=== PATIENT | female | born 1945 | race Caucasian/White ===

== ENCOUNTER 2020-11-07 06:53 | Outpatient (REF) | payer MEDICARE, SELFPAY ==
[2020-11-07 07:43] LABS: Hematocrit 40.8 % (37-47); Hemoglobin 13.4 g/dl (12.0-16.0); Mean Corpuscular HGB Conc 32.8 g/dl (31.0-35.0); Mean Corpuscular Hemoglobin 26.8 pg (27.0-33.0); Mean Corpuscular Volume 81.6 fL (80-98); NRBC Pct Auto 0.2 /100WBC (0.0-0.2); Platelet Count 352 X10*3/uL (160-400); Red Cell Distribution Width 15.6 % (11.0-16.0); White Blood Count 11.4 X10*3/uL (4.8-10.8)
[2020-11-07 07:52] LABS: Alanine Aminotransferase 38 U/L (0-31); Albumin Level 3.2 g/dL (3.5-5.0); Alkaline Phosphatase 88 U/L (39-117); Anion Gap 15 (12-20); Aspartate Amino Transferase 27 U/L (5-31); Bilirubin Total 0.2 mg/dL (0.0-1.0); Blood Urea Nitrogen 28 mg/dL (9-16); Calcium 8.4 mg/dL (8.4-10.2); Carbon Dioxide 32 mmol/L (22-29); Chloride 99 mmol/L (96-108); Estimated Glomerular Filt Rate 40; Glucose Random 241 mg/dL (60-115); Potassium 4.4 mmol/l (3.3-5.1); Sodium 142 mmol/L (135-145); Total Protein 5.6 g/dL (6.5-8.0)
[2020-11-07 08:34] LABS: Band Neutrophils Percent 2 % (3-5); Lymphocytes Absolute Manual 1.5 X10*3/uL (0.6-4.8); Lymphocytes Percent Manual 13 % (20-40); Monocytes Percent Manual 9 % (2-11); Neutrophils Absolute Manual 8.9 X10*3/uL (2.2-7.9); Neutrophils Percent Manual 76 % (45-73)
[2020-11-07 08:37] LABS: Acanthocytes 1+; RBC Morphology NOTED
[2020-11-07 08:38] LABS: Large Platelet PRESENT; Platelet Estimate NORMAL (NORMAL)
[2020-11-07 08:50] LABS: Platelet Morphology Comment NOTED
== END 2020-11-07 06:54 | disposition home or self-care (01) ==
LOC: HO.MMNH1L 06:53
PROVIDERS: Visit Provider Family Medicine
DX: Z20.822 Contact with and (suspected) exposure to COVID-19 (principal)
CPT/HCPCS: 36415; 80053; 85007; 85027

== ENCOUNTER 2020-11-09 15:54 | Outpatient (REF) | payer MEDICARE, SELFPAY ==
[2020-11-09 16:11] LABS: Glucose Urine UA NEG (NEG); Leukocyte Esterase Urine 1+ (NEG); Nitrite Urine NEG (NEG); Urine Blood NEG (NEG); Urine Ketones NEG (NEG); Urine Protein NEG (NEG-TRACE)
[2020-11-09 16:16] LABS: Appearance Urine HAZY; Color Urine YELLOW
[2020-11-09 16:28] LABS: Bacteria Urine 2+ /LPF; Renal Epithelial Cells Urine 1+ /LPF; Squamous Epithelial Cell Urine 1+ /LPF; WBC Urine 50-75 /HPF (0-4)
== END 2020-11-09 15:55 | disposition home or self-care (01) ==
LOC: HO.LNP 15:54
PROVIDERS: Visit Provider Family Medicine
DX: U07.1 COVID-19 (principal); I10 Essential (primary) hypertension
CPT/HCPCS: 81001; 87086; 87088; 87186

== ENCOUNTER 2020-11-14 | Outpatient (REF) | payer MEDICARE, SELFPAY ==
[2020-11-14 07:40] LABS: Hematocrit 36.9 % (37-47); Mean Corpuscular HGB Conc 32.5 g/dl (31.0-35.0); Mean Corpuscular Hemoglobin 27.5 pg (27.0-33.0); Mean Corpuscular Volume 84.4 fL (80-98); Mean Platelet Volume 10.9 fL (9.4-12.3); Platelet Count 228 X10*3/uL (160-400); Red Blood Count 4.37 X10*6/uL (4.20-5.50); Red Cell Distribution Width 16.2 % (11.0-16.0); White Blood Count 11.1 X10*3/uL (4.8-10.8)
[2020-11-14 08:06] LABS: Anion Gap 12 (12-20); Blood Urea Nitrogen 14 mg/dL (9-16); Calcium 8.4 mg/dL (8.4-10.2); Carbon Dioxide 31 mmol/L (22-29); Chloride 105 mmol/L (96-108); Estimated Glomerular Filt Rate 50; Glucose Random 156 mg/dL (60-115); Potassium 4.4 mmol/l (3.3-5.1); Sodium 144 mmol/L (135-145)
== END 2020-11-14 00:01 | disposition home or self-care (01) ==
LOC: HO.MMNH1L
PROVIDERS: Visit Provider Family Medicine
DX: U07.1 COVID-19 (principal)
CPT/HCPCS: 36415; 80048; 85027

== ENCOUNTER 2020-11-21 13:06 | Outpatient (REF) | payer MEDICARE, SELFPAY ==
[2020-11-21 07:55] LABS: Mean Corpuscular HGB Conc 32.4 g/dl (31.0-35.0); Mean Corpuscular Hemoglobin 27.3 pg (27.0-33.0); Mean Corpuscular Volume 84.1 fL (80-98); Mean Platelet Volume 11.2 fL (9.4-12.3); Platelet Count 150 X10*3/uL (160-400); Red Cell Distribution Width 16.1 % (11.0-16.0); White Blood Count 6.5 X10*3/uL (4.8-10.8)
[2020-11-21 08:13] LABS: Anion Gap 12 (12-20); Blood Urea Nitrogen 14 mg/dL (9-16); Calcium 7.9 mg/dL (8.4-10.2); Carbon Dioxide 31 mmol/L (22-29); Chloride 103 mmol/L (96-108); Estimated Glomerular Filt Rate 49; Glucose Random 172 mg/dL (60-115); Potassium 3.8 mmol/L (3.3-5.1); Sodium 142 mmol/L (135-145)
== END 2020-11-21 13:07 | disposition home or self-care (01) ==
LOC: HO.MMNH1L 13:06
PROVIDERS: Visit Provider Family Medicine
DX: U07.1 COVID-19 (principal)
CPT/HCPCS: 36415; 80048; 85027

== ENCOUNTER 2021-01-02 13:13 | Outpatient (REF) | payer MEDICARE, SELFPAY ==
--- NOTE | ~2021-01-02 | XR_ITS ---
EXAMINATION: XR SHOULDER, RIGHT CLINICAL INFORMATION: Right shoulder pain. COMPARISON: Right shoulder 12/25/2018. TECHNIQUE: AP external rotation, Grashey, scapular Y, and axillary views of the right shoulder. FINDINGS: There is moderate loss of right AC joint space and perirectal spurring. The glenohumeral joint space is reduced as well. No visible acute fracture or dislocation seen. The soft tissues are normal. 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 No visible acute fracture or dislocation seen. Similar findings were seen on the previous study 12/25/2018.
== END 2021-01-02 13:14 | disposition home or self-care (01) ==
LOC: HO.XRAY 13:13
PROVIDERS: PCP Internal Medicine; Visit Provider Emergency Medicine
DX: M25.511 Pain in right shoulder (principal)
CPT/HCPCS: 73030

== ENCOUNTER 2022-08-29 10:59 | Outpatient (REF) | payer MEDICARE, SELFPAY ==
--- NOTE | ~2022-08-29 | MM_ITS ---
EXAMINATION: BONE DENSITOMETRY CLINICAL INDICATION: Menopause. COMPARISON: Previous BD dated 11/21/2010 and baseline BD dated 10/29/2008. TECHNIQUE: Using a [employer] DXA System (software version: 13.1) manufactured by [employer], dual-energy x-ray absorptiometry was performed of the lumbar spine and left hip. The images are of good technical quality. Summary results are attached. FINDINGS: AP SPINE L1-L4: Current: BMD 1.485 g/cm2, Z-score 3.7, T-score 2.5, normal, 7.6% increase from previous, 12.0% increase from baseline (<5% change is not significant). Prior: BMD 1.380 g/cm2. Baseline: BMD 1.326 g/cm2. LEFT FEMUR, NECK: Current: BMD 0.901 g/cm2, Z-score 0.6, T-score -1.0, normal. Prior: BMD 0.968 g/cm2. Baseline: BMD 0.975 g/cm2. LEFT FEMUR, TOTAL: Current: BMD 1.039 g/cm2, Z-score 1.6, T-score 0.2, normal, 1.0% decrease from previous, 3.3% decrease from baseline (<5% change is not significant). Prior: BMD 1.049 g/cm2. Baseline: BMD 1.074 g/cm2. IDENTIFIED RISK FACTORS: Menopause, hysterectomy, right oophorectomy. HISTORY OF FRACTURE: Calcium supplements or multivitamin, vitamin D. MEDICATIONS: None listed. MM/XR DEXA axial skeleton IMPRESSION: 1. DIAGNOSIS: Normal bone density based on the lowest T-score value of -1.0 in the femoral neck applying World Health Organization criteria. 2. 10-YEAR FRACTURE RISK PREDICTION, FRAX: According to the guidelines, FRAX calculation should only be performed on patients in the osteopenia bone density category. Therefore, FRAX was not performed on this patient. 3. Treatment Recommendations: NOF guidelines recommend consideration for treatment in postmenopausal women and men age 50 and older presenting with the following: -A hip or vertebral (clinical or morphometric) fracture. -T-score less than or equal to -2.5 at the femoral neck or spine after appropriate evaluation to exclude secondary causes. -Low bone mass at the hip or spine and a 10-year fracture probability by FRAX of greater than or equal to 3% for hip fracture or greater than or equal to 20% for major osteoporotic fracture based on the [place] adapted WHO algorithm. 4. Other Recommendations: All treatment decisions require clinical judgment and consideration of individual patient factors, including patient preferences, comorbidities, previous drug use, risk factors not captured in the FRAX model (e.g. frailty, falls, vitamin D deficiency, increased bone turnover, interval significant decline in bone density) and possible under or overestimation of fracture risk by FRAX. FUTURE SCAN RECOMMENDATION: People with diagnosed cases of osteoporosis or at high risk for fracture should have regular bone mineral density tests. For patients eligible for Medicare, routine testing is allowed once every 2 years. The testing frequency can be increased to one year for patients who have rapidly progressing disease, those who are receiving or discontinuing medical therapy to restore bone mass, or have additional risk factors.
== END 2022-08-29 11:00 | disposition home or self-care (01) ==
LOC: HO.MAMMO 10:59
PROVIDERS: Visit Provider Internal Medicine
DX: Z13.820 Encounter for screening for osteoporosis (principal); Z78.0 Asymptomatic menopausal state
CPT/HCPCS: 77080

== ENCOUNTER 2023-01-04 13:35 | Outpatient (REF) | payer OTHER, SELFPAY ==
--- NOTE | ~2023-01-04 | XR_ITS ---
EXAMINATION: XR CHEST CLINICAL INFORMATION: Acute exacerbation of shortness of breath. COMPARISON: Most recent chest radiograph dated 10/26/2017. TECHNIQUE: 2 views of the chest were obtained. FINDINGS: The lungs are clear. The cardiomediastinal silhouette is normal in size. There is no pleural effusion or pneumothorax. No acute osseous abnormality. XR/XR chest 2V IMPRESSION: No acute cardiopulmonary findings.
== END 2023-01-04 13:36 | disposition home or self-care (01) ==
LOC: HO.XRAY 13:35
PROVIDERS: PCP Internal Medicine; Visit Provider Internal Medicine
DX: J44.1 Chronic obstructive pulmonary disease with (acute) exacerbation (principal)
CPT/HCPCS: 71046

== ENCOUNTER 2023-05-20 11:28 | Outpatient (REF) | payer OTHER, SELFPAY ==
[2023-05-20 14:02] LABS: Creatinine Urine 287.67 mg/dL; Microalbum/Creatinine Ratio Ur 94.2 ug/mg cr
[2023-05-20 14:07] LABS: Cholesterol 206 mg/dL; HDL Cholesterol 49 mg/dL; LDL Cholesterol Calculated 99 mg/dl; Triglycerides 290 mg/dL
[2023-05-20 14:32] LABS: Alanine Aminotransferase 15 U/L (0-31); Albumin Level 3.8 g/dL (3.5-5.0); Alkaline Phosphatase 118 U/L (39-117); Anion Gap 18 (12-20); Aspartate Amino Transferase 17 U/L (5-31); Bilirubin Total 0.5 mg/dL (0.0-1.0); Blood Urea Nitrogen 8 mg/dL (9-16); Calcium 9.9 mg/dL (8.4-10.2); Carbon Dioxide 26 mmol/L (22-29); Chloride 103 mmol/L (96-108); Estimated Glomerular Filt Rate 44; Glucose Random 120 mg/dL (60-115); Potassium 3.8 mmol/L (3.3-5.1); Sodium 143 mmol/L (135-145); Total Protein 7.2 g/dL (6.5-8.0)
[2023-05-20 15:52] LABS: Reflex LDLD? No
== END 2023-05-20 11:29 | disposition home or self-care (01) ==
LOC: HO.HHCL 11:28
PROVIDERS: Visit Provider Internal Medicine
DX: E11.9 Type 2 diabetes mellitus without complications (principal)
CPT/HCPCS: 36415; 80053; 80061; 82043

== ENCOUNTER 2023-08-28 11:40 | Outpatient (AMB) | payer OTHER, SELFPAY ==
[2023-08-28 11:47] VITALS: BP 130/60; PULSE 73; BMI 33.4
--- NOTE | 2023-08-28 11:47 | HO.NEPHOV ---
HPI HPI Comments History of Present Illness Details I had the pleasure seeing Ms Busby in follow-up of her chronic kidney disease and hypertension. She has been having a lot of anxiety lately. She denies any nausea, vomiting, diarrhea, dizziness, swelling. She has no edema. she has not had any new medication changes. Her blood pressure and blood sugars are well controlled. She did not have any other new complaints during this office visit. [facility] Medical History (Updated 08/28/23 @ 13:39 by Raul Jason MD) Hypertension Surgical History History of neck surgery Social History (Updated 08/28/23 @ 11:52 by Dolores Romero MA) Alcohol intake: never Patient Tobacco Use Status: Never used Tobacco Vital Signs 08/28/23 11:47 Height 5 ft 3 in Weight 188 lb 8 oz BMI 33.4 BP 130/60 Blood Pressure Location Lt brachial Position Sitting Pulse 73 Pulse Source Pulse Oximeter Physical Exam Vital Signs: Last Vital Signs Pulse 73 08/28/23 11:47 BP 130/60 08/28/23 11:47 BMI result Body Mass Index 33.4 Const General: comfortable and no acute distress Orientation/consciousness: patient oriented x3 HEENT Head: Yes normocephalic Mouth: Normal oral and palatal mucosa present Eyes EOM: EOMs intact bilaterally Neck Neck: Yes supple Resp Auscultation: clear to auscultation bilaterally Cardio Jugular venous distension: no JVD Rate: regular rate Heart sounds: Murmur heart sound present GI Palpation (GI): Soft to palpation Auscultation: normal bowel sounds General: Yes no CVA tenderness Back/Spine/Pelvis Back: no CVA tenderness Skin General skin exam: no rashes or lesions noted Neuro General: patient oriented x3 and moves all extremities Extrem General: Yes no pedal edema Assessment & Plan Assessment & Plan (1) CKD (chronic kidney disease) stage 3, GFR 30-59 ml/min: Code(s): N18.30 - Chronic kidney disease, stage 3 unspecified Qualifiers: Chronic kidney disease stage 3 subtype: stage 3a (GFR 45-59) Qualified Code(s): N18.31 - Chronic kidney disease, stage 3a (2) Hypertension: Code(s): I10 - Essential (primary) hypertension Qualifiers: Hypertension type: primary hypertension Qualified Code(s): I10 - Essential (primary) hypertension Plan 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 Her serum creatinine is currently stable. Blood pressure is at goal on current medication regimen. She avoids nonsteroidal anti-inflammatory medications and try to remain well hydrated. She should lose weight and should be on a low-sodium diet. I have ordered blood work including renal functions along with the urine studies. She did not ask for any prescription refills today. Follow-up appointment given. Logistics Assistant services were used for the entire encounter. All questions answered . Time spent retrieving data, patient encounter and recommendation 22 minutes. Orders: Orders Blood Urea Nitrogen Today I10 - Essential (primary) hypertension, N18.30 - Chronic kidney disease, stage 3 unspecified Creatinine Today I10 - Essential (primary) hypertension, N18.30 - Chronic kidney disease, stage 3 unspecified Calcium Today I10 - Essential (primary) hypertension, N18.30 - Chronic kidney disease, stage 3 unspecified Protein Creatinine Ratio, Ur Today I10 - Essential (primary) hypertension, N18.30 - Chronic kidney disease, stage 3 unspecified Electrolytes Today I10 - Essential (primary) hypertension, N18.30 - Chronic kidney disease, stage 3 unspecified Immunofixation Pnl, Serum Today I10 - Essential (primary) hypertension, N18.30 - Chronic kidney disease, stage 3 unspecified Coding Level of Care Code Est Pt Level 3 (35583) Diagnoses Stage 3a chronic kidney disease N18.31 Chronic kidney disease stage 3 subtype: stage 3a (GFR 45-59) Primary hypertension I10 Hypertension type: primary hypertension
== END 2023-08-28 12:08 | disposition home or self-care (01) ==
PROVIDERS: PCP Internal Medicine; Visit Provider Internal Medicine Nephrology
DX: N18.31 Chronic kidney disease, stage 3a (principal); I12.9 Hypertensive chronic kidney disease with stage 1 through stage 4 chronic kidney disease, or unspecified chronic kidney disease
CPT/HCPCS: 99213

== ENCOUNTER → 2023-08-28 11:40 | Outpatient (BNVA) | payer OTHER, SELFPAY | PROVIDERS: PCP Internal Medicine; Visit Provider Internal Medicine Nephrology | DX: I12.9 Hypertensive chronic kidney disease with stage 1 through stage 4 chronic kidney disease, or unspecified chronic kidney disease (principal); N18.31 Chronic kidney disease, stage 3a | CPT/HCPCS: 99212 ==

== ENCOUNTER 2023-11-19 09:50 | Outpatient (REF) | payer OTHER, SELFPAY ==
[2023-11-19 12:48] LABS: Anion Gap 11 (12-20); Blood Urea Nitrogen 11 mg/dL (9-16); Calcium 9.6 mg/dL (8.4-10.2); Carbon Dioxide 30 mmol/L (22-29); Chloride 103 mmol/L (96-108); Estimated Glomerular Filt Rate 43; Potassium 3.6 mmol/L (3.3-5.1); Sodium 140 mmol/L (135-145)
[2023-11-22 17:33] LABS: IgA 217 mg/dL (70-320); IgG 784 mg/dL (600-1540); IgM 95 mg/dL (50-300)
== END 2023-11-19 09:51 | disposition home or self-care (01) ==
LOC: HO.HKASLDS 09:50
PROVIDERS: Visit Provider Internal Medicine Nephrology
DX: I12.9 Hypertensive chronic kidney disease with stage 1 through stage 4 chronic kidney disease, or unspecified chronic kidney disease (principal); N18.30 Chronic kidney disease, stage 3 unspecified
CPT/HCPCS: 36415; 80051; 82310; 82565; 82784; 84520; 86334

== ENCOUNTER 2023-11-22 11:41 | Outpatient (REF) | payer OTHER, SELFPAY ==
[2023-11-22 15:19] LABS: Creatinine Urine 100.04 mg/dL; Protein/Creatinine Ratio, Ur 0.12 (<0.2); Total Protein Urine Random 12 mg/dL (<12)
== END 2023-11-22 11:42 | disposition home or self-care (01) ==
LOC: HO.HMGCLDS 11:41
PROVIDERS: PCP Internal Medicine; Visit Provider Internal Medicine Nephrology
DX: I12.9 Hypertensive chronic kidney disease with stage 1 through stage 4 chronic kidney disease, or unspecified chronic kidney disease (principal); N18.30 Chronic kidney disease, stage 3 unspecified
CPT/HCPCS: 82570; 84156

== ENCOUNTER 2023-11-26 11:05 | Outpatient (AMB) | payer OTHER, SELFPAY ==
[2023-11-26 11:07] VITALS: BP 140/72; PULSE 73; O2SAT 95; BMI 33.9
--- NOTE | 2023-11-26 11:07 | MHC.OFFVIS ---
Intake Vital Signs 11/26/23 11:07 Height 5 ft 3 in Weight 191 lb 4 oz BMI 33.9 BP 140/72 H Blood Pressure Location Rt brachial Position Sitting Pulse 73 Pulse Source Pulse Oximeter Pulse Oximetry (%) 95 Oxygen Delivery Method Room Air Intake Visit Reasons: Follow-up/ LVM Charge Histotechnologist Required: Yes Charge Histotechnologist Language: Robotics Application Engineer Name: Dale([id number]) Allergies metronidazole [From FLAGYL] Allergy (Severe, Verified 11/26/23 11:10) NEUROPSYCH EFFECTS morphine [MORPHINE] Allergy (Unknown, Verified 11/26/23 11:10) AGITATION lisinopril [From Zestril] Adverse Reaction (Mild, Verified 11/26/23 11:10) DIZZY HPI HPI Comments History of Present Illness Details I had the pleasure seeing Ms Busby in follow-up of her chronic kidney disease and hypertension. She had been having a lot of anxiety lately, which is currently help by medication changes. She has had a lot of arthritic issues and had been receiving intra-articular injections. She does not take any nonsteroidal anti-inflammatories. She denies any nausea, vomiting, diarrhea, dizziness, swelling. She has no edema. she has not had any other new medication changes. Her blood pressure and blood sugars are well controlled. She did not have any other new complaints during this office visit [facility] Medical History Hypertension Surgical History History of neck surgery Social History Alcohol intake: never Patient Tobacco Use Status: Never used Tobacco Physical Exam Vital Signs: Last Vital Signs Pulse 73 11/26/23 11:07 BP 140/72 H 11/26/23 11:07 Pulse Ox 95 11/26/23 11:07 Oxygen Delivery Method Room Air 11/26/23 11:07 BMI result Body Mass Index 33.9 Const General: comfortable and no acute distress Orientation/consciousness: patient oriented x3 HEENT Head: Yes normocephalic Mouth: Normal oral and palatal mucosa present Eyes EOM: EOMs intact bilaterally Neck Neck: Yes supple Resp Auscultation: clear to auscultation bilaterally Cardio Jugular venous distension: no JVD Rate: regular rate GI Palpation (GI): Soft to palpation Auscultation: normal bowel sounds General: Yes no CVA tenderness Back/Spine/Pelvis Back: no CVA tenderness Skin General skin exam: no rashes or lesions noted Neuro General: patient oriented x3 and moves all extremities Extrem General: Yes no pedal edema Assessment & Plan Assessment & Plan (1) CKD (chronic kidney disease) stage 3, GFR 30-59 ml/min: Code(s): N18.30 - Chronic kidney disease, stage 3 unspecified Qualifiers: Chronic kidney disease stage 3 subtype: stage 3a (GFR 45-59) Qualified Code(s): N18.31 - Chronic kidney disease, stage 3a (2) Hypertension: Code(s): I10 - Essential (primary) hypertension Qualifiers: Hypertension type: primary hypertension Qualified Code(s): I10 - Essential (primary) hypertension Plan Mrala has 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 Her serum creatinine is currently stable. Her blood pressure is at goal on current medication regimen. She avoids nonsteroidal anti-inflammatory medications and try to remain well hydrated. She should lose weight and should be on a low-sodium diet. I have ordered follow up blood work including renal functions along with the urine studies. She did not ask for any prescription refills today. Follow-up appointment given. Charge Histotechnologist services were used for the entire encounter. All questions answered Orders: Orders Parathyroid Hormone Intact Today I10 - Essential (primary) hypertension, N18.30 - Chronic kidney disease, stage 3 unspecified Vitamin D 25-OH Total Today I10 - Essential (primary) hypertension, N18.30 - Chronic kidney disease, stage 3 unspecified Blood Urea Nitrogen Today I10 - Essential (primary) hypertension, N18.30 - Chronic kidney disease, stage 3 unspecified Protein Creatinine Ratio, Ur Today I10 - Essential (primary) hypertension, N18.30 - Chronic kidney disease, stage 3 unspecified Phosphorus Today I10 - Essential (primary) hypertension, N18.30 - Chronic kidney disease, stage 3 unspecified Calcium Today I10 - Essential (primary) hypertension, N18.30 - Chronic kidney disease, stage 3 unspecified Electrolytes Today I10 - Essential (primary) hypertension, N18.30 - Chronic kidney disease, stage 3 unspecified Creatinine Today I10 - Essential (primary) hypertension, N18.30 - Chronic kidney disease, stage 3 unspecified Coding Level of Care Code Est Pt Level 3 (21097) Diagnoses Stage 3a chronic kidney disease N18.31 Chronic kidney disease stage 3 subtype: stage 3a (GFR 45-59) Primary hypertension I10 Hypertension type: primary hypertension
== END 2023-11-26 11:24 | disposition home or self-care (01) ==
PROVIDERS: PCP Internal Medicine; Visit Provider Internal Medicine Nephrology
DX: N18.31 Chronic kidney disease, stage 3a (principal); I10 Essential (primary) hypertension
CPT/HCPCS: 99213

== ENCOUNTER → 2023-11-26 11:05 | Outpatient (BNVA) | payer OTHER, SELFPAY | PROVIDERS: PCP Internal Medicine; Visit Provider Internal Medicine Nephrology | DX: I12.9 Hypertensive chronic kidney disease with stage 1 through stage 4 chronic kidney disease, or unspecified chronic kidney disease (principal); N18.31 Chronic kidney disease, stage 3a | CPT/HCPCS: 99212 ==

== ENCOUNTER 2023-12-28 10:23 | Emergency (ER) | payer OTHER, SELFPAY ==
--- NOTE | ~2023-12-28 | CT_ITS ---
Examination: CT lumbar spine and CT pelvis with IV contrast. CLINICAL INDICATION: Left hip pain. Low back pain. Status post back injections x3 weeks. COMPARISON: Lumbar spine x-ray 12/28/2022. TECHNIQUE: 2 minutes thin axial and reformatted 2 mm thin sagittal coronal images of lumbar spine were obtained. Subsequently axial 5 mm thin and reformatted 2 mm thin images of pelvis were obtained. DLP 726. This CT examination was performed using dose optimization technique as appropriate, variously including the following: Automated exposure control Adjustment of MA and/or KV according to patient size(this includes techniques or standardized protocols for targeted exams where dose is matched to indication/reason for exam; extremities or head. Use of iterative reconstruction techniques. FINDINGS: Lumbar spine: On sagittal reconstructed images there is normal lumbar lordosis. There is grade 1 anterolisthesis L3 over L4. Rest of the alignment is normal There is loss of disc at virtually at every disc level with vacuum disc phenomena and ventral spondylosis. At T12/L1 disc level there is minimal posterior spondylosis. No disc bulge, herniation or spinal canal stenosis seen. The neural foramina are patent bilaterally. L1-L2, L2-L3 disc levels is minimal bulge but no spinal canal stenosis. There is bilateral mild facet joint hypertrophy. The neural foramina are patent bilaterally. At L3-L4 disc level there is grade 1 anterolisthesis resulting in moderate diffuse disc bulge with mild concentric canal narrowing. There is moderate bilateral facet joint hypertrophy. The neural foramina are mildly narrowed. At L4-L5 disc level there is posterior bulge/osteophyte complex with mild AP canal stenosis. The neural foramina are patent despite of mild to moderate facet arthropathy. At L5-S1 disc level there is degenerative disc changes with vacuum disc phenomena and ventral and posterior spondylosis. The spinal canal is capacious. The neural foramina a mildly nodular secondary to hypertrophic facet joint changes. There is no aggressive lytic or sclerotic process seen. Paravertebral soft tissues are normal. Pelvis: There is scattered stool and gas seen in colon without distention. The small bowel loops are normal caliber. No pelvic mass, adenopathy or free fluid seen. The bladder is mildly prominent but no radiopaque calculi bladder wall thickening seen. The uterus is surgically absent. Bone windows reveal normal SI joints. The hip joints are symmetrical and normal. No bony erosive changes, loose body, fracture or dislocation seen. There No lytic or sclerotic process seen. CT/CT lumbar spine w IV con IMPRESSION: Multilevel degenerative disc changes with vacuum disc phenomena. There is grade 1 anterolisthesis L3 over L4. Minimal bulge at L1-L2, L2-L3, similar disc bulge at L3-L4 disc level in combination of bulge/osteophyte complex at L4-L5 disc level. No acute process seen in the pelvis
--- NOTE | ~2023-12-28 | XR_ITS ---
EXAMINATION: XR CHEST CLINICAL INFORMATION: Cough COMPARISON: Chest radiograph from 01/04/2023 TECHNIQUE: 2 views of the chest were obtained. FINDINGS: No focal consolidation. No pneumothorax. Trachea is midline. Cardiac mediastinal silhouette is stable. Aorta demonstrates tortuosity with atherosclerotic calcific patient. No large pleural effusion. Lower cervical spinal hardware. Multilevel degenerative changes of the thoracolumbar spine. Soft tissues are unremarkable. XR/XR chest 2V IMPRESSION: No acute cardiopulmonary process.
[2023-12-28 10:45] VITALS: BP 148/60; BP 168/88; PULSE 77; PULSE 80; RESP 18; TEMP 37.1; O2SAT 100; O2SAT 95; BMI 33.9
[2023-12-28 10:48] VITALS: PULSE 76; O2SAT 94
[2023-12-28 11:58] LABS: MANUAL DIFF FLAG NO
[2023-12-28 12:01] LABS: Basophils Absolute Auto 0.1 X10*3/uL (0.0-0.2); Basophils Percent Auto 0.3 % (0-2); Hematocrit 40.9 % (37.0-47.0); Hemoglobin 13.5 g/dl (12.0-16.0); Imm Gran Abs Auto 0.08 X10*3/uL (0.00-0.03); Imm Gran Pct Auto 0.4 % (0.0-0.4); Lymphocytes Absolute Auto 1.9 X10*3/uL (1.2-4.9); Lymphocytes Percent Auto 9.4 % (20-40); Mean Corpuscular Hemoglobin 26.5 pg (27.0-33.0); Mean Corpuscular Volume 80.4 fL (80.0-98.0); Mean Platelet Volume 9.6 fL (9.4-12.3); Monocytes Absolute Auto 1.1 X10*3/uL (0.1-1.2); Monocytes Percent Auto 5.6 % (2-11); Neutrophils Absolute Auto 16.9 x10*3/uL (2.0-8.3); Neutrophils Percent Auto 84.3 % (45-73); Platelet Count 298 X10*3/uL (160-400); Red Blood Count 5.09 X10*6/uL (4.20-5.50); Red Cell Distribution Width 16.3 % (11.0-16.0)
[2023-12-28 12:34] LABS: Alanine Aminotransferase 12 U/L (0-31); Albumin Level 3.9 g/dL (3.5-5.0); Alkaline Phosphatase 128 U/L (39-117); Anion Gap 15 (12-20); Aspartate Amino Transferase 14 U/L (5-31); Bilirubin Total 0.6 mg/dL (0.0-1.0); Calcium 9.7 mg/dL (8.4-10.2); Carbon Dioxide 29 mmol/L (22-29); Chloride 104 mmol/L (96-108); Creatinine Clr Calc Pharmacy 35.3; Estimated Glomerular Filt Rate 37; Glucose Random 161 mg/dL (60-115); Potassium 3.7 mmol/L (3.3-5.1); Sodium 144 mmol/L (135-145); Total Protein 7.2 g/dL (6.5-8.0)
--- NOTE | 2023-12-28 12:43 | PC.NURSE ---
josé miguel Ayala [phone]
[2023-12-28 12:46] LABS: Blood Urea Nitrogen 14 mg/dL (9-16)
--- NOTE | 2023-12-28 12:50 | ED_ITS ---
HPI - General Adult General Chief complaint: Extremity Problem Stated complaint: LT LEG PAIN D/T PINCHED LUMBAR NERVE PER EMS Time Seen by Provider: 12/28/23 11:04 Source: patient, family and staff interpreter Mode of arrival: EMS History of Present Illness HPI narrative: 78-year-old female with history of back injection approximately 3 weeks ago and patient states that 4 days after this injection she began experiencing significant pain down her left lower extremity and has been having some difficulty with ambulation with her cane and states that today and has become much worse. She denies any associated fever, chills, shortness of breath, chest pain and states that she did follow-up with the practitioner afterwards and that she was told she will need to have another injection. Related Data Home Medications Medication Instructions Recorded Confirmed acetaminophen 650 mg mg PO 08/28/23 tablet,extended release amlodipine 10 mg tablet 10 mg PO DAILY 08/28/23 ammonium lactate 12 % topical cream 1 appl topical BID 08/28/23 aspirin 81 mg chewable tablet 1 tab PO DAILY 08/28/23 atorvastatin 40 mg tablet 40 mg PO DAILY 08/28/23 blood sugar diagnostic (FreeStyle #10 ea 08/28/23 Lite Strips) calcium carbonate 600 mg-vitamin 1 tab PO BID 08/28/23 D3 10 mcg (400 unit) tablet fluticasone 500 mcg-salmeterol 50 1 ea inhalation BID 08/28/23 mcg/dose blistr powdr for inhalation fluticasone propionate 50 spray intranasal 08/28/23 mcg/actuation nasal spray,suspension isosorbide mononitrate 30 mg 30 mg PO DAILY 08/28/23 tablet,extended release 24 hr isosorbide mononitrate 60 mg 60 mg PO DAILY 08/28/23 tablet,extended release 24 hr lancets 33 gauge (Unilet Lancet) #100 ea 08/28/23 meloxicam 15 mg tablet 15 mg PO DAILY 08/28/23 metoprolol succinate 100 mg 100 mg PO DAILY 08/28/23 tablet,extended release 24 hr montelukast 10 mg tablet 10 mg PO DAILY 08/28/23 multivitamin 1 tab PO DAILY 08/28/23 omeprazole 40 mg capsule,delayed 40 mg PO DAILY 08/28/23 release paroxetine HCl 40 mg tablet 40 mg PO DAILY 08/28/23 tiotropium bromide 1.25 2 puff inhalation DAILY 08/28/23 mcg/actuation mist for inhalation (Spiriva Respimat) trazodone 50 mg tablet 50 mg PO BEDTIME 08/28/23 triamcinolone acetonide 0.025 % appl topical 08/28/23 topical cream triamcinolone acetonide 0.1 % 1 appl topical BID-TID 08/28/23 topical cream Allergies Allergy/AdvReac Type Severity Reaction Status Date / Time metronidazole [From FLAGYL] Allergy Severe NEUROPSYCH Verified 11/26/23 11:10 EFFECTS morphine [MORPHINE] Allergy Unknown AGITATION Verified 11/26/23 11:10 lisinopril [From Zestril] AdvReac Mild DIZZY Verified 11/26/23 11:10 Review of Systems 2 Review of Systems: Pertinent positives and negatives as stated in in HPI PMFSH Past Medical History Source: nursing notes reviewed Medical History Hypertension Surgical History History of neck surgery Social History Social History Alcohol intake: never Patient Tobacco Use Status: Never used Tobacco Smoked in Last 30 Days: No Use of substances other than those prescribed or required for medical reasons: No Advance Directives: No Advance Directives Information Provided: Yes Physical Exam ED Vital Signs: Vital Signs - 24 hr 12/28/23 10:45 12/28/23 10:48 12/28/23 13:01 Temperature 98.8 F Pulse Rate 77 76 87 Respiratory Rate 18 20 Blood Pressure 148/60 H 143/61 H Pulse Oximetry 95 94 94 Oxygen Delivery Method Room Air Room Air Room Air Oxygen Flow Rate 12/28/23 14:54 12/28/23 15:39 Temperature 99.5 F Pulse Rate 84 77 Respiratory Rate 16 16 Blood Pressure 124/59 L 127/52 L Pulse Oximetry 96 99 Oxygen Delivery Method Nasal Cannula Nasal Cannula Oxygen Flow Rate 2 2 BMI result Body Mass Index 33.9 VITAL SIGNS: Reviewed. GENERAL: Well developed, well nourished, in no acute distress. HEAD: Normocephalic/atraumatic EYES: PERRLA, EOMI EARS: Ext canals without abnormality NOSE: Nares patent bilateral OROPHARYNX: no oral lesions noted, posterior pharynx clear NECK: Supple, no adenopathy LUNGS: Normal breath sounds. No adventitious sounds or accessory muscle use. SpO2<94> CARDIOVASCULAR: Regular rate and rhythm without noted murmurs ABDOMEN: Soft, non-tender, non-distended with bowel sounds. PELVIS: Stable, tenderness to palpation along lateral leg and greater trochanter area BACK: No midline vertebral tenderness to palpation or step-offs noted no erythema or induration noted MUSCULOSKELETAL: No tenderness, deformities, or effusions noted on gross inspection. EXTREMITIES: No cyanosis, clubbing or edema. SKIN: Inspection of the skin reveals no rashes NEUROLOGIC: Alert and oriented x 4. Strength and sensation to light touch were grossly intact x 4. Medications Administered Generic Name Dose Route Start Last Admin Trade Name Freq PRN Reason Stop Dose Admin Sodium Chloride 500 mls @ 999 mls/hr 12/28/23 15:45 12/28/23 15:50 Ns IV 12/28/23 16:15 999 mls/hr .Q31M SABINE Administration Discontinued Medications Generic Name Dose Route Start Last Admin Trade Name Freq PRN Reason Stop Dose Admin Acetaminophen 975 mg 12/28/23 15:48 12/28/23 15:54 Acetaminophen 325 Mg Tablet PO 12/28/23 15:49 975 mg ONCE ONE Administration Sodium Chloride 1,000 mls @ 999 mls/hr 12/28/23 14:30 12/28/23 15:53 Ns IV 12/28/23 15:30 Infused .Q1H1M SABINE Infusion Iohexol 85 ml 12/28/23 14:17 12/28/23 14:17 Iohexol 350 Mg/Ml 100 Ml Infus..Btl IV 12/28/23 14:18 85 ml ONCE ONE Administration Ketorolac Tromethamine 15 mg 12/28/23 12:38 12/28/23 12:59 Ketorolac Tromethamine 30 Mg/Ml Vial IVPUSH 12/28/23 12:39 15 mg ONCE ONE Administration Lidocaine 1 patch 12/28/23 15:48 12/28/23 15:55 Lidocaine 4 % Patch Adh..Patch TRANSDERMA 12/28/23 15:49 1 patch ONCE ONE Administration Protocol Medical Decision Making Medical Decision Making MDM Narrative: 78-year-old female with history and clinical presentation, DDX: Possible infection related to injection, possible leukocytosis secondary to steroid use, no clinical suspicion for spinal abscess per se although patient has had recent back injection there does not appear to be any midline vertebral tenderness. There is no bowel or bladder dysfunction. Patient had IV placed and was provided with 15 mg of Toradol. I reviewed all investigations and hematologic indices demonstrate a leukocytosis but patient is afebrile and no obvious sources of any infection, there is no anemia or thrombocytopenia. Chemistry indices do not demonstrate an ROSS or electrolyte/liver enzyme derangements. CT scan demonstrates multi level degenerative changes without significant stenoses or canal narrowing, CT scan of the pelvis demonstrates scattered stool and gas but otherwise no bony abnormalities to suggest occult fractures or dislocations. Patient has no complaints of abdominal pain, on physical exam very difficult to identify specific location of patient's pain although it did appear to be consistent with a possible sciatica versus greater trochanter bursitis. Patient was also noted to be able to lift her leg although when explicitly asked she denies the ability. Patient's supplemented with Tylenol and lidocaine patch. I am awaiting urinalysis results, and overall feel that patient's presentation is consistent with chronic osteoarthritic pain and no concern for cauda equina/spinal abscess and suspect that the leukocytosis that is observed is secondary to the use of steroids and a component of reactivity. Signed out to Dr Duffy: - UA - 2V CXR Differential Diagnosis Differential Diagnoses: The differential diagnosis associated with the presentation includes Please see the discussion above Admission/Observation Consideration of admission/observation: Escalation of care including admission/observation considered Please see the discussion above Lab Data MDM Lab Attestation statement: I reviewed the patient's lab results. Please see the discussion above 12/28/23 11:51 12/28/23 11:51 Labs: Lab Results 12/28/23 12/28/23 12/28/23 Range/Units 11:51 14:14 15:41 WBC 20.0 H (4.8-10.8) X10*3/uL RBC 5.09 (4.20-5.50) X10*6/uL Hgb 13.5 (12.0-16.0) g/dl Hct 40.9 (37.0-47.0) % MCV 80.4 (80.0-98.0) fL MCH 26.5 L (27.0-33.0) pg MCHC 33.0 (31.0-35.0) g/dl RDW 16.3 H (11.0-16.0) % Plt Count 298 (160-400) X10*3/uL MPV 9.6 (9.4-12.3) fL Immature Gran % (Auto) 0.4 (0.0-0.4) % Neut % (Auto) 84.3 H (45-73) % Lymph % (Auto) 9.4 L (20-40) % [place] % (Auto) 5.6 (2-11) % Eos % (Auto) 0.0 (0-4) % Baso % (Auto) 0.3 (0-2) % Lymph # (Auto) 1.9 (1.2-4.9) X10*3/uL [place] # (Auto) 1.1 (0.1-1.2) X10*3/uL Eos # (Auto) 0.0 (0.0-0.4) X10*3/uL Baso # (Auto) 0.1 (0.0-0.2) X10*3/uL Abs Immat Gran (auto) 0.08 H (0.00-0.03) X10*3/uL Absolute Neuts (auto) 16.9 H (2.0-8.3) x10*3/uL Absolute Nucleated RBC 0.000 (0.0-0.012) X10*3/uL Nucleated RBC % (auto) 0.0 (0.0-0.2) /100WBC Sodium 144 (135-145) mmol/L Potassium 3.7 (3.3-5.1) mmol/L Chloride 104 (96-108) mmol/L Carbon Dioxide 29 (22-29) mmol/L Anion Gap 15 (12-20) BUN 14 (9-16) mg/dL Creatinine 1.37 (0.5-1.4) mg/dL Estim Creat Clear Calc 35.3 Estimated GFR 37 Random Glucose 161 H (60-115) mg/dL Lactic Acid 1.8 (0.5-2.0) mmol/L Calcium 9.7 (8.4-10.2) mg/dL Total Bilirubin 0.6 (0.0-1.0) mg/dL AST 14 (5-31) U/L ALT 12 (0-31) U/L Alkaline Phosphatase 128 H (39-117) U/L Total Protein 7.2 (6.5-8.0) g/dL Albumin 3.9 (3.5-5.0) g/dL Urine Color Yellow Urine Appearance Clear Urine pH 5.5 (5.0-9.0) Ur Specific [place] >= 1.030 H (1.005-1.025) Urine Protein Trace (Neg-Trace) mg/dL Urine Glucose (UA) Negative (Negative) mg/dL Urine Ketones Negative (Negative) mg/dL Urine Blood Negative (Negative) Urine Nitrite Negative (Negative) Ur Leukocyte Esterase Small (1+) H (Negative) Radiology Impression Discussion of test interpretation with radiology: I have reviewed the radiologist's reading. Radiologist Impression: Please see the discussion above External Record Review External record reviewed: Outpatient record and Prior outpatient labs Chronic Conditions Patient?s care impacted by: Hypertension and Other IBS Critical Care Time Critical Care Time Critical Care Time: Yes Total Critical Care Time: 30 Attestation: I personally attest to this time spent taking care of the patient. Discharge Plan Discharge Clinical Impression: Lateral pain of left hip Patient Disposition: Still a Patient Prescriptions: No Action isosorbide mononitrate 60 mg tablet extended release 24 hr 60 mg PO DAILY calcium carbonate-vitamin D3 600 mg-10 mcg (400 unit) tablet 1 tab PO BID Spiriva Respimat 1.25 mcg/actuation mist 2 puff inhalation DAILY (DME) lancets [Unilet Lancet] 33 gauge misc See Rx Instructions .ROUTE .MEDSUPPLY Qty: 100 Rx Instructions: As directed aspirin 81 mg tablet,chewable 1 tab PO DAILY fluticasone propion-salmeterol 500-50 mcg/dose blister with device 1 ea inhalation BID amlodipine 10 mg tablet 10 mg PO DAILY (DME) FreeStyle Lite Strips Strip See Rx Instructions .ROUTE BID Qty: 10 Rx Instructions: As directed trazodone 50 mg tablet 50 mg PO BEDTIME ammonium lactate 12 % cream 1 appl topical BID triamcinolone acetonide 0.1 % cream 1 appl topical BID-TID acetaminophen 650 mg tablet extended release PO montelukast 10 mg tablet 10 mg PO DAILY omeprazole 40 mg capsule,delayed release(DR/EC) 40 mg PO DAILY metoprolol succinate 100 mg tablet extended release 24 hr 100 mg PO DAILY atorvastatin 40 mg tablet 40 mg PO DAILY paroxetine HCl 40 mg tablet 40 mg PO DAILY isosorbide mononitrate 30 mg tablet extended release 24 hr 30 mg PO DAILY multivitamin Tablet 1 tab PO DAILY triamcinolone acetonide 0.025 % cream topical fluticasone propionate 50 mcg/actuation spray,suspension intranasal meloxicam 15 mg tablet 15 mg PO DAILY
[2023-12-28] MEDS: Ketorolac Tromethamine 30 MG/ML VIAL 15 MG IVPUSH (12:59)
--- NOTE | 2023-12-28 13:00 | PC.NURSE ---
IV established, medicated as charted. Pt is difficult IV stick and unable to obatin blood cultures x 3 attempts (by different staff)
[2023-12-28 13:01] VITALS: BP 143/61; PULSE 87; RESP 20; O2SAT 94
[2023-12-28] MEDS: iohexoL 350 MG/ML 100 ML INFUS..BTL 85 ML IV (14:17)
[2023-12-28 14:50] LABS: Lactic Acid 1.8 mmol/L (0.5-2.0)
[2023-12-28] MEDS: 0.9 % Sodium Chloride 1,000 ML 999 ML IV (14:52)
--- NOTE | 2023-12-28 14:53 | PC.NURSE ---
Pt placed on 2lpm via nc, sat 90-91 on room air. Pt asleep s/p Toradol given and appears restful. Awaiting results and dispo
[2023-12-28 14:54] VITALS: BP 124/59; PULSE 84; RESP 16; O2SAT 96
[2023-12-28 15:39] VITALS: BP 127/52; PULSE 77; RESP 16; TEMP 37.5; O2SAT 99
[2023-12-28] MEDS: 0.9 % Sodium Chloride 500 ML 999 ML IV (15:50)
[2023-12-28] MEDS: Acetaminophen 325 MG TABLET 975 MG PO (15:54)
[2023-12-28 15:55] LABS: Appearance Urine Clear; Color Urine Yellow; Glucose Urine UA Negative (Negative); Leukocyte Esterase Urine Small (1+) (Negative); Nitrite Urine Negative (Negative); PH 5.5 (5.0-9.0); Specific Gravity - Urine >= 1.030 (1.005-1.025); UMIC TRIGGER UACC YES; Urine Blood Negative (Negative); Urine Ketones Negative (Negative); Urine Protein Trace mg/dL (Neg-Trace)
[2023-12-28] MEDS: Lidocaine 4 % Patch ADH..PATCH 1 PATCH TRANSDERMA (15:55)
[2023-12-28 15:59] LABS: Bacteria Urine Trace (None Seen); Hyaline Casts Urine 0-2 /LPF (0-2); RBC Urine 0-2 /HPF (0-2); UACC Culture Trigger YES
[2023-12-28] MEDS: cefuroxime axetiL 250 MG TABLET PO (17:19)
--- NOTE | 2023-12-28 17:33 | PC.NURSE ---
family called to come case picker patient.
== END 2023-12-28 18:21 | disposition home or self-care (01) ==
PROVIDERS: Student in an Organized Health Care Education/Training Program; Emergency Provider Emergency Medicine Emergency Medical Services; PCP Internal Medicine
DX: M25.552 Pain in left hip (principal); M54.50 Low back pain, unspecified; R05.9 Cough, unspecified; D72.829 Elevated white blood cell count, unspecified; R82.90 Unspecified abnormal findings in urine
CPT/HCPCS: 36415; 71046; 72132; 72193; 80053; 81001; 83605; 85025; 87040; 87086; 99284; 99285; J1885; Q9967

== ENCOUNTER 2024-01-03 22:30 | Inpatient (IN) | payer OTHER, SELFPAY ==
--- NOTE | ~2024-01-03 | CT_ITS ---
EXAMINATION: CT HEAD WITHOUT CONTRAST CLINICAL INFORMATION: Altered mental status. COMPARISON: CT head 06/23/2012. TECHNIQUE: Contiguous axial imaging was performed from the skull base to vertex without intravenous administration of contrast. This CT examination was performed using dose optimization techniques as appropriate, variously including the following: *Automated exposure control *Adjustment of mA and/or kV according to patient size (this includes techniques or standardized protocols for targeted exams where dose is matched to indication/reason for exam; i.e. extremities or head) *Use of iterative reconstruction technique DLP: 683 mGy-cm FINDINGS: Age indeterminate small approximately 7 mm hypodensity anterior to the left thalamus (2:24). There is no evidence of acute intracranial hemorrhage or edematous territorial infarction. A few foci of hypoattenuation in the periventricular and deep white matter are consistent with mild microangiopathy. Cleaning-white matter differentiation is preserved. Proportional prominence of the ventricles and sulcal spaces. No evidence for obstructive hydrocephalus. No abnormal mass effect or midline shift. No extra-axial fluid collections. Hyperostosis frontalis interna. Subjective increased sclerosis of the bony calvarium, not significantly changed since 2011. No acute osseous or soft tissue abnormalities.. The mastoid air cells and paranasal sinuses are clear. CT/CT head/brain wo IV con IMPRESSION: 1. Age-indeterminate small hypodensity anterior to the left thalamus. If there is clinical concern for an acute cerebrovascular accident, further evaluation with an MRI of the brain is recommended. 2. No evidence of acute intracranial hemorrhage or edematous territorial infarction. 3. Mild chronic microangiopathy and generalized cerebral volume loss. 4. Subjective increased sclerosis of the bony calvarium, not significantly changed since 2011.
--- NOTE | ~2024-01-03 | XR_ITS ---
EXAMINATION: XR CHEST CLINICAL INFORMATION: Altered mental status COMPARISON: Chest x-ray December 28, 2023 TECHNIQUE: 2 views of the chest were obtained. FINDINGS: Lungs are clear. No pulmonary vascular congestion. There is no pleural effusion. The heart size is normal. The cardiac and mediastinal contours are normal. There are calcifications of the thoracic aorta. There are multilevel degenerative changes of dorsal spine. Orthopedic hardware lower cervical spine. XR/XR chest 2V IMPRESSION: Unremarkable examination.
--- NOTE | ~2024-01-03 | MR_ITS ---
EXAMINATION: MR BRAIN WITHOUT CONTRAST CLINICAL INFORMATION: Possible CVA COMPARISON: CT head 01/03/2024 TECHNIQUE: MRI of the brain was obtained using routine sequences without contrast. FINDINGS: Corresponding to previously queried hypodensity on a CT is an acute infarct in the ventromedial left thalamus. No significant mass effect or reperfusion hemorrhage. No extra-axial fluid collection. Mild global cerebral volume loss.No mass lesion, mass effect, or herniation pattern. Normal intracranial arterial and dural venous sinus flow voids. Normal appearance of the midline structures. Lens extractions. The paranasal sinuses are well aerated. Trace bilateral mastoid effusions. Normal marrow signal. 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
[2024-01-03 22:42] VITALS: BP 122/75; BP 142/75; PULSE 82; PULSE 86; RESP 15; TEMP 37.2; O2SAT 94; O2SAT 98; BMI 33.4
--- NOTE | 2024-01-03 23:09 | PC.NURSE ---
inclinometer tester at bedside. pt biba from home after being sent for increased AMS. pt has ICU MANAGER which stated pt began being confused this afternoon, pt was unable to answer questions. pt able to states name, where she is, and what day it is. pt is unable to state what hospital and what year it is. pt denies pain. pt denies cp, sob, n/v/d. 20G placed in left ac by kyler schmitt.
--- NOTE | 2024-01-03 23:22 | ECG_ITS ---
Test Reason : ALTERED MENTAL STATUS Blood Pressure : / mmHG Vent. Rate : 077 BPM Atrial Rate : 077 BPM P-R Int : 154 ms QRS Dur : 082 ms QT Int : 390 ms P-R-T Axes : 036 -21 028 degrees QTc Int : 441 ms Normal sinus rhythm Left ventricular hypertrophy with repolarization abnormality ( R in aVL ) Abnormal ECG When compared with ECG of 26-MAY-2019 15:35, Nonspecific T wave abnormality now evident in Anterolateral leads Referred By: Felicia Sheehan Electronically Signed By:PENNIE BIRD MD
--- NOTE | 2024-01-03 23:26 | ED.AMS ---
HPI - Altered Mental Status General Chief Complaint: Altered Mental Status Stated Complaint: confusion from meds, alert only to self Time Seen by Provider: 01/03/24 22:52 Source: patient, family, EMS and company controller Mode of arrival: EMS Limitations: language barrier and altered mental status History of Present Illness HPI narrative: 78-year-old female with a history of CKD, hypertension presents to the ER with concern for altered mental status. Per friend at the bedside since 15:00 this afternoon they noticed the patient was confused. Unknown last known normal as she lives alone and they noticed she was confused when they were talking to her on the phone. Patient has no underlying history of dementia. She denies any recent falls or injuries. She can tell me herself that she feels confused. Of note patient was started on Lyrica for back pain 50 mg at night time which started on December 23. She denies taking any other additional pain medications. She denies any substance use. 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 She denies taking any additional doses. She is on a antibiotic for UTI currently. She denies fevers, chills, headache, neck pain, neck stiffness, skin rash, chest pain or shortness of breath. She does report some lower back pain. Related Data Home Medications Medication Instructions Recorded Confirmed acetaminophen 650 mg mg PO 08/28/23 tablet,extended release amlodipine 10 mg tablet 10 mg PO DAILY 08/28/23 ammonium lactate 12 % topical cream 1 appl topical BID 08/28/23 aspirin 81 mg chewable tablet 1 tab PO DAILY 08/28/23 atorvastatin 40 mg tablet 40 mg PO DAILY 08/28/23 blood sugar diagnostic (FreeStyle #10 ea 08/28/23 Lite Strips) calcium carbonate 600 mg-vitamin 1 tab PO BID 08/28/23 D3 10 mcg (400 unit) tablet fluticasone 500 mcg-salmeterol 50 1 ea inhalation BID 08/28/23 mcg/dose blistr powdr for inhalation fluticasone propionate 50 spray intranasal 08/28/23 mcg/actuation nasal spray,suspension isosorbide mononitrate 30 mg 30 mg PO DAILY 08/28/23 tablet,extended release 24 hr isosorbide mononitrate 60 mg 60 mg PO DAILY 08/28/23 tablet,extended release 24 hr lancets 33 gauge (Unilet Lancet) #100 ea 08/28/23 meloxicam 15 mg tablet 15 mg PO DAILY 08/28/23 metoprolol succinate 100 mg 100 mg PO DAILY 08/28/23 tablet,extended release 24 hr montelukast 10 mg tablet 10 mg PO DAILY 08/28/23 multivitamin 1 tab PO DAILY 08/28/23 omeprazole 40 mg capsule,delayed 40 mg PO DAILY 08/28/23 release paroxetine HCl 40 mg tablet 40 mg PO DAILY 08/28/23 tiotropium bromide 1.25 2 puff inhalation DAILY 08/28/23 mcg/actuation mist for inhalation (Spiriva Respimat) trazodone 50 mg tablet 50 mg PO BEDTIME 08/28/23 triamcinolone acetonide 0.025 % appl topical 08/28/23 topical cream triamcinolone acetonide 0.1 % 1 appl topical BID-TID 08/28/23 topical cream Previous Rx's Medication Instructions Recorded acetaminophen 500 mg tablet 1,000 mg (2 x 500 mg) PO Q6H PRN 12/28/23 (Tylenol Extra Strength) pain #20 tabs cefuroxime axetil 250 mg tablet 250 mg PO Q12H 5 days #10 tabs 12/28/23 ibuprofen 400 mg tablet 400 mg PO TID PRN fever or pain 12/28/23 #20 tabs Allergies Allergy/AdvReac Type Severity Reaction Status Date / Time metronidazole [From FLAGYL] Allergy Severe NEUROPSYCH Verified 01/03/24 22:54 EFFECTS morphine [MORPHINE] Allergy Unknown AGITATION Verified 01/03/24 22:54 lisinopril [From Zestril] AdvReac Mild DIZZY Verified 01/03/24 22:54 Review of Systems Review of Systems: Yes Unobtainable due to mental status Neurologic: Denies Abnormal speech present and Reports confusion Psychiatric: Psychiatric: Reports confusion [facility] Past Medical History Attestation statement: The following information was validated with the patient. Source: old records reviewed and nursing notes reviewed Medical History Hypertension Surgical History History of neck surgery Social History Social History Alcohol intake: never Patient Tobacco Use Status: Never used Tobacco Smoked in Last 30 Days: No Use of substances other than those prescribed or required for medical reasons: No Advance Directives: No Advance Directives Information Provided: No Physical Exam ED Vital Signs: Vital Signs - 24 hr 01/03/24 22:42 Temperature 98.9 F Pulse Rate 82 Respiratory Rate 15 Blood Pressure 142/75 H Pulse Oximetry 94 Oxygen Delivery Method Room Air BMI result Body Mass Index 33.4 Const General: cooperative, alert and confusion Orientation/consciousness: oriented to person and confusion Limitations: altered mental status HENMT Head: Yes normal to inspection Ears: hearing grossly normal bilaterally and TM's normal bilaterally General nose exam: Normal external nose present Face and sinus: Yes normal facial exam Mouth: Normal oral and palatal mucosa present Throat: Yes posterior oropharynx normal, Yes tonsils normal and Yes uvula midline Eyes General: appearance normal, both eyes and all related structures Pupils: Equal, round and reactive pupils present Neck Neck: Yes normal visual inspection, Yes full ROM, Yes no lymphadenopathy and Yes no meningeal signs Chest Chest palpation & inspection: normal inspection of the chest Resp Effort & Inspection: normal respiratory effort Auscultation: clear to auscultation bilaterally Cardio Rate: regular rate Rhythm: regular rhythm Peripheral pulses: Peripheral pulses 2+ throughout GI Inspection: Yes normal to inspection Palpation (GI): Soft to palpation and nontender Auscultation: normal bowel sounds Back/Spine/Pelvis Thoracic/Lumbar Spine: thoracic and lumbar spine normal to inspection Skin General skin exam: no rashes or lesions noted Neuro General: oriented to person, moves all extremities, no meningeal signs, no focal motor deficits, normal sensation to monofilament and confusion Cranial nerves: Yes CN's II-XII intact bilaterally, Yes Equal, round and reactive pupils present, Yes Bilaterally intact EOM present, Yes Nystagmus not present, Yes Normal facial strength present and Yes Midline tongue present Cognition (Neuro): normal cognition Speech: No Abnormal speech present Motor exam (neuro): 5/5 motor strength present throughout Sensory Exam: Normal double simultaneous stimulation for sensation Extrem General: Yes normal to inspection, Yes no pedal edema and Yes no calf tenderness NIH Stroke Scale Internal: Initial- Upon Arrival Level of Consciousness: Alert Level of Consciousness Questions: Answers one question correctly (Unsure of month) Level of Consciousness Commands: Performs both tasks correctly Best Gaze: Normal Visual: No visual loss Facial Palsy: Normal Motor Arm (Right): No drift Motor Arm (Left): No drift Motor Leg (Right): No drift Motor Leg (Left): No drift Limb Ataxia: Absent Sensory: Normal Best Language: No aphasia Dysarthia: Normal Extinction and Inattention: No abnormality Score: 1 Course Course Course Narrative: -Abnormal Ct head. In the setting of acute AMS cannot r/o acute CVA. Will give ASA. Will need admission for MRI brain Medications Administered Generic Name Dose Route Start Last Admin Trade Name Freq PRN Reason Stop Dose Admin Magnesium Sulfate/Dextrose 1 gm in 100 mls @ 100 mls/hr 01/04/24 01:22 01/04/24 01:29 Magnesium Sulfate/D5w IV 01/04/24 02:21 100 mls/hr ONCE ONE Administration Discontinued Medications Generic Name Dose Route Start Last Admin Trade Name Freq PRN Reason Stop Dose Admin Aspirin 325 mg 01/04/24 01:07 01/04/24 01:25 Aspirin 325 Mg Tablet PO 01/04/24 01:08 325 mg ONCE ONE Administration Medical Decision Making Medical Decision Making [facility] Narrative: 78-year-old female with a history of CKD, hypertension presents to the ER with concern for altered mental status. Per friend at the bedside since 15:00 this afternoon they noticed the patient was confused. Unknown last known normal as she lives alone and they noticed she was confused when they were talking to her on the phone. Patient has no underlying history of dementia. She denies any recent falls or injuries. She can tell me herself that she feels confused. Of note patient was started on Lyrica for back pain 50 mg at night time which started on December 23. She denies taking any other additional pain medications. She denies any substance use. 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 She denies taking any additional doses. She is on a antibiotic for UTI currently. She denies fevers, chills, headache, neck pain, neck stiffness, skin rash, chest pain or shortness of breath. She does report some lower back pain. Patient is Alert, oriented to self only. Believes she is in a hospital in [place]. Unsure of month or year. No other focal findings. NIH 1. Not TNK candidate due to length of symptoms and uncertainess of last known well time. ?med related. Will need labs, UA, EKG, LUTZ, CXR, CT head Differential Diagnosis Differential Diagnoses: The differential diagnosis associated with the presentation includes metabolic encephalopathy, ICH/CVA, meningitis/encephalitis, anemia, electrolyte abnormality, polypharmacy Admission/Observation Consideration of admission/observation: Escalation of care including admission/observation considered Abnormal CT head requiring admit for MRI brain Consult Healthcare Provider Management of the patient was discussed with: Hospitalist Dr Gonzalez-accepted admission at 0145 Lab Data [facility] Lab Attestation statement: I reviewed the patient's lab results. 01/04/24 00:57 01/04/24 00:57 Labs: Lab Results 01/04/24 01/04/24 Range/Units 00:57 00:58 WBC 11.2 H (4.8-10.8) X10*3/uL RBC 4.72 (4.20-5.50) X10*6/uL Hgb 12.3 (12.0-16.0) g/dl Hct 37.5 (37.0-47.0) % MCV 79.4 L (80.0-98.0) fL MCH 26.1 L (27.0-33.0) pg MCHC 32.8 (31.0-35.0) g/dl RDW 15.6 (11.0-16.0) % Plt Count 348 (160-400) X10*3/uL MPV 9.7 (9.4-12.3) fL Immature Gran % (Auto) 0.3 (0.0-0.4) % Neut % (Auto) 70.1 (45-73) % Lymph % (Auto) 24.4 (20-40) % Maverick % (Auto) 4.9 (2-11) % Eos % (Auto) 0.0 (0-4) % Baso % (Auto) 0.3 (0-2) % Lymph # (Auto) 2.7 (1.2-4.9) X10*3/uL Maverick # (Auto) 0.6 (0.1-1.2) X10*3/uL Eos # (Auto) 0.0 (0.0-0.4) X10*3/uL Baso # (Auto) 0.0 (0.0-0.2) X10*3/uL Abs Immat Gran (auto) 0.03 (0.00-0.03) X10*3/uL Absolute Neuts (auto) 7.9 (2.0-8.3) x10*3/uL Absolute Nucleated RBC 0.000 (0.0-0.012) X10*3/uL Nucleated RBC % (auto) 0.0 (0.0-0.2) /100WBC PT 12.1 (11.1-13.3) SEC INR 1.0 (0.9-1.1) Sodium 147 H (135-145) mmol/L Potassium 3.5 (3.3-5.1) mmol/L Chloride 108 (96-108) mmol/L Carbon Dioxide 27 (22-29) mmol/L Anion Gap 16 (12-20) BUN 12 (9-16) mg/dL Creatinine 1.31 (0.5-1.4) mg/dL Estim Creat Clear Calc 36.6 Estimated GFR 39 Random Glucose 129 H (60-115) mg/dL Calcium 9.3 (8.4-10.2) mg/dL Magnesium 1.5 L (1.6-2.6) mg/dL Total Bilirubin 0.2 (0.0-1.0) mg/dL Direct Bilirubin < 0.2 (0.0-0.5) mg/dL AST 16 (5-31) U/L ALT 14 (0-31) U/L Alkaline Phosphatase 151 H (39-117) U/L Troponin I High Sens < 2.7 (<3.5-17.0) ng/L Total Protein 6.9 (6.5-8.0) g/dL Albumin 3.6 (3.5-5.0) g/dL Salicylates < 5.0 L (15-30) mg/dL Acetaminophen < 3 (<30) mcg/mL Ethyl Alcohol < 10 mg/dL Independent Interpretation I performed an independent interpretation of an: EKG, Plain X-Ray and CT Scan Interpretation: I independently viewed the x-ray and the ct head and agree with radiologist's report I independently reviewed the EKG which shows a normal sinus rhythm with a rate of 77, normal KS, normal QRS, normal QT, nonspecific ST changes when compared to EKG from 2019 Radiology Impression Discussion of test interpretation with radiology: I have reviewed the radiologist's reading. Radiologist Impression: FINDINGS: Age indeterminate small approximately 7 mm hypodensity anterior to the left thalamus (2:24). There is no evidence of acute intracranial hemorrhage or edematous territorial infarction. A few foci of hypoattenuation in the periventricular and deep white matter are consistent with mild microangiopathy. Cleaning-white matter differentiation is preserved. Proportional prominence of the ventricles and sulcal spaces. No evidence for obstructive hydrocephalus. No abnormal mass effect or midline shift. No extra-axial fluid collections. Hyperostosis frontalis interna. Subjective increased sclerosis of the bony calvarium, not significantly changed since 2011. No acute osseous or soft tissue abnormalities.. The mastoid air cells and paranasal sinuses are clear. CT/CT head/brain wo IV con IMPRESSION: 1. Age-indeterminate small hypodensity anterior to the left thalamus. If there is clinical concern for an acute cerebrovascular accident, further evaluation with an MRI of the brain is recommended. 2. No evidence of acute intracranial hemorrhage or edematous territorial infarction. 3. Mild chronic microangiopathy and generalized cerebral volume loss. 4. Subjective increased sclerosis of the bony calvarium, not significantly changed since 2011. [place] [id number] XRay Report Signed Patient: Marla Day MR#: [id number] : 1945 Acct:[id number] Age/Sex: 78 / F ADM Date: 01/03/24 Loc: HO.ED Attending Dr: Ordering Physician: Felicia Monahan NP Date of Service: 01/03/24 Procedure(s): XR chest 2V Accession Number(s): [id number] cc: Physician,Unknown ; Felicia Monahan NP~ EXAMINATION: XR CHEST CLINICAL INFORMATION: Altered mental status COMPARISON: Chest x-ray December 28, 2023 TECHNIQUE: 2 views of the chest were obtained. FINDINGS: Lungs are clear. No pulmonary vascular congestion. There is no pleural effusion. The heart size is normal. The cardiac and mediastinal contours are normal. There are calcifications of the thoracic aorta. There are multilevel degenerative changes of dorsal spine. Orthopedic hardware lower cervical spine. XR/XR chest 2V IMPRESSION: Unremarkable examination. Independent Historian Clinical information obtained from an independent historian. History obtained from or confirmed by: Friend and EMS Chronic Conditions Patient?s care impacted by: Diabetes Critical Care Time Critical Care Time Critical Care Time: Yes Total Critical Care Time: 90 Attestation: Admit for r/o CVA requiring admission to medicine service, d/w with family and re-evaluations of neuro exam Discharge Plan Discharge Clinical Impression: Altered mental status Patient Disposition: Admitted As Inpatient
[2024-01-04 01:04] LABS: MANUAL DIFF FLAG NO
[2024-01-04 01:07] LABS: Basophils Percent Auto 0.3 % (0-2); Hematocrit 37.5 % (37.0-47.0); Hemoglobin 12.3 g/dl (12.0-16.0); Imm Gran Abs Auto 0.03 X10*3/uL (0.00-0.03); Imm Gran Pct Auto 0.3 % (0.0-0.4); Lymphocytes Absolute Auto 2.7 X10*3/uL (1.2-4.9); Lymphocytes Percent Auto 24.4 % (20-40); Mean Corpuscular HGB Conc 32.8 g/dl (31.0-35.0); Mean Corpuscular Hemoglobin 26.1 pg (27.0-33.0); Mean Corpuscular Volume 79.4 fL (80.0-98.0); Mean Platelet Volume 9.7 fL (9.4-12.3); Monocytes Absolute Auto 0.6 X10*3/uL (0.1-1.2); Monocytes Percent Auto 4.9 % (2-11); Neutrophils Absolute Auto 7.9 x10*3/uL (2.0-8.3); Neutrophils Percent Auto 70.1 % (45-73); Platelet Count 348 X10*3/uL (160-400); Red Blood Count 4.72 X10*6/uL (4.20-5.50); Red Cell Distribution Width 15.6 % (11.0-16.0); White Blood Count 11.2 X10*3/uL (4.8-10.8)
[2024-01-04 01:13] LABS: Prothrombin Time 12.1 SEC (11.1-13.3)
[2024-01-04 01:22] LABS: Alanine Aminotransferase 14 U/L (0-31); Albumin Level 3.6 g/dL (3.5-5.0); Alkaline Phosphatase 151 U/L (39-117); Anion Gap 16 (12-20); Aspartate Amino Transferase 16 U/L (5-31); Bilirubin Direct < 0.2 mg/dL (0.0-0.5); Bilirubin Total 0.2 mg/dL (0.0-1.0); Blood Urea Nitrogen 12 mg/dL (9-16); Calcium 9.3 mg/dL (8.4-10.2); Carbon Dioxide 27 mmol/L (22-29); Chloride 108 mmol/L (96-108); Creatinine Clr Calc Pharmacy 36.6; Estimated Glomerular Filt Rate 39; Ethanol < 10 mg/dL; Glucose Random 129 mg/dL (60-115); Magnesium 1.5 mg/dL (1.6-2.6); Potassium 3.5 mmol/L (3.3-5.1); Sodium 147 mmol/L (135-145); Total Protein 6.9 g/dL (6.5-8.0)
[2024-01-04 01:24] LABS: Acetaminophen LAB < 3 mcg/mL (<30); Salicylate < 5.0 mg/dL (15-30)
[2024-01-04 01:25] VITALS: PULSE 84; RESP 14; O2SAT 98
[2024-01-04] MEDS: Aspirin 325 MG TABLET PO (01:25)
[2024-01-04 01:27] LABS: Troponin-I High Sensitivity < 2.7 ng/L (<3.5-17.0)
[2024-01-04] MEDS: Magnesium Sulfate/D5W 1 GM/100 ML PIGGYBACK IV (01:29)
--- NOTE | 2024-01-04 01:40 | PC.NURSE ---
pt medicated per dec, pt tolerated well with water. urine sample obtained and sent to lab at this time.
[2024-01-04 01:46] LABS: Appearance Urine Clear; Color Urine Yellow; Glucose Urine UA Negative (Negative); Leukocyte Esterase Urine Trace (Negative); Nitrite Urine Negative (Negative); PH 5.5 (5.0-9.0); Specific Gravity - Urine 1.015 (1.005-1.025); UMIC TRIGGER UACC YES; Urine Blood Negative (Negative); Urine Ketones Negative (Negative); Urine Protein Trace mg/dL (Neg-Trace)
[2024-01-04 01:51] LABS: Bacteria Urine None Seen (None Seen); Hyaline Casts Urine 0-2 /LPF (0-2); RBC Urine 0-2 /HPF (0-2); WBC Urine 0-5 /HPF (0-5)
[2024-01-04 02:00] LABS: Amphetamine Screen Urine Not Detected (Not Detect); Barbiturates, Urine Not Detected (Not Detect); Cannabinoid Screen Urine Not Detected (Not Detect); Cocaine Screen Urine Not Detected (Not Detect); Fentanyl, urine Not Detected (Not Detect); Opiate Screen Urine Not Detected (Not Detect); Phencyclidine Screen Urine Not Detected (Not Detect)
--- NOTE | 2024-01-04 02:37 | P.HPHOSP_ITS ---
History of Present Illness Date of Service: 01/04/24 Chief Complaint: Altered mentation This is a 78-year-old female with pertinent history of essential hypertension, CKD stage 3, mood disorder who was brought to the emergency department for evaluation of altered mentation. Patient is confused at the time of my evaluation. Patient is awake and alert but does not know why she is in the hospital. She does not remember the month/year and seems confused. Patient states that she is in [place]. History obtained by ER provider and chart review. As per the friend who was present earlier prior to my evaluation, patient was found to be confused and hence brought to the ER. No falls. Patient was recently started on Lyrica about 10 days ago. Unable to obtain review of systems. In the emergency department, CT scan with age indeterminate hypodensity anterior to thalamus. Review of Systems 2 Review of Systems: Yes Unobtainable due to mental status PMFSH Medical History Mood disorder CKD (chronic kidney disease) stage 3, GFR 30-59 ml/min Hypertension Pertinent family history: Unable to obtain Surgical History History of neck surgery Social History Alcohol intake: never Patient Tobacco Use Status: Never used Tobacco Smoked in Last 30 Days: No Use of substances other than those prescribed or required for medical reasons: No Advance Directives: No Advance Directives Information Provided: No Meds Allergies Allergy/AdvReac Type Severity Reaction Status Date / Time metronidazole [From FLAGYL] Allergy Severe NEUROPSYCH Verified 01/03/24 22:54 EFFECTS morphine [MORPHINE] Allergy Unknown AGITATION Verified 01/03/24 22:54 lisinopril [From Zestril] AdvReac Mild DIZZY Verified 01/03/24 22:54 Home Medications Medication Instructions Recorded Confirmed Last Taken Type acetaminophen 650 mg mg PO 08/28/23 Unknown History tablet,extended release amlodipine 10 mg tablet 10 mg PO DAILY 08/28/23 Unknown History ammonium lactate 12 % topical cream 1 appl topical BID 08/28/23 Unknown History aspirin 81 mg chewable tablet 1 tab PO DAILY 08/28/23 Unknown History atorvastatin 40 mg tablet 40 mg PO DAILY 08/28/23 Unknown History blood sugar diagnostic (FreeStyle #10 ea 08/28/23 Unknown History Lite Strips) calcium carbonate 600 mg-vitamin 1 tab PO BID 08/28/23 Unknown History D3 10 mcg (400 unit) tablet fluticasone 500 mcg-salmeterol 50 1 ea inhalation BID 08/28/23 Unknown History mcg/dose blistr powdr for inhalation fluticasone propionate 50 spray intranasal 08/28/23 Unknown History mcg/actuation nasal spray,suspension isosorbide mononitrate 30 mg 30 mg PO DAILY 08/28/23 Unknown History tablet,extended release 24 hr isosorbide mononitrate 60 mg 60 mg PO DAILY 08/28/23 Unknown History tablet,extended release 24 hr lancets 33 gauge (Unilet Lancet) #100 ea 08/28/23 Unknown History meloxicam 15 mg tablet 15 mg PO DAILY 08/28/23 Unknown History metoprolol succinate 100 mg 100 mg PO DAILY 08/28/23 Unknown History tablet,extended release 24 hr montelukast 10 mg tablet 10 mg PO DAILY 08/28/23 Unknown History multivitamin 1 tab PO DAILY 08/28/23 Unknown History omeprazole 40 mg capsule,delayed 40 mg PO DAILY 08/28/23 Unknown History release paroxetine HCl 40 mg tablet 40 mg PO DAILY 08/28/23 Unknown History tiotropium bromide 1.25 2 puff inhalation DAILY 08/28/23 Unknown History mcg/actuation mist for inhalation (Spiriva Respimat) trazodone 50 mg tablet 50 mg PO BEDTIME 08/28/23 Unknown History triamcinolone acetonide 0.025 % appl topical 08/28/23 Unknown History topical cream triamcinolone acetonide 0.1 % 1 appl topical BID-TID 08/28/23 Unknown History topical cream Physical Exam 2 Vital Signs and Narrative: Vital Signs: Last Vital Signs Temp 98.9 F 01/03/24 22:42 Pulse 82 01/03/24 22:42 Resp 15 01/03/24 22:42 BP 142/75 H 01/03/24 22:42 Pulse Ox 94 01/03/24 22:42 O2 Del Method Room Air 01/03/24 22:42 BMI result Body Mass Index 33.4 Elderly female lying in bed in no distress Neck supple, no JVD Regular rate and rhythm, S1-S2 heard Regular breath sounds bilaterally, no wheezing or crackles appreciated Abdomen soft nontender, no guarding, no rigidity Patient is awake, alert and oriented to self, disoriented to place, time and person, strength equal in bilateral upper and lower extremities, no facial droop, no nystagmus Psych: Normal mood No pedal edema Results Labs 01/04/24 00:57 01/04/24 00:57 Labs: Laboratory Results - last 24 hr 01/04/24 01/04/24 01/04/24 00:57 00:58 01:33 MCV 79.4 L MCH 26.1 L MCHC 32.8 RDW 15.6 Plt Count 348 MPV 9.7 Immature Gran % (Auto) 0.3 Neut % (Auto) 70.1 Lymph % (Auto) 24.4 [place] % (Auto) 4.9 Eos % (Auto) 0.0 Baso % (Auto) 0.3 Lymph # (Auto) 2.7 [place] # (Auto) 0.6 Eos # (Auto) 0.0 Baso # (Auto) 0.0 Abs Immat Gran (auto) 0.03 Absolute Neuts (auto) 7.9 Absolute Nucleated RBC 0.000 Nucleated RBC % (auto) 0.0 PT 12.1 INR 1.0 Anion Gap 16 Estim Creat Clear Calc 36.6 Estimated GFR 39 Random Glucose 129 H Calcium 9.3 Magnesium 1.5 L Total Bilirubin 0.2 Direct Bilirubin < 0.2 AST 16 ALT 14 Alkaline Phosphatase 151 H Troponin I High Sens < 2.7 Total Protein 6.9 Albumin 3.6 Urine Color Yellow Urine Appearance Clear Urine pH 5.5 Ur Specific [place] 1.015 Urine Protein Trace Urine Glucose (UA) Negative Urine Ketones Negative Urine Blood Negative Urine Nitrite Negative Ur Leukocyte Esterase Trace H Urine RBC 0-2 Urine WBC 0-5 Ur Squamous Epith Cells 6-10 Urine Bacteria None Seen Hyaline Casts 0-2 Salicylates < 5.0 L Urine Opiates Screen Not Detected Urine Fentanyl Screen Not Detected Acetaminophen < 3 Ur Barbiturates Screen Not Detected Ur Phencyclidine Scrn Not Detected Ur Amphetamines Screen Not Detected Urine Cocaine Screen Not Detected U Marijuana (THC) Screen Not Detected Ethyl Alcohol < 10 Imaging Radiologist's Impressions: Impressions Chest X-Ray 01/03/24 23:35 IMPRESSION: Unremarkable examination. Head CT 01/03/24 23:40 IMPRESSION: 1. Age-indeterminate small hypodensity anterior to the left thalamus. If there is clinical concern for an acute cerebrovascular accident, further evaluation with an MRI of the brain is recommended. 2. No evidence of acute intracranial hemorrhage or edematous territorial infarction. 3. Mild chronic microangiopathy and generalized cerebral volume loss. 4. Subjective increased sclerosis of the bony calvarium, not significantly changed since 2011. Assessment and Plan (1) Altered mental status: Status: Acute Plan This is a 78-year-old female with pertinent history of essential hypertension, CKD stage 3, mood disorder who was brought to the emergency department for evaluation of altered mentation. #. Acute encephalopathy, unclear etiology: UA not concerning for infection. CT head with age indeterminate hypodensity anterior to left thalamus. Obtaining MRI to rule out acute CVA. Other differential is encephalopathy due to medications as patient was initiated on Lyrica recently. NPO until mentation improves #. Essential hypertension: Continue home antihypertensives #. Mood disorder: Reconcile in a.m. #. CKD stage 3: Creatinine appears to be at baseline Med rec pending DVT prophylaxis: Lovenox Full code Admit as inpatient and will require two night minimum hospital stay for mentation, evaluation of possible acute CVA (as above), which is not possible in a lesser acute setting. Quality Stroke Does the patient have a stroke diagnosis?: No VTE Prior VTE?: No VTE Risk Level:: Medical - moderate - high VTE Device Contraindication: Treatment Not Indicated VTE Drug Contraindication: N/A - Med Ordered
[2024-01-04 02:49] LABS: Benzodiazepines Screen Urine Not Detected (Not Detect)
[2024-01-04] MEDS: 0.9 % Sodium Chloride 1,000 ML 999 ML IV (03:33)
[2024-01-04] MEDS: Enoxaparin Sodium 40 MG/0.4 ML SYRINGE SUBCUT (03:38)
--- NOTE | 2024-01-04 05:45 | PC.NURSE ---
pt confused at this time. pt removed IV access, tele monitor and is exiting bed. 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 pt assisted into hospital bed.
--- NOTE | 2024-01-04 05:54 | PC.NURSE ---
pt refused zyprexa at this time, pt placed in hospital stretcher, calm and cooperative, new IV established 20G right AC. Bed alarm on
[2024-01-04 06:33] VITALS: BP 134/54; PULSE 71; RESP 16; TEMP 36.7; O2SAT 94
--- NOTE | 2024-01-04 08:08 | PC.NURSE ---
assumed care of pt at 0700. pt awake and alert, but confused. trinidadian speaking only. pt oob, ambulating steadily with staff. trying to leave to go home. pt redirected back to room. now sitting in recliner watching TV. IV to RAC. patent. rr even/unlabored. call keene within reach. plan of care ongoing.
[2024-01-04] MEDS: OLANZapine 10 MG VIAL 2.5 MG IM (09:01)
[2024-01-04 09:14] LABS: MANUAL DIFF FLAG NO
[2024-01-04 09:18] LABS: Basophils Percent Auto 0.3 % (0-2); Hematocrit 39.9 % (37.0-47.0); Hemoglobin 13.2 g/dl (12.0-16.0); Imm Gran Abs Auto 0.02 X10*3/uL (0.00-0.03); Imm Gran Pct Auto 0.2 % (0.0-0.4); Lymphocytes Absolute Auto 2.4 X10*3/uL (1.2-4.9); Lymphocytes Percent Auto 23.1 % (20-40); Mean Corpuscular HGB Conc 33.1 g/dl (31.0-35.0); Mean Corpuscular Hemoglobin 26.3 pg (27.0-33.0); Mean Corpuscular Volume 79.5 fL (80.0-98.0); Mean Platelet Volume 9.5 fL (9.4-12.3); Monocytes Absolute Auto 0.5 X10*3/uL (0.1-1.2); Monocytes Percent Auto 4.3 % (2-11); Neutrophils Absolute Auto 7.5 x10*3/uL (2.0-8.3); Neutrophils Percent Auto 72.1 % (45-73); Platelet Count 346 X10*3/uL (160-400); Red Blood Count 5.02 X10*6/uL (4.20-5.50); Red Cell Distribution Width 15.7 % (11.0-16.0); White Blood Count 10.4 X10*3/uL (4.8-10.8)
[2024-01-04 09:39] LABS: Anion Gap 15 (12-20); Blood Urea Nitrogen 12 mg/dL (9-16); Calcium 9.5 mg/dL (8.4-10.2); Carbon Dioxide 27 mmol/L (22-29); Chloride 109 mmol/L (96-108); Creatinine Clr Calc Pharmacy 41.4; Estimated Glomerular Filt Rate 45; Glucose Random 127 mg/dL (60-115); Potassium 3.7 mmol/L (3.3-5.1); Sodium 147 mmol/L (135-145)
--- NOTE | 2024-01-04 10:16 | PHA.MEDREC ---
Pharmacy Consult ? Medication Reconciliation Pharmacy has completed the medication reconciliation. Tried to talk to patient via pig caster but she couldn't give any information. Spoke to Chica Medrano (one of patient's [employer]) via phone but she doesn't have patient's medication list. Med rec was done according to pharmacy claims.
--- NOTE | 2024-01-04 10:19 | PC.NURSE ---
pt medicated per mar with IM Zyprexa with Dr. Garcia at bedside. pt resting quietly in recliner, now back to bed and sleeping. rr even/unlabored. vss. call keene within pt reach. awaiting MRI. plan of care ongoing.
--- NOTE | 2024-01-04 10:28 | HO.PM.IMPN ---
Subjective Subjective Date of Service: 01/04/24 Interval History: wants to go home, wandering around ED, no complaints, confused Physical Exam Vital Signs: Vital Signs: Last Vital Signs Temp 98.1 F 01/04/24 06:33 Pulse 71 01/04/24 06:33 Resp 16 01/04/24 06:33 BP 134/54 L 01/04/24 06:33 Pulse Ox 94 01/04/24 06:33 O2 Del Method Room Air 01/04/24 06:33 BMI result Body Mass Index 33.4 alert, oriented to person and hospital not time or specifics of admission Resp: CTA bilateral, no accessory muscles used CVS: S1,S2,RRR GI: soft, non tender, non distended Neuro: motor grossly intact, alert Psych: impaired insight Objective Data Active Medications Acetaminophen (Acetaminophen 325 Mg Tablet) 650 mg PO Q6H PRN PRN Reason: Pain, Mild (Pain Scale 1-3) Amlodipine Besylate (Amlodipine Besylate 10 Mg Tablet) 10 mg PO DAILY [facility]; Protocol Aspirin (Aspirin 81 Mg Tab.Chew) 81 mg PO DAILY [facility] Atorvastatin Calcium (Atorvastatin Calcium 40 Mg Tablet) 40 mg PO DAILY [facility] Duloxetine HCl (Duloxetine Hcl 60 Mg Capsule.Dr) 60 mg PO DAILY [facility] Enoxaparin Sodium (Enoxaparin Sodium 40 Mg/0.4 Ml Syringe) 40 mg SUBCUT DAILY [facility] Last Admin: 01/04/24 03:38 Dose: 40 mg Documented By: JOSHUA Isosorbide Mononitrate (Isosorbide Mononitrate 60 Mg Tab.Er.24h) 60 mg PO DAILY [facility]; Protocol Melatonin (Melatonin 3 Mg Tablet) 6 mg PO BEDTIME PRN PRN Reason: Insomnia Metoprolol Succinate (Metoprolol Succinate Er 100 Mg Tab.Er.24h) 100 mg PO DAILY [facility]; Protocol Mirtazapine (Mirtazapine 7.5 Mg Tablet) 7.5 mg PO QPM [facility] Montelukast Sodium (Montelukast Sodium 10 Mg Tablet) 10 mg PO DAILY [facility] Multivitamins/Vitamin C (Multivitamin Tablet) 1 tab PO DAILY [facility] Omeprazole (Omeprazole 40 Mg Capsule.Dr) 40 mg PO DAILY [facility] Ondansetron HCl (Ondansetron Hcl 4 Mg/2 Ml Vial) 4 mg IVPUSH Q8H PRN PRN Reason: Nausea and Vomiting Pregabalin (Pregabalin 50 Mg Capsule) 50 mg PO BEDTIME [facility] Sodium Chloride (0.9 % Sodium Chloride Flush 3 Ml Syringe) 3 ml IVFLUSH QSHIFT [facility] Last Admin: 01/04/24 08:11 Dose: Not Given Documented By: SUE Non-Admin Reason: Med Not Available Trazodone HCl (Trazodone Hcl 50 Mg Tablet) 50 mg PO BEDTIME [facility] Labs 01/04/24 09:10 01/04/24 09:10 Labs: Laboratory Results - last 24 hr 01/04/24 01/04/24 01/04/24 00:57 00:58 01:33 MCV 79.4 L MCH 26.1 L MCHC 32.8 RDW 15.6 Plt Count 348 MPV 9.7 Immature Gran % (Auto) 0.3 Neut % (Auto) 70.1 Lymph % (Auto) 24.4 [place] % (Auto) 4.9 Eos % (Auto) 0.0 Baso % (Auto) 0.3 Lymph # (Auto) 2.7 [place] # (Auto) 0.6 Eos # (Auto) 0.0 Baso # (Auto) 0.0 Abs Immat Gran (auto) 0.03 Absolute Neuts (auto) 7.9 Absolute Nucleated RBC 0.000 Nucleated RBC % (auto) 0.0 PT 12.1 INR 1.0 Anion Gap 16 Estim Creat Clear Calc 36.6 Estimated GFR 39 Random Glucose 129 H Calcium 9.3 Magnesium 1.5 L Total Bilirubin 0.2 Direct Bilirubin < 0.2 AST 16 ALT 14 Alkaline Phosphatase 151 H Troponin I High Sens < 2.7 Total Protein 6.9 Albumin 3.6 Urine Color Yellow Urine Appearance Clear Urine pH 5.5 Ur Specific [place] 1.015 Urine Protein Trace Urine Glucose (UA) Negative Urine Ketones Negative Urine Blood Negative Urine Nitrite Negative Ur Leukocyte Esterase Trace H Urine RBC 0-2 Urine WBC 0-5 Ur Squamous Epith Cells 6-10 Urine Bacteria None Seen Hyaline Casts 0-2 Salicylates < 5.0 L Urine Opiates Screen Not Detected Urine Fentanyl Screen Not Detected Acetaminophen < 3 Ur Barbiturates Screen Not Detected Ur Phencyclidine Scrn Not Detected Ur Amphetamines Screen Not Detected U Benzodiazepines Scrn Not Detected Urine Cocaine Screen Not Detected U Marijuana (THC) Screen Not Detected Ethyl Alcohol < 10 03/16/24 09:10 MCV 79.5 L MCH 26.3 L MCHC 33.1 RDW 15.7 Plt Count 346 MPV 9.5 Immature Gran % (Auto) 0.2 Neut % (Auto) 72.1 Lymph % (Auto) 23.1 [place] % (Auto) 4.3 Eos % (Auto) 0.0 Baso % (Auto) 0.3 Lymph # (Auto) 2.4 [place] # (Auto) 0.5 Eos # (Auto) 0.0 Baso # (Auto) 0.0 Abs Immat Gran (auto) 0.02 Absolute Neuts (auto) 7.5 Absolute Nucleated RBC 0.000 Nucleated RBC % (auto) 0.0 PT INR Anion Gap 15 Estim Creat Clear Calc 41.4 Estimated GFR 45 Random Glucose 127 H Calcium 9.5 Magnesium Total Bilirubin Direct Bilirubin AST ALT Alkaline Phosphatase Troponin I High Sens Total Protein Albumin Urine Color Urine Appearance Urine pH Ur Specific [place] Urine Protein Urine Glucose (UA) Urine Ketones Urine Blood Urine Nitrite Ur Leukocyte Esterase Urine RBC Urine WBC Ur Squamous Epith Cells Urine Bacteria Hyaline Casts Salicylates Urine Opiates Screen Urine Fentanyl Screen Acetaminophen Ur Barbiturates Screen Ur Phencyclidine Scrn Ur Amphetamines Screen U Benzodiazepines Scrn Urine Cocaine Screen U Marijuana (THC) Screen Ethyl Alcohol Assessment and Plan (1) Altered mental status: Status: Acute Plan 78F PMH htn, ckd III, mood disorder presented with confusion, incidental finding of age indeterminant left thalamic stroke acute toxic metabolic encephalopathy 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, about 1 week of confusion, paranoid delusions - at baseline patient lives alone 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, alert oriented times 3, recognizes familiar faces differential incudes - acute psychosis, lyrica effect dc lyrica psych eval if other causes ruled out incidental left thalamic cva on CT likely from about 1 week ptp, [employer]ER reports episode of RLE weakness check mri, neuro eval htn metoprolol imdur amlodipine ckd III stable dvt prophylaxis - lovenox full code reason for continued hospitalization:wokring up cva, confusion Quality Stroke Does the patient have a stroke diagnosis?: No VTE Prior VTE?: No VTE Risk Level:: Medical - moderate - high VTE Device Contraindication: Treatment Not Indicated VTE Drug Contraindication: N/A - Med Ordered
--- NOTE | 2024-01-04 12:16 | PM.NEUROCN ---
History of Present Illness Data of Consult Service Date: 01/04/24 Primary Care Provider: Unknown Physician HPI Reason for consult: Confused 78 years old woman with underlying history of hypertension and renal failure brought to hospital with confusion. There was no report of any focal weakness or seizure any recent fever or chills or pneumonia type of illness. She was noted to be confused on presentation. Initial evaluation did not reveal any fever or acute lesion. Review of Systems Review of Systems: No recent cold or flu-like illness PMFSH Past Medical History Medical History Mood disorder CKD (chronic kidney disease) stage 3, GFR 30-59 ml/min Hypertension Surgical History Surgical History History of neck surgery Social History Social History Alcohol intake: never Patient Tobacco Use Status: Never used Tobacco Smoked in Last 30 Days: No Use of substances other than those prescribed or required for medical reasons: No Advance Directives: No Advance Directives Information Provided: No Nutrition Risks: No Nutritional Risk Meds Allergies Allergy/AdvReac Type Severity Reaction Status Date / Time metronidazole [From FLAGYL] Allergy Severe NEUROPSYCH Verified 01/03/24 22:54 EFFECTS morphine [MORPHINE] Allergy Unknown AGITATION Verified 01/03/24 22:54 lisinopril [From Zestril] AdvReac Mild DIZZY Verified 01/03/24 22:54 Active Medications: Current Medications Acetaminophen (Acetaminophen 325 Mg Tablet) 650 mg PO Q6H PRN PRN Reason: Pain, Mild (Pain Scale 1-3) Amlodipine Besylate (Amlodipine Besylate 10 Mg Tablet) 10 mg PO DAILY [facility]; Protocol Aspirin (Aspirin 81 Mg Tab.Chew) 81 mg PO DAILY [facility] Atorvastatin Calcium (Atorvastatin Calcium 40 Mg Tablet) 40 mg PO DAILY [facility] Duloxetine HCl (Duloxetine Hcl 60 Mg Capsule.Dr) 60 mg PO DAILY [facility] Enoxaparin Sodium (Enoxaparin Sodium 40 Mg/0.4 Ml Syringe) 40 mg SUBCUT DAILY [facility] Last Admin: 01/04/24 03:38 Dose: 40 mg Isosorbide Mononitrate (Isosorbide Mononitrate 60 Mg Tab.Er.24h) 60 mg PO DAILY [facility]; Protocol Melatonin (Melatonin 3 Mg Tablet) 6 mg PO BEDTIME PRN PRN Reason: Insomnia Metoprolol Succinate (Metoprolol Succinate Er 100 Mg Tab.Er.24h) 100 mg PO DAILY [facility]; Protocol Mirtazapine (Mirtazapine 7.5 Mg Tablet) 7.5 mg PO BEDTIME [facility] Montelukast Sodium (Montelukast Sodium 10 Mg Tablet) 10 mg PO DAILY [facility] Multivitamins/Vitamin C (Multivitamin Tablet) 1 tab PO DAILY [facility] Omeprazole (Omeprazole 40 Mg Capsule.Dr) 40 mg PO DAILY@0630 [facility] Ondansetron HCl (Ondansetron Hcl 4 Mg/2 Ml Vial) 4 mg IVPUSH Q8H PRN PRN Reason: Nausea and Vomiting Sodium Chloride (0.9 % Sodium Chloride Flush 3 Ml Syringe) 3 ml IVFLUSH QSHIFT [facility] Last Admin: 01/04/24 08:11 Dose: Not Given Trazodone HCl (Trazodone Hcl 50 Mg Tablet) 50 mg PO BEDTIME [facility] Home Medications Medication Instructions Recorded Confirmed Last Taken Type amlodipine 10 mg tablet 10 mg PO DAILY 08/28/23 01/04/24 Unknown History ammonium lactate 12 % topical cream 1 appl topical BID 08/28/23 01/04/24 Unknown History aspirin 81 mg chewable tablet 1 tab PO DAILY 08/28/23 01/04/24 Unknown History atorvastatin 40 mg tablet 40 mg PO DAILY 08/28/23 01/04/24 Unknown History blood sugar diagnostic (FreeStyle #10 ea 08/28/23 Unknown History Lite Strips) calcium carbonate 600 mg-vitamin 1 tab PO BID 08/28/23 01/04/24 Unknown History D3 10 mcg (400 unit) tablet fluticasone 500 mcg-salmeterol 50 1 ea inhalation BID 08/28/23 01/04/24 Unknown History mcg/dose blistr powdr for inhalation isosorbide mononitrate 60 mg 60 mg PO DAILY 08/28/23 01/04/24 Unknown History tablet,extended release 24 hr lancets 33 gauge (Unilet Lancet) #100 ea 08/28/23 Unknown History meloxicam 15 mg tablet 15 mg PO DAILY 08/28/23 01/04/24 Unknown History metoprolol succinate 100 mg 100 mg PO DAILY 08/28/23 01/04/24 Unknown History tablet,extended release 24 hr montelukast 10 mg tablet 10 mg PO DAILY 08/28/23 01/04/24 Unknown History multivitamin 1 tab PO DAILY 08/28/23 01/04/24 Unknown History omeprazole 40 mg capsule,delayed 40 mg PO DAILY 08/28/23 01/04/24 Unknown History release paroxetine HCl 40 mg tablet 40 mg PO DAILY 08/28/23 Unknown History tiotropium bromide 1.25 2 puff inhalation DAILY 08/28/23 01/04/24 Unknown History mcg/actuation mist for inhalation (Spiriva Respimat) trazodone 50 mg tablet 50 mg PO BEDTIME 08/28/23 01/04/24 Unknown History triamcinolone acetonide 0.1 % 1 appl topical BID-TID 08/28/23 01/04/24 Unknown History topical cream duloxetine 60 mg capsule,delayed 60 mg PO QAM 01/04/24 01/04/24 Unknown History release mirtazapine 7.5 mg tablet 7.5 mg PO QPM 01/04/24 01/04/24 Unknown History pregabalin 50 mg capsule 50 mg PO BEDTIME 01/04/24 01/04/24 Unknown History Physical Exam Vital Signs: Vital Signs: Last Vital Signs Temp 98.1 F 01/04/24 06:33 Pulse 71 01/04/24 06:33 Resp 16 01/04/24 06:33 BP 134/54 L 01/04/24 06:33 Pulse Ox 94 01/04/24 06:33 O2 Del Method Room Air 01/04/24 06:33 BMI result Body Mass Index 33.4 Neuro: Other: She is alert and awake with normal spontaneity of speech fluency comprehension and affect. She is able to answer simple questions. Face is symmetrical. Visual ghotra are full. There is no gaze deviation or nystagmus. There is no obvious focal arm or leg weakness. Plantars are flexor. Results Labs 01/04/24 09:10 01/04/24 09:10 Labs: Short CBC 01/04/24 01/04/24 Range/Units 00:57 09:10 WBC 11.2 H 10.4 (4.8-10.8) X10*3/uL Hgb 12.3 13.2 (12.0-16.0) g/dl Hct 37.5 39.9 (37.0-47.0) % Plt Count 348 346 (160-400) X10*3/uL BMP 01/04/24 01/04/24 00:57 09:10 Sodium 147 H 147 H Potassium 3.5 3.7 Chloride 108 109 H Carbon Dioxide 27 27 BUN 12 12 Creatinine 1.31 1.16 Calcium 9.3 9.5 Liver Function 01/04/24 Range/Units 00:57 Total Bilirubin 0.2 (0.0-1.0) mg/dL Direct Bilirubin < 0.2 (0.0-0.5) mg/dL AST 16 (5-31) U/L ALT 14 (0-31) U/L Alkaline Phosphatase 151 H (39-117) U/L Albumin 3.6 (3.5-5.0) g/dL Urine 01/04/24 Range/Units 01:33 Urine Color Yellow Urine Appearance Clear Urine pH 5.5 (5.0-9.0) Ur Specific [place] 1.015 (1.005-1.025) Urine Protein Trace (Neg-Trace) mg/dL Urine Glucose (UA) Negative (Negative) mg/dL Head CT revealed a chronic left anterior thalamic lacunar type infarct. Assessment and Plan (1) Toxic metabolic encephalopathy: Status: Acute 78 years old woman who probably suffered from metabolic toxic encephalopathy related to maybe mild UTI and dehydration and underlying microvascular disease of brain. Mainstay of management is evaluation and treatment for UTI, hydration, and appropriate placement. As far as vascular disease of brain is concerned, it is treated with anti-platelet agent, blood pressure control and statin. Procedures Date of Service Date of Service: 01/04/24
[2024-01-04 15:31] VITALS: BP 127/58; PULSE 57; RESP 16; O2SAT 97
--- NOTE | 2024-01-04 15:52 | PC.NURSE ---
pt sleeping soundly in hospital bed. rr even/unlabored. vss and updated in pt worklist. family at bedside and updated on plan of care per hospitalist. inpatient report complete. awaiting transport.
[2024-01-04 18:24] VITALS: BP 136/59; PULSE 59; RESP 18; O2SAT 96
[2024-01-04 19:51] VITALS: BP 159/73; PULSE 64; RESP 18; TEMP 36.9; O2SAT 93
[2024-01-04 23:05] VITALS: BP 146/70; PULSE 75; RESP 18; TEMP 37.2; O2SAT 94
[2024-01-05 03:11] VITALS: BP 153/70; PULSE 76; RESP 18; TEMP 37.2; O2SAT 93
[2024-01-05 05:49] LABS: Hematocrit 38.3 % (37.0-47.0); Hemoglobin 12.8 g/dl (12.0-16.0); Mean Corpuscular HGB Conc 33.4 g/dl (31.0-35.0); Mean Corpuscular Hemoglobin 26.4 pg (27.0-33.0); Mean Platelet Volume 9.5 fL (9.4-12.3); Platelet Count 300 X10*3/uL (160-400); Red Blood Count 4.85 X10*6/uL (4.20-5.50); Red Cell Distribution Width 15.8 % (11.0-16.0); White Blood Count 8.9 X10*3/uL (4.8-10.8)
[2024-01-05 06:04] LABS: Anion Gap 14 (12-20); Blood Urea Nitrogen 12 mg/dL (9-16); Calcium 9.1 mg/dL (8.4-10.2); Carbon Dioxide 27 mmol/L (22-29); Chloride 109 mmol/L (96-108); Creatinine Clr Calc Pharmacy 45.7; Estimated Glomerular Filt Rate 51; Glucose Fasting 104 mg/dL (60-99); Potassium 3.7 mmol/L (3.3-5.1); Sodium 146 mmol/L (135-145)
[2024-01-05] MEDS: Omeprazole 40 MG CAPSULE.DR PO (06:30)
[2024-01-05 07:23] VITALS: BP 159/73; PULSE 65; RESP 18; TEMP 36.3; O2SAT 95
[2024-01-05] MEDS: DULoxetine HCl 60 MG CAPSULE.DR PO (08:25)
[2024-01-05] MEDS: Aspirin 81 MG TAB.CHEW PO (08:25)
[2024-01-05] MEDS: Enoxaparin Sodium 40 MG/0.4 ML SYRINGE SUBCUT (08:26)
[2024-01-05] MEDS: 0.9 % Sodium Chloride Flush 3 ML SYRINGE IVFLUSH ×2 (08:26)
[2024-01-05] MEDS: amLODIPine Besylate 10 MG TABLET PO (08:26)
[2024-01-05] MEDS: Metoprolol Succinate ER 100 MG TAB.ER.24H PO (08:26)
[2024-01-05] MEDS: Multivitamin TABLET 1 TAB PO (08:26)
[2024-01-05] MEDS: Montelukast Sodium 10 MG TABLET PO (08:26)
[2024-01-05] MEDS: Atorvastatin Calcium 40 MG TABLET PO (08:26)
[2024-01-05] MEDS: Isosorbide Mononitrate 60 MG TAB.ER.24H PO (08:32)
--- NOTE | 2024-01-05 09:59 | HO.PM.IMPN ---
Subjective Subjective Date of Service: 01/05/24 Interval History: still confused, wants to go home Physical Exam Vital Signs: Vital Signs: Last Vital Signs Temp 97.4 F 01/05/24 07:23 Pulse 65 01/05/24 07:23 Resp 18 01/05/24 07:23 BP 159/73 H 01/05/24 07:23 Pulse Ox 95 01/05/24 07:23 O2 Del Method Room Air 01/05/24 07:23 BMI result Body Mass Index 33.4 wandering, alert, knows she is in a hospital, but very poor insight, and unable to retain information, agitated Objective Data Active Medications Acetaminophen (Acetaminophen 325 Mg Tablet) 650 mg PO Q6H PRN PRN Reason: Pain, Mild (Pain Scale 1-3) Amlodipine Besylate (Amlodipine Besylate 10 Mg Tablet) 10 mg PO DAILY [facility]; Protocol Last Admin: 01/05/24 08:26 Dose: 10 mg Documented By: MATTHEW Aspirin (Aspirin 81 Mg Tab.Chew) 81 mg PO DAILY [facility] Last Admin: 01/05/24 08:25 Dose: 81 mg Documented By: MATTHEW Atorvastatin Calcium (Atorvastatin Calcium 40 Mg Tablet) 40 mg PO DAILY [facility] Last Admin: 01/05/24 08:26 Dose: 40 mg Documented By: MATTHEW Duloxetine HCl (Duloxetine Hcl 60 Mg Capsule.Dr) 60 mg PO DAILY [facility] Last Admin: 01/05/24 08:25 Dose: 60 mg Documented By: MATTHEW Enoxaparin Sodium (Enoxaparin Sodium 40 Mg/0.4 Ml Syringe) 40 mg SUBCUT DAILY [facility] Last Admin: 01/05/24 08:26 Dose: 40 mg Documented By: MATTHEW Isosorbide Mononitrate (Isosorbide Mononitrate 60 Mg Tab.Er.24h) 60 mg PO DAILY [facility]; Protocol Last Admin: 01/05/24 08:32 Dose: 60 mg Documented By: MATTHEW Melatonin (Melatonin 3 Mg Tablet) 6 mg PO BEDTIME PRN PRN Reason: Insomnia Metoprolol Succinate (Metoprolol Succinate Er 100 Mg Tab.Er.24h) 100 mg PO DAILY [facility]; Protocol Last Admin: 01/05/24 08:26 Dose: 100 mg Documented By: MATTHEW Mirtazapine (Mirtazapine 7.5 Mg Tablet) 7.5 mg PO BEDTIME [facility] Last Admin: 01/04/24 22:00 Dose: Not Given Documented By: ERVIN Non-Admin Reason: Patient Asleep Montelukast Sodium (Montelukast Sodium 10 Mg Tablet) 10 mg PO DAILY [facility] Last Admin: 01/05/24 08:26 Dose: 10 mg Documented By: MATTHEW Multivitamins/Vitamin C (Multivitamin Tablet) 1 tab PO DAILY [facility] Last Admin: 01/05/24 08:26 Dose: 1 tab Documented By: MATTHEW Omeprazole (Omeprazole 40 Mg Capsule.Dr) 40 mg PO DAILY@0630 [facility] Last Admin: 01/05/24 06:30 Dose: 40 mg Documented By: ERVIN Ondansetron HCl (Ondansetron Hcl 4 Mg/2 Ml Vial) 4 mg IVPUSH Q8H PRN PRN Reason: Nausea and Vomiting Sodium Chloride (0.9 % Sodium Chloride Flush 3 Ml Syringe) 3 ml IVFLUSH QSHIFT [facility] Last Admin: 01/05/24 08:26 Dose: 3 ml Documented By: MATTHEW Trazodone HCl (Trazodone Hcl 50 Mg Tablet) 50 mg PO BEDTIME [facility] Last Admin: 01/04/24 22:00 Dose: Not Given Documented By: ERVIN Non-Admin Reason: Patient Asleep Labs 01/05/24 05:32 01/05/24 05:32 Labs: Laboratory Results - last 24 hr 01/05/24 05:32 MCV 79.0 L MCH 26.4 L MCHC 33.4 RDW 15.8 Plt Count 300 MPV 9.5 Absolute Nucleated RBC 0.000 Nucleated RBC % (auto) 0.0 Anion Gap 14 Estim Creat Clear Calc 45.7 Estimated GFR 51 Fasting Glucose 104 H Calcium 9.1 Assessment and Plan (1) Altered mental status: Status: Acute Plan 78F PMH htn, ckd III, mood disorder presented with confusion, incidental finding of age indeterminant left thalamic stroke acute toxic metabolic encephalopathy 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, about 1 week of confusion, paranoid delusions - at baseline patient lives alone 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, alert oriented times 3, recognizes familiar faces differential incudes - acute psychosis, lyrica effect, changes due to acute left thalamic infarct dced lyrica psych eval acute left thalamic likely from about 1 week ptp, RESIN MIXER reports episode of RLE weakness no motor deficits continue asa, statin neuro appreciated htn metoprolol imdur amlodipine ckd III stable dvt prophylaxis - lovenox full code reason for continued hospitalization: acute mental status change Quality Stroke Does the patient have a stroke diagnosis?: No VTE Prior VTE?: No VTE Risk Level:: Medical - moderate - high VTE Device Contraindication: Treatment Not Indicated VTE Drug Contraindication: N/A - Med Ordered
--- NOTE | 2024-01-05 10:25 | MHC.CM.PN ---
IMM 01/05/24 DELIVERED TO [facility] [id number] BEDSIDE, CM ATTEMPTED TO MEET W/PT VIA [employer] SUPERVISOR HOWEVER PER NURSE QUALITY PT NOT MAKING SENSE AND BELIEVES SHE IS IN [place] AND WAS TRYING TO LEAVE THE HOSPITAL, LORE REPORTS PT LIVES IN [facility] ALONE, HAS TWO LUG BREAKER AND WIRE PULLER'S THAT ALTERNATE WKS STACIE/RAMONA, LORE'S MOM AND PT'S SON HAVE HOWEVER THER IS [facility] LORE AND PT HAS ANOTHER DTR WHO LIVES IN [place]. LORE REPORTS PT IS NOT CONFUSED AT BASELINE AND THIS STARTED A FEW DAYS AFTER SHE WENT IN FOR AN INJECTION IN HER BACK. CM UNABLE TO COMPLETE A NEW HCP PT IS CONFUSED AND ONLY ORIENTED TO SELF AND SAYRA TORREZ
[2024-01-05 11:12] VITALS: BP 118/74; PULSE 81; RESP 18; TEMP 37; O2SAT 94
[2024-01-05] MEDS: OLANZapine 10 MG VIAL 2.5 MG IM (14:50)
[2024-01-05 15:25] VITALS: BP 127/72; PULSE 94; RESP 18; TEMP 36.6; O2SAT 93
--- NOTE | 2024-01-05 16:17 | P.CNPS_ITS ---
History of Present Illness Date of Service: 01/05/2024 Chief Complaint: AMS Discussed with referring provider: Yes Sources of Information: patient interviewed, chart reviewed and crisis/core team assessment reviewed HPI Narrative: Mr. Albarran is a 78 year-old woman who was admitted for AMS. UA negative for UTI. She was recently started on lyrica. She had mild electrolyte abnormality which was corrected. Head CT showed subacute thalamic infact. Pt seen in her room. She is not oriented to place or situation. Family is present in the room and she is having a hard time recognizing who they are. She does not know the year or the month. She thinks she is in [place]. She is unable to tell that this is the hospital or that she is receiving medical treatment. She was sitting in a chair, calm. She denies depression or anxious mood. No SI/HI. She later asks if we are going. She attempted to leave the room but was redirected to wait in the room. She is not able to understand that she is in the hospital and can't leave just yet. [facility] Medical History Mood disorder CKD (chronic kidney disease) stage 3, GFR 30-59 ml/min Hypertension Surgical History History of neck surgery Diagnostics Vital Signs (24Hr): Vital Signs - 24 hr 01/04/24 18:24 01/04/24 19:51 01/04/24 23:05 Temperature 98.5 F 99 F Pulse Rate 59 64 75 Respiratory Rate 18 18 18 Blood Pressure 136/59 L 159/73 H 146/70 H Pulse Oximetry 96 93 94 Oxygen Delivery Method Room Air Room Air Room Air 01/05/24 03:11 01/05/24 07:23 01/05/24 11:12 Temperature 99 F 97.4 F 98.6 F Pulse Rate 76 65 81 Respiratory Rate 18 18 18 Blood Pressure 153/70 H 159/73 H 118/74 Pulse Oximetry 93 95 94 Oxygen Delivery Method Room Air Room Air Room Air 01/05/24 15:25 Temperature 97.8 F Pulse Rate 94 Respiratory Rate 18 Blood Pressure 127/72 Pulse Oximetry 93 Oxygen Delivery Method Room Air BMI result Body Mass Index 33.4 Labs 01/05/24 05:32 01/05/24 05:32 Labs: Laboratory Results - last 48 hr 01/04/24 01/04/24 01/04/24 00:57 00:58 01:33 WBC 11.2 H RBC 4.72 Hgb 12.3 Hct 37.5 MCV 79.4 L MCH 26.1 L MCHC 32.8 RDW 15.6 Plt Count 348 MPV 9.7 Immature Gran % (Auto) 0.3 Neut % (Auto) 70.1 Lymph % (Auto) 24.4 [place] % (Auto) 4.9 Eos % (Auto) 0.0 Baso % (Auto) 0.3 Lymph # (Auto) 2.7 [place] # (Auto) 0.6 Eos # (Auto) 0.0 Baso # (Auto) 0.0 Abs Immat Gran (auto) 0.03 Absolute Neuts (auto) 7.9 Absolute Nucleated RBC 0.000 Nucleated RBC % (auto) 0.0 PT 12.1 INR 1.0 Sodium 147 H Potassium 3.5 Chloride 108 Carbon Dioxide 27 Anion Gap 16 BUN 12 Creatinine 1.31 Estim Creat Clear Calc 36.6 Estimated GFR 39 Random Glucose 129 H Fasting Glucose Calcium 9.3 Magnesium 1.5 L Total Bilirubin 0.2 Direct Bilirubin < 0.2 AST 16 ALT 14 Alkaline Phosphatase 151 H Troponin I High Sens < 2.7 Total Protein 6.9 Albumin 3.6 Urine Color Yellow Urine Appearance Clear Urine pH 5.5 Ur Specific [place] 1.015 Urine Protein Trace Urine Glucose (UA) Negative Urine Ketones Negative Urine Blood Negative Urine Nitrite Negative Ur Leukocyte Esterase Trace H Urine RBC 0-2 Urine WBC 0-5 Ur Squamous Epith Cells 6-10 Urine Bacteria None Seen Hyaline Casts 0-2 Salicylates < 5.0 L Urine Opiates Screen Not Detected Urine Fentanyl Screen Not Detected Acetaminophen < 3 Ur Barbiturates Screen Not Detected Ur Phencyclidine Scrn Not Detected Ur Amphetamines Screen Not Detected U Benzodiazepines Scrn Not Detected Urine Cocaine Screen Not Detected U Marijuana (THC) Screen Not Detected Ethyl Alcohol < 10 01/04/24 01/05/24 09:10 05:32 WBC 10.4 8.9 RBC 5.02 4.85 Hgb 13.2 12.8 Hct 39.9 38.3 MCV 79.5 L 79.0 L MCH 26.3 L 26.4 L MCHC 33.1 33.4 RDW 15.7 15.8 Plt Count 346 300 MPV 9.5 9.5 Immature Gran % (Auto) 0.2 Neut % (Auto) 72.1 Lymph % (Auto) 23.1 [place] % (Auto) 4.3 Eos % (Auto) 0.0 Baso % (Auto) 0.3 Lymph # (Auto) 2.4 [place] # (Auto) 0.5 Eos # (Auto) 0.0 Baso # (Auto) 0.0 Abs Immat Gran (auto) 0.02 Absolute Neuts (auto) 7.5 Absolute Nucleated RBC 0.000 0.000 Nucleated RBC % (auto) 0.0 0.0 PT INR Sodium 147 H 146 H Potassium 3.7 3.7 Chloride 109 H 109 H Carbon Dioxide 27 27 Anion Gap 15 14 BUN 12 12 Creatinine 1.16 1.05 Estim Creat Clear Calc 41.4 45.7 Estimated GFR 45 51 Random Glucose 127 H Fasting Glucose 104 H Calcium 9.5 9.1 Magnesium Total Bilirubin Direct Bilirubin AST ALT Alkaline Phosphatase Troponin I High Sens Total Protein Albumin Urine Color Urine Appearance Urine pH Ur Specific [place] Urine Protein Urine Glucose (UA) Urine Ketones Urine Blood Urine Nitrite Ur Leukocyte Esterase Urine RBC Urine WBC Ur Squamous Epith Cells Urine Bacteria Hyaline Casts Salicylates Urine Opiates Screen Urine Fentanyl Screen Acetaminophen Ur Barbiturates Screen Ur Phencyclidine Scrn Ur Amphetamines Screen U Benzodiazepines Scrn Urine Cocaine Screen U Marijuana (THC) Screen Ethyl Alcohol Imaging Radiology Impressions: ITS Impressions Chest X-Ray 01/03/24 23:35 IMPRESSION: Unremarkable examination. Head CT 01/03/24 23:40 IMPRESSION: 1. Age-indeterminate small hypodensity anterior to the left thalamus. If there is clinical concern for an acute cerebrovascular accident, further evaluation with an MRI of the brain is recommended. 2. No evidence of acute intracranial hemorrhage or edematous territorial infarction. 3. Mild chronic microangiopathy and generalized cerebral volume loss. 4. Subjective increased sclerosis of the bony calvarium, not significantly changed since 2011. Brain MRI 01/04/24 13:15 IMPRESSION: Acute infarct in the ventromedial left thalamus without significant mass effect or reperfusion hemorrhage. Mental Status Exam Mental Status Exam Narrative: Appearance: casually groomed, good hygiene, in NAD Behavior: cooperative, friendly Psychomotor: intermittent agitation when she tries to leave the room and redirected to stay Speech: clear, normal rate/rhythm/volume, spontaneous TP: disorganized TC: wanting to go Mood: good Affect: congruent, bright SI: none HI: none VH/AH: no signs of psychosis Delusions: no delusional content but she is confabulating Insight/judgment: impaired x 2. Memory/cog: alert, not oriented to place, month, year or situation, attention is poor. Medications Medications Current Medications Acetaminophen (Acetaminophen 325 Mg Tablet) 650 mg PO Q6H PRN PRN Reason: Pain, Mild (Pain Scale 1-3) Amlodipine Besylate (Amlodipine Besylate 10 Mg Tablet) 10 mg PO DAILY [facility]; Protocol Last Admin: 01/05/24 08:26 Dose: 10 mg Aspirin (Aspirin 81 Mg Tab.Chew) 81 mg PO DAILY [facility] Last Admin: 01/05/24 08:25 Dose: 81 mg Atorvastatin Calcium (Atorvastatin Calcium 40 Mg Tablet) 40 mg PO DAILY [facility] Last Admin: 01/05/24 08:26 Dose: 40 mg Duloxetine HCl (Duloxetine Hcl 60 Mg Capsule.Dr) 60 mg PO DAILY [facility] Last Admin: 01/05/24 08:25 Dose: 60 mg Enoxaparin Sodium (Enoxaparin Sodium 40 Mg/0.4 Ml Syringe) 40 mg SUBCUT DAILY [facility] Last Admin: 01/05/24 08:26 Dose: 40 mg Isosorbide Mononitrate (Isosorbide Mononitrate 60 Mg Tab.Er.24h) 60 mg PO DAILY [facility]; Protocol Last Admin: 01/05/24 08:32 Dose: 60 mg Melatonin (Melatonin 3 Mg Tablet) 6 mg PO BEDTIME PRN PRN Reason: Insomnia Metoprolol Succinate (Metoprolol Succinate Er 100 Mg Tab.Er.24h) 100 mg PO DAILY [facility]; Protocol Last Admin: 01/05/24 08:26 Dose: 100 mg Mirtazapine (Mirtazapine 7.5 Mg Tablet) 7.5 mg PO BEDTIME [facility] Last Admin: 01/04/24 22:00 Dose: Not Given Montelukast Sodium (Montelukast Sodium 10 Mg Tablet) 10 mg PO DAILY [facility] Last Admin: 01/05/24 08:26 Dose: 10 mg Multivitamins/Vitamin C (Multivitamin Tablet) 1 tab PO DAILY [facility] Last Admin: 01/05/24 08:26 Dose: 1 tab Omeprazole (Omeprazole 40 Mg Capsule.Dr) 40 mg PO DAILY@0630 [facility] Last Admin: 01/05/24 06:30 Dose: 40 mg Ondansetron HCl (Ondansetron Hcl 4 Mg/2 Ml Vial) 4 mg IVPUSH Q8H PRN PRN Reason: Nausea and Vomiting Quetiapine Fumarate (Quetiapine Fumarate 25 Mg Tablet) 25 mg PO TID [facility] Sodium Chloride (0.9 % Sodium Chloride Flush 3 Ml Syringe) 3 ml IVFLUSH QSHIFT [facility] Last Admin: 01/05/24 08:26 Dose: 3 ml Trazodone HCl (Trazodone Hcl 50 Mg Tablet) 50 mg PO BEDTIME [facility] Last Admin: 01/04/24 22:00 Dose: Not Given Allergies Allergies Allergy/AdvReac Type Severity Reaction Status Date / Time metronidazole [From FLAGYL] Allergy Severe NEUROPSYCH Verified 01/03/24 22:54 EFFECTS morphine [MORPHINE] Allergy Unknown AGITATION Verified 01/03/24 22:54 lisinopril [From Zestril] AdvReac Mild DIZZY Verified 01/03/24 22:54 Assessment & Plan Assessment & Plan (1) Toxic metabolic encephalopathy: Status: Acute Code(s): G92.8 - Other toxic encephalopathy Plan Mrs. Albarran continues to present with s/s of delirium which include disorientation, poor attention, intermittent agitation. Recommend starting seroquel 25mg po TID for behavioral control of agitation. Monitor EKG, maintain Qtc<500ms, K>4, Mg>2. Monitor over sedation with seroquel and hold doses if over sedation noted. Total time managing care of this patient today ____ minutes.
[2024-01-05] MEDS: LORazepam 2 MG/ML VIAL 0.5 MG IVPUSH (16:44)
--- NOTE | 2024-01-05 18:39 | PC.NURSE ---
Patient has been agitated, anxious, yelling and wanting to leave. Very confused, attempting to leave stating she needs to go home. Family at bedside unable to redirect patient. Patient refused to go back to her room, security called for assistance. Patient medicated twice for agitation and anxiety. Sitter in place, patient [place] Islander speaking, very difficult to redirect. Grandson updated on patient's condition.
[2024-01-05 20:00] VITALS: BP 130/66; PULSE 85; RESP 20; TEMP 37.1; O2SAT 95
[2024-01-05] MEDS: traZODone HCL 50 MG TABLET PO (20:48)
[2024-01-05] MEDS: QUEtiapine Fumarate 25 MG TABLET PO (20:49)
[2024-01-05] MEDS: Mirtazapine 7.5 MG TABLET PO (20:49)
[2024-01-05 23:41] VITALS: BP 121/58; PULSE 70; RESP 18; TEMP 36.3; O2SAT 94
[2024-01-06] VITALS (9 sets, daily range): BP systolic 121–136; BP diastolic 57–80; PULSE 60–77; RESP 18–20; TEMP 36.4–37; O2SAT 93–96
[2024-01-06] MEDS: Omeprazole 40 MG CAPSULE.DR PO (05:30)
--- NOTE | 2024-01-06 08:21 | HO.PM.IMPN ---
Subjective Subjective Date of Service: 01/06/24 Review of Systems Review of Systems: Yes Unobtainable due to mental status Physical Exam Vital Signs: Vital Signs: Last Vital Signs Temp 97.8 F 01/06/24 06:59 Pulse 66 01/06/24 06:59 Resp 18 01/06/24 06:59 BP 136/63 01/06/24 06:59 Pulse Ox 96 01/06/24 06:59 O2 Del Method Room Air 01/06/24 06:59 BMI result Body Mass Index 33.4 sleeping comfortably Objective Data Active Medications Acetaminophen (Acetaminophen 325 Mg Tablet) 650 mg PO Q6H PRN PRN Reason: Pain, Mild (Pain Scale 1-3) Amlodipine Besylate (Amlodipine Besylate 10 Mg Tablet) 10 mg PO DAILY [facility]; Protocol Last Admin: 01/05/24 08:26 Dose: 10 mg Documented By: MATTHEW Aspirin (Aspirin 81 Mg Tab.Chew) 81 mg PO DAILY [facility] Last Admin: 01/05/24 08:25 Dose: 81 mg Documented By: MATTHEW Atorvastatin Calcium (Atorvastatin Calcium 40 Mg Tablet) 40 mg PO DAILY [facility] Last Admin: 01/05/24 08:26 Dose: 40 mg Documented By: MATTHEW Duloxetine HCl (Duloxetine Hcl 60 Mg Capsule.Dr) 60 mg PO DAILY [facility] Last Admin: 01/05/24 08:25 Dose: 60 mg Documented By: MATTHEW Enoxaparin Sodium (Enoxaparin Sodium 40 Mg/0.4 Ml Syringe) 40 mg SUBCUT DAILY [facility] Last Admin: 01/05/24 08:26 Dose: 40 mg Documented By: MATTHEW Isosorbide Mononitrate (Isosorbide Mononitrate 60 Mg Tab.Er.24h) 60 mg PO DAILY [facility]; Protocol Last Admin: 01/05/24 08:32 Dose: 60 mg Documented By: MATTHEW Melatonin (Melatonin 3 Mg Tablet) 6 mg PO BEDTIME PRN PRN Reason: Insomnia Metoprolol Succinate (Metoprolol Succinate Er 100 Mg Tab.Er.24h) 100 mg PO DAILY [facility]; Protocol Last Admin: 01/05/24 08:26 Dose: 100 mg Documented By: MATTHEW Mirtazapine (Mirtazapine 7.5 Mg Tablet) 7.5 mg PO BEDTIME [facility] Last Admin: 01/05/24 20:49 Dose: 7.5 mg Documented By: VIPIN Montelukast Sodium (Montelukast Sodium 10 Mg Tablet) 10 mg PO DAILY [facility] Last Admin: 01/05/24 08:26 Dose: 10 mg Documented By: MATTHEW Multivitamins/Vitamin C (Multivitamin Tablet) 1 tab PO DAILY [facility] Last Admin: 01/05/24 08:26 Dose: 1 tab Documented By: MATTHEW Omeprazole (Omeprazole 40 Mg Capsule.Dr) 40 mg PO DAILY@0630 [facility] Last Admin: 01/06/24 05:30 Dose: 40 mg Documented By: ELISABET Ondansetron HCl (Ondansetron Hcl 4 Mg/2 Ml Vial) 4 mg IVPUSH Q8H PRN PRN Reason: Nausea and Vomiting Quetiapine Fumarate (Quetiapine Fumarate 25 Mg Tablet) 25 mg PO TID [facility] Last Admin: 01/05/24 20:49 Dose: 25 mg Documented By: VIPIN Sodium Chloride (0.9 % Sodium Chloride Flush 3 Ml Syringe) 3 ml IVFLUSH QSHIFT [facility] Last Admin: 01/06/24 02:12 Dose: Not Given Documented By: ELISABET Non-Admin Reason: Patient Asleep Trazodone HCl (Trazodone Hcl 50 Mg Tablet) 50 mg PO BEDTIME [facility] Last Admin: 01/05/24 20:48 Dose: 50 mg Documented By: VIPIN Labs 01/05/24 05:32 01/05/24 05:32 Assessment and Plan (1) Altered mental status: Status: Acute Plan 78F PMH htn, ckd III, mood disorder presented with confusion, incidental finding of age indeterminant left thalamic stroke acute toxic metabolic encephalopathy 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, about 1 week of confusion, paranoid delusions - at baseline patient lives alone with several hours a day of [employer]SELING, alert oriented times 3, recognizes familiar faces likely due to acute cva psych appreciated, started seroquel 25 tid acute left thalamic likely from about 1 week ptp no motor deficits continue asa, statin neuro appreciated htn metoprolol imdur amlodipine ckd III stable dvt prophylaxis - lovenox full code reason for continued hospitalization: monitoring for efficacy of mood stabilizer Quality Stroke Does the patient have a stroke diagnosis?: No VTE Prior VTE?: No VTE Risk Level:: Medical - moderate - high VTE Device Contraindication: Treatment Not Indicated VTE Drug Contraindication: N/A - Med Ordered
[2024-01-06] MEDS: amLODIPine Besylate 10 MG TABLET PO (10:22)
[2024-01-06] MEDS: Isosorbide Mononitrate 60 MG TAB.ER.24H PO (10:22)
[2024-01-06] MEDS: 0.9 % Sodium Chloride Flush 3 ML SYRINGE IVFLUSH ×2 (10:22→19:50)
[2024-01-06] MEDS: Montelukast Sodium 10 MG TABLET PO (10:22)
[2024-01-06] MEDS: Metoprolol Succinate ER 100 MG TAB.ER.24H PO (10:22)
[2024-01-06] MEDS: Multivitamin TABLET 1 TAB PO (10:22)
[2024-01-06] MEDS: DULoxetine HCl 60 MG CAPSULE.DR PO (10:23)
[2024-01-06] MEDS: Atorvastatin Calcium 40 MG TABLET PO (10:23)
[2024-01-06] MEDS: Aspirin 81 MG TAB.CHEW PO (10:23)
[2024-01-06] MEDS: QUEtiapine Fumarate 25 MG TABLET PO ×3 (10:23→19:48)
[2024-01-06] MEDS: Enoxaparin Sodium 40 MG/0.4 ML SYRINGE SUBCUT (10:24)
--- NOTE | 2024-01-06 11:18 | MHC.CM.PN ---
Per MD in [facility], Patient is not yet medically cleared for dc to home with services today, but Patient's Granddaughter is apparently able to move in with Patient at time of dc. CM will follow.
--- NOTE | 2024-01-06 11:25 | P.CDIM_ITS ---
PROVIDER RESPONSE TEXT: To clarify, the appropriate diagnosis supported by the clinical indicators: Hypernatremia QUERY TEXT: PHYSICIAN'S DOCUMENTATION REQUEST Date of Query: 01/06/2024 11:14 AM EDT Patient Name: KRISHNA CROWE Admit Date: 01/04/2024 Dear Oziel Garcia, A review of the medical record indicates additional documentation may be needed. Please review below and update the documentation accordingly. Clinical Indicators: LAB FINDINGS: Sodium 147 H Fluids Based on the above, is there a diagnosis that correlates with these lab findings: Hypernatremia Labs indicate a diagnosis of (please specify) Other (explain) Clinically unable to determine (explain) Thank you, Lorelei Tracey, CCS, CDIS Use of terms such as suspected, likely, concern for, or probable (associated with a specific diagnosi s that is being evaluated, monitored, or treated as if it exists) are acceptable and can be coded in the inpatient se tting, when documented at the time of discharge. Please use your independent medical judgment in providing your response. THIS QUERY IS PART OF THE PERMANENT MEDICAL RECORD
[2024-01-06 12:50] LABS: Cholesterol 209 mg/dL (<200); HDL Cholesterol 45 mg/dL (>40); LDL Cholesterol Calculated 104 mg/dL (<100); Triglycerides 304 mg/dL (<150)
[2024-01-06] MEDS: traZODone HCL 50 MG TABLET PO (19:48)
[2024-01-06] MEDS: Acetaminophen 325 MG TABLET 650 MG PO (19:48)
[2024-01-06] MEDS: Melatonin 3 MG TABLET 6 MG PO (19:48)
[2024-01-06] MEDS: Mirtazapine 7.5 MG TABLET PO (19:48)
[2024-01-07 03:37] VITALS: BP 133/63; PULSE 62; RESP 18; TEMP 36.5; O2SAT 94
[2024-01-07 07:18] VITALS: BP 153/68; PULSE 72; RESP 18; TEMP 36.2; O2SAT 94
[2024-01-07] MEDS: 0.9 % Sodium Chloride Flush 3 ML SYRINGE IVFLUSH (08:31)
[2024-01-07] MEDS: Montelukast Sodium 10 MG TABLET PO (08:31)
[2024-01-07] MEDS: Metoprolol Succinate ER 100 MG TAB.ER.24H PO (08:32)
[2024-01-07] MEDS: QUEtiapine Fumarate 25 MG TABLET PO (08:32)
[2024-01-07] MEDS: Aspirin 81 MG TAB.CHEW PO (08:32)
[2024-01-07] MEDS: Atorvastatin Calcium 40 MG TABLET PO (08:32)
[2024-01-07] MEDS: Isosorbide Mononitrate 60 MG TAB.ER.24H PO (08:32)
[2024-01-07] MEDS: Enoxaparin Sodium 40 MG/0.4 ML SYRINGE SUBCUT (08:32)
[2024-01-07] MEDS: DULoxetine HCl 60 MG CAPSULE.DR PO (08:32)
[2024-01-07] MEDS: amLODIPine Besylate 10 MG TABLET PO (08:32)
[2024-01-07] MEDS: Multivitamin TABLET 1 TAB PO (08:32)
--- NOTE | 2024-01-07 09:21 | PM.DS ---
DS: Providers Provider Date of Service: 01/07/24 Date of admission: 01/04/24 02:36 Primary care physician: Bertha Evans MD Consults: 01/04/24 07:33 Consult to Neurology Routine Consulting Provider: [facility] Reason for consultation: age indeterminant infarct, ams 01/05/24 09:09 Consult for Sitter Routine Reason for consultation: agitation Consult to Psychiatry Routine Consulting Provider: Psych Covering Reason for consultation: paranoid delusions, agitation DS: Diagnosis Discharge Diagnosis (1) Altered mental status: Status: Acute DS: Summary Hospital Course Hospital Course: from initial hpi: 78-year-old female with pertinent history of essential hypertension, CKD stage 3, mood disorder who was brought to the emergency department for evaluation of altered mentation. Patient is confused at the time of my evaluation. Patient is awake and alert but does not know why she is in the hospital. She does not remember the month/year and seems confused. Patient states that she is in [place]. History obtained by ER provider and chart review. As per the friend who was present earlier prior to my evaluation, patient was found to be confused and hence brought to the ER. No falls. Patient was recently started on Lyrica about 10 days ago. Unable to obtain review of systems. In the emergency department, CT scan with age indeterminate hypodensity anterior to thalamus. hospital course: Patient was admitted for acute toxic metabolic encephalopathy found to be secondary to acute to subacute left thalamic infarct. She was seen by neurology recommended aspirin statin. She did not appear to have any residual motor deficits. She was seen by Psychiatry recommended Seroquel 25 mg t.i.d. which improved her symptoms. For hypertension was continued on metoprolol, Imdur, amlodipine. Her CKD 3 remained stable. She had mild hypernatremia and oral free fluid intake is recommended. Plan is to discharge home with family and visiting nurse services. Time Attestation Discharge Coordination Time (in mins): 35 Quality: Safe Use of Opioids Does Pt have an Active Cancer Diagnosis on the Problem List?: No Quality: Stroke Does the patient have a stroke diagnosis?: Yes Reason for No Anti-thrombotic at DC: N/A - Med Ordered Reason for No Anticoagulant at DC: Drug treatment not indicated Reason Not Initiating IV-Tpa: Drug treatment not indicated Reason for No Anti-thrombotic by Day Two: N/A - Med Ordered Reason for No Statin at DC: N/A - Med Ordered Physical Exam Vital Signs: Vital Signs: Last Vital Signs Temp 97.1 F 01/07/24 07:18 Pulse 72 01/07/24 07:18 Resp 18 01/07/24 07:18 BP 153/68 H 01/07/24 07:18 Pulse Ox 94 01/07/24 07:18 O2 Del Method Room Air 01/07/24 07:18 BMI result Body Mass Index 33.4 General: AO X 2, no acute distress Resp: CTA bilateral, no accessory muscles used CVS: S1,S2,RRR GI: soft, non tender, non distended Neuro: motor grossly intact, alert Psych: poor insight DS: Data Data Completed and Pending Labs on day of discharge: Laboratory Results - last 24 hr 01/05/24 05:32 Triglycerides 304 H Cholesterol 209 H LDL Cholesterol, Calc 104 H HDL Cholesterol 45 Discharge Plan Discharge Anticipated Discharge Date/Time: 01/07/24 09:15 Patient Disposition: Home Health Service Discharge Diagnosis: acute cva with delerium Referrals: Bertha Evans MD [Primary Care Provider] - 1 Week Discharge Medications: New quetiapine 25 mg Tablet 25 mg PO TID Qty: 270 0RF Continued ibuprofen 400 mg tablet 400 mg PO TID PRN (Reason: fever or pain) Qty: 20 0RF acetaminophen [Tylenol Extra Strength] 500 mg tablet 1,000 mg PO Q6H PRN (Reason: pain) Qty: 20 0RF mirtazapine 7.5 mg tablet 7.5 mg PO QPM duloxetine 60 mg capsule,delayed release(DR/EC) 60 mg PO QAM isosorbide mononitrate 60 mg tablet extended release 24 hr 60 mg PO DAILY calcium carbonate-vitamin D3 600 mg-10 mcg (400 unit) tablet 1 tab PO BID Spiriva Respimat 1.25 mcg/actuation mist 2 puff inhalation DAILY (DME) lancets [Unilet Lancet] 33 gauge misc See Rx Instructions .ROUTE .MEDSUPPLY Qty: 100 Rx Instructions: As directed aspirin 81 mg tablet,chewable 1 tab PO DAILY fluticasone propion-salmeterol 500-50 mcg/dose blister with device 1 ea inhalation BID amlodipine 10 mg tablet 10 mg PO DAILY (DME) FreeStyle Lite Strips Strip See Rx Instructions .ROUTE BID Qty: 10 Rx Instructions: As directed trazodone 50 mg tablet 50 mg PO BEDTIME ammonium lactate 12 % cream 1 appl topical BID triamcinolone acetonide 0.1 % cream 1 appl topical BID-TID montelukast 10 mg tablet 10 mg PO DAILY omeprazole 40 mg capsule,delayed release(DR/EC) 40 mg PO DAILY metoprolol succinate 100 mg tablet extended release 24 hr 100 mg PO DAILY atorvastatin 40 mg tablet 40 mg PO DAILY paroxetine HCl 40 mg tablet 40 mg PO DAILY multivitamin Tablet 1 tab PO DAILY meloxicam 15 mg tablet 15 mg PO DAILY Discontinued cefuroxime axetil 250 mg tablet 250 mg PO Q12H 5 Days Qty: 10 0RF pregabalin 50 mg capsule 50 mg PO BEDTIME Discharge Orders: Discharge Order (Routine); Ordered 01/07/24 Ordered By: Oziel Garcia Diet: Advance to usual diet Activity on Discharge: As tolerated Stand Alone Forms: Patient Portal Discharge page Care Plan Goals: prevent further strokes, manage current change in mental status Health Concerns: cva Plan of Treatment: continue aspirin and statin, started on seroquel Assessment: see above
--- NOTE | 2024-01-07 09:44 | W.MHC.F2F ---
Service Date Service Date: 01/07/24 Encounter Date of encounter: 01/07/24 Reasons for Services Signs and symptoms assessed: confusion Reason for penitentiary: medication management, medication treatment and teach disease management Homebound: Leaving the home is medically contraindicated at this time without the asist of a device and/or another person due th the listed conditions above and below. Reason homebound: cognitively impaired / unsafe Certification: Based on the above findings, I certify that this patient is confined to the home and needs intermittent penitentiary care, physical therapy and/or speech therapy, or continues to need occupational therapy. The patient is under my care, and I have initiated the establishment of the plan of care. The patient will be followed by a physician who will periodically review the plan of care. Time Spent With Patient Time: Total time managing care of this patient today ____ minutes.
--- NOTE | 2024-01-07 10:12 | MHC.CM.PN ---
Patient has been medically cleared for dc to home today with new [facility], who has been made aware of today's dc. Last IMM addressed on 01/05/2024.
--- NOTE | 2024-01-07 13:17 | MHC.CM.PN ---
CM spoke with Granddaughter/Jenniffer @ [phone]. Jenniffer explained that the original plan was for her to move in with Patient at time of dc(which was announced in ROUNDS by MD) but this plan changed because her , who was supposed to go with her to Patient;s home, has a new job and is now unable to assist. Patient has 2 [employer] F[employer]EL [employer]ER's, one of whom transported Patient home today with Patient's approval. CM asked Jenniffer if she felt it was needed to bring Patient back to the ED and CM can assist in finding a skilled nursing. Jenniffer explained that she and her Brother and Sister on working on covering the hours that are without coverage (6PM-1AM when Jenniffer is at work). [facility] has been updated on this situation.
--- NOTE | 2024-01-07 14:44 | MHC.CM.PN ---
CM received a call from Beverly @ [facility], who asked if anyone had mentioned Patient being active with [facility] for home PT. CM responded that this was not mentioned and a referral was made to [facility]. Per Beverly, referral to [facility] will continue because Beverly was not positive [facility] had ever accepted Patient.
--- NOTE | 2024-01-07 15:06 | MHC.CM.PN ---
CM received another call from GUMARO/Beverly @ [facility]. Per Beverly, Patient was active with [facility] for home PT and will be adding RN visits. Referral to [facility] has been cancelled and GUMARO has successfully faxed H&P,DC Summary, and Face to Face to [facility] @ [phone].
== END 2024-01-07 10:53 | disposition home health service (06) | DRG 64 ==
LOC: HO.ED 01-04 01:05 → HO.EDOVER 01-04 02:38 → HO.IMC 01-04 15:13
PROVIDERS: Nurse Practitioner Family; Admitting Provider Student in an Organized Health Care Education/Training Program; Emergency Provider Internal Medicine; PCP Internal Medicine; Visit Provider Internal Medicine
DX: I63.9 Cerebral infarction, unspecified (principal); G92.8 Other toxic encephalopathy; E87.0 Hyperosmolality and hypernatremia; N39.0 Urinary tract infection, site not specified; F05 Delirium due to known physiological condition; F39 Unspecified mood [affective] disorder; I12.9 Hypertensive chronic kidney disease with stage 1 through stage 4 chronic kidney disease, or unspecified chronic kidney disease; E86.0 Dehydration; R29.701 NIHSS score 1; N18.30 Chronic kidney disease, stage 3 unspecified; Z79.82 Long term (current) use of aspirin; Z79.51 Long term (current) use of inhaled steroids; Z79.899 Other long term (current) drug therapy
CPT/HCPCS: 36415; 70450; 70551; 71046; 80048; 80061; 80076; 80143; 80179; 80307; 81001; 83735; 84484; 85025; 85027; 85610; 93005; 97161; 97165; 99285; J1650; J2060; J2359; J3475

== ENCOUNTER → 2024-01-03 23:22 | Outpatient (BNV) | payer OTHER, SELFPAY | PROVIDERS: Admitting Provider Student in an Organized Health Care Education/Training Program; Emergency Provider Internal Medicine; Visit Provider Internal Medicine Cardiovascular Disease | DX: R41.82 Altered mental status, unspecified (principal) | CPT/HCPCS: 93010 ==

== ENCOUNTER → 2024-01-04 02:36 | Outpatient (BNV) | payer OTHER, SELFPAY | PROVIDERS: Admitting Provider Student in an Organized Health Care Education/Training Program; Emergency Provider Internal Medicine; Visit Provider Psychiatry & Neurology Neurology | DX: G92.8 Other toxic encephalopathy (principal); G93.41 Metabolic encephalopathy | CPT/HCPCS: 99222 ==

== ENCOUNTER → 2024-01-04 02:36 | Outpatient (BNV) | payer OTHER, SELFPAY | PROVIDERS: Admitting Provider Student in an Organized Health Care Education/Training Program; Emergency Provider Internal Medicine; Visit Provider Student in an Organized Health Care Education/Training Program | DX: R41.82 Altered mental status, unspecified (principal) | CPT/HCPCS: 99222; 99232; 99239; 99499; G0180 ==

== ENCOUNTER → 2024-01-04 02:36 | Outpatient (BNV) | payer OTHER, SELFPAY | PROVIDERS: Admitting Provider Student in an Organized Health Care Education/Training Program; Emergency Provider Internal Medicine; PCP Internal Medicine; Visit Provider Social Worker | DX: G93.41 Metabolic encephalopathy (principal); F02.80 Dementia in other diseases classified elsewhere, unspecified severity, without behavioral disturbance, psychotic disturbance, mood disturbance, and anxiety | CPT/HCPCS: 99232 ==

== ENCOUNTER 2024-03-06 14:17 | Outpatient (AMB) | payer OTHER, SELFPAY ==
--- OUTSIDE RECORDS SUMMARY | 2024-03-06 14:19 | XMS_ITS | Continuity of Care Document ---
Author Organization [facility] Address [address] [place] [address]- Care Team Providers Care Merchandise Supervisor Name Role Phone Nathan WYLIE, Bertha Owens Primary Care Physician [place] [facility] [place] 01/17/23 - 02/22/[address] [address] Attending Physician: Rasta Salgado MD Admitting Physician: Rasta Salgado MD Referring Physician: Poonam Briseno MD, Kyung Ro Allergies, Adverse Reactions, Alerts Substance Reaction Severity Status morphine Morphine allergy Active gabapentin Active Cats Active Dogs Active Seafood Active Medications Advair Diskus 500 mcg-50 mcg inhalation powder 1, inhalation, Inhalation, 2 times a day, rinse mouth and throat after use, # 1 each, Refills 11, Tot. Refills 11, Maintenance, 05/08/21 15:01:00 EDT, Powder, Route to Pharmacy Electronically, [id number], [facility]... Start Date: 05/08/21 Status: Ordered albuterol-ipratropium 3 mg-0.5 mg/3 ml inhalation solution 3 mL, Inhalation, 4 times a day, # 360 each, 11 Refills, Maintenance, 05/08/21 15:02:00 EDT, Solution, [facility][id number], Partial fill upon patient request if the prescription is for a schedule II opioid drug., 3 mL Inhalation 4 times a day,... Start Date: 05/08/21 Status: Ordered amLODIPine 10 mg oral tablet 10 mg, 1, tablet, By Mouth, Daily, # 90 tablet, Refills 0, Maintenance, 01/27/18 17:39:39 EDT Start Date: 01/27/18 Status: Ordered aspirin 81 mg oral delayed release tablet 81 mg, By Mouth, Daily, Refills 0, Maintenance, 11/06/20 11:29:00 EST, Partial fill upon patient request if the prescription is for a schedule II opioid drug. Start Date: 11/06/20 Status: Ordered calcium and vitamin D combination 600 mg-125 u oral tablet 1 tablet, By Mouth, 2 times a day, # 270 tablet, 0 Refills, Maintenance, 05/06/17 12:05:31, Tablet Start Date: 05/06/17 Status: Ordered DuoNeb 3 mg-0.5 mg/3 ml inhalation solution 3 mL, Neb, 4 times a day, # 30 each, 0 Refills, Maintenance, 02/27/18 12:36:17 EDT, Solution, 3 mL Neb 4 times a day Start Date: 02/27/18 Status: Ordered famotidine 40 mg oral tablet TAKE 1 TABLET BY MOUTH AT BEDTIME Start Date: 12/09/20 Status: Ordered isosorbide mononitrate 30 mg oral tablet, extended release 1 tablet = 30 mg, By Mouth, Daily in AM, # 30 tablet, 0 Refills, Maintenance, 12/09/20 7:47:00 EST,ER Tablet, Partial fill upon patient request if the prescription is for a schedule II opioid drug. Start Date: 12/09/20 Status: Ordered metoprolol 100 mg oral tablet, extended release 100 mg, 1, tablet, By Mouth, Daily, # 30 tablet, Refills 0, Maintenance, 05/06/17 12:01:33 Start Date: 05/06/17 Status: Ordered montelukast 10 mg oral tablet 10 mg, 1, tablet, By Mouth, Daily, Refills 0, Maintenance, 06/10/18 14:07:34 EDT Start Date: 06/10/18 Status: Ordered Multivitamin 1 tablet, Daily at supper, 0 Refills, Maintenance, 05/06/17 12:06:20 Start Date: 05/06/17 Status: Ordered omeprazole 40 mg oral enteric coated capsule 1 capsule = 40 mg, By Mouth, Daily, # 90 capsule, 0 Refills, Maintenance, 01/27/18 17:42:22 EDT, ECCapsule Start Date: 01/27/18 Status: Ordered PARoxetine 30 mg oral tablet 1 tablet = 30 mg, By Mouth, Daily, # 30 tablet, 0 Refills, Maintenance, 03/16/19 9:02:09 EDT, Tablet Start Date: 03/16/19 Status: Ordered pravastatin 20 mg oral tablet 20 mg, 1, tablet, By Mouth, Daily, # 30 tablet, Refills 0, Maintenance, 05/06/17 12:11:43 Start Date: 05/06/17 Status: Ordered Singulair 10 mg oral tablet 10 mg, 1, tablet, By Mouth, Daily, # 30 tablet, Refills 12, Tot. Refills 12, Maintenance, 05/08/21 15:01:00 EDT, Route to Pharmacy Electronically, [facility] #[id number], Partial fill upon patient request if the prescription is for a schedule II... Start Date: 05/08/21 Status: Ordered Spiriva Respimat 1.25 mcg/inh inhalation aerosol 2 puffs, Inhalation, Daily, # 4 Gm, 11 Refills, Maintenance, 05/08/21 15:01:00 EDT, Aerosol, [facility] #[id number], Partial fill upon patient request if the prescription is for a schedule II opioid drug., 160, cm, 05/08/21 14:30:00 EDT, Height,... Start Date: 05/08/21 Status: Ordered traZODone 50 mg oral tablet 50 mg, 1, tablet, By Mouth, Daily at bedtime, # 15 tablet, Refills 0, Maintenance, 01/27/18 17:42:50 EDT Start Date: 01/27/18 Status: Ordered Ventolin HFA 108 mcg/inh inhalation aerosol with adapter 1 puffs, Inhalation, 4 times a day, PRN for wheezing, # 8 Gm, 0 Refills, Maintenance, 05/08/21 15:01:00 EDT, Aerosol, [facility] #[id number], Partial fill upon patient request if the prescription is for a schedule II opioid drug., 160, cm, ... Start Date: 05/08/21 Status: Ordered Ventolin HFA 108 mcg/inh inhalation aerosol with adapter 2 puffs, Inhalation, 4 times a day, PRN for wheezing, # 18 Gm, 0 Refills, Maintenance, 02/26/18 17:38:11 EDT, Aerosol Start Date: 02/26/18 Status: Ordered chava-bee with c tab chava-bee with c tab, Refills 0, Maintenance, 06/10/18 14:08:15 EDT, Compound Start Date: 06/10/18 Status: Ordered Problem List Condition Confirmation Course Effective Dates Status Health St atus Informant Anxiety Confirmed Active Asthma Confirmed Active Diabetes mellitus Confirmed Active Chronic GERD Confirmed Active HTN (hypertension) Confirmed Active Obesity Confirmed Active DANNIELLE (obstructive sleep apnea) Confirmed Active Pad Confirmed Active Severe obesity (BMI 35.0-39.9) with comorbidity Confirmed Active Social History Social History Type Response Smoking Status Never (less than 100 in lifetime) entered on: 10/31/20 Sex Patient Care team information Care Team Personnel Name: Sneha Whaley RN Position: [facility] AMB Nurse Member Role: Primary Care Nurse Name: Stvee Adkins RN Position: [facility] RN Member Role: Primary Care Nurse Name: Bertha Evans MD Position: [facility] Outreach Member Role: PCP Address: Address: [address] [place] [address] Name: Beata Kimble RN Position: [facility] RN Member Role: Primary Care Nurse Name: Steve Wilson RN Position: [facility] RN Member Role: Primary Care Nurse Name: Dominique De Los Santos RN Position: [facility] RN Member Role: Primary Care Nurse Name: Theron Schmidt MD Position: [facility] Renal MD Member Role: Lifetime Consulting Physician Address: Address: [address] [place] [address] [address] [facility], [address] Name: Deya Stearns RN Position: [facility] RN Member Role: Primary Care Nurse Name: Ariella Irby RN Position: [facility] SN RN Member Role: Primary Care Nurse Care Team Related Persons Name: LORE GARNETT Address: home [address] [place] [address] Name: CHRIS MATA Address: home [address] [place] [address] Name: ADDI CASTILLO Address: [place] [address]
--- OUTSIDE RECORDS SUMMARY | 2024-03-06 14:19 | XMS_ITS | Continuity of Care Document ---
Author Organization [facility] ter Address [address] [place] [address]- Care Team Providers Care Honey Blender Name Role Phone Luiz WYLIE, Evelyne Rod Primary Care Physician [place] [facility] [place] [facility] [place] Date(s[place] 11/30/19 - 11/30/[address] [address]- [facility] Attending Physician: Bertha Evans MD Allergies, Adverse Reactions, Alerts Substance Reaction Severity Status morphine Morphine allergy Active gabapentin Active Cats Active Dogs Active Seafood Active Medications acetaminophen-HYDROcodone 325 mg-5 mg oral tablet TAKE 1 TABLET BY MOUTH THREE TIMES DAILY NEEDED FOR PAIN Start Date: 03/16/19 Status: Ordered Advair Diskus 250 mcg-50 mcg inhalation powder 1, puffs, Inhalation, 2 times a day, # 180 each, Refills 0, Maintenance, 05/06/17 12:08:12, Powder Start Date: 05/06/17 Status: Ordered amLODIPine 10 mg oral tablet 10 mg, 1, tablet, By Mouth, Daily, # 90 tablet, Refills 0, Maintenance, 01/27/18 17:39:39 EDT Start Date: 01/27/18 Status: Ordered aspirin 325 mg oral delayed release tablet 325 mg, 1, tablet, By Mouth, 2 times a day, Refills 0, Maintenance, 01/27/18 17:40:08 EDT Start Date: 01/27/18 Status: Ordered calcium and vitamin D combination [...] a day Start Date: 02/27/18 Status: Ordered GlipiZIDE XL 2.5 mg oral tablet, extended release 1 tablet = 2.5 mg, By Mouth, Daily in AM, # 90 tablet, 0 Refills, Maintenance, 01/27/18 17:40:58 EDT, ER Tablet Start Date: 01/27/18 Status: Ordered isosorbide mononitrate 60 mg oral tablet, extended release 60 mg, 1, tablet, By Mouth, Daily in AM, # 90 tablet, Refills 0, Maintenance, 01/27/18 17:41:47 EDT Start Date: 01/27/18 Status: Ordered metoprolol 100 mg oral tablet, [...] 05/06/17 12:11:43 Start Date: 05/06/17 Status: Ordered pregabalin 50 mg oral capsule 2 capsule = 100 mg, By Mouth, 2 times a day, 0 Refills, Maintenance, 01/27/18 17:42:36 EDT Start Date: 01/27/18 Status: Ordered ranitidine 150 mg oral tablet 1 tablet = 150 mg, By Mouth, 2 times a day, 0 Refills, Maintenance, 06/10/18 14:07:56 EDT Start Date: 06/10/18 Status: Ordered superplex T tablet superplex T tablet, Refills 0, Maintenance, 01/16/19 9:42:58 EDT, Compound Start Date: 01/16/19 Status: Ordered traZODone 50 mg oral tablet 25 mg, 0.5, tablet, By Mouth, Daily at bedtime, # [...] Date: 06/10/18 Status: Ordered Problem List Condition Effective Dates Status Health Status Inform ant Pad(Confirmed) Active
--- OUTSIDE RECORDS SUMMARY | 2024-03-06 14:19 | XMS_ITS | Continuity of Care Document ---
Author Organization [facility] Address [address] [place] [address]- Care Team Providers Care Cook 3 Pastry Name Role Phone Nathan WYLIE, Bertha Owens Primary Care Physician Encounter [facility] [place] Date(s): 03/05/22 - 04/04/22 [facility] [address] [place], [place] [address] Attending Physician: AdmVaughn edwards Admitting Physician: Admtr, Ar8 Referring Physician: Admtr, Ar8 Allergies, Adverse Reactions, Alerts Substance Reaction Severity Status morphine Morphine allergy Active gabapentin Active Cats Active Dogs Active Seafood Active Medications Advair Diskus 500 mcg-50 mcg inhalation powder 1, inhalation, Inhalation, 2 times a day, rinse mouth and throat after use, # 1 each, Refills 11, Tot. Refills 11, Maintenance, 05/08/21 15:01:00 EDT, Powder, Route to Pharmacy Electronically, [id number], [facility]... Start Date: 05/08/21 Status: Ordered albuterol-ipratropium 3 mg-0.5 mg/3 ml inhalation solution 3 mL, Inhalation, 4 times a day, # 360 each, 11 Refills, Maintenance, 05/08/21 15:02:00 EDT, Solution, [facility] #[id number], Partial fill upon patient request if the [...] 05/08/21 15:01:00 EDT, Route to Pharmacy Electronically, [facility] #[id number], Partial fill upon patient request if the prescription is for a schedule II... Start Date: 05/08/21 Status: Ordered Spiriva Respimat 1.25 mcg/inh inhalation aerosol 2 puffs, Inhalation, Daily, # 4 Gm, 11 Refills, Maintenance, 05/08/21 15:01:00 EDT, Aerosol, [facility] #[id number], Partial fill upon patient request if the [...] 0 Refills, Maintenance, 05/08/21 15:01:00 EDT, Aerosol, [facility] #[id number], Partial fill upon patient request if the [...] Effective Dates Status Health Status Inform ant Anxiety(Confirmed) Active Asthma(Confirmed) Active Diabetes mellitus(Confirmed) Active Chronic GERD(Confirmed) Active HTN (hypertension)(Confirmed) Active Obese class II(Confirmed) Active Obesity(Confirmed) Active DANNIELLE (obstructive sleep apnea)(Confirmed) Active Pad(Confirmed) Active Social History Social History Type Response Smoking Status Never (less than 100 in lifetime) entered on: 10/31/20 Sex
--- OUTSIDE RECORDS SUMMARY | 2024-03-06 14:19 | XMS_ITS | Continuity of Care Document ---
Author Organization [facility] Address [address] [place] [address]- Care Team Providers Care Associate Drafter Name Role Phone Nathan WYLIE, Bertha Owens Primary Care Physician [place] [facility] [place]/19/22 - 12/19/22 [facility] [address] [place], [place] [address] Attending Physician: Admjerry, Vaughn Admitting Physician: Admtr, Ar8 Referring Physician: Admtr, [...] 15:01:00 EDT, Powder, Route to Pharmacy Electronically, [id number], [facility]... Start Date: 05/08/21 Status: Ordered albuterol-ipratropium 3 mg-0.5 mg/3 ml inhalation solution 3 mL, Inhalation, 4 times a day, # 360 each, 11 Refills, Maintenance, 05/08/21 15:02:00 EDT, Solution, [email or web address] #[id number], Partial fill upon patient request if the [...] 05/08/21 15:01:00 EDT, Route to Pharmacy Electronically, [email or web address] #[id number], Partial fill upon patient request if the prescription is for a schedule II... Start Date: 05/08/21 Status: Ordered Spiriva Respimat 1.25 mcg/inh inhalation aerosol 2 puffs, Inhalation, Daily, # 4 Gm, 11 Refills, Maintenance, 05/08/21 15:01:00 EDT, Aerosol, [email or web address] #[id number], Partial fill upon patient request if the [...] 0 Refills, Maintenance, 05/08/21 15:01:00 EDT, Aerosol, [email or web address] #[id number], Partial fill upon patient request if the [...] Team Personnel Name: Sneha Whaley RN Position: [facility] AMB Nurse Member Role: Primary Care Nurse Name: Steve Adkins RN Position: [facility] RN Member Role: Primary Care Nurse Name: Bertha Evans MD Position: [facility] Outreach Member Role: PCP Address: Address: [address] [place] [address] Name: Beata Kimble RN Position: [facility] RN Member Role: Primary Care Nurse Name: Steve Wilson RN Position: [facility] RN Member Role: Primary Care Nurse Name: Dominique De Los Santos RN Position: [facility] RN Member Role: Primary Care Nurse Name: Theron Schmidt MD Position: [facility] Renal MD Member Role: Lifetime Consulting Physician Address: Address: [address] [place] [address] [address] [facility], [place] [address]- Name: Deya Stearns RN Position: [facility] RN Member Role: Primary Care Nurse Name: Ariella Irby RN Position: [facility] SN RN Member Role: Primary Care Nurse Care Team Related Persons Name: LORE GARNETT Address: home [address] [place] [address] Name: CHRIS MATA Address: home [address] [place] [address] Name: ADDI CASTILLO Address: [place] [address]
--- OUTSIDE RECORDS SUMMARY | 2024-03-06 14:19 | XMS_ITS | Continuity of Care Document ---
Author Organization [facility] Address [address] [place] [address]- Care Team Providers Care Sales Representative Aircraft Name Role Phone Bertha Evans MD Primary Care Physician [place] [facility] [place]13/22 [facility] [address] [place], [place] [address] Attending Physician: Poonam Briseno MD, Kyung Ro Admitting Physician: Poonam Briseno MD, Kyung Ro Referring Physician: Bertha Evans MD Allergies, Adverse Reactions, Alerts Substance Reaction Severity Status morphine Morphine allergy Active gabapentin Active Cats Active Dogs Active Seafood Active Medications Advair Diskus 500 mcg-50 mcg inhalation powder 1, inhalation, Inhalation, 2 times a day, rinse mouth and throat after use, # 1 each, Refills 11, Tot. Refills 11, Maintenance, 05/08/21 15:01:00 EDT, Powder, Route to Pharmacy Electronically, [id number], [facility]... Start Date: 05/08/21 Status: Ordered albuterol-ipratropium 3 mg-0.5 mg/3 ml inhalation solution 3 mL, Inhalation, 4 times a day, # 360 each, 11 Refills, Maintenance, 05/08/21 15:02:00 EDT, Solution, [facility] #[id number], Partial fill upon patient request if the [...] 05/08/21 15:01:00 EDT, Route to Pharmacy Electronically, [facility] #[id number], Partial fill upon patient request if the prescription is for a schedule II... Start Date: 05/08/21 Status: Ordered Spiriva Respimat 1.25 mcg/inh inhalation aerosol 2 puffs, Inhalation, Daily, # 4 Gm, 11 Refills, Maintenance, 05/08/21 15:01:00 EDT, Aerosol, [facility] #[id number], Partial fill upon patient request if the [...] 0 Refills, Maintenance, 05/08/21 15:01:00 EDT, Aerosol, [facility] #[id number], Partial fill upon patient request if the [...] Active Chronic GERD(Confirmed) Active HTN (hypertension)(Confirmed) Active Obesity(Confirmed) Active DANNIELLE (obstructive sleep apnea)(Confirmed) Active Pad(Confirmed) Active Social History Social History Type Response Smoking Status Never (less than 100 in lifetime) entered on: 10/31/20 Sex
--- OUTSIDE RECORDS SUMMARY | 2024-03-06 14:19 | XMS_ITS | Continuity of Care Document ---
Author Organization [facility] Address [address] [place] [address]- Care Team Providers Care Certified Registered Nurse Anesthetist Name Role Phone Bertha Evans MD Primary Care Physician Encounter [facility] [place] Date(s): 03/01/22 - 04/04/22 [facility] [address] [place], [place] [address] Attending Physician: Poonam Briseno MD, Kyung Ro [...] 15:01:00 EDT, Powder, Route to Pharmacy Electronically, [id number], [facility]... Start Date: 05/08/21 Status: Ordered albuterol-ipratropium 3 mg-0.5 mg/3 ml inhalation solution 3 mL, Inhalation, 4 times a day, # 360 each, 11 Refills, Maintenance, 05/08/21 15:02:00 EDT, Solution, [facility] #[id number], Partial fill upon patient request if the [...] 05/08/21 15:01:00 EDT, Route to Pharmacy Electronically, [facility] #[id number], Partial fill upon patient request if the prescription is for a schedule II... Start Date: 05/08/21 Status: Ordered Spiriva Respimat 1.25 mcg/inh inhalation aerosol 2 puffs, Inhalation, Daily, # 4 Gm, 11 Refills, Maintenance, 05/08/21 15:01:00 EDT, Aerosol, [facility] #[id number], Partial fill upon patient request if the [...] 0 Refills, Maintenance, 05/08/21 15:01:00 EDT, Aerosol, [facility] #[id number], Partial fill upon patient request if the [...]
--- OUTSIDE RECORDS SUMMARY | 2024-03-06 14:19 | XMS_ITS | Continuity of Care Document ---
Author Organization [facility] Address [address] [place] [address]- Care Team Providers Care Fitness Instructor Name Role Phone Nathan WYLIE, Bertha Owens Primary Care Physician Encounter [facility] [place] Date(s): 03/19/22 - 03/20/[address] [address]- Discharge Disposition: A-D/C Home Attending Physician: Shawn Alcazar DO Admitting Physician: Shawn Alcazar DO Referring Physician: Not on Staff, Referring MD Allergies, Adverse Reactions, Alerts Substance Reaction Severity Status morphine Morphine allergy Active gabapentin Active Cats Active Dogs Active Seafood Active Medications Advair Diskus 500 mcg-50 mcg inhalation powder 1, inhalation, Inhalation, 2 times a day, rinse mouth and throat after use, # 1 each, Refills 11, Tot. Refills 11, Maintenance, 05/08/21 15:01:00 EDT, Powder, Route to Pharmacy Electronically, [id number], [facility]... Start Date: 05/08/21 Status: Ordered albuterol-ipratropium 3 mg-0.5 mg/3 ml inhalation solution 3 mL, Inhalation, 4 times a day, # 360 each, 11 Refills, Maintenance, 05/08/21 15:02:00 EDT, Solution, [facility] #[id number], Partial fill upon patient request if the [...] 05/08/21 15:01:00 EDT, Route to Pharmacy Electronically, [facility] #[id number], Partial fill upon patient request if the prescription is for a schedule II... Start Date: 05/08/21 Status: Ordered Spiriva Respimat 1.25 mcg/inh inhalation aerosol 2 puffs, Inhalation, Daily, # 4 Gm, 11 Refills, Maintenance, 05/08/21 15:01:00 EDT, Aerosol, [facility] #[id number], Partial fill upon patient request if the [...] 0 Refills, Maintenance, 05/08/21 15:01:00 EDT, Aerosol, [facility] #[id number], Partial fill upon patient request if the [...] DANNIELLE (obstructive sleep apnea)(Confirmed) Active Pad(Confirmed) Active Results Radiology Reports * Exam Date Time Procedure Performing Provider Status 03/19/22 10:56 PM Chest 2 Views Frontal and Lat Bein , Wen; Auth (Verified) Notes: (Chest 2 Views Frontal and Lat) Reason For Exam: Angina RESULT: Chest 2 Views Frontal and Lat Chest 2 Views Frontal and Lat Reason: Angina; Clinical Question(s): CHF COMPARISON: 12/08/2020 FINDINGS: LINES AND TUBES: None. LUNGS AND PLEURA: Low lung volumes with mild basilar atelectasis. Lungs are otherwise clear with no consolidation. No pleural effusion. No pneumothorax. HEART, MEDIASTINUM AND KWAN: Heart is at the upper limits of normal for size. Normal upper mediastinal and hilar contour. BONES AND SOFT TISSUES: No acute abnormality. IMPRESSION: Study limited by low lung volumes. Borderline cardiac enlargement without evidence for CHF. WSN: [id number] Ordering Physician: Emanuel Rodriguez Dictated By: Real Garcia MD Dictated Date/Time: 03/19/22 11:10 p Reviewed By: Real Garcia MD Signed By: Real Garcia MD Signed Date/Time: 03/19/22 11:10 pm Transcribed By: LUIS ANGEL Transcribed Date/Time: 03/19/22 11:10 pm Vital Signs Most recent to oldest [Reference Range]: 1 2 3 Height 160 cm (03/20/22 12:25 AM) 160 cm (03/19/22 9:51 PM) Weight 95 kg (03/20/22 12:25 AM) 95 kg (03/19/22 9:51 PM) Oxygen Saturation [94-100 %] 95 % (03/20/22 2:03 AM) 98 % (03/20/22 12:25 AM) 95 % (03/19/22 9:03 PM) Pulse Rate [55-90 bpm] 77 bpm (03/20/22 2:03 AM) 75 bpm (03/20/22: AM) 89 bpm (03/19/22 9:03 PM) Body Mass Index [18.5-24.99] 37.11 *>HHI* (03/20/22: AM) Blood Pressure [90-138/55-84 mm Hg] 124/59mm Hg (03/20/22 2:03 AM) 118/62mm Hg (03/20/22: AM) 135/68mm Hg (03/19/22 9:03 PM) Respiratory Rate [16-30 br/min] 16 br/min (03/20/22 2:03 AM) 16 br/min (03/20/22: AM) 16 br/min (03/19/22 9:03 PM) Temperature [96.8-100.4 DegF] 98.3 DegF (03/20/22 2:03 AM) 98 DegF (03/20/22: AM) 98.0 DegF (03/19/22 9:03 PM) Mode of Delivery (Oxygen) Room air (03/20/22 12:25 AM) Room air (03/19/22 9:03 PM) Room air (03/19/22 8:59 PM) Blood pressure sites Arm, right (03/20/22 2:03 AM) Arm, left (03/20/22 12: AM) Arm, left (03/19/22 9:03 PM) Temperature Route Oral (03/20/22 2:03 AM) Oral (03/20/22 12:25 AM) Oral (03/19/22 9:03 PM) Social History Social History Type Response Smoking Status Never (less than 100 in lifetime) entered on: 10/31/20 Sex
--- OUTSIDE RECORDS SUMMARY | 2024-03-06 14:19 | XMS_ITS | Continuity of Care Document ---
Author Organization [facility] ter Address [address] [place] [address]- Care Team Providers Care Theatre Program Director Name Role Phone Nathan WYLIE, Bertha Owens Primary Care Physician Encounter [facility] [place] Date(s): 05/07/21 - 06/16/[address] [address] Attending Physician: Bertha Evans MD Admitting Physician: Bertha Evans MD Referring Physician: Bertha Evans MD Allergies, Adverse Reactions, Alerts Substance Reaction Severity Status morphine Morphine allergy Active gabapentin Active Cats Active Dogs Active Seafood Active Medications Advair Diskus 500 mcg-50 mcg inhalation powder 1, inhalation, Inhalation, 2 times a day, rinse mouth and throat after use, # 1 each, Refills 11, Tot. Refills 11, Maintenance, 05/08/21 15:01:00 EDT, Powder, Route to Pharmacy Electronically, [id number], [facility]... Start Date: 05/08/21 Status: Ordered albuterol-ipratropium 3 mg-0.5 mg/3 ml inhalation solution 3 mL, Inhalation, 4 times a day, # 360 each, 11 Refills, Maintenance, 05/08/21 15:02:00 EDT, Solution, [facility] #[id number], Partial fill upon patient request if the [...] 05/08/21 15:01:00 EDT, Route to Pharmacy Electronically, [facility] #[id number], Partial fill upon patient request if the prescription is for a schedule II... Start Date: 05/08/21 Status: Ordered Spiriva Respimat 1.25 mcg/inh inhalation aerosol 2 puffs, Inhalation, Daily, # 4 Gm, 11 Refills, Maintenance, 05/08/21 15:01:00 EDT, Aerosol, [facility] #[id number], Partial fill upon patient request if the [...] 0 Refills, Maintenance, 05/08/21 15:01:00 EDT, Aerosol, [facility] #[id number], Partial fill upon patient request if the [...]
--- OUTSIDE RECORDS SUMMARY | 2024-03-06 14:19 | XMS_ITS | Continuity of Care Document ---
Author Organization [facility] Address [address] [place] [address]- Care Team Providers Care Business Analytics Specialist Name Role Phone Bertha Evans MD Primary Care Physician En[place] [facility] [place] Date(s): 12/01/21 - 03/31/22 [facility] [address] [place], [place] [address] Attending Physician: Poonam Briseno MD, Kyung Ro [...] 15:01:00 EDT, Powder, Route to Pharmacy Electronically, [id number], [facility]... Start Date: 05/08/21 Status: Ordered albuterol-ipratropium 3 mg-0.5 mg/3 ml inhalation solution 3 mL, Inhalation, 4 times a day, # 360 each, 11 Refills, Maintenance, 05/08/21 15:02:00 EDT, Solution, [facility] #[id number], Partial fill upon patient request if the [...] 05/08/21 15:01:00 EDT, Route to Pharmacy Electronically, [facility] #[id number], Partial fill upon patient request if the prescription is for a schedule II... Start Date: 05/08/21 Status: Ordered Spiriva Respimat 1.25 mcg/inh inhalation aerosol 2 puffs, Inhalation, Daily, # 4 Gm, 11 Refills, Maintenance, 05/08/21 15:01:00 EDT, Aerosol, [facility] #[id number], Partial fill upon patient request if the [...] 0 Refills, Maintenance, 05/08/21 15:01:00 EDT, Aerosol, [facility] #[id number], Partial fill upon patient request if the [...]
--- OUTSIDE RECORDS SUMMARY | 2024-03-06 14:19 | XMS_ITS | Continuity of Care Document ---
Author Organization [facility] ter Address [address] [place] [address]- Care Team Providers Care Lacing Operator Name Role Phone Nathan WYLIE, Bertha Owens Primary Care Physician [place] [facility] [place] - 06/06/[address] [address] [facility] Discharge Disposition: A-D/C Home Attending Physician: Kyung Castellanos MD Admitting Physician: Kyung Castellanos MD Referring Physician: Joesph Jones DO Allergies, Adverse Reactions, Alerts Substance Reaction Severity [...] 12:05:31, Tablet Start Date: 05/06/17 Status: Ordered CeleBREX 100 mg oral capsule 1 capsule = 100 mg, By Mouth, Daily, 0 Refills, Maintenance, 06/06/20 7:00:00 EDT Start Date: 06/06/20 Status: Ordered DuoNeb 3 mg-0.5 mg/3 ml [...] Status Health Status Inform ant Pad(Confirmed) Active Vital Signs Most recent to oldest [Reference Range]: 1 2 3 Height 160 cm (06/06/20 8:38 AM) 160 cm (06/06/20 6:37 AM) Weight 90.9 kg (06/06/20 8:38 AM) 90.9 kg (06/06/20 6:37 AM) Oxygen Saturation [94-100 %] 95 % (06/06/20 2:30 PM) 93 % *L* (06/06/20 2:15 PM) 96 % (06/06/20 1:45 PM) Blood Pressure [90-138/55-84 mm Hg] 140/81mm Hg *H* (06/06/20 2:30 PM) 146/84mm Hg *H* (06/06/20 2:15 PM) 127/59mm Hg (06/06/20 1:45 PM) Respiratory Rate [16-30 br/min] 16 br/min (06/06/20 2:30 PM) 15 br/min *L* (06/06/20 2:15 PM) 19 br/min (06/06/20 1:45 PM) Temperature [96.8-100.4 DegF] 97.6 DegF (06/06/20 11:45 AM) Mode of Delivery (Oxygen) Room air (06/06/20 2:30 PM) Room air (06/06/20 2:15 PM) Room air (06/06/20 1:45 PM) Blood pressure sites Arm, left (06/06/20 2:30 PM) Arm, left (06/06/20 11:45 AM) Temperature Route Temporal (06/06/20 11:45 AM) Dry Weight 90.9 kg (06/06/20 6:37 AM)
--- OUTSIDE RECORDS SUMMARY | 2024-03-06 14:19 | XMS_ITS | Continuity of Care Document ---
Author Organization [facility] Address [address] [place] [address]- Care Team Providers Care Humidifier Operator Name Role Phone Nathan WYLIE, Bertha Owens Primary Care Physician [place] [facility] [place] - 07/26/[address] [address] Attending Physician: Lauro Rainey MD Admitting Physician: Lauro Rainey MD Referring Physician: Lauro Rainey MD Allergies, Adverse Reactions, Alerts Substance Reaction Severity Status morphine Morphine allergy Active gabapentin Active Cats Active Dogs Active Seafood Active Medications Advair Diskus 500 mcg-50 mcg inhalation powder 1, inhalation, Inhalation, 2 times a day, rinse mouth and throat after use, # 1 each, Refills 11, Tot. Refills 11, Maintenance, 05/08/21 15:01:00 EDT, Powder, Route to Pharmacy Electronically, [id number], [facility]... Start Date: 05/08/21 Status: Ordered albuterol-ipratropium 3 mg-0.5 mg/3 ml inhalation solution 3 mL, Inhalation, 4 times a day, # 360 each, 11 Refills, Maintenance, 05/08/21 15:02:00 EDT, Solution, [facility] #[id number], Partial fill upon patient request if the [...] 05/08/21 15:01:00 EDT, Route to Pharmacy Electronically, [facility] #[id number], Partial fill upon patient request if the prescription is for a schedule II... Start Date: 05/08/21 Status: Ordered Spiriva Respimat 1.25 mcg/inh inhalation aerosol 2 puffs, Inhalation, Daily, # 4 Gm, 11 Refills, Maintenance, 05/08/21 15:01:00 EDT, Aerosol, [facility] #[id number], Partial fill upon patient request if the [...] 0 Refills, Maintenance, 05/08/21 15:01:00 EDT, Aerosol, [facility] #[id number], Partial fill upon patient request if the [...] GERD Confirmed Active HTN (hypertension) Confirmed Active Obese class II Confirmed Active Obesity Confirmed Active DANNIELLE (obstructive sleep apnea) Confirmed Active Pad Confirmed Active Social History Social History Type Response Smoking Status Never (less than 100 in lifetime) entered on: 10/31/20 Sex Patient Care team information Personnel Name: Nathan WYLIE, Bertha Owens Address: Address: [address] [place] [address]
--- OUTSIDE RECORDS SUMMARY | 2024-03-06 14:19 | XMS_ITS | Continuity of Care Document ---
Author Organization [facility] Address [address] [place] [address]- Care Team Providers Care Trench Digging Machine Operator Name Role Phone Nathan WYLIE, Bertha Owens Primary Care Physician En[place] [facility] [place](s): 12/08/20 - 12/09/20 [facility] [address] [place] [id number] Discharge Disposition: A-D/C Home Attending Physician: Haley Cavanaugh MD Admitting Physician: Tavon Kaye MD Referring Physician: Not on Staff, Referring MD Allergies, Adverse Reactions, Alerts Substance Reaction Severity Status morphine Morphine allergy Active gabapentin Active Cats Active Dogs Active Seafood Active Medications amLODIPine 10 mg oral tablet 10 mg, Tablet, By Mouth, 12/09/20 9:00:00 EST Start Date: 12/09/20 Stop Date: 12/09/20 Status: Completed amLODIPine 10 mg oral tablet 10 mg, [...] AT BEDTIME Start Date: 12/09/20 Status: Ordered fluticasone-salmeterol 500 mcg-50 mcg inhalation powder INHALE 1 PUFF TWICE DAILY IN THE MORNING AND IN THE EVENING (EVERY TWELVE HOURS). RINSE MOUTH AFTERUSING.. Start Date: 12/09/20 Status: Ordered isosorbide mononitrate 30 mg oral tablet, extended release 1 tablet = 30 mg, By Mouth, Daily in AM, # 30 tablet, 0 Refills, Maintenance, 12/09/20 7:47:00 EST,ER Tablet, Partial fill upon patient request if the prescription is for a schedule II opioid drug. Start Date: 12/09/20 Status: Ordered metoprolol 100 mg oral tablet, extended release 100 mg, XL Tablet, By Mouth, 12/09/20 9:00:00 EST Start Date: 12/09/20 Stop Date: 12/09/20 Status: Completed metoprolol 100 mg oral tablet, extended release [...] 05/06/17 12:11:43 Start Date: 05/06/17 Status: Ordered traZODone 50 mg oral tablet [...] Status Health Status Inform ant Pad(Confirmed) Active Results Radiology Reports * Exam Date Time Procedure Performing Provider Status 12/08/20 10:17 PM Chest Portable Valerie Dooley; Yary (Verified) Notes: (Chest Portable) Reason For Exam: Shortness of Breath RESULT: Chest Portable Chest Portable Hx of Present Illness: Chest pain and SOB x 2 days.; Reason: Shortness of Breath; Clinical Question(s): Pneumonia; Special Instructions: PUI COMPARISON: 10/31/2020 FINDINGS: LINES AND TUBES: None. LUNGS AND PLEURA: Clear lungs. Normal pulmonary vascularity. No pleural effusion. No pneumothorax. HEART, MEDIASTINUM AND KWAN: Heart is normal in size. Normal upper mediastinal and hilar contour. BONES AND SOFT TISSUES: No acute abnormality. IMPRESSION: No acute abnormality. WSN: [id number] Ordering Physician: Stephanie Ng Dictated By: Bandar Torres DO Dictated Date/Time: 12/08/20 10:19 p Reviewed By: Bandar Torres DO Signed By: Bandar Torres DO Signed Date/Time: 12/08/20 10:19 pm Transcribed By: LUIS ANGEL Transcribed Date/Time: 12/08/20 10:18 pm Vital Signs Most recent to oldest [Reference Range]: 1 2 3 Height 160 cm (12/09/20 6:50 AM) Weight 90.5 kg (12/09/20 6:50 AM) Oxygen Saturation [94-100 %] 96 % (12/09/20 10:56 AM) 96 % (12/09/20 7:44 AM) 96 % (12/09/20 2:05 AM) Pulse Rate [55-90 bpm] 71 bpm (12/09/20 10:56 AM) 71 bpm (12/09/20 8:36 AM) 71 bpm (12/09/20 7:44 AM) Body Mass Index [18.5-24.99] 35.35 *>HHI* (12/09/20 6:50 AM) Blood Pressure [90-138/55-84 mm Hg] 126/77mm Hg (12/09/20 10:56 AM) 147/62mm Hg *H* (12/09/20 8:36 AM) 147/62mm Hg *H* (12/09/20 8:36 AM) Respiratory Rate [16-30 br/min] 18 br/min (12/09/20 11:22 AM) 18 br/min (12/09/20 10:56 AM) 18 br/min (12/09/20 7:44 AM) Temperature [96.8-100.4 DegF] 97.2 DegF (12/09/20 10:56 AM) 98.2 DegF (12/09/20 7:44 AM) 98.1 DegF (12/09/20 2:05 AM) Mode of Delivery (Oxygen) Room air (12/09/20 10:56 AM) Room air (12/09/20 7:44 AM) Room air (12/09/20 2:05 AM) Blood pressure sites Arm, left (12/09/20 7:44 AM) Arm, left (12/09/20 2:05 AM) Arm, left (12/09/20 12:12 AM) Temperature Route Oral (12/09/20 10:56 AM) Oral (12/09/20 7:44 AM) Oral (12/09/20 2:05 AM) Dry Weight 90.5 kg (12/09/20 6:50 AM) Weight Obtained Via Patient/family state d (12/09/20 6:50 AM) Dry Weight Obtained Via Patient/family s tated (12/09/20 6:50 AM) Social History Social History Type Response Smoking Status Never (less than 100 in lifetime) entered on: 10/31/20 Sex
--- OUTSIDE RECORDS SUMMARY | 2024-03-06 14:19 | XMS_ITS | Continuity of Care Document ---
Author Organization [facility] Address [address] [place] [id number]- Care Team Providers Care Process Development Engineer Name Role Phone Nathan WYLIE, Bertha Owens Primary Care Physician [place] [facility] [place] 11/06/20 [facility] [address] [place] [id number] Encounter Diagnosis 2019 novel coronavirus disease (COVID-19)(Final) - 10/31/20 2019 novel coronavirus disease (COVID-19)(Final) - 10/31/20 Discharge Disposition: A-Transfer SNF Attending Physician: Brianda Becker MD Admitting Physician: Miguel Velasquez MD Referring Physician: Not on Staff, Referring [...] oral tablet 10 mg, Tablet, By Mouth, 11/06/20 9:00:00 EST Start Date: 11/06/20 Stop Date: 11/06/20 Status: Completed amLODIPine 10 mg oral tablet [...] capsule = 100 mg, By Mouth, Daily, PRN Pain , Moderate, 0 Refills, Maintenance, 06/06/20 7:00:00 EDT Start Date: 06/06/20 Status: Ordered DuoNeb 3 mg-0.5 mg/3 ml inhalation solution 3 mL, Neb, 4 times a day, # 30 each, 0 Refills, Maintenance, 02/27/18 12:36:17 EDT, Solution, 3 mL Neb 4 times a day Start Date: 02/27/18 Status: Ordered isosorbide mononitrate 60 mg oral tablet, extended release 60 mg, 1, tablet, By Mouth, Daily in AM, # 90 tablet, Refills 0, Maintenance, 01/27/18 17:41:47 EDT Start Date: 01/27/18 Status: Ordered metoprolol 100 mg oral tablet, extended release 100 mg, XL Tablet, By Mouth, 11/06/20 9:00:00 EST Start Date: 11/06/20 Stop Date: 11/06/20 Status: Completed metoprolol 100 mg oral tablet, [...] 14:07:56 EDT Start Date: 06/10/18 Status: Ordered traZODone 50 mg oral tablet [...] Exam Date Time Procedure Performing Provider Status 10/31/20 8:18 PM Chest Portable Vanessa Lorenzana; Yary ( Verified) Notes: (Chest Portable) Reason For Exam: Cough RESULT: Chest Portable Chest Portable Hx of Present Illness: pt c o difficulty breathing, MACKENZIE, generalized weakness beginning last pm withnausea, decreaed PO intake. +cough. denies fever.; Reason: Cough; Clinical Question(s): Pneumonia; Special Instructions: This is a protocol film and radiologist should call any findings to the ChargeNurse or appropriate provider COMPARISON: 03/16/2019 FINDINGS: LINES AND TUBES: None. LUNGS AND PLEURA: Lung volumes are low. There is patchy airspace opacity at both lung bases which could be due to atelectasis or pneumonia. No pleural effusion. No pneumothorax. HEART, MEDIASTINUM AND KWAN: Heart is normal in size. Normal upper mediastinal and hilar contour. BONES AND SOFT TISSUES: No acute abnormality. IMPRESSION: Minimal patchy bibasilar opacities which could be due to pneumonia or atelectasis. Lung volumes arelow. A Document Only message has been documented in the [employer] system Gen Jay MD on 10/31/2020 8:25 PM, Message ID [id number]. WSN: [id number] Ordering Physician: Hammad Jay Dictated By: Real Garcia MD Dictated Date/Time: 10/31/20 8:25 pm Reviewed By: Real Garcia MD Signed By: Real Garcia MD Signed Date/Time: 10/31/20 8:25 pm Transcribed By: LUIS ANGEL Transcribed Date/Time: 10/31/20 8:22 pm Vital Signs Most recent to oldest [Reference Range]: 1 2 3 Height 159 cm (11/01/20 1:46 AM) Weight 93.7 kg (11/01/20 1:46 AM) Oxygen Saturation [94-100 %] 95 % (11/06/20 11:00 AM) 94 % (11/06/20 7:42 AM) 94 % (11/06/20 4:00 AM) Pulse Rate [55-90 bpm] 71 bpm (11/06/20 11:00 AM) 62 bpm (11/06/20 9:44 AM) 61 bpm (11/06/20 7:42 AM) Body Mass Index [18.5-24.99] 37.06 *>HHI* (11/01/20 1:46 AM) Blood Pressure [90-138/55-84 mm Hg] 133/80mm Hg (11/06/20 11:00 AM) 161/82mm Hg *H* (11/06/20 9:45 AM) 161/82mm Hg *H* (11/06/20 9:44 AM) Respiratory Rate [16-30 br/min] 18 br/min (11/06/20 11:00 AM) 18 br/min (11/06/20 7:42 AM) 20 br/min (11/06/20 4:00 AM) Temperature [96.8-100.4 DegF] 97.8 DegF (11/06/20 11:00 AM) 98.3 DegF (11/06/20 7:42 AM) 98.1 DegF (11/06/20 4:00 AM) Liters per Minute 2 L/min (11/04/20 4:00 PM) 2 L/min (11/04/20 12:00 PM) 2 L/min (11/04/20 8:00 AM) Mode of Delivery (Oxygen) Room air (11/06/20 11:00 AM) Room air (11/06/20 7:42 AM) Room air (11/06/20 4:00 AM) Blood pressure sites Arm, left (11/06/20 11:00 AM) Arm, left (11/06/20 7:42 AM) Arm, right (11/06/20 4:00 AM) Temperature Route Oral (11/06/20 11:00 AM) Axillary (11/06/20 7:42 AM) Oral (11/06/20 4:00 AM) Dry Weight 95.45 kg (11/01/20 1:46 AM) Weight Obtained Via Bed scale (11/01/20 1:46 AM) Dry Weight Obtained Via Patient/family stated (11/01/20 1:46 AM) Social History Social History Type Response Smoking Status Never (less than 100 in lifetime) entered on: 10/31/20 Sex
--- OUTSIDE RECORDS SUMMARY | 2024-03-06 14:20 | XMS_ITS | Continuity of Care Document ---
Author Organization [facility] Address [address] [place] [address]- Care Team Providers Care Heavy Equipment Rental Manager Name Role Phone Nathan WYLIE, Bertha Owens Primary Care Physician [place] [facility] [place] 11[place]29/22 [facility] [address] [place], [place] [address] Allergies, Adverse Reactions, Alerts Substance Reaction Severity Status morphine Morphine allergy Active gabapentin Active Cats Active Dogs Active Seafood Active Medications Advair Diskus 500 mcg-50 mcg inhalation powder 1, inhalation, Inhalation, 2 times a day, rinse mouth and throat after use, # 1 each, Refills 11, Tot. Refills 11, Maintenance, 05/08/21 15:01:00 EDT, Powder, Route to Pharmacy Electronically, [id number], [facility]... Start Date: 05/08/21 Status: Ordered albuterol-ipratropium 3 mg-0.5 mg/3 ml inhalation solution 3 mL, Inhalation, 4 times a day, # 360 each, 11 Refills, Maintenance, 05/08/21 15:02:00 EDT, Solution, [email or web address] #[id number], Partial fill upon patient request if the [...] 05/08/21 15:01:00 EDT, Route to Pharmacy Electronically, [email or web address] #[id number], Partial fill upon patient request if the prescription is for a schedule II... Start Date: 05/08/21 Status: Ordered Spiriva Respimat 1.25 mcg/inh inhalation aerosol 2 puffs, Inhalation, Daily, # 4 Gm, 11 Refills, Maintenance, 05/08/21 15:01:00 EDT, Aerosol, [email or web address] #[id number], Partial fill upon patient request if the [...] 0 Refills, Maintenance, 05/08/21 15:01:00 EDT, Aerosol, [email or web address] #[id number], Partial fill upon patient request if the [...] Team Personnel Name: Sneha Whaley RN Position: [facility] AMB Nurse Member Role: Primary Care Nurse Name: Steve Adkins RN Position: [facility] RN Member Role: Primary Care Nurse Name: Bertha Evans MD Position: [facility] Outreach Member Role: PCP Address: Address: [address] [place] [address] Name: Beata Kimble RN Position: [facility] RN Member Role: Primary Care Nurse Name: Steve Wilson RN Position: [facility] RN Member Role: Primary Care Nurse Name: Dominique De Los Santos RN Position: [facility] RN Member Role: Primary Care Nurse Name: Theron Schmidt MD Position: [facility] Renal MD Member Role: Lifetime Consulting Physician Address: Address: [address] [place] [address] [address] [facility] [place] [address]- Name: Deya Stearns RN Position: [facility] RN Member Role: Primary Care Nurse Name: Ariella Irby RN Position: [facility] SN RN Member Role: Primary Care Nurse Care Team Related Persons Name: LORE GARNETT Address: home [address] [place] [address] Name: CHRIS MATA Address: home [address] [place] [address] Name: ADDI CASTILLO Address: [place] [address]
--- OUTSIDE RECORDS SUMMARY | 2024-03-06 14:20 | XMS_ITS | Continuity of Care Document ---
Author Organization [facility] Address [address] [place] [address]- Care Team Providers Care Trip Rider Name Role Phone Bertha Evans MD Primary Care Physician [place] [facility] [place]22 [facility] [address] [place], [place] [address] Attending Physician: Mary Erwin MD Admitting Physician: Mary Erwin MD Referring Physician: Bertha Evans MD Allergies, [...] 15:01:00 EDT, Powder, Route to Pharmacy Electronically, [id number], [facility]... Start Date: 05/08/21 Status: Ordered albuterol-ipratropium 3 mg-0.5 mg/3 ml inhalation solution 3 mL, Inhalation, 4 times a day, # 360 each, 11 Refills, Maintenance, 05/08/21 15:02:00 EDT, Solution, [facility] #[id number], Partial fill upon patient request if the [...] 05/08/21 15:01:00 EDT, Route to Pharmacy Electronically, [facility] #[id number], Partial fill upon patient request if the prescription is for a schedule II... Start Date: 05/08/21 Status: Ordered Spiriva Respimat 1.25 mcg/inh inhalation aerosol 2 puffs, Inhalation, Daily, # 4 Gm, 11 Refills, Maintenance, 05/08/21 15:01:00 EDT, Aerosol, [facility] #[id number], Partial fill upon patient request if the [...] 0 Refills, Maintenance, 05/08/21 15:01:00 EDT, Aerosol, [facility] #[id number], Partial fill upon patient request if the [...]
[2024-03-06 14:25] VITALS: BP 130/80; PULSE 85; O2SAT 94
--- NOTE | 2024-03-06 14:25 | HO.NEPHOV_ITS ---
Vital Signs 03/06/24 14:25 Weight 187 lb BP 130/80 Blood Pressure Location Rt brachial Position Sitting Pulse 85 Pulse Source Pulse Oximeter Pulse Oximetry (%) 94 Oxygen Delivery Method Room Air Intake Visit Reasons: 3 mon follow up/ Confirmed Investment Accounting Clerk Required: Yes Investment Accounting Clerk Name: Johan [id number] Accompanied by: INSTRUMENT LENS GRINDER APPRENTICE Allergies metronidazole [From FLAGYL] Allergy (Severe, Verified 03/06/24 14:27) NEUROPSYCH EFFECTS morphine [MORPHINE] Allergy (Unknown, Verified 03/06/24 14:27) AGITATION lisinopril [From Zestril] Adverse Reaction (Mild, Verified 03/06/24 14:27) DIZZY HPI Comments Details: I had the pleasure seeing Ms Kehinde in follow-up of her chronic kidney disease and hypertension. 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 She has had a lot of arthritic issues and had been receiving intra- articular injections. She does not take any nonsteroidal anti-inflammatories. She denies any nausea, vomiting, diarrhea, dizziness, swelling. She has no edema. She is having high Na diet. Her blood pressure and blood sugars are well controlled. [facility] Medical History Mood disorder CKD (chronic kidney disease) stage 3, GFR 30-59 ml/min Hypertension Surgical History History of neck surgery Social History Household Members: None Do you presently have visiting nurse or other home services: Yes (INSTRUMENT LENS GRINDER APPRENTICE services) Alcohol intake: never Comment: 1:1 sitter Patient Tobacco Use Status: Never used Tobacco service: No Physical Exam Vital Signs: Last Vital Signs Pulse 85 03/06/24 14:25 Pulse Ox 94 03/06/24 14:25 Oxygen Delivery Method Room Air 03/06/24 14:25 Const General: comfortable and no acute distress Orientation/consciousness: patient oriented x3 HEENT Head: Yes normocephalic Mouth: Normal oral and palatal mucosa present Eyes EOM: EOMs intact bilaterally Neck Neck: Yes supple Resp Auscultation: clear to auscultation bilaterally Cardio Jugular venous distension: no JVD Rate: regular rate GI Palpation (GI): Soft to palpation Auscultation: normal bowel sounds General: Yes no CVA tenderness Back/Spine/Pelvis Back: no CVA tenderness Skin General skin exam: no rashes or lesions noted Neuro General: patient oriented x3 and moves all extremities Extrem General: Yes no pedal edema Results Reviewed Nephrology Results: Hgb 12.8 g/dl (12.0-16.0) 01/05/24 WBC 8.9 X10*3/uL (4.8-10.8) 01/05/24 Plt Count 300 X10*3/uL (160-400) 01/05/24 Sodium 146 mmol/L (135-145) H 01/05/24 Potassium 3.7 mmol/L (3.3-5.1) 01/05/24 Chloride 109 mmol/L (96-108) H 01/05/24 Carbon Dioxide 27 mmol/L (22-29) 01/05/24 BUN 12 mg/dL (9-16) 01/05/24 Creatinine 1.05 mg/dL (0.5-1.4) 01/05/24 Calcium 9.1 mg/dL (8.4-10.2) 01/05/24 Urine Protein Trace mg/dL (Neg-Trace) 01/04/24 Urine Creatinine 100.04 mg/dL 11/22/23 Protein/Creatinin Ratio 0.12 (<0.2) 11/22/23 Assessment & Plan Assessment & Plan (1) CKD (chronic kidney disease) stage 3, GFR 30-59 ml/min: Code(s): N18.30 - Chronic kidney disease, stage 3 unspecified Category: Medical Qualifiers: Chronic kidney disease stage 3 subtype: stage 3a (GFR 45-59) Qualified Code(s): N18.31 - Chronic kidney disease, stage 3a (2) Hypertension: Code(s): I10 - Essential (primary) hypertension Category: Medical Qualifiers: Hypertension type: primary hypertension Qualified Code(s): I10 - Essential (primary) hypertension Plan 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 Her serum creatinine is currently stable. Her blood pressure is at goal on current medication regimen. She avoids nonsteroidal anti-inflammatory medications and try to remain well hydrated. She should lose weight and should be on a low- sodium diet. I have ordered follow up blood work including renal functions along with the urine studies. She did not ask for any prescription refills today. Follow-up appointment given. Investment Accounting Clerk services were used for the entire encounter. All questions answered Orders: Orders Creatinine Today I10 - Essential (primary) hypertension, N18.31 - Chronic kidney disease, stage 3a Blood Urea Nitrogen Today I10 - Essential (primary) hypertension, N18.31 - Chronic kidney disease, stage 3a Electrolytes Today I10 - Essential (primary) hypertension, N18.31 - Chronic kidney disease, stage 3a Coding Level of Care Code Est Pt Level 4 (90764) Diagnoses Stage 3a chronic kidney disease N18.31 Chronic kidney disease stage 3 subtype: stage 3a (GFR 45-59) Primary hypertension I10 Hypertension type: primary hypertension
== END 2024-03-06 14:45 | disposition home or self-care (01) ==
LOC: HO.HKA 14:17
PROVIDERS: PCP Internal Medicine; Visit Provider Internal Medicine Nephrology
DX: N18.31 Chronic kidney disease, stage 3a (principal); I10 Essential (primary) hypertension
CPT/HCPCS: 99214

== ENCOUNTER → 2024-03-06 14:17 | Outpatient (BNVA) | payer OTHER, SELFPAY | PROVIDERS: PCP Internal Medicine; Visit Provider Internal Medicine Nephrology | DX: I12.9 Hypertensive chronic kidney disease with stage 1 through stage 4 chronic kidney disease, or unspecified chronic kidney disease (principal); N18.31 Chronic kidney disease, stage 3a | CPT/HCPCS: 99212 ==

== ENCOUNTER 2024-05-29 15:53 | Outpatient (REF) | payer OTHER, SELFPAY ==
[2024-05-29 17:54] LABS: Anion Gap 13 (12-20); Blood Urea Nitrogen 15 mg/dL (9-16); Carbon Dioxide 31 mmol/L (22-29); Chloride 104 mmol/L (96-108); Estimated Glomerular Filt Rate 38; Potassium 4.4 mmol/L (3.3-5.1); Sodium 144 mmol/L (135-145)
[2024-05-29 18:02] LABS: Anion Gap 13 (12-20); Blood Urea Nitrogen 15 mg/dL (9-16); Calcium 9.6 mg/dL (8.4-10.2); Carbon Dioxide 30 mmol/L (22-29); Chloride 104 mmol/L (96-108); Estimated Glomerular Filt Rate 37; Phosphorus 3.3 mg/dL (2.7-4.5); Potassium 4.4 mmol/L (3.3-5.1); Sodium 143 mmol/L (135-145)
[2024-05-29 18:20] LABS: Vitamin D 25-OH Total 59.7 ng/mL (>30)
[2024-05-29 18:23] LABS: Creatinine Urine 140.28 mg/dL; Protein/Creatinine Ratio, Ur 0.17 (<0.2); Total Protein Urine Random 24 mg/dL (<12)
[2024-05-30 05:56] LABS: Parathyroid Hormone Intact 74.9 pg/mL (8.7-77.1)
== END 2024-05-29 15:54 | disposition home or self-care (01) ==
LOC: HO.HHCL 15:53
PROVIDERS: Visit Provider Internal Medicine Nephrology
DX: N18.30 Chronic kidney disease, stage 3 unspecified (principal); I10 Essential (primary) hypertension; N18.31 Chronic kidney disease, stage 3a
CPT/HCPCS: 36415; 80051; 82306; 82310; 82565; 82570; 83970; 84100; 84156; 84520

== ENCOUNTER 2024-06-04 14:46 | Outpatient (AMB) | payer OTHER, SELFPAY ==
--- NOTE | 2024-06-04 15:38 | HO.NEPHOV ---
Vital Signs 06/04/24 15:40 Height 5 ft 3 in Weight 184 lb BMI 32.6 BP 120/64 Blood Pressure Location Lt brachial Position Sitting Pulse 80 Pulse Source Pulse Oximeter Pulse Oximetry (%) 95 Oxygen Delivery Method Room Air Intake Visit Reasons: CKD / 3 MO FU / LVM Communications Administrator Required: Yes Communications Administrator Services: Communications Administrator Present Communications Administrator Name: Sander Yang [id number] Information Interpreted: clinical only Allergies metronidazole [From FLAGYL] Allergy (Severe, Verified 06/04/24 15:42) NEUROPSYCH EFFECTS morphine [MORPHINE] Allergy (Unknown, Verified 06/04/24 15:42) AGITATION lisinopril [From Zestril] Adverse Reaction (Mild, Verified 06/04/24 15:42) DIZZY HPI Comments Details: I had the pleasure seeing Ms Busby in follow-up of her chronic kidney disease and hypertension. 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 She has had a lot of arthritic issues and had been receiving intra-articular injections. She does not take any nonsteroidal anti-inflammatories. She denies any nausea, vomiting, diarrhea, dizziness, swelling. She has no edema. She is having high Na diet. Her blood pressure and blood sugars are well controlled [facility] Medical History Mood disorder CKD (chronic kidney disease) stage 3, GFR 30-59 ml/min Hypertension Surgical History History of neck surgery Social History Household Members: None Do you presently have visiting nurse or other home services: Yes (FAMILY SUPPORT COORDINATOR services) Alcohol intake: never Comment: 1:1 sitter Patient Tobacco Use Status: Never used Tobacco service: No Review of Systems Const All systems reviewed & are unremarkable except as noted in HPI and below Physical Exam Vital Signs: Last Vital Signs Pulse 80 06/04/24 15:40 BP 120/64 06/04/24 15:40 Pulse Ox 95 06/04/24 15:40 Oxygen Delivery Method Room Air 06/04/24 15:40 BMI result Body Mass Index 32.6 Const General: comfortable and no acute distress Orientation/consciousness: patient oriented x3 HEENT Head: Yes normocephalic Mouth: Normal oral and palatal mucosa present Eyes EOM: EOMs intact bilaterally Neck Neck: Yes supple Resp Auscultation: clear to auscultation bilaterally Cardio Jugular venous distension: no JVD Rate: regular rate GI Palpation (GI): Soft to palpation Auscultation: normal bowel sounds General: Yes no CVA tenderness Back/Spine/Pelvis Back: no CVA tenderness Skin General skin exam: no rashes or lesions noted Neuro General: patient oriented x3 and moves all extremities Extrem General: Yes no pedal edema Assessment & Plan Assessment & Plan (1) CKD (chronic kidney disease) stage 3, GFR 30-59 ml/min: Code(s): N18.30 - Chronic kidney disease, stage 3 unspecified Category: Medical Qualifiers: Chronic kidney disease stage 3 subtype: stage 3a (GFR 45-59) Qualified Code(s): N18.31 - Chronic kidney disease, stage 3a (2) Hypertension: Code(s): I10 - Essential (primary) hypertension Category: Medical Qualifiers: Hypertension type: primary hypertension Qualified Code(s): I10 - Essential (primary) hypertension Plan 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 Her serum creatinine is stable. Her blood pressure is at goal on current medication regimen. She avoids nonsteroidal anti-inflammatory medications and try to remain well hydrated. She should lose weight and should be on a low-sodium diet. I have ordered follow up blood work . She did not ask for any prescription refills today. Follow-up appointment given. Communications Administrator services were used for the entire encounter. All questions answered Orders: Orders Blood Urea Nitrogen 6 Months I10 - Essential (primary) hypertension, N18.31 - Chronic kidney disease, stage 3a Creatinine 6 Months I10 - Essential (primary) hypertension, N18.31 - Chronic kidney disease, stage 3a Electrolytes 6 Months I10 - Essential (primary) hypertension, N18.31 - Chronic kidney disease, stage 3a Coding Level of Care Code Est Pt Level 4 (02307) Diagnoses Stage 3a chronic kidney disease N18.31 Chronic kidney disease stage 3 subtype: stage 3a (GFR 45-59) Primary hypertension I10 Hypertension type: primary hypertension
[2024-06-04 15:40] VITALS: BP 120/64; PULSE 80; O2SAT 95; BMI 32.6
== END 2024-06-04 16:01 | disposition home or self-care (01) ==
PROVIDERS: PCP Internal Medicine; Visit Provider Internal Medicine Nephrology
DX: N18.31 Chronic kidney disease, stage 3a (principal); I10 Essential (primary) hypertension
CPT/HCPCS: 99214

== ENCOUNTER → 2024-06-04 14:46 | Outpatient (BNVA) | payer OTHER, SELFPAY | PROVIDERS: PCP Internal Medicine; Visit Provider Internal Medicine Nephrology | DX: I12.9 Hypertensive chronic kidney disease with stage 1 through stage 4 chronic kidney disease, or unspecified chronic kidney disease (principal); N18.31 Chronic kidney disease, stage 3a; Z86.73 Personal history of transient ischemic attack (TIA), and cerebral infarction without residual deficits | CPT/HCPCS: 99212 ==

== ENCOUNTER 2024-09-14 10:55 | Outpatient (REF) | payer OTHER, SELFPAY ==
[2024-09-14 14:07] LABS: Anion Gap 19 (12-20); Blood Urea Nitrogen 14 mg/dL (9-16); Calcium 9.7 mg/dL (8.4-10.2); Carbon Dioxide 21 mmol/L (22-29); Chloride 106 mmol/L (96-108); Estimated Glomerular Filt Rate 36; Glucose Random 181 mg/dL (60-115); Potassium 4.2 mmol/L (3.3-5.1); Sodium 142 mmol/L (135-145)
[2024-09-14 14:55] LABS: Bacterial Vaginosis PCR NEGATIVE (Negative); Candida Group PCR NOT DETECTED (Not Detect); Candida glab krusei PCR DETECTED (Not Detect); Trichomonas vaginalis PCR NOT DETECTED (Not Detect)
[2024-09-14 15:26] LABS: CT PCR NOT DETECTED (Not Detect.); NG PCR NOT DETECTED (Not Detect.)
== END 2024-09-14 10:56 | disposition home or self-care (01) ==
LOC: HO.HHCL 10:55
PROVIDERS: Visit Provider Internal Medicine
DX: N89.8 Other specified noninflammatory disorders of vagina (principal); N17.9 Acute kidney failure, unspecified
CPT/HCPCS: 0352U; 36415; 80048; 87491; 87591

== ENCOUNTER 2024-12-07 11:08 | Outpatient (REF) | payer OTHER, SELFPAY ==
--- OUTSIDE RECORDS SUMMARY | 2024-12-07 11:12 | XMS_ITS | Clinical Summary ---
Author Organization 175 [facility] Address [address] [place] [address] Phone Care Team Providers Care Manager Pulmonary Name Role Phone Bertha Telles MD Primary Care Provider Allergies Active Allergy Reactions Criticality Noted Date Comments Cat Dander 05/06/2023 Cats Other Reaction(s): OTHER Dog Dander 05/06/2023 Dogs Other Reaction(s): OTHER Gabapentin 05/06/2023 Other Reaction(s): OTHER Pollen Extracts 05/06/2023 Pollen Other Reaction(s): OTHER Shellfish Derived 05/06/2023 Seafood Other Reaction(s): OTHER Topiramate 05/06/2023 Other Reaction(s): OTHER Medications acetaminophen (TYLENOL 8 HOUR) 650 mg 8 hr tablet 3 Active albuterol HFA (PROAIR HFA ; PROVENTIL HFA ; VENTOLIN HFA) 90 mcg/actuation inhaler Inhale 2 Puffs into the lungs every 4 hours as needed. Active alcohol swabs (Alcohol Prep Pads) pads, medicated 3 Active amLODIPine (NORVASC) 10 mg tablet TAKE 1 TABLET BY MOUTH EVERYDAY AT NOON AFTER LUNCH 3 Active ammonium lactate (AMLACTIN) 12 % cream 3 Active aspirin 81 mg EC tablet Take 81 mg by mouth daily. Active atorvastatin (LIPITOR) 40 mg tablet 3 Active B complex tablet Take 1 Tablet by mouth. 1 Active calcium carbonate-vit D3-min 600 mg-10 mcg (400 unit) tablet Calcium Carb-Cholecalci ferol 600-10 MG-MCG Tab Take 1 Tablet by mouth. Active doxycycline hyclate (VIBRA-TABS) 100 mg tablet TAKE 1 TABLET BY MOUTH EVERY 12 HOURS 3 Active fluticasone propion-salmeter oL (ADVAIR DISKUS) 500-50 mcg/dose diskus inhaler Inhale 1 Puff into the lungs every 12 hours. Active fluticasone propionate (FLONASE) 50 mcg/actuation nasal spray 3 Active furosemide (LASIX) 20 mg tablet Take 20 mg by mouth daily. Active glucose blood test strip Glucose Blood (FREESTYLE LITE TEST ) by In Vitro route. Active HYDROcodone-acet aminophen (NORCO) 5-325 mg per tablet Take 2 Tablets by mouth. Active isosorbide mononitrate (IMDUR) 60 mg 24 hr tablet TAKE 1 TABLET BY MOUTH EVERY MORNING 3 Active loratadine 10 mg capsule Take by mouth. Activ e LORazepam (ATIVAN) 0.5 mg tablet Take 1 Tablet by mouth every 6 hours as needed. Active metoprolol succinate (TOPROL-XL) 100 mg 24 hr tablet 3 Active mirtazapine (REMERON) 7.5 mg tablet TAKE 1 TABLET BY MOUTH EVERY EVENING WITH DINNER (5-6pm) 3 Active montelukast (SINGULAIR) 10 mg tablet Take 1 Tablet by mouth at bedtime. Active multivitamin (MULTIPLE VITAMINS ORAL) Multiple Vitamin (Multi-Vitamins ) Tab Take by mouth. Active naproxen (NAPROSYN) 500 mg tablet Take 500 mg by mouth 2 times daily (with meals). Active nebulizer and compressor device Nebulizers (Proneb Ultra II/LC Plus) Device Route: by Does not apply route. Active omeprazole (PriLOSEC) [address] capsule 3 Active oxyCODONE (ROXICODONE) 5 mg immediate release tablet Take 1 Tablet by mouth every 8 hours as needed for Pain. 3 Active PARoxetine (PAXIL) 30 mg tablet TAKE 1 TABLET BY MOUTH EVERY MORNING 3 Active pravastatin (PRAVACHOL) 10 mg tablet Take 1 Tablet by mouth daily. Active predniSONE (DELTASONE) 1 mg tablet Take 1 Tablet by mouth daily. Active ranitidine HCl (ZANTAC ORAL) ranitidine (ZANTAC) 15 MG/ML syrup Take by mouth 2 times daily. Active tiotropium (Spiriva Respimat) 1.25 mcg/actuation inhalation spray Inhale into the lungs. Active tiZANidine (ZANAFLEX) 2 mg tablet TAKE 2 TABLETS (4 MG) BY MOUTH IF NEEDED IN THE MORNING AND AT BEDTIME FOR MUSCLE SPASMS. 3 Active traZODone (DESYREL) 50 mg tablet Take 50 mg by mouth at bedtime. Active triamcinolone (KENALOG) 0.025 % cream 3 Active triamcinolone (KENALOG) 0.1 % cream 3 Active freestyle (TRUEplus Lancets) 28 gauge lancets by Does not apply route. Active Active Problems Problem Noted Date Diagnosed Date Cervical spondylosis 05/07/2023 Overview (09/28/2024): Last Assessment & Plan: This visit was done in conjunction with [facility] language services scaleman Rain #[id number]. Ms. Angulo was seen today for her second postop visit since a C5-6, C6-7 ACDF on 07/08/2023. She states she is feeling good without any swallowing issues or tingling in her arms. Her hands will still go numb and she will occasionally drop things. I reassured her that this takes the longest to improve and can take up to 1 year after surgery. On exam, her incision is well-healed, cervical rotation is between 30 and 45 degrees bilaterally, strength is 5/5 except for very mildly reduced handgrip. She uses a rollator. Review of the AP/lateral flexion/extension x-rays from today show the devices to be in good position and no instability. She is doing well so far and should continue to see some improvements with her hand function. She declined going to physical therapy. We will see her back at 1 year from surgery with x-rays to assess the fusion. Lumbar spondylosis 05/07/2023 Overview (09/28/2024): Last Assessment & Plan: The patient has lower back pain limiting her walking and activities, she notes restlessness and jumping in her legs and laying flat on her back at night and even now, sitting in the exam chair, her left leg and foot spasm with cramping of the toes. Lumbar spine MRI shows multilevel disease but is most significant for severe central stenosis at L3-4 with nerve root congestion above. We sent her for flexion-extension x-rays that did not show instability. I recommended an L3-4 decompression which will follow at least 4 weeks after her cervical fusion. Allergic rhinitis 11/01/2022 Overview (09/28/2024): Last Assessment & Plan: Continue Flonase Use Nasal saline Dry eyes 11/01/2022 Overview (09/28/2024): Last Assessment & Plan: Use natural tears FU with ophthalmology prn Acute exacerbation of chronic obstructive airway s disease 10/10/2022 Overview (09/28/2024): Last Assessment & Plan: She is receving albuterol updraft today, recommended to increase to every 4 hours for the next 3 days. Order CXR and CBC with differential, inflammatory markers and BMP. Pt already received augmentin a few weeks ago and did not improve, will treat with cipro and order CXR. She is to go to ED if fever, SOB does not improve after 24 hours. Will call her back with test results. Chronic sinusitis 10/10/2022 Dyspnea on exertion 10/10/2022 Headache disorder 10/10/2022 Injury of kidney 10/10/2022 Precordial pain 10/10/2022 Primary osteoarthritis of right shoulder 022 Recurrent falls 10/10/2022 Sprain of ankle 10/10/2022 Acute renal failure 11/06/2020 Chronic kidney disease 11/06/2020 Hyperkalemia 11/06/2020 Hypertension 11/06/2020 Low back pain 11/06/2020 Swelling of structure of eye 05/19/2018 Depressive disorder 03/05/2013 Carpal tunnel syndrome 04/01/2012 Generalized osteoarthritis 04/01/2012 Lumbosacral spondylosis without myelopathy 04/01 Overview (09/28/2024): Last Assessment & Plan: FU with rheumatology Memory impairment 04/01/2012 Vitamin D deficiency 04/01/2012 Arthritis of knee 03/21/2012 Dyslipidemia 03/21/2012 Immunizations Name Administration Dates Next Due Influenza trivalent, 0.5mL, preservative free (Fluarix; FluLaval; Fluzone) ages 6mo and older (Afluria) 3 years and older 07/20/2019,10/30/2018,07/10/2017,07/30,11/14/2015,07/03/2013 Influenza trivalent, with pr eservative (Fluzone; Afluria) 6mo and older 06/22/2020 PPD Test 11/12/2020 Pneumococcal conjugate 13 va lent (Prevnar 13, PCV13) 2mo and older 06/22/2020,11/24/2015 Pneumococcal polysaccharide 23 valent (Pneumovax 23) 2yo and older 05/30/2015,01/19/2013,08/15/2006,05/14 Td Tetanus diptheria (Tdvax) 7yo and older 05/14/2002 Tdap Tetanus diptheria acell ular pertussis (Boostrix; Adacel) 7yo and older 11/14/2015 Zoster Live 12/31/2018,10/30/2018 Surgical History Surgery Date Site/Laterality Comments NECK SURGERY 02/24/2016 PROCEDURE: HISTORICAL NECK SURGERY; COMMENT: C4-5 decompression with C4 laminectomy, right C5-6, right C6-7 decompression, Dr. Chi BACK SURGERY PROCEDURE: HISTORICAL BACK SURGERY; COMMENT: Patient does not remember the date, states it was >10 years ago in [place] TOTAL KNEE ARTHROPLASTY Bilateral PROCEDURE: HISTORICAL TOTAL KNEE REPLACE OTHER SURGICAL HISTORY PROCEDURE: HISTORY OTHER; COMMENT: Hand surgery Medical History Medical History Date Comments Essential (primary) hypertension DX:Essential (primary) hypertension Mixed hyperlipidemia DX:Mixed hy perlipidemia Type 2 diabetes mellitus wit hout complications (CMS/HCC) DX:Type 2 diabetes mellitus without complications (HCC) CKD (chronic kidney disease) stage 3, GFR 30-59 ml/min (CMS/HCC) DX:CKD (chronic kidney dise ase) stage 3, GFR 30-59 ml/min (HCC) Mild intermittent asthma, uncomplicated DX:Mild intermittent asthma, uncomplicated Anxiety and depression DX:Anxiet y and depression GERD (gastroesophageal reflux disease) DX:GERD (gastroesophageal reflux disease) Social History Tobacco Use Types Packs/Day Years Used Date Smoking Tobacco: Never Alcohol Use Standard Drinks/Week Comments Not Asked 0 (1 standard drink = 0.6 oz pur e alcohol) Comments Unknown Sex and Gender Information Value Date Recorded Sex Assigned at Not on file Legal Sex Female 10:55 PM EST Gender Identity Not on file Sexual Orientation Not on file Obstetrics History Last Filed Vital Signs Vital Sign Reading Time Taken Comments Blood Pressure - - Pulse - - Temperature - - Respiratory Rate - - Oxygen Saturation - - Inhaled Oxygen Concentration - - Weight 88.5 kg (195 lb) 07/26/2023 11:10 AM EDT Height 160 cm (5' 3 ) 07/26/2023 11:10 AM EDT Body Mass Index 34.54 07/26/2023 11:10 AM EDT Plan of Treatment Health Maintenance Due Date Last Done Comments Zoster Vaccines (2 of 3) 02/25/2019 12/31/2018, 10/21 RSV Immunization Patients 60+ Years Old (1 - 1-dose 75+ series) 2020 COVID-19 Vaccine (3 - Moderna risk series) 01/26/2021 12/29/2020, 12/02/2020 Cholesterol Screening (Lipid Panel) 10/02/2022 Depression Screening 10/02/2022 Falls Risk Assessment 10/02/2022 Hepatitis C Screening 10/02/2022 Medicare Annual Wellness Visit 10/02/2022 Social Influencers of Health Screening 10/02/2022 Hypertension/CHF/CAD Annual BMP Blood Test 11/22/2023 Influenza Vaccine (#1) 2024 0, 07/20/2019, 10/30/2018, Additional history exists DTaP,Tdap,and Td Vaccines (3 - Td or Tdap) 11/14/2025 11/14/2015, 05/14/2002 Osteoporosis Screening (Bone Density Screening) 12/03/2029 12/03/2019 Pneumococcal Vaccine: 50+ Years Completed 06/22/2020, 11/24/2015, 11/24/2015, Additional history exists HIB Vaccines Aged Out No longer eligi ble based on patient's age to complete this topic HPV Vaccines Aged Out No longer eligi ble based on patient's age to complete this topic Hepatitis A Vaccines Aged Out No long er eligible based on patient's age to complete this topic Hepatitis B Vaccines Aged Out No long er eligible based on patient's age to complete this topic IPV Vaccines Aged Out No longer eligi ble based on patient's age to complete this topic MMR Vaccines Aged Out No longer eligi ble based on patient's age to complete this topic Meningococcal ACWY Vaccine Aged Out N o longer eligible based on patient's age to complete this topic Meningococcal B Vacine Aged Out No lo nger eligible based on patient's age to complete this topic RSV Immunization Patients Under 20 months Aged Out No longer eligible based on patient's age to complete this topic Varicella Vaccines Aged Out No longer eligible based on patient's age to complete this topic Procedures Procedure Name Priority Date/Time Associated Diagnosis Comments [facility] DEXA AXIAL SKELETON Routine 12/03/2019 7:37 AM EST Encounter for screening for osteoporosis from Last 3 Months or Most Recently Relevant to Health Maintenance Results * [facility] DEXA AXIAL SKELETON (12/03/2019 7:37 AM EST) Anatomical Region Laterality Modality Mammography 12/01/2019 10:5 3 AM EST Narrative 12/03/2019 7:37 AM EST [facility] Diagnostic Imaging Department [address] [place], [place] [id number] Patient: ??MCKEON-COLON,KRISHNA ?/Age/Sex: 1945 - 74 - F Unit#: ??[id number] ? Location/Status: ??SPDIMAM/REG CLI ? Mnemonic/Ordering Site: ??MAMDEXAAX/SPMAM Ordering Physician: ??BERTHA TELLES MD Michelle Dexa Axial Skeleton - 12/01/19 - 1140 HISTORY: ??The patient is a 74-year-old postmenopausal female with clinical concern for metabolic bone disease. FINDINGS: ??Dual energy x-ray absorptiometry of the lumbar spine and femurs is performed. The mean bone mineral density at L1-L4 is 1.416 gm/cm2 which is 121% of that of young normals and 134% of that of age matched controls. This yields a T-score of 2.1 and a Z-score of 3.0 and there is therefore no evidence of osteoporosis or osteopenia here. The mean bone mineral density of the femurs bilaterally is 1.027 gm/cm2 which is 102% of that of young normals and 119% of that of age matched controls. ??This yields a T-score of 0.2 and a Z-score of 1.3 and there is therefore no evidence of osteoporosis or osteopenia here. IMPRESSION: 1. There is no evidence of osteoporosis or osteopenia. 2. FRAX analysis yields a 10-year probability of major osteoporotic fracture of 4.7% and a 10-year probability of hip fracture of 0.6%. Code 35470 Dictating Physician: ??LEON ARENAS MD Electronically Signed by: ??LEON ARENAS MD Dic Date/Time: ??12/03/19 0736 Sign date/Time: ??12/03/19 0737 Procedure Note Leon Arenas - 10/10/2022 [facility] Diagnostic Imaging Department [address] [place] [address] [id number] Patient: KRISHNA ANGULO/Age/Sex: 1945 - 74 - F Unit#: [id number] Location/Status: SPDIMAM/REG CLI Mnemonic/Ordering Site: MAMDEXAAX/SPMAM Ordering Physician: BERTHA TELLES MD Michelle Dexa Axial Skeleton - 12/01/19 1140 HISTORY: The patient is a 74-year-old postmenopausal female withclinical concern for metabolic bone disease. FINDINGS: Dual energy x-ray absorptiometry of the lumbar spine and femursis performed. The mean bone mineral density at L1-L4 is 1.416 gm/cm2 which is121% of that of young normals and 134% of that of age matched controls. Thisyields a T-score of 2.1 and a Z-score of 3.0 and there is therefore no evidenceof osteoporosis or osteopenia here. The mean bone mineral density of the femurs bilaterally is 1.027 gm/df1szzal is 102% of that of young normals and 119% of that of age matched controls.This yields a T-score of 0.2 and a Z-score of 1.3 and there is therefore noevidence of osteoporosis or osteopenia here. IMPRESSION: 1. There is no evidence of osteoporosis or osteopenia. 2. FRAX analysis yields a 10-year probability of major osteoporoticfracture of 4.7% and a 10-year probability of hip fracture of 0.6%. Code 59659 Dictating Physician: LEON ARENAS MD Electronically Signed by: LEON ARENAS MD Dic Date/Time: 12/03/19735 Sign date/Time: 12/03/19736 Bertha Telles MD IMG BI PROCEDURES Final Resu lt from Last 3 Months or Most Recently Relevant to Health Maintenance Insurance [employer] MEDICARE Member Subscriber Plan / Payer (Ef fective 2013-Present) Name:Krishna Day Relation to Subscriber:Self Name:Krishna Day Payer ID:[id number] Group ID:[id number] Type:Not on file Address: [place] [address] [place] [phone] Care Teams Manager Pulmonary Relationship Specialty Start Date End Date Bertha Telles MD [address] [phone] PCP - General 11/06/19
--- OUTSIDE RECORDS SUMMARY | 2024-12-07 11:12 | XMS_ITS | Encounter Summary ---
Author Organization [employer] Address [address] [place] [address] Care Team Providers Care Train Control Technician Name Role Phone Bertha Evans MD Primary Care Provider + Reason for Visit * Reason Onset Date Comments Error (VOID this visit) 12/03/2024 Encounter Details Date Type Department Care Team ([facility] st Contact Info) Description 12/03/2024 Telephone [facility] MEDICINE [address] [place] [address] Mariah Jean-Baptiste, RN [address] [place] [address] Error (VOID this visit) Social History Tobacco Use Types Packs/Day Years Used Date Smoking Tobacco: Never Passive Smoke Exposure: Never Smokeless Tobacco: Never Alcohol Use Standard Drinks/Week Comments Never 0 (1 standard drink = 0.6 oz pur e alcohol) Alcohol Answer Date Recorded Frequency of Alcohol Consumption Not on file 01/14/2024 Average Number of Drinks Not on file 024 Frequency of Binge Drinking Not on file 12/20 Score 0 01/14/2024 Depression Answer Date Recorded Patient Health Questionnaire-9 Score 9 01/31/2024 Patient Health Questionnaire-9 Score 9 01/31/2024 Last PHQ-9: Questionnaire Data Not on file 0 01/31/2024 Housing Stability Answer Date Recorded What is your housing situation today? I have vee dickens 08/08/[address] you li ve. Do you have problems with any of the following? None of the above 08/08/2023 Food Insecurity Answer Date Recorded Within the past 12 months, y ou worried that your food would run out before you got money to buy more: Never True 08/08/2023 Within the past 12 months,th e food you bought just didn't last and you didn't have enough money to get more: Never True Transportation Answer Date Recorded In the past 12 months, has l ack of transportation kept you from medical appts, meetings, work or from getting things needed for daily living? No 11/01/2023 Utilities Answer Date Recorded In the past 12 months, has t he electric, gas, oil or water company threatened to shut off services in your home? No 08/08/2023 Depression Answer Date Recorded Patient Health Questionnaire-2 Score 2 01/31/2024 Comments Unknown Sex and Gender Information Value Date Recorded Sex Assigned at Female 08/20/2022 10:16 AM EDT Legal Sex Female 10:16 AM EDT Gender Identity Female 08/20/2022 10:16 AM EDT Sexual Orientation Straight 08/20/2022 10 :16 AM EDT documented as of this encounter Plan of Treatment Upcoming Encounters Date Type Department Care Team (Late st Contact Info) Description 01/27/2025 2:45 PM EDT Office Visit [facility] MEDICINE [address] [place] [phone] Bertha Evans MD [address] [place] [address] documented as of this encounter Visit Diagnoses Not on filedocumented in this encounter Additional Health Concerns Assessment Noted Time PHQ-9 Depression Total Score: 9 01/31/20 24 12:15 PM EDT documented as of this encounter Care Teams Train Control Technician Relationship Specialty Start Date End Date Bertha Evans MD [address] [place], [place] [phone] PCP - General Family Medicine 09/10/19 [email or web address] 12/17/23 documented as of this encounter
--- OUTSIDE RECORDS SUMMARY | 2024-12-07 11:12 | XMS_ITS | Encounter Summary ---
Author Organization [employer] Address [address] [place] [address] Care Team Providers Care Team Primary Care Physician Name Role Phone Bertha Evans MD Primary Care Provider + Reason for Visit * Reason Onset Date Comments Medication coverage 12/03/2024 Encounter Details Date Type Department Care Team ([facility] st Contact Info) Description 12/03/2024 Telephone [facility] MEDICINE [address] [place], [place] [phone] Mariah Jean-Baptiste, RADHA [address] [place], [place] [phone] Medication coverage Social History Tobacco Use Types Packs/Day Years [...] the past 12 months, has t he [employer], gas, oil or water [employer] threatened to shut off services in your home? No 08/08/2023 Depression Answer Date Recorded Patient Health Questionnaire-2 Score 2 01/31/2024 Comments Unknown Sex and Gender Information Value Date Recorded Sex Assigned at Female 08/20/2022 10:16 AM EDT Legal Sex Female 10:16 AM EDT Gender Identity Female 08/20/2022 10:16 AM EDT Sexual Orientation Straight 08/20/2022 10 :16 AM EDT documented as of this encounter Miscellaneous Notes * Telephone Encounter - Mariah Jean-Baptiste RN - 12/03/2024 11:44 AM EST TC placed to patient [phone] (spoke to Jenniffer-granddaughter on HIPAA) in regards to below message. Granddaughter verbalized understanding and is aware if she has any issues when picking up the medication to please let us know. Granddaughter verbalized understanding. Granddaughter to f/u PRN. Bertha Evans MD at 11/10/2024 2:00 PM Status: Signed [employer] letter re Advair and Spiriva not covered reviewed. Patient received last supply this month. Please call patient and family and tell them that I will rx equivalent meds so instead of Advair she's to use Breo ONCE PER DAY (advair was bid) and that it has a similar mechanism (dry powder disk) than advair. Tell her that I will also order Incruse instead of Spiriva. Tell her that Incruse is used the same mechanism (dry powder )as Breo once per day only. Rx sent to pharmacy. documented in this encounter Plan of Treatment Upcoming Encounters Date Type Department Care Team (Late st Contact Info) Description 01/27/2025 2:45 PM EDT Office Visit [facility] MEDICINE [address] [place] [address] Bertha Evans MD [address] [place] [address] documented as of this encounter Visit Diagnoses Not on filedocumented in this encounter Additional Health Concerns Assessment Noted Time PHQ-9 Depression Total Score: 9 01/31/20 24 12:15 PM EDT documented as of this encounter Care Teams Team Primary Care Physician Relationship Specialty Start Date End Date Bertha Evans MD [address] [place] [phone] PCP - General Family Medicine 09/10/19 [employer] 12/17/23 documented as of this encounter
--- OUTSIDE RECORDS SUMMARY | 2024-12-07 11:12 | XMS_ITS | Encounter Summary ---
Author Organization [employer] Address [address] [place] [address] Care Team Providers Care Manager Compensation Name Role Phone Bertha Evans MD Primary Care Provider + Reason for Visit * Reason Comments Med Refill Encounter Details Date Type Department Care Team (Late st Contact Info) Description 11/30/2022 Refill [facility]EDS [address] [place] [address] Bertha Evans MD [address] [place] [address] [phone] Social History Tobacco Use Types Packs/Day Years Used Date Smoking Tobacco: Never Assessed Comments Unknown Sex and Gender Information Value Date Recorded Sex Assigned at Female 08/20/2022 10:16 AM EDT Legal Sex Female 10:16 AM EDT Gender Identity Female 08/20/2022 10:16 AM EDT Sexual Orientation Straight 08/20/2022 10 :16 AM EDT documented as of this encounter Plan of Treatment Upcoming Encounters Date Type Department Care Team (Late Contact Info) Description 01/27/2025 2:45 PM EDT Office Visit [facility] MEDICINE [address] [place] [phone] Bertha Evans MD [address] [place] [address] [phone] documented as of this encounter Visit Diagnoses Not on filedocumented in this encounter Care Teams Manager Compensation Relationship Specialty Start Date End Date Bertha Evans MD [address] [place] [phone] PCP - General Family Medicine 09/10/19 [employer] 12/17/23 documented as of this encounter
--- OUTSIDE RECORDS SUMMARY | 2024-12-07 11:12 | XMS_ITS | Data Portability ---
Author Organization [place] - [facility], Allergy Address [address] [address] Care Team Providers Care Semiconductor Development Technician Name Role Phone ELFEGO SYDNEE Primary Care Provider Assessment Encounter Date Assessment Date Assessment LastModified by Organization Details LastModified Time 11/06/2024 11/06/2024 79-year-old female presents today for evaluation of bilateral parotid nodules. These were noted on a CTA performed for CVA workup. She is not concerned about these today and is more concerned about some ear symptoms she has been having. Of note, she has previously been evaluated in our office for these nodules. Comparison with CT of the neck she had in 2020 shows only a small increase in size since then. 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 I would recommend continued observation. I removed cerumen bilaterally. There is some dried blood and irritation at the conchal bowl on the left. During the exam today, she was frequently itching her ear. I recommended avoidance of digital manipulation, antibiotic ointment, and follow-up if this area does not heal. [email or web address] Not available 11/08/2024 09:30:09 Plan of Treatment Reminders Order Date Submit Date Provider Last Modified By Organization Details Last Modified Time Details Appointments None recorded. Lab None recorded. Referral None recorded. Procedures None recorded. Surgeries None recorded. Imaging None recorded. Medication Orders mupirocin 2 % topical ointment 2024 025 [id number], [address] [facility], [place], [address], 16:04:14 Patient TargetsNo targets recorded. Patient InstructionsNo instructions recorded. Reason for Referral None Reported. Results Created Date Observation Date Name Description Value Unit Range Abnormal Flag Note LastModifiedBy Organization Detail LastModifiedTime 11/30/1909/08/2024 MRI, brain + brain stem, w/o contr ast No observ ation record ed. [email or web address] Not Available 11/21 09:18:36 11/30/19 25 09/07/2024 CT, angio gram, neck, w/wo contr ast No observ ation record ed. [email or web address] Not Available 11/21 09:34:01 Result Notes None recorded. Problems Name Problem SNOMED Code Status Onset Date Resolution Date Notes Provider Name and Address Organization Details Recorded Time Amnesia 02335130 Active 2019 Memory loss NOS; Note: Date Diagnosed : 12/17/2019 10:46 AM (R41.3) Not Available [facility] 4 03:12:13 Sensorine ural hearing loss of bilateral ears 312762723 Active 2019 Sensorine ural hearing loss, bilateral ; Note: Date Diagnosed : 12/17/2019 11:13 AM (H90.3) Not Available [facility] 4 03:12:14 Headache 81096169 Active 2019 Headache; Note: Date Diagnosed : 12/17/2019 1:02 PM (R51) Not Available [facility] 4 03:12:14 Localized swelling of head 94689521268 961357 Active 2020 Localized swelling, mass and lump, head; Note: Changed from D37.030 to R22.0 ( 3:42 PM) , Date Diagnosed : 09/20/2021 5:51 PM (D37.030) Not Available [facility] 4 03:12:15 Recurrent major depressio n 39208055 Active 2019 Major depressiv e disorder, recurrent , unspecifi ed; Note: Date Diagnosed : 12/17/2019 10:46 AM (F33.9) Not Available [facility] 4 03:12:14 Bilateral temporoma ndibular joint pain 66720237803 698230 Active 2019 Arthralgi a of bilateral temporoma ndibular joint; Note: Date Diagnosed : 04/29/2020 12:34 PM (M26.623) Not Available [facility] 4 03:12:13 Anxiety disorder 667410772 Active 2019 Anxiety disorder, unspecifi ed; Note: Date Diagnosed : 12/17/2019 10:46 AM (F41.9) Not Available [facility] 4 03:12:14 Obstructi ve sleep apnea syndrome 43916797 Active 2019 Obstructi ve sleep apnea (adult) (pediatri c); Note: Date Diagnosed : 12/17/2019 10:46 AM (G47.33) Not Available [facility] 4 03:12:13 Dizziness and giddiness 945388884 Active 2019 Dizziness and giddiness ; Note: Date Diagnosed : 12/17/2019 11:13 AM (R42) Not Available [facility] 4 03:12:14 Disorder of external ear 84304308 Active 2024 ZAIRE CHOI MD [address] [place] [address], [place], [address] , [facility] - [facility] 5 16:03:55 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 Procedures Surgical History None recorded. Imaging Results Imaging Date Name Status LastModified by Organiz ation Details LastModified Time 09/08/2024 MRI, brain + brain stem, w/o contrast completed [email or web address] Information not available 11/30/2024 09:18:36 09/07/2024 CT, angiogram, neck, w/wo contrast completed Information not available 11/30/2024 09:34:01 Procedure Notes None recorded. Medical Equipment None Reported. Allergies Allergen ID Allergen Name Allergen Category Reaction Reaction Severity Criticality Documentation Date Start Date Code Code System Note Provider Name and Address Organization Details Recorded Time 670015 morphine medicatio n other Not available Not available 03/03/2024 7052 RxNorm React ion: unkno wn, unspe cifie d;; Not Available [facility] 4 01:24:54 Medications Name Sig Start Date Stop Date Status Note LastModified by Organization Details LastModified Time medbox status USE DIRECTED 11/06 completed Not Available Not Available Not Available multivita min tablet TAKE 1 TABLET BY MOUTH EVERY EVENING WITH FOOD active Not Available Not Available No t Available losartan 50 mg tablet TAKE 1 TABLET BY MOUTH EVERYDAY AT NOON 11/06 completed Not Available Not Available Not Available quetiapin e 25 mg tablet TAKE 1 TABLET BY MOUTH TWICE DAILY IN THE MORNING AND IN THE EVENING and TAKE 1 TABLET BY MOUTH AT BEDTIME NEEDED active Not Available Not Available No t Available amoxicill in 500 mg capsule TAKE 4 CAPSULES BY MOUTH ONE HOUR PRIOR TO THE PROCEDUR E. 11/06 completed Not Available Not Available Not Available atorvasta tin 40 mg tablet TAKE 1 TABLET BY MOUTH AT BEDTIME active Not Available Not Available No t Available atorvasta tin 80 mg tablet TAKE 1 TABLET BY MOUTH AT BEDTIME active Not Available Not Available No t Available clonidine HCl 0.1 mg tablet TAKE 1 TABLET BY MOUTH TWICE DAILY IN THE MORNING AND IN THE EVENING active Not Available Not Available No t Available cefuroxim e axetil 250 mg tablet TAKE 1 TABLET BY MOUTH EVERY 12 HOURS FOR 5 DAYS 11/06 completed Not Available Not Available Not Available ketoconaz ole 2 % shampoo APPLY ONCE PER WEEK, LEAVE ON FOR 5 MINUTES THEN WASH OUT active Not Available Not Available No t Available trazodone 50 mg tablet TAKE 1 TABLET BY MOUTH AT BEDTIME. PUEDE MANDY 1/2 TABLETA DOS VECES AL LUANNE CUANDO SEA NECESARI O PARA ANSIEDAD active Not Available Not Available No t Available aspirin 325 mg tablet 09/20 completed Medicati on ID: [id number] B rand Name: aspirin Send Method: E-Prescr ibed Sub s Allowed: subs OK Medic ationGen ericName : aspirin Not Available Not Available Not Available B Complex-V itamin B12 tablet active Medicati on ID: [id number] B rand Name: B Complex- Vitamin B12 Send Method: E-Prescr ibed Sub s Allowed: subs OK Medic ationGen ericName : B Complex- Vitamin B12 Not Available Not Available Not Available meloxicam 15 mg tablet TAKE 1 TABLET BY MOUTH EVERY DAY DIRECTED active Not Available Not Available No t Available famotidin e 40 mg tablet 1/2 tablet by mouth 2019 active Medicati on ID: [id number] D uration Value: 30 Brand Name: famotidfab ne Send Method: E-Prescr ibed Sub s Allowed: subs OK Medic ationGen ericName : famotidi ne Not Available Not Available Not Available isosorbid e mononitra te ER 30 mg tablet,ex tended release 24 hr 11/06 completed Medicati on ID: [id number] B rand Name: isosorbi de mononitr ate Send Method: E-Prescr ibed Sub s Allowed: subs OK Speci al Instruct ion: TAKE 1 TABLET BY MOUTH EVERY MORNING Medicati onGeneri cName: isosorbi de mononitr ate Not Available Not Available Not Available metoprolo l succinate ER 100 mg tablet,ex tended release 24 hr TAKE 1 TABLET BY MOUTH EVERY MORNING active Not Available Not Available No t Available triamcino lone acetonide 0.025 % lotion active Not Available Not Available Not Available clotrimaz ole 1 % vaginal cream INSERT 1 APPLICAT ORFUL VAGINALL Y EVERY EVENING FOR 14 DAYS 11/06 completed Not Available Not Available Not Available omeprazol e 40 mg capsule,d elayed release TAKE 1 CAPSULE BY MOUTH EVERY MORNING active Not Available Not Available No t Available acetamino phen 500 mg tablet TAKE 1 TABLET BY MOUTH EVERY 6 HOURS NEEDED FOR MILD PAIN 11/06 completed Not Available Not Available Not Available triamcino lone acetonide 0.1 % topical cream active Not Available Not Available Not Available isosorbid e mononitra te ER 60 mg tablet,ex tended release 24 hr TAKE 1 TABLET BY MOUTH EVERY MORNING active Not Available Not Available No t Available amlodipin e 10 mg tablet TAKE 1 TABLET BY MOUTH EVERYDAY AT NOON AFTER LUNCH active Not Available Not Available No t Available paroxetin e 30 mg tablet 09/20 completed Medicati on ID: [id number] B rand Name: paroxeti ne HCl Send Method: E-Prescr ibed Sub s Allowed: subs OK Medic ationGen ericName : paroxeti ne HCl Not Available Not Available Not Available mirtazapi ne 30 mg tablet TAKE 1 TABLET BY MOUTH AT BEDTIME active Not Available Not Available No t Available lidocaine 5 % topical patch APPLY ONE PATCH UP TO A 12 HOUR PERIOD PER DAY NEEDED FOR PAIN. active Not Available Not Available No t Available ibuprofen 400 mg tablet TAKE 1 TABLET BY MOUTH 3 TIMES A DAY NEEDED FOR FEVER OR PAIN active Not Available Not Available No t Available fluocinol one 0.01 % topical body oil APPLY TOPICALL Y TO THE AFFECTED AREA(S) THREE TIMES DAILY DIRECTED active Not Available Not Available No t Available Advair Diskus 500 mcg-50 mcg/dose powder for inhalatio n INHALE 1 PUFF BY MOUTH TWICE DAILY IN THE MORNING AND IN THE EVENING RINSE MOUTH AFTER USING. active Not Available Not Available No t Available aspirin 81 mg chewable tablet TAKE 1 TABLET BY MOUTH EVERY MORNING (CHEW) active Not Available Not Available No t Available hydrocort isone 2.5 % topical cream APPLY EXTERNAL LY TO THE AFFECTED AREA ON FACE TWICE DAILY NEEDED FOR FLARES. DECREASE TO EVERY DAY / EVERY OTHER DAY SYMPTOMS IMPROVE active Not Available Not Available No t Available monteluka st 10 mg tablet TAKE 1 TABLET BY MOUTH EVERY EVENING active Not Available Not Available No t Available ammonium lactate 12 % topical cream active Not Available Not Available Not Available pravastat in 20 mg tablet 09/20 completed Medicati on ID: [id number] B rand Name: pravasta tin Send Method: E-Prescr ibed Sub s Allowed: subs OK Medic ationGen ericName : pravasta tin Not Available Not Available Not Available mupirocin 2 % topical ointment APPLY A SMALL AMOUNT TO AFFECTED AREA 3 TIMES A DAY active Not Available Not Available No t Available mirtazapi ne 15 mg tablet TAKE 1 TABLET BY MOUTH AT BEDTIME 11/06 completed Not Available Not Available Not Available losartan 100 mg tablet TAKE 1 TABLET BY MOUTH EVERYDAY AT NOON active Not Available Not Available No t Available fluticaso ne propionat e 50 mcg/actua tion nasal spray,[facility] active Medicati on ID: [id number] B rand Name: fluticas one propiona te Send Method: E-Prescr ibed Sub s Allowed: subs OK Medic ationGen ericName : fluticas one propiona te Not Available Not Available Not Available loratadin e 10 mg tablet active Not Available Not Available Not Available amoxicill in 875 mg-potass ium clavulana te 125 mg tablet TAKE 1 TABLET BY MOUTH EVERY 12 HOURS FOR 10 DAYS 11/06 completed Not Available Not Available Not Available Ventolin HFA 90 mcg/actua tion aerosol inhaler active Medicati on ID: [id number] B rand Name: Ventolin HFA Send Method: E-Prescr ibed Sub s Allowed: subs OK Speci al Instruct ion: INHALE 1 PUFF BY MOUTH FOUR TIMES DAILY NEEDED FOR WHEEZING Medicat ionGener icName: Ventolin HFA Not Available Not Available Not Available Alcohol Prep Pads TEST BLOOD SUGAR 1-2 TIMES PER DAY active Not Available Not Available No t Available topiramat e 50 mg tablet 2019 active Medicati on ID: [id number] B rand Name: topirama te Send Method: E-Prescr ibed Sub s Allowed: subs OK Medic ationGen ericName : topirama te Not Available Not Available Not Available mirtazapi ne 7.5 mg tablet TAKE 1 TABLET BY MOUTH EVERY EVENING WITH DINNER (5-6pm) 11/06 completed Not Available Not Available Not Available duloxetin e 60 mg capsule,d elayed release TAKE 1 CAPSULE BY MOUTH EVERY MORNING active Not Available Not Available No t Available pregabali n 50 mg capsule TAKE 1 CAPSULE BY MOUTH EVERYDAY AT BEDTIME active Not Available Not Available No t Available calcium 600 mg (as carbonate )-vitamin D3 10 mcg (400 unit) tablet TAKE 1 TABLET BY MOUTH TWICE DAILY IN THE MORNING AND IN THE EVENING active Not Available Not Available No t Available FreeStyle Lite Strips TEST BLOOD SUGAR ONE OR TWO TIMES DAILY active Not Available Not Available No t Available diclofena c 1 % topical gel active Not Available Not Available Not Available Eye Itch Relief 0.025 % (0.035 %) drops INSTILL 1 DROP INTO THE AFFECTED EYE(S) TWICE DAILY DIRECTED active Not Available Not Available No t Available Allergy Relief (fexofena dine) 180 mg tablet TAKE 1 TABLET BY MOUTH TWICE DAILY active Not Available Not Available No t Available TRUEplus Lancets 33 gauge TEST BLOOD SUGAR 1-2 TIMES PER DAY active Not Available Not Available No t Available Spiriva Respimat 1.25 mcg/actua tion solution for inhalatio n INHALE 2 PUFFS BY MOUTH EVERY DAY active Not Available Not Available No t Available Vitals Date Recorded Body height Body mass index (BMI) Body weight Provider Name and Address Organization Details Last Updated DateTime 11/06/2024 160.02 cm 33.7 kg/m2 32859.55 g Meera Woods [place] - [facility] 11/06/2024 15:56:02 Social History None recorded. Functional Status None recorded. Mental Status None recorded. Family History Nothing Reported. Medical History No medical history recorded. Gynecological HistoryNo gynecological history recorded. Obstetrics History GPAL:G 0 P 0 0 0 0 Past Encounters Encounter ID Performer Location Encounter Start Date Encounter Closed Date Diagnosis/Indication Diagnosis SNOMED-CT Code Diagnosis ICD10 Code Diagnosis Note [id number] ZAIRE CHOI MD [facility] [address] [address] 11/06/2024 15:40:50 11/06/2024 16:49:37 Disorder of external ear 86348076 H60.12 Benign valeria plasm of parotid gland 66567582 D11.0 Health Concerns Section Related Observation LastModified by Organization Detai ls LastModified Time None Recorded Concern Status LastModified by Organization Details LastModified Time None Recorded Advance Directives Directive None Recorded Payers Encounter Date Sequence Insurance Name Policy Number Policy Angelo Covered Member ID Angelo Member ID Guarantor Name 11/06/2024 1 [facility] - DOS ON OR AFTER 2023 - DUAL ELIGIBLE - LONG-TERM OPTIONS AND ONE CARE (MEDICARE REPLACEMENT/ADV ANTAGE - HMO) Marla Albarran-[place] n [id number] Marla Albarran Colon Notes Date Note Type Note Provider Name and Address Organization Details Recorded Time 11/06/2024 text/html Has some trouble with the ear, some bleeding and blockage. 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 Most recently had a CTA for stroke workup which showed heterogenously enhancing nodules within within the right and left parotid gland measuring 0.9 x 1.8 x 0.9 cm on the right and 0.9 x 1.4 x 1.7 cm on the left.She feels that these nodules come and go. Previous CT neck in 2020 showed the nodules up to 1.4 cm. 76-year-old female presents today for evaluation of her neck mass. She had a CT scan showing bilateral parotid nodules. On exam, there is about a1 cm nodule noted at the tail on the left. I did recommend ultrasound-guided FNA, as it is a little small and deep to biopsy today. We discussed likelihood of benignpathology. She is concerned about her chronic neck pain. CT scan also showed degenerative changes of the cervical spine. I recommended following up with herP for further recommendations regarding this. ZAIRE CHOI MD [address] [place] [address], [phone], [facility] - [facility] 11/08/2024 09:31:07 OBGyn Episode No OBEpisode recorded.
--- OUTSIDE RECORDS SUMMARY | 2024-12-07 11:12 | XMS_ITS | Encounter Summary ---
Author Organization [facility] Address [address] [place] [address] Care Team Providers Care Welder Journeyman Name Role Phone Bertha Evans MD Primary Care Provider + Reason for Visit * Reason Onset Date Comments Medication Question 10/31/2022 Encounter Details Date Type Department Care Team ([facility] Contact Info) Description 10/31/2022 Telephone [facility] [address] [place], [place] [phone] Bertha Evans MD [address] [place], [place] [phone] Medication Question Social History Tobacco Use Types Packs/Day Years Used Date Smoking Tobacco: Never Assessed Alcohol Answer Date Recorded Frequency of Alcohol [...] Orientation Straight 08/20/2022 10 :16 AM EDT COVID-19 Exposure Response Date Recorded In the last 10 days, have yo u been in contact with someone who was confirmed or suspected to have Coronavirus/COVID-19? No / Unsure 01/21/2023 11:16 AM EDT documented as of this encounter Miscellaneous Notes * Telephone Encounter - Burton Jones - 10/31/2022 11:28 AM EST Tc from pt requesting status update on script for nasal spray and eye drops, States discuss with PCP on 10/29/22. Please contact at [phone] documented in this encounter Plan of Treatment Upcoming Encounters Date Type Department Care Team (Late st Contact Info) Description 01/27/2025 2:45 PM EDT Office Visit [facility] [address] [place] [address] Bertha Evans MD [address] [place] [address] documented as of this encounter Visit Diagnoses Not on filedocumented in this encounter Care Teams Welder Journeyman Relationship Specialty Start Date End Date Bertha Evans MD [address] [place] [address] PCP - General Family Medicine 09/10/19 [employer] 12/17/23 documented as of this encounter
--- OUTSIDE RECORDS SUMMARY | 2024-12-07 11:12 | XMS_ITS | Encounter Summary ---
Author Organization [facility] Address [address] [place] [address] Care Team Providers Care Overlock Elastic Attacher Name Role Phone Bertha Evans MD Primary Care Provider + Reason for Visit * Reason Onset Date Comments Durable Medical Equipment 12/18/2022 Encounter Details Date Type Department Care Team (Late st Contact Info) Description 12/18/2022 Telephone [facility] [address] [place] [address] Bertha Evans MD [address] [place], [place] [phone] Durable Medical Equipment Social History Tobacco Use Types Packs/Day Years Used Date Smoking Tobacco: Never Smokeless Tobacco: Never Alcohol Use Standard Drinks/Week Comments Never 0 (1 standard drink = 0.6 oz pur e alcohol) Depression Answer Date Recorded Patient Health Questionnaire-9 Score 8 12/14/2022 Depression Answer Date Recorded Patient Health Questionnaire-2 Score 4 12/14/2022 Comments Unknown Sex and Gender Information Value [...] suspected to have Coronavirus/COVID-19? No / Unsure 12/14/2022 1:09 PM EST documented as of this encounter Miscellaneous Notes * Telephone Encounter - Leatha Busby - 12/19/2022 1:08 PM EST TC to number in message and it stated out of service . If any other calls please transfer to [phone].Thank you. * Telephone Encounter - Thaddeushannah Magno Kunz - 12/18/2022 3:06 PM EST Tc from [place] with [employer] requesting a status on pts CPAP Machine. Please contact [facility] at [phone] #[phone] documented in this encounter Plan of Treatment Upcoming Encounters Date Type Department Care Team (Late st Contact Info) Description 01/27/2025 2:45 PM EDT Office Visit [facility] [address] [place] [address] Bertha Evans MD [address] [place] [address] documented as of this encounter Visit Diagnoses Not on filedocumented in this encounter Additional Health Concerns Assessment Noted Time PHQ-9 Depression Total Score: 8 12/14/19 23 1:38 PM EST documented as of this encounter Care Teams Overlock Elastic Attacher Relationship Specialty Start Date End Date Bertha Evans MD [address] [place] [address] PCP - General Family Medicine 09/10/19 [employer] 12/17/23 documented as of this encounter
--- OUTSIDE RECORDS SUMMARY | 2024-12-07 11:12 | XMS_ITS | Encounter Summary ---
Author Organization [employer] Address [address] [place] [address] Care Team Providers Care Multiple Knife Edge Trimmer Operator Name Role Phone Bertha Evans MD Primary Care Provider + Reason for Visit * Reason Comments Med Refill Encounter Details Date Type Department Care Team (Late st Contact Info) Description 11/29/2024 Refill [facility] [address] [place], [place] [phone] Bertha Evans MD [address] [place] [address] Old myocardial infarction Social History Tobacco Use Types Packs/Day Years [...] Description 01/27/2025 2:45 PM EDT Office Visit [facility] [address] [place] [phone] Bertha Evans MD [address] [place] [address] documented as of this encounter Visit Diagnoses Diagnosis Old myocardial infarction documented in this encounter Additional Health Concerns Assessment Noted Time PHQ-9 Depression Total Score: 9 01/31/20 24 12:15 PM EDT documented as of this encounter Care Teams Multiple Knife Edge Trimmer Operator Relationship Specialty Start Date End Date Bertha Evans MD [address] [place] [address] PCP - General Family Medicine 09/10/19 [employer] 12/17/23 documented as of this encounter
--- OUTSIDE RECORDS SUMMARY | 2024-12-07 11:12 | XMS_ITS | Data Portability ---
Author Organization [employer] [facility] [employer] Address [address] [place] [id number] Care Team Providers Care Registered Pharmacist Name Role Phone [facility] Referring Provider HIM CCA OTHER Assessment Encounter Date Assessment Date Assessment LastModified by Organization Details LastModified Time 02/27/2023 02/27/2023 Ms. Marla Angulo is a 77yoF w/ a PmHx CKD, HTN who is seen today for further evaluation of dizziness. Ms. Angulo reports that she has been dizzy since having COVID several months ago. She reports that the dizziness is light headedness worse when she's moving around and associated with exertional shortness of breath. It has felt worse the past few days and she called for an [facility] evaluation. She denies numbness/tingling, dysarthria, chest pain, or syncope. VSS. Glove Machine Operator on site reports that she is able to ambulate to her walker. No asymmetric muscle strength or loss of sensation, PERRLA. Orthostatics performed and negative, exertional SpO2 wnl, BS 127. EKG without ischemia. Etiology of lightheadedness unclear but seems to be acute on chronic without evidence of stroke or clear dehydration. Glove Machine Operator notes apartment is very hot, which may be exacerbating symptoms. Encouraged PO intake and to f/u with PCP. Primary team, Ms. Angulo would benefit from follow up in the next week or two to make sure her symptoms are improving. Not available 02/27/2023 12:41:07 11/12/2023 11/12/2023 Ms. Marla Angulo is a 78yoF w/ a Pmhx of HTN, DM2 who is seen today for left shoulder pain. Ms. Angulo reports that she woke up yesterday morning with left shoulder pain that she believes is from sleeping weirdly on her left side. She denies numbness/tingling, chest pain, or new weakness and is interested in a dose of toradol. VSS. Glove Machine Operator on site reports left trapezoid seems tender to palpation. No weakness. EKG with NSR, no SHARITA or STD c/f acute ischemia. 30mg IM toradol given and this time she is felt appropriate for ongoing outpatient management. Red flags to be reviewed by auto body mechanic apprentice. Not available 11/12/2023 16:15:04 02/19/2024 02/19/2024 I provided real -time medical direction via phone for this encounter and was available for additional phone-based assistance as needed. I have reviewed and agree with the Assessment and Plan as documented by the Glove Machine Operator. Patient given the opportunity to ask questions. Our service contacted for an assessment of: a rash As per above, patient has a rash on the arms for several weeks. Is not particularly symptomatic. Denies any new medications, exposures to new environmental toxins, creams, lotions, soaps, etc. No new pets or animals in the house. Per auto body mechanic apprentice on the scene, VSS. Non-toxic. Please see uploaded pictures. Impression: Likely eczema however may have a component of tinea. Plan: For now - hydrate, use usual soap and use usual lotion liberally to the area. If with hydration, the rash resolves then will keep current plan otherwise could give a trial of lotrimin. We discussed the diagnostic uncertainty of home visits and the risk associated with this. In this case, the patient and I felt this to be an acceptable and reasonable amount of risk given the benefit of avoiding an ED visit. We discussed the need to seek care urgently/emergentl y in the setting of any new or worsening serious symptoms Not available 02/19/2024 14:08:55 03/14/2024 03/14/2024 I provided real -time medical direction via phone for this encounter and was available for additional phone-based assistance as needed. I have reviewed and agree with the Assessment and Plan as documented by the Glove Machine Operator. Patient given the opportunity to ask questions. Our service contacted for an assessment of: pain behind her ear and hearing loss As per above, patient with an approximate 2-3 weeks of a small LN swelling behind right ear. Taking Tyelenol for pain. Denies F/C. Denies ST or upper respiratory tract S&S. No ear pain until 24 hours ago. Per auto body mechanic apprentice on the scene, ROCKY NT. See upladed pictures. O&P without abnormality. Impression: Question enlarged LN with possible OM. Differential walker is broad. Fortunately the patient does not have concerning S&S or a history that appears to warrant immediate care in the ED. Plan: Trial of abx directed to treat OM. Confirmed NO PCN allergy. F/u with PCP next week We discussed the diagnostic uncertainty of home visits and the risk associated with this. In this case, the patient and I felt this to be an acceptable and reasonable amount of risk given the benefit of avoiding an ED visit. We discussed the need to seek care urgently/emergentl y in the setting of any new or worsening serious symptoms Not available 03/14/2024 12:21:35 05/25/2024 05/25/2024 79 yo F with 2 weeks of intermittent urticaria on legs, arms, trunk. No clear trigger. Seen at urgent, stopped one of her meds (not sure which one), but hasn't helped. No facial or lip swelling, no SOB or dysphagia. VS wnl. Plan for benadryl from home now and rx for jyothi BID (sent rx to the pharmacy). [email or web address] Not available 05/25/2024 17:36:07 Plan of Treatment Reminders Order Date Submit Date Provider Last Modified By Organization Details Last Modified Time Details Appointments None recorded. Lab None recorded. Referral None recorded. Procedures None recorded. Surgeries None recorded. Imaging None recorded. Medication Orders Jyothi Allergy 180 mg tablet 2023 [facility], [address] [place] [address], [phone], 14:23:27 Augmentin 875 mg-125 mg tablet 2023 024 [facility][id number], [address] [place] [address], [id number], 12:23:43 Patient TargetsNo targets recorded. Patient InstructionsNo instructions recorded. Reason for Referral None Reported. Medical Equipment None Reported. Allergies Allergen ID Allergen Name Allergen Category Reaction Reaction Severity Criticality Documentation Date Start Date Code Code System Note Provider Name and Address Organization Details Recorded Time 6825 latex environme nt,medica tion Not available Not available Not available 08/18/2024 20702 91 RxNorm Not Available [facility] - production 4 03:32:53 6826 Product containin g penicilli n (product) medicatio n Not available Not available Not available 08/18/2024 32842 8001 SNOMED Not Available [facility] - production 4 03:32:53 6827 morphine medicatio n Not available Not available Not available 08/18/2024 7052 RxNorm Not Available [facility] - production 4 03:32:53 6828 metronida zole medicatio n Not available Not available Not available 08/18/2024 6922 RxNorm [facility] 03:[facility]53 Medications Name Sig Start Date Stop Date Status Note LastModified by Organization Details LastModified Time anefrin nasal spray 15ml USE 2 SPRAYS NASALLY EVERY 6 HOURS NEEDED FOR NASAL CONGESTION active Not Available Not Available N ot Available medbox status USE DIRECTED active Not Available Not Available No t Available multivitamin tablet TAKE 1 TABLET BY MOUTH EVERY EVENING WITH FOOD active Not Available Not Available No t Available quetiapine 25 mg tablet TAKE 1 TABLET BY MOUTH TWICE DAILY IN THE MORNING AND IN THE EVENING AND TAKE 1 TABLET AT BEDTIME NEEDED active Not Available Not Available No t Available amoxicillin 500 mg capsule TAKE 4 CAPSULES BY MOUTH ONE HOUR PRIOR TO THE PROCEDURE. active Not Available Not Available N ot Available atorvastatin 40 mg tablet TAKE 1 TABLET BY MOUTH AT BEDTIME active Not Available Not Available No t Available nystatin 100,000 unit/mL oral suspension 5 ML POR VIA ORAL CADA SEIS HORAS active Not Available Not Available No t Available clonidine HCl 0.1 mg tablet TAKE 1 TABLET BY MOUTH TWICE DAILY IN THE MORNING AND IN THE EVENING active Not Available Not Available No t Available paroxetine 10 mg tablet TAKE 1 TABLET BY MOUTH EVERY EVENING active Not Available Not Available No t Available cefuroxime axetil 250 mg tablet TAKE 1 TABLET BY MOUTH EVERY 12 HOURS FOR 5 DAYS active Not Available Not Available N ot Available ipratropium 0.5 mg-albuterol 3 mg (2.5 mg base)/3 mL nebulization soln Inhale 3 mL 4 times a day by nebulizatio n route. 2022 active Not Available Not Available Not Avai lable ketoconazole 2 % shampoo APPLY ONCE PER WEEK, LEAVE ON FOR 5 MINUTES THEN WASH OUT active Not Available Not Available No t Available tizanidine 2 mg tablet TAKE 2 TABLETS (4 MG) BY MOUTH IF NEEDED IN THE MORNING AND AT BEDTIME FOR MUSCLE SPASMS. active Not Available Not Available No t Available albuterol sulfate 2.5 mg/3 mL (0.083 %) solution for nebulization USE 1 VIAL VIA NEBULIZER EVERY 4 HOURS NEEDED FOR WHEEZING active Not Available Not Available No t Available trazodone 50 mg tablet TAKE 1 TABLET BY MOUTH AT BEDTIME. PUEDE MANDY 1/2 TABLETA DOS VECES AL LUANNE CUANDO SEA NECESARIO PARA ANSIEDAD active Not Available Not Available No t Available meloxicam 15 mg tablet TAKE 1 TABLET BY MOUTH EVERY DAY DIRECTED active Not Available Not Available No t Available prednisone 20 mg tablet TAKE 2 TABLETS BY MOUTH DAILY active Not Available Not Available Not Available isosorbide mononitrate ER 30 mg tablet,exten ded release 24 hr TAKE 1 TABLET BY MOUTH EVERY DAY IN THE MORNING FOR 90 DAYS active Not Available Not Available No t Available metoprolol succinate ER 100 mg tablet,exten ded release 24 hr TAKE 1 TABLET BY MOUTH EVERY MORNING active Not Available Not Available No t Available triamcinolon e acetonide 0.025 % lotion active Not Available Not Available Not Available permethrin 5 % topical cream APPLY BY TOPICAL ROUTE. THOROUGHLY MASSAGE INTO SKIN FROM HEAD TO SOLES OF FEET ONCE. LEAVE ON FOR 8 TO 14 HOURS, THEN REMOVE BY THOROUGH WASHING DIRECTED active Not Available Not Available No t Available omeprazole 40 mg capsule,markie yed release TAKE 1 CAPSULE BY MOUTH EVERY MORNING active Not Available Not Available No t Available acetaminophe n 500 mg tablet TAKE 1 TABLET BY MOUTH EVERY 6 HOURS NEEDED FOR MILD PAIN active Not Available Not Available No t Available triamcinolon e acetonide 0.1 % topical cream APPLY TOPICALLY TO ARMS TWICE DAILY NEEDED FOR ITCHING active Not Available Not Available Not Available amoxicillin 500 mg tablet active Not Available Not Available Not Available acetaminophe n ER 650 mg tablet,exten ded release TAKE 1 TABLET BY MOUTH TWICE DAILY active Not Available Not Available No t Available isosorbide mononitrate ER 60 mg tablet,exten ded release 24 hr TAKE 1 TABLET BY MOUTH EVERY MORNING active Not Available Not Available No t Available Vitamins B Complex tablet TAKE 1 TABLET BY MOUTH EVERY EVENING active Not Available Not Available No t Available lorazepam 0.5 mg tablet active Not Available Not Available Not Available triamcinolon e acetonide 0.025 % topical cream APPLY TO ARMS AND LEGS TWICE DAILY NEEDED FOR ITCHING active Not Available Not Available No t Available Ear Wax Removal Kit 6.5 % drops active Not Available Not Available Not Available amlodipine 10 mg tablet TAKE 1 TABLET BY MOUTH EVERYDAY AT NOON AFTER LUNCH active Not Available Not Available No t Available cephalexin 500 mg capsule TAKE 1 CAPSULE BY MOUTH EVERY 12 HOURS active Not Available Not Available No t Available paroxetine 30 mg tablet TAKE 1 TABLET BY MOUTH EVERY MORNING active Not Available Not Available No t Available nystatin 100,000 unit/gram topical cream APPLY TOPICALLY TO THE AFFECTED AREA TWICE DAILY NEEDED FOR FLARES active Not Available Not Available No t Available prednisone 50 mg tablet TAKE 1 TABLET BY MOUTH DAILY active Not Available Not Available Not Available fluticasone 500 mcg-salmeter ol 50 mcg/dose blistr powdr for inhalation INHALE 1 PUFF BY MOUTH TWICE DAILY [...] Not Available Not Available No t Available hydrocortiso ne 2.5 % topical cream APPLY EXTERNALLY TO THE AFFECTED AREA ON FACE TWICE DAILY NEEDED FOR FLARES. DECREASE TO EVERY DAY / EVERY OTHER DAY SYMPTOMS IMPROVE active Not Available Not Available No t Available montelukast 10 mg tablet TAKE 1 TABLET BY MOUTH EVERY EVENING active Not Available Not Available No t Available ammonium lactate 12 % topical cream APPLY TOPICALLY TO ENTIRE BODY TWICE DAILY active Not Available Not Available No t Available furosemide 20 mg tablet TAKE 1 TABLET BY MOUTH EVERY DAY active Not Available Not Available No t Available mirtazapine 15 mg tablet TAKE 1 TABLET BY MOUTH AT BEDTIME and TAKE 1 TABLET BY MOUTH AT BEDTIME NEEDED active Not Available Not Available No t Available ibuprofen 600 mg tablet active Not Available Not Available Not Available albuterol sulfate HFA 90 mcg/actuatio n aerosol inhaler NHALE 2 PUFFS BY MOUTH EVERY 4 TO 6 HOURS NEEDED active Not Available Not Available No t Available paroxetine 40 mg tablet TAKE 1 TABLET BY MOUTH EVERY MORNING active Not Available Not Available No t Available hydrocortiso ne 2.5 % topical ointment active Not Available Not Available Not Available fluocinonide 0.05 % topical cream APPLY TOPICALLY TO ARMS TWICE DAILY NEEDED FOR FLARES active Not Available Not Available N ot Available fluticasone propionate 50 mcg/actuatio n nasal spray,suspen harriet INHALE 2 SPRAY EVERY DAY IN EACH NOSTRIL NEEDED FOR NASAL CONGESTION active Not Available Not Available N ot Available doxycycline hyclate 100 mg tablet TAKE 1 TABLET BY MOUTH EVERY 12 HOURS active Not Available Not Available No t Available amoxicillin 875 mg-potassium clavulanate 125 mg tablet TAKE 1 TABLET BY MOUTH EVERY 12 HOURS FOR 10 DAYS active Not Available Not Available Not Available oxycodone 5 mg tablet TAKE 1 TABLET BY MOUTH EVERY 8 HOURS NEEDED FOR PAIN active Not Available Not Available No t Available Alcohol Prep Pads TEST BLOOD SUGAR 1-2 TIMES PER DAY active Not Available Not Available No t Available mirtazapine 7.5 mg tablet TAKE 1 TABLET BY MOUTH EVERY EVENING WITH DINNER (5-6pm) active Not Available Not Available No t Available duloxetine 30 mg capsule,markie yed release TAKE 1 CAPSULE BY MOUTH EVERY MORNING DO NOT BREAK, CRUSH, DISSOLVE OR CHEW active Not Available Not Available No t Available duloxetine 60 mg capsule,markie yed release TAKE 1 CAPSULE BY MOUTH EVERY MORNING active Not Available Not Available No t Available pregabalin 50 mg capsule TAKE 1 CAPSULE BY MOUTH EVERYDAY AT BEDTIME active Not Available Not Available No t Available calcium 600 mg (as carbonate)-v itamin D3 10 mcg (400 unit) tablet TAKE 1 TABLET BY MOUTH TWICE DAILY IN THE MORNING AND IN THE EVENING active Not Available Not Available No t Available Proneb Ultra II device USE DIRECTED active Not Available Not Available No t Available FreeStyle Lite Strips TEST BLOOD SUGAR 1-2 TIMES PER DAY active Not Available Not Available No t Available diclofenac 1 % topical gel active Not Available Not Available Not Available Eye Itch Relief 0.025 % (0.035 %) drops INSTILL 1 DROP INTO THE AFFECTED EYE(S) TWICE DAILY DIRECTED active Not Available Not Available Not Available Jyothi Allergy 180 mg tablet Take 1 tablet twice a day by oral route. 2023 active Not Available Not Available Not Avai lable Artificial Tears ([id number] butch-glyceri n) 1 %-0.2 %-0.2 % eye drops active Not Available Not Available Not Available Unilet Lancet 33 gauge TEST BLOOD SUGAR ONE OR TWO TIMES DAILY active Not Available Not Available Not Available Spiriva Respimat 1.25 mcg/actuatio n solution for inhalation INHALE 2 PUFFS BY MOUTH EVERY DAY active Not Available Not Available No t Available Vitals Date Recorded Respiratory rate Body temperature Oxygen saturation Oxygen saturation in Arterial blood by Pulse oximetry Heart rate Systolic blood pressure Diastolic blood pressure Provider Name and Address Organization Details Last Updated DateTime 4 16 /min 98.6 [degF] 98 % 98 % 70 /min 140 mm[Hg] 82 mm[Hg] Not Available [facility] - production 4 15:37:49 Date Recorded Respiratory rate Heart rate Body weight Oxygen saturation Oxygen saturation in Arterial blood by Pulse oximetry Body temperature Systolic blood pressure Diastolic blood pressure Provider Name and Address Organization Details Last Updated DateTime 4 16 /min 72 /min 42010.9 28 g 96 % 96 % 97.6 [degF] 166 mm[Hg] 92 mm[Hg] Not Available [facility] - production 4 13:35:13 Date Recorded Body temperature Oxygen saturation Oxygen saturation in Arterial blood by Pulse oximetry Respiratory rate Heart rate Systolic blood pressure Diastolic blood pressure Provider Name and Address Organization Details Last Updated DateTime 4 98.6 [degF] 96 % 96 % 16 /min 70 /min 151 mm[Hg] 72 mm[Hg] Not Available [facility] 4 12:07:12 Date Recorded Oxygen saturation Oxygen saturation in Arterial blood by Pulse oximetry Body temperature Heart rate Respiratory rate Systolic blood pressure Diastolic blood pressure Provider Name and Address Organization Details Last Updated DateTime 4 96 % 96 % 97.9 [degF] 120 /min 18 /min 142 mm[Hg] 86 mm[Hg] Not Available [facility] - production 4 16:24:28 Date Recorded Respiratory rate Body weight Body temperature Oxygen saturation Oxygen saturation in Arterial blood by Pulse oximetry Heart rate Systolic blood pressure Diastolic blood pressure Provider Name and Address Organization Details Last Updated DateTime 3 18 /min 68755.2 4 g 97.6 [degF] 98 % 98 % 68 /min 136 mm[Hg] 54 mm[Hg] Not Available [facility] - production 3 12:10:55 Social History None recorded. Functional Status None recorded. Mental Status None recorded. Family History Nothing Reported. Medical History No medical history recorded. Gynecological HistoryNo gynecological history recorded. Obstetrics History GPAL:G 0 P 0 0 0 0 Past Encounters Encounter ID Performer Location Encounter Start Date Encounter Closed Date Diagnosis/Indication Diagnosis SNOMED-CT Code Diagnosis ICD10 Code Diagnosis Note [id number] Sylvain Harding MD [facility] - [facility] [address] [place] [id number] 01/03/2023 13:42:04 01/07/2023 10:59:15 Dyspnea 809341470 R06.00 77yo woman presents with 2 works of shortness of breath. She has been using nebulizers . On more careful questionin g she is not far from her baseline respirator y status. She has poor appetite. She seems to be recovering from a viral syndrome, with possible underlying asthma or COPD. Glove Machine Operator administer ed another nebulizer which was helpful. [place]. [id number] Alyse Ruvalcaba MD Main - [facility] [address] [place] [phone] 02/27/2023 12:10:28 02/28/2023 15:19:50 Lightheadedness [id number] R42 [id number] Alyse Ruvalcaba MD Main - [facility] [address] [place] [id number] 11/12/2023 15:34:39 11/12/2023 22:20:28 Shoulder pain 90784880 M25.519 [id number] Erin Weldon MD Main - [facility] [address] [place] [id number] 02/19/2024 13:35:06 02/20/2024 11:23:48 Generalized rash [id number] R21 [id number] Erin Weldon MD Main - [facility] [address] [place] [id number] 03/14/2024 12:07:05 03/16/2024 17:49:35 Acute left otitis media [id number] H66.92 [id number] DAMION REDMAN MD Main - [address] [id number] 05/25/2024 16:24:25 05/26/2024 11:09:52 Idiopathic urticaria 26349415 L50.1 Health Concerns Section Related Observation LastModified by Organization Detai ls LastModified Time None Recorded Concern Status LastModified by Organization Details LastModified Time None Recorded Advance Directives Directive None Recorded Payers Encounter Date Sequence Insurance Name Policy Number Policy Angelo Covered Member ID Angelo Member ID Guarantor Name 02/27/2023 1 [facility] - DOS PRIOR TO 2023 - DUAL ELIGIBLE (MEDICARE REPLACEMENT/ADV ANTAGE - HMO) Marla Albarran-Lucas n [id number] Marla Albarran-Colon 11/12/2023 1 [facility] - DOS ON OR AFTER 2023 - DUAL ELIGIBLE - HALFWAY OPTIONS AND ONE CARE (MEDICARE REPLACEMENT/ADV ANTAGE - HMO) Marla Albarran-Lucas n [id number] Marla Montenegrogo-Colon 02/19/2024 1 [facility] - DOS ON OR AFTER 2023 - DUAL ELIGIBLE - HALFWAY OPTIONS AND ONE CARE (MEDICARE REPLACEMENT/ADV ANTAGE - HMO) Marla Albarran-Lucas n [id number] Marla Albarran-Colon 03/14/2024 1 [facility] - DOS ON OR AFTER 2023 - DUAL ELIGIBLE - HALFWAY OPTIONS AND ONE CARE (MEDICARE REPLACEMENT/ADV ANTAGE - HMO) Marla Albarran-Lucas n [id number] Marla Albarran-Colon 05/25/2024 1 [facility] - DOS ON OR AFTER 2023 - DUAL ELIGIBLE - HALFWAY OPTIONS AND ONE CARE (MEDICARE REPLACEMENT/ADV ANTAGE - HMO) Marla Albarran-Lucas n [id number] Marla Albarran-Colon Notes Date Note Type Note Provider Name and Address Organization Details Recorded Time 02/27/2023 text/html HPI: Call to Marla Montenegrodarlyn Busby , spoke with Chica who is PANTRY STEWARD/STEWARDESS on HIPPA. Reports pt having dizziness x 2-3 days. Also endorses MACKENZIE. Has not checked BP. BS WNL per pt. Bp at time of call 150/70. Pt also endorses mild MACKENZIE. Has taken Tyelnol but not completely resolved. Dizziness occurs at both rest and with position changes. Offered our [place] but pt declines, prefers [facility] referral for assessment due to dizziness. Pt alert and speaking clearly. inst[facility] referral submitted. .................... .................... .................... .................... .................... .................... .................... . CRC Nursing Assessment: Comments: CRC RN did not require any additional information to process this visit. .................... .................... .................... .................... .................... .................... .................... . Glove Machine Operator Note From Dung Lal: Pt Presents A@Ox4. [place] warm and dry with clear airway and equal chest rise and fall. Pt c/o increased dizziness beyond her normal baseline upon exertion. Pt sts she has had dizziness since covid. Pt sts she has seen her PCP and they explained it was due to lung she has from having covid but has increased over the past couple days. Pt apartment was very warm and weather has been hot over past couple days. Pt sts resting or sitting gives her relief. Pt denies SOB CP Fever. Pt sts eating and drinking normal. Baseline vitals assessed and recorded. Orthostatic vitals assessed with little change. Walking 02 sat unremarkable maintained above 97% RA. Fast assessment performed with neg deficits. Pt was able to ambulate with a walker. Pt able to stand on her own with out assistance. Eyes equal round and reactive. Pt had sensation in all extremities. Blood glucose assessed unremarkable. EKG performed Normal sinus rhythm. [facility] contacted and advised pt to make an appt with PCP. C stated would put a not to see if appt can be expedited . Pt educated on signs that would indicate the ED Glove Machine Operator Allergies: Latex, Penicillin, Morphine .................... .................... .................... .................... .................... .................... .................... . Disposition: Estefania Ruvalcaba MD [address] [place] [address],[address], [place], [phone], [employer] 02/27/2023 12:57:34 11/12/2023 text/html HPI: PMH: PVD Call to Marla Busby, reports having left arm pain x 1 day. Per pt no CP or SOB. No swelling, redness, rash or bruising. No injury or fall. Has limited ROM. Has not used any OTC meds. Only applied topical analgesic. Pt advised of disposition, unable to come into our [facility]. Agrees to [facility] [employer] for exam. Confirmed all demographics and allergies with patient. .................... .................... .................... .................... .................... .................... .................... . CRC Nurse Triage Notes (Wil Velez): Comments: HPI was reviewed by this instructional writer - No further information needed at this time. Chiquita GARCIA .................... .................... .................... .................... .................... .................... .................... . Glove Machine Operator Note From Esteban Bagley: Dispatched to the call address for the female with left shoulder/arm pain. Pt states yesterday she woke up with left sided arm shoulder and arm pain. She states it feels like its her muscle. She went to the ED yesterday but after waiting 7 hours in the waiting room and never being seen she left. Pt states she has taken Tylenol for it with very little relief. She has not had any NSAIDs. Pt was found sitting on living room couch, CAOx4, airway open and patent, breathing non labored, able to speak in full sentences, -JVD, -HEENT, skin PWD with good turgor, abd soft non tender/distended, +CMSx4. [facility] consulted. Pt given 30mg IM Ketorolac. Red flags discussed. .................... .................... .................... .................... .................... .................... .................... . Disposition: Fulfilled Alyse Ruvalcaba MD [address], [place], [phone], [facility] 11/12/2023 16:28:13 02/19/2024 text/html HPI: Call to [facility], spoke with granddaughter Jenniffer who is on HIPAA. Pt having having rash legs, back and buttocks. PT having raised bumps not fluids filled. Pt having itching. Using Rx of ointment. No fever. Per pt rash is not spreading. Per daughter no YENI sx. Pt unable to come into [facility]. Pt agrees to [facility] for exam. .................... .................... .................... .................... .................... .................... .................... . CRC Nurse Triage Notes (Debbie Oliva): Comments: HPI reviewed. .................... .................... .................... .................... .................... .................... .................... . Glove Machine Operator Note From Dung Lal: Pt co dry itchy ? r abbi? on legs/thighs and back. Pt denies oozing bleeding. Pt denies changes to detergent or new meds. Pt denies sob cp edema NVD or pain. Baseline vitals assessed. Rash assessed. Eczema like in appearance. No bleeding or wheeping. Area appears slight dry. Pics uploaded. [facility] contacted and advised lotion multiple times per day and stay hydrated. Pt education on signs indicating the ER. Pt advised to follow up with pcp or sports specialist. Glove Machine Operator Allergies: Latex, Penicillin, Morphine, Metronidazole .................... .................... .................... .................... .................... .................... .................... . Disposition: Fulfilled Erin Weldon MD [address] [place] [address],[address], [place], [address], [employer] 02/19/2024 14:09:07 03/14/2024 text/html HPI: Resendiz size lump tender to touch behind ear pain increased and area larger over several days. .................... .................... .................... .................... .................... .................... .................... . CRC Nurse Triage Notes (Debbie Oliva): Comments: HPI reviewed. No further information needed to process visit--- 03/13 7:30p call to member to give ETA, he is at [facility], will reschedule visit to tomorrow 03/14- .................... .................... .................... .................... .................... .................... .................... . Glove Machine Operator Note From Yovany Worley: Pt reports marble sized lump behind her left ear for approx one month. Pt notes that it has become more swollen, painful over the past several day and is now causing decreased hearing in that ear. Pt sts she is taking tylenol for the pain. Pt denies f/n/v/d. Pt is alert, NAD. VSS. Afebrile. Non focal neuro exam. Pt has swollen left tonsillar lymph node (quarter sized). No increased pain when palpating the tragus or outer ear. Pt treated with augmentin DS. Pt instructed to f/u with PCP on Saturday and to seek emergent medical care for new or worsening sx, which are reviewed with her and her family. .................... .................... .................... .................... .................... .................... .................... . Disposition: Estefania Weldon MD [address] [facility],[address], [place], [address], [facility] 03/14/2024 12:23:57 05/25/2024 text/html HPI: Call returned to [facility] to triage below. Spoke with yogi Abad who is on HIPAA. Reports pt having headache x 4 days. Granddaughter reports having swelling on top of head and on sides. No redness or rash. No vomiting or dizziness. Pt feeling SOB with exertion. Pt had BP of 142/84. No YENI sx or fever. No changes to mental status reported. Advised of disposition , agrees to [facility] for eval as no transportation to [facility] for exam. Reviewed home care advise, ER precautions and reasons to call back. .................... .................... .................... .................... .................... .................... .................... . CRC Nurse Triage Notes (Rebekah Palacio): Chief Complaints: Headache PMH: Hypertension, COPD/Asthma, Diabetes, Hypertension Allergies: Latex, Penicillin, Morphine, Metronidazole Other Allergies: Metronidazole, cat hair, dog epithelium, gabapentin, shelfish, quetiapine, lisinopril Comments: CRC RN DID NOT NEED FURTHER INFO .................... .................... .................... .................... .................... .................... .................... . Glove Machine Operator Note From Diana Lancaster: Dispatched for the 79 yo female chief complaint of headache. U/a pt is found seated upright of bed, accompanied by son-in-law x1 who acts as radio broadcaster, pt presents CA&Ox4, patent airway, normal breathing and skin signs warm, pink and dry. Pt states she was seen x2 weeks ago for urticaria and swelling to R/L forearms and is experiencing hives to scalp. Pt also states GI upset -> abdominal cramping and diarrhea x1 day. Pt denies any headache. Pt presents negative for angioedema or swelling to face or airway at this time. Pt states her doctor had taken her off a medication, unknown to pt at this time, without relief of symptoms. Follow up appointment in 2 days for further evaluation with same doctor. [facility] consulted and offers 25mg Benadryl, pt self administers her own Benadryl 25mg. [facility] orders Jyothi to pt pharmacy for further tx until doctors appointment. Pt advised of all red flags. End of report. .................... .................... .................... .................... .................... .................... .................... . Disposition: Fulfilled DAMION REDMAN MD [address] [facility],[address], [place], [address], [facility] 05/25/2024 17:36:16 OBGyn Episode No OBEpisode recorded.
--- OUTSIDE RECORDS SUMMARY | 2024-12-07 11:13 | XMS_ITS | Encounter Summary ---
Author Organization [employer] Address [address] [place] [address] Care Team Providers Care Tile Setter Name Role Phone Bertha Evans MD Primary Care Provider + Reason for Visit * Reason Comments Med Refill Encounter Details Date Type Department Care Team (Late st Contact Info) Description 09/09/2023 Refill [facility] PEDS [address] [place], [place] [phone] Bertha Evans MD [address] [place] [address] Depressive disorder Social History Tobacco Use Types Packs/Day Years Used Date Smoking Tobacco: Never Passive Smoke Exposure: Never Smokeless Tobacco: Never Alcohol Use Standard Drinks/Week Comments Never 0 (1 standard drink = 0.6 oz pur e alcohol) Depression Answer Date Recorded Patient Health Questionnaire-9 Score 8 12/14/2022 Housing Stability Answer Date Recorded What is [...] from getting things needed for daily living? Yes, it has kept me from medical appointments or getting medications. 07/30/2023 Utilities Answer Date Recorded In the past [...] Description 01/27/2025 2:45 PM EDT Office Visit [facility] MED[facility]INE [address] [place] [phone] Bertha Evans MD [address] [place] [phone] documented as of this encounter Visit Diagnoses Diagnosis Depressive disorder Depressive disorder, not elsewhere classified documented in this encounter Additional Health Concerns Assessment Noted Time PHQ-9 Depression Total Score: 8 12/14/19 23 1:38 PM EST documented as of this encounter Care Teams Tile Setter Relationship Specialty Start Date End Date Bertha Evans MD [address] [place] [phone] PCP - General Family Medicine 09/10/19 [email or web address] 12/17/23 documented as of this encounter
--- OUTSIDE RECORDS SUMMARY | 2024-12-07 11:13 | XMS_ITS | Encounter Summary ---
Author Organization [facility] Address [address] [address] 7[address] [place] [address] Care Team Providers Care Continuity Clerk Name Role Phone Bertha Evans MD Primary Care Provider + Reason for Visit * Reason Comments Med Refill Encounter Details Date Type Department Care Team (Late Contact Info) Description 10/10/2022 Refill [facility] [address] [place] [address] Valerie Woodall DO [address] [place] [address] Social History Tobacco Use Types Packs/Day Years [...] suspected to have Coronavirus/COVID-19? No / Unsure 10/08/2022 2:24 PM EST documented as of this encounter Plan of Treatment Upcoming Encounters Date Type Department Care Team (Late Contact Info) Description 01/27/2025 2:45 PM EDT Office Visit [facility] [address] [place] [address] [phone] Bertha Evans MD [address] [place] [address] documented as of this encounter Visit Diagnoses Not on filedocumented in this encounter Care Teams Continuity Clerk Relationship Specialty Start Date End Date Bertha Evans MD [address] [place] [phone] PCP - General Family Medicine 09/10/19 [employer] 12/17/23 documented as of this encounter
--- OUTSIDE RECORDS SUMMARY | 2024-12-07 11:13 | XMS_ITS | Encounter Summary ---
Author Organization [employer] Address [address] [place] [address] Care Team Providers Care Reports Analyst Name Role Phone Bertha Evans MD Primary Care Provider + Reason for Visit * Reason Comments Med Refill Encounter Details Date Type Department Care Team ([facility] st Contact Info) Description 10/10/2023 Refill [facility] [address] [place], [place] [phone] Bertha Evans MD [address] [place] [address] Moderate episode of recurrent major depressive disorder (CMS/HCC); Depressive disorder Social History Tobacco Use Types [...] Description 01/27/2025 2:45 PM EDT Office Visit [facility] [address] [place] [address] Bertha Evans MD [address] [place] [phone] documented as of this encounter Visit Diagnoses Diagnosis Moderate episode of recurrent major depressive disorder (CMS/HCC) Depressive disorder Depressive disorder, not elsewhere classified documented in this encounter Additional Health Concerns Assessment Noted Time PHQ-9 Depression Total Score: 8 12/14/19 23 1:38 PM EST documented as of this encounter Care Teams Reports Analyst Relationship Specialty Start Date End Date Bertha Evans MD [address] [place] [phone] PCP - General Family Medicine 09/10/19 [facility] 12/17/23 documented as of this encounter
--- OUTSIDE RECORDS SUMMARY | 2024-12-07 11:13 | XMS_ITS | Encounter Summary ---
Author Organization [employer] Address [address] [place] [address] Care Team Providers Care Assessment Nurse Practitioner Name Role Phone Bertha Evans MD Primary Care Provider + Reason for Visit * Reason Onset Date Comments FYI 01/13/2024 Encounter Details Date Type Department Care Team ([facility] Contact Info) Description 01/13/2024 Telephone [facility] [address] [place], [place] [phone] Bertha Evans MD [address] [place], [place] [phone] FYI Social History Tobacco Use Types Packs/Day Years [...] encounter Miscellaneous Notes * Telephone Encounter - Caren Monge RN - 01/13/2024 1:32 PM EDT Call to [facility], spoke with WEB DESIGNER DEVELOPER in regards to below. Reports pt having left arm pain and weakness that is the same as when discharged. No swelling. No increased weakness. Per WEB DESIGNER DEVELOPER aware of upcoming appt tomorrow with PCP for HDF post CVA. Advised to seek ER if pain becomes severe, worsening weakness, or worsening confusion. WEB DESIGNER DEVELOPER agrees. Sent to PCP and team to follow up PRN prior to upcoming appt. Future Appointments Date Time Provider Department Center 01/14/2024 1:30 PM Bertha Evans MD [facility] 01/31/2024 12:00 PM Bertha Evans MD [facility] * Telephone Encounter - Timo Melgoza - 01/13/2024 9:36 AM EDT [employer]c jewel Staples the visiting nurse calling to inform the PCP that patient is complaining of Left side pain and weakness and if possible can change the dosage of QUEtiapine (SEROquel) 25 MG tablet to 2times a day instead of 3 states makes the patient really drowsy documented in this encounter Plan of Treatment Upcoming Encounters Date Type Department Care Team (Late st Contact Info) Description 01/27/2025 2:45 PM EDT Office Visit [facility] [address] [place] [address] Bertha Evans MD [address] [place] [address] documented as of this encounter Visit Diagnoses Not on filedocumented in this encounter Additional Health Concerns Assessment Noted Time PHQ-9 Depression Total Score: 8 12/14/19 23 1:38 PM EST documented as of this encounter Care Teams Assessment Nurse Practitioner Relationship Specialty Start Date End Date Bertha Evans MD [address] [place] [address] PCP - General Family Medicine 09/10/19 [facility] 12/17/23 documented as of this encounter
--- OUTSIDE RECORDS SUMMARY | 2024-12-07 11:13 | XMS_ITS | Clinical Summary ---
Author Organization [facility] Address [address] [place] [address] Phone Care Team Providers Care Social Services Director Name Role Phone Bertha Evans MD Primary Care Provider [phone] Allergies Active Allergy Reactions Criticality Noted Date Comments Cat Dander Medium 11/06/2020 Dog Epithelium Medium 11/06/2020 Gabapentin Medium 11/06/2020 Lisinopril 08/07/2012 Morphine Medium 11/06/2020 Paroxetine Other (see comments) 04/27/2021 Shellfish Allergy Medium 11/06/2020 Medications amLODIPine (NORVASC) 10 MG tablet Take 1 tablet by mouth 1 (one) time each day Active baclofen (LIORESAL) 10 MG tablet Take 1 tablet by mouth at bed time Active calcium carbonate-vitami n D 600-400 MG-UNIT per tablet Take 1 tablet by mouth 2 (two) times a day Active fluticasone-salm eterol (ADVAIR DISKUS) 500-50 MCG/DOSE diskus inhaler Active HYDROcodone-acet aminophen (NORCO) 5-325 MG per tablet Take 2 tablets by mouth 1 (one) time each day Active isosorbide mononitrate (IMDUR) 60 MG 24 hr tablet Take 1 tablet by mouth 1 (one) time each day Active metoprolol succinate XL (TOPROL-XL) 100 MG 24 hr tablet Take 1 tablet by mouth 1 (one) time each day Active montelukast (SINGULAIR) 10 MG tablet Take 1 tablet by mouth 1 (one) time each day Active omeprazole (PriLOSEC) [address] capsule Take 1 capsule by mouth 1 (one) time each day Active PARoxetine (PAXIL) 30 MG tablet Take 1 tablet by mouth 1 (one) time each day Active B Complex Vitamins (vitamin B complex) tablet Take 1 tablet by mouth at bed time 1 Active Aspirin Low Dose 81 MG chewable tablet Chew 1 tablet 1 (one) time each day 1 Active Ventolin HFA 108 (90 Base) MCG/ACT inhaler INHALE 2 PUFFS EVERY 4 TO 6 HOURS NEEDED 1 Active traZODone (DESYREL) 50 MG tablet Take 1 tablet by mouth 1 (one) time each day 2 Active Spiriva Respimat 1.25 MCG/ACT aerosol solution 2 Active Multiple Vitamin (Multivitamin) tablet Take 1 tablet by mouth 1 (one) time each day 2 Active triamcinolone (KENALOG) 0.1 % cream APPLY TOPICALLY TO ARMS TWICE DAILY NEEDED FOR ITCHING 2 Active permethrin (ELIMITE) 5 % cream APPLY BY TOPICAL ROUTE. THOROUGHLY MASSAGE INTO SKIN FROM HEAD TO SOLES OF FEET ONCE. LEAVE ON FOR 8 TO 14 HOURS, THEN REMOVE BY THOROUGH WASHING DIRECTED 2 Active nystatin (MYCOSTATIN) cream APPLY TOPICALLY TO THE AFFECTED AREA TWICE DAILY NEEDED FOR FLARES 2 Active atorvastatin (LIPITOR) 40 MG tablet Take 1 tablet by mouth 1 (one) time each day 3 Active fluticasone (FLONASE) 50 MCG/ACT nasal spray INHALE 2 SPRAY EVERY DAY IN EACH NOSTRIL NEEDED FOR NASAL CONGESTION 3 Active Artificial Tears 0.2-0.2-1 % solution 3 Active tiZANidine (ZANAFLEX) 2 MG tablet if needed 3 Active Active Problems Problem Noted Date Diagnosed Date Allergic rhinitis 11/01/2022 Overview (01/28/2023): Last Assessment & Plan: Continue Flonase Use Nasal saline Dry eyes 11/01/2022 Overview (01/28/2023): Last Assessment & Plan: Use natural tears FU with ophthalmology prn Acute exacerbation of chronic obstructive pulmon vega disease 10/10/2022 Overview (01/28/2023): Last Assessment & Plan: She is receving [...] Recurrent falls 10/10/2022 Sprain of ankle 10/10/2022 Hypertension 12/05/2021 Acute kidney failure 11/06/2020 Essential (primary) hypertension 11/06/2020 Chronic kidney disease 11/06/2020 Hyperkalemia 11/06/2020 Low back pain 11/06/2020 Swelling of structure of eye 05/19/2018 History of total knee arthroplasty 06/05/2017 Depressive disorder 03/05/2013 Carpal tunnel syndrome 04/01/2012 Cervical spondylosis without myelopathy 04/01/20 12 Generalized osteoarthritis 04/01/2012 Lumbosacral spondylosis without myelopathy 04/01 Overview (01/28/2023): Last Assessment & Plan: FU with rheumatology Memory impairment 04/01/2012 Vitamin D deficiency 04/01/2012 Arthritis of knee 03/21/2012 Dyslipidemia 03/21/2012 Resolved Problems Problem Noted Date Diagnosed Date Resolved Date Anxiety disorder 11/06/2020 04/27/2021 Atherosclerotic heart diseas e of [place] coronary artery without angina pectoris 11/06/2020 04/27/2021 COVID-19 11/06/2020 04/27/2021 Dysphagia, oropharyngeal phase 11/06/2020 04/27/2021 Fibromyalgia 11/06/2020 04/27/2021 Gastro-esophageal reflux dis ease without esophagitis 11/06/2020 04/27/2021 Generalized edema 11/06/2020 04/27/2021 Hyperlipidemia 11/06/2020 04/27/2021 Insomnia 11/06/2020 04/27/2021 Iron deficiency anemia 11/06/202004/27 Low back pain 11/06/2020 04/27/2021 Lower abdominal pain, unspecified 11/06/2020 04/27/2021 Muscle wasting and atrophy, not elsewhere classified, lower leg 11/06/2020 04/27/2021 Obesity 11/06/2020 04/27/2021 Obstructive sleep apnea 11/06/2020 07/05/2021 Old myocardial infarction 11/06/2020 Other asthma 11/06/2020 04/27/2021 Other malaise 11/06/2020 04/27/2021 Other reduced mobility 11/06/202004/27 Peripheral vascular disease 11/06/2020 04/27/2021 Recurrent major depressive disorder 11/06/2020 04/27/2021 Restless leg syndrome 11/06/20202020 Type 2 diabetes mellitus without complication 11/06/19 21 04/27/2021 Immunizations Name Administration Dates Next Due Influenza (IM) Preservative Free 07/30/2016 Influenza Split 07/03/2013 Influenza Split High Dose Pr eservative Free IM 07/10/2017 Influenza TIV (IM) 06/22/2020 Influenza, Quadrivalent, Pre servative Free 07/20/2019,10/30/2018 Influenza, Quadrivalent, Wit h Preservative 11/14/2015 Moderna SARS-COV-2 12/29/2020,12/02/2020 PPD Test 11/12/2020 Pneumococcal Conjugate 13-Valent 06/22/2020,02/0 01/2016,11/24/2015 Pneumococcal Polysaccharide 05/30/2015,0 01/19/2013,08/15/2006,05/14 Shingrix 12/31/2018,10/30/2018 Td 05/14/2002 Tdap 11/14/2015 Family History Medical History Relation Comments Kidney disease Child 1 Cancer Child 2 Cancer Father Heart disease Father Hypertension Father Diabetes Mother Hypertension Sibling 1 Heart disease Sibling 2 Relation Status Comments Child 1 Child 2 Father Mother Sibling 1 Sibling 2 Social History Tobacco Use Types Packs/Day Years Used Date Smoking Tobacco: Never Smokeless Tobacco: Never Tobacco Cessation:Counseling Given: Not Answered Alcohol Use Standard Drinks/Week Comments No 0 (1 standard drink = 0.6 oz pur e alcohol) Comments Unknown Sex and Gender Information Value Date Recorded Sex Assigned at Not on file Legal Sex Female 5:03 PM EST Gender Identity Not on file Sexual Orientation Not on file Last Filed Vital Signs Vital Sign Reading Time Taken Comments Blood Pressure 114/60 01/28/2023 2:30 PM EDT Pulse 82 01/28/2023 2:30 PM EDT Temperature - - Respiratory Rate - - Oxygen Saturation 97% 07/03/2022 3:17 PM EDT Inhaled Oxygen Concentration - - Weight 92.6 kg (204 lb 3.2 oz) 01/28/2023 2:30 P M EDT Height 160 cm (5' 3 ) 02/26/2020 12:00 PM EDT Body Mass Index 36.17 02/26/2020 12:00 PM EDT Plan of Treatment Health Maintenance Due Date Last Done Comments Influenza Vaccine (#1) 2024 0, 07/20/2019, 10/30/2018, Additional history exists Pneumococcal Vaccine: 65+ Years Completed 06/22/2020, 11/24/2015, 11/24/2015, Additional history exists Hepatitis B Vaccine Aged Out No longe r eligible based on patient's age to complete this topic Insurance [address] [place] [phone] [facility] [place] [id number] [facility] ([id number]) [place] [phone] Care Teams Social Services Director Relationship Specialty Start Date End Date Bertha Evans MD [address] [place] [id number] PCP - General Internal Medicine 04/28/21
[2024-12-07 12:50] LABS: Anion Gap 20 (12-20); Blood Urea Nitrogen 12 mg/dL (9-16); Carbon Dioxide 26 mmol/L (22-29); Chloride 102 mmol/L (96-108); Estimated Glomerular Filt Rate 41; Potassium 3.5 mmol/L (3.3-5.1); Sodium 144 mmol/L (135-145)
== END 2024-12-07 11:09 | disposition home or self-care (01) ==
LOC: HO.LAB 11:08
PROVIDERS: PCP Internal Medicine; Visit Provider Internal Medicine Nephrology
DX: I10 Essential (primary) hypertension (principal); N18.31 Chronic kidney disease, stage 3a
CPT/HCPCS: 36415; 80051; 82565; 84520

== ENCOUNTER 2024-12-09 14:43 | Outpatient (AMB) | payer OTHER, SELFPAY ==
--- OUTSIDE RECORDS SUMMARY | 2024-12-09 14:46 | XMS_ITS | Data Portability ---
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 VSS. Rolling Machine Operator on site reports that she is able to ambulate to her walker. No asymmetric muscle strength or loss of sensation, PERRLA. Orthostatics performed and negative, exertional SpO2 wnl, BS 127. EKG without ischemia. Etiology of lightheadedness unclear but seems to be acute on chronic without evidence of stroke or clear dehydration. Rolling Machine Operator notes apartment is very hot, [...] interested in a dose of toradol. VSS. Rolling Machine Operator on site reports left trapezoid seems tender to palpation. No weakness. EKG with NSR, no SHARITA or STD c/f acute ischemia. 30mg IM toradol given and this time she is felt appropriate for ongoing outpatient management. Red flags to be reviewed by ecommerce manager. Not available 11/12/2023 16:15:04 02/19/2024 02/19/2024 I provided real -time medical direction via phone for this encounter and was available for additional phone-based assistance as needed. I have reviewed and agree with the Assessment and Plan as documented by the Rolling Machine Operator. Patient given the opportunity to ask questions. Our service contacted for an assessment of: a rash As per above, patient has a rash on the arms for several weeks. Is not particularly symptomatic. Denies any new medications, exposures to new environmental toxins, creams, lotions, soaps, etc. No new pets or animals in the house. Per ecommerce manager on the scene, VSS. Non-toxic. Please see [...] Assessment and Plan as documented by the Rolling Machine Operator. Patient given the opportunity to ask questions. Our service contacted for an assessment of: pain behind her ear and hearing loss As per above, patient with an approximate 2-3 weeks of a small LN swelling behind right ear. Taking Tyelenol for pain. Denies F/C. Denies ST or upper respiratory tract S&S. No ear pain until 24 hours ago. Per ecommerce manager on the scene, ROCKY NT. See upladed [...] jyothi BID (sent rx to the pharmacy). [email or web address] Not available 05/25/2024 17:36:07 Plan of Treatment Reminders Order Date Submit Date Provider Last Modified By Organization Details Last Modified Time Details Appointments None recorded. Lab None recorded. Referral None recorded. Procedures None recorded. Surgeries None recorded. Imaging None recorded. Medication Orders Jyothi Allergy 180 mg tablet 2023 [facility], [address] [place] [address], [id number], 14:23:27 Augmentin 875 mg-125 mg tablet 2023 024 [facility][id number], [address] [place] [address], [id number], 12:23:43 Patient TargetsNo targets recorded. Patient InstructionsNo instructions recorded. Reason for Referral None Reported. Medical Equipment None Reported. Allergies Allergen ID Allergen Name Allergen Category Reaction Reaction Severity Criticality Documentation Date Start Date Code Code System Note Provider Name and Address Organization Details Recorded Time 6825 latex environme nt,medica tion Not available Not available Not available 08/18/2024 63469 91 RxNorm Not Available [facility] - production 4 03:32:53 6826 Product containin g penicilli n (product) medicatio n Not available Not available Not available 08/18/2024 72445 8001 SNOMED Not Available [facility] - production 4 03:32:53 6827 morphine medicatio n Not available Not available Not available 08/18/2024 7052 RxNorm Not Available [facility] - production 4 03:32:53 6828 metronida zole medicatio n Not available Not available Not available 08/18/2024 6922 Rx[facility] Available [facility] 03:32:53 Medications [...] Not Available Not Avai lable Artificial Tears ([id number] butch-glyceri n) 1 %-0.2 %-0.2 % eye [...] Updated DateTime 4 16 /min 72 /min 41042.9 28 g 96 % 96 % 97.6 [...] /min 151 mm[Hg] 72 mm[Hg] Not Available [facility] - production 4 12:07:12 Date Recorded Oxygen [...] Details Last Updated DateTime 3 18 /min 62110.2 4 g 97.6 [degF] 98 % 98 [...] [id number] Sylvain Harding MD Main - [facility] [address] [place] [phone] 01/03/2023 13:42:04 01/07/2023 10:59:15 Dyspnea 514106417 R06.00 77yo woman presents with 2 works of shortness of breath. She has been using nebulizers . On more careful questionin g she is not far from her baseline respirator y status. She has poor appetite. She seems to be recovering from a viral syndrome, with possible underlying asthma or COPD. Rolling Machine Operator administer ed another nebulizer which was helpful. There [place]. [id number] Alyse Ruvalcaba MD Main - [facility] [address] [place] [phone] 02/27/2023 12:10:28 02/28/2023 15:19:50 Lightheadedness [id number] R42 [id number] Alyse Ruvalcaba MD Main - [facility] [address] [place] [phone] 11/12/2023 15:34:39 11/12/2023 22:20:28 Shoulder pain [id number] M25.519 [id number] Erin Weldon MD Main - [facility] [address] [place] [phone] 02/19/2024 13:35:06 02/20/2024 11:23:48 Generalized rash [id number] R21 [id number] Erin Weldon MD Main - [facility] [address] [place] [phone] 03/14/2024 12:07:05 03/16/2024 17:49:35 Acute left otitis media [id number] H66.92 [id number] DAMION REDMAN MD Main - [address] [phone] 05/25/2024 16:24:25 05/26/2024 11:09:52 Idiopathic urticaria 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 L50.1 Health Concerns Section Related Observation LastModified by Organization Detai ls LastModified Time None Recorded Concern Status LastModified by Organization Details LastModified Time None Recorded Advance Directives Directive None Recorded Payers Encounter Date Sequence Insurance Name Policy Number Policy Angelo Covered Member ID Angelo Member ID Guarantor Name 02/27/2023 1 [facility] - DOS PRIOR TO 2023 - DUAL ELIGIBLE (MEDICARE REPLACEMENT/ADV ANTAGE - HMO) Marla Albarran-[place] n [id number] Marla Albarran-[place] 11/12/2023 1 [facility] - DOS ON OR AFTER 2023 - DUAL ELIGIBLE - [employer] OPTIONS AND ONE CARE (MEDICARE REPLACEMENT/ADV ANTAGE - HMO) Marla Albarran[place] n [id number] Marla Montenegrogo-[place] 02/19/2024 1 [facility] - DOS ON OR AFTER 2023 - DUAL ELIGIBLE - [employer] OPTIONS AND ONE CARE (MEDICARE REPLACEMENT/ADV ANTAGE - HMO) Marla Albarran[place] n [id number] Marla Albarran-[place] 03/14/2024 1 [facility] - DOS ON OR AFTER 2023 - DUAL ELIGIBLE - [employer] OPTIONS AND ONE CARE (MEDICARE REPLACEMENT/ADV ANTAGE - HMO) Marla [place]barran[place] n [id number] Marla Albarran-[place] 05/25/2024 1 [facility] - DOS ON OR AFTER 2023 - DUAL ELIGIBLE - [employer] OPTIONS AND ONE CARE (MEDICARE REPLACEMENT/ADV ANTAGE - HMO) Marla [place]barran[place] n [id number] Marla Albarran-[place] Notes Date Note Type Note Provider Name and Address Organization Details Recorded Time 02/27/2023 text/html HPI: Call to Marla Montenegrodarlyn Busby , spoke with Chica who is NUCLEAR TECHNOLOGIST on [employer]. Reports pt having dizziness x [...] .................... .................... .................... .................... .................... .................... . Rolling Machine Operator Note From Dung Lal: Pt Presents A@Ox4. [place] warm and dry with clear airway and [...] assessed unremarkable. EKG performed Normal sinus rhythm. [facility] contacted and advised pt to make an appt with PCP. C stated would put a not to see if appt can be expedited . Pt educated on signs that would indicate the ED Rolling Machine Operator Allergies: Latex, Penicillin, Morphine .................... .................... .................... .................... .................... .................... .................... . Disposition: Estefania Ruvalcaba MD [address] [place] [address],[address], [place], [phone], [employer] [facility] [employer] 02/27/2023 12:57:34 11/12/2023 text/html HPI: PMH: PVD Call to Marla Busby, reports having left arm pain x 1 day. Per pt no CP or SOB. No swelling, redness, rash or bruising. No injury or fall. Has limited ROM. Has not used any OTC meds. Only applied topical analgesic. Pt advised of disposition, unable to come into our [facility]. Agrees to [facility] for exam. Confirmed all demographics and allergies with patient. .................... .................... .................... .................... .................... .................... .................... . [facility] Nurse Triage Notes (Wli Velez): Comments: HPI was reviewed by this literary writer - No further information needed at this time. Chiquita GARCIA .................... .................... .................... .................... .................... .................... .................... . Rolling Machine Operator Note From Esteban Bagley: Dispatched [...] . Disposition: Fulfilled Alyse Ruvalcaba MD [address], [place], [phone], [facility] 11/12/2023 16:28:13 02/19/2024 text/html HPI: Call to Marla Busby, spoke with granddaughter Jenniffer who is on [employer]. Pt having having rash legs, back and buttocks. PT having raised bumps not fluids filled. Pt having itching. Using Rx of ointment. No fever. Per pt rash is not spreading. Per daughter no YENI sx. Pt unable to come into [facility]. Pt agrees to [facility] for exam. .................... .................... .................... .................... .................... .................... .................... . [facility] Nurse Triage Notes (Debbie Oliva): Comments: HPI reviewed. .................... .................... .................... .................... .................... .................... .................... . Rolling Machine Operator Note From Dung Lal: Pt co dry itchy ? r abbi? on legs/thighs and back. Pt denies oozing bleeding. Pt denies changes to detergent or new meds. Pt denies sob cp edema NVD or pain. Baseline vitals assessed. Rash assessed. Eczema like in appearance. No bleeding or wheeping. Area appears slight dry. Pics uploaded. [facility] contacted and advised lotion multiple times per day and stay hydrated. Pt education on signs indicating the ER. Pt advised to follow up with pcp or trade embalmer. Rolling Machine Operator Allergies: Latex, Penicillin, Morphine, Metronidazole .................... .................... .................... .................... .................... .................... .................... . Disposition: Fulfilled Erin Weldon MD [address] [place] [address],[address], [place], [phone], [employer] 02/19/2024 14:09:07 03/14/2024 text/html HPI: Resendiz size lump tender to touch behind ear pain increased and area larger over several days. .................... .................... .................... .................... .................... .................... .................... . [facility] Nurse Triage Notes (Debbie Oliva): Comments: HPI reviewed. No further information needed to process visit--- 03/13 7:30p call to member to give ETA, he is at [facility], will reschedule visit to tomorrow 03/14- .................... .................... .................... .................... .................... .................... .................... . Rolling Machine Operator Note From Yovany Worley: Pt [...] .................... . Disposition: Estefania Weldon MD [address] [facility],[address], [place], [phone], [employer] 03/14/2024 12:23:57 05/25/2024 text/html HPI: Call returned [...] reported. Advised of disposition , agrees to [facility] for eval as no transportation to [facility] for exam. Reviewed home care advise, ER [...] .................... .................... .................... .................... .................... .................... . Rolling Machine Operator Note From Diana Lancaster: Dispatched for the 79 yo female chief complaint of headache. U/a pt is found seated upright of bed, accompanied by son-in-law x1 who acts as freelance translator, pt presents CA&Ox4, patent airway, normal breathing [...] days for further evaluation with same doctor. [facility] consulted and offers 25mg Benadryl, pt self administers her own Benadryl 25mg. [facility] orders Jyothi to pt pharmacy for further tx until doctors appointment. Pt advised of all red flags. End of report. .................... .................... .................... .................... .................... .................... .................... . Disposition: Fulfilled DAMION REDMAN MD [address] [facility],[address], [place], [phone], [employer] 05/25/2024 17:36:16 OBGyn Episode No OBEpisode recorded.
--- OUTSIDE RECORDS SUMMARY | 2024-12-09 14:46 | XMS_ITS | Clinical Summary ---
Author Organization [employer] Address [address] [place] [address] Care Team Providers Care Manager Creative Name Role Phone Bertha Evans MD Primary Care Provider + Allergies Active Allergy Reactions Criticality Noted Date Comments Cat Dander Medium 11/06/2020 Dog Epithelium Medium 11/06/2020 Gabapentin Medium 11/06/2020 Lisinopril Dizziness Low 08/07/2012 Metronidazole High 01/03/2024 Other Reaction(s): NEUROPSYCH EFFECTS Morphine Anxiety Medium 04/01/2012 Other reaction(s): Morphine allergy Quetiapine Swelling 03/06/2024 Swelling of eyes Shellfish Allergy Medium 11/06/2020 Medications * This document contains information received from the source organization and may not represent a complete record from that organization. isosorbide mononitrate ER (Imdur) 60 MG 24 hr tablet Take 1 tablet by mouth every morning 12/01/19 21 Active Respiratory Therapy Supplies (Nebulizer) deviceIndicatio ns:COPD exacerbation ([facility]) Use nebulizer machine as directed. Please supply tubing and mouthpiece. 1 each 12/04/19 23 Active Nebulizers (Proneb Ultra II/LC Plus) device USE DIRECTED 12/04/19 23 Active albuterol (2.5 MG/3ML) 0.083% nebulizer solution USE 1 VIAL VIA NEBULIZER EVERY 4 HOURS NEEDED FOR WHEEZING 12/02/19 23 Active albuterol (Ventolin HFA) 108 (90 Base) MCG/ACT inhalerIndicati ons:Acute exacerbation of chronic obstructive airways disease (CMS/HCC) INHALE 2 PUFFS EVERY 4 TO 6 HOURS NEEDED 18 g 11 12/14/19 23 Active metoprolol succinate XL (Toprol-XL) 100 MG 24 hr tabletIndicatio ns:Primary hypertension TAKE 1 TABLET BY MOUTH EVERY MORNING 90 tablet 3 01/10/20 24 Active ketoconazole (NIZOral) 2 % shampooIndicati ons:Rash Apply topically 1 (one) time per week. Leave on for 5 mins before washing out 120 mL 05/29/20 24 Active montelukast (Singulair) 10 MG tablet TAKE 1 TABLET BY MOUTH EVERY EVENING 90 tablet 3 06/24/20 24 Active Calcium Carb-Cholecalci ferol 600-10 MG-MCG tablet TAKE 1 TABLET BY MOUTH TWICE DAILY IN THE MORNING AND IN THE EVENING 180 tablet 1 07/28/20 24 Active QUEtiapine (SEROquel) 25 MG tablet TAKE 1 TABLET BY MOUTH TWICE DAILY IN THE MORNING AND IN THE EVENING AND TAKE 1 TABLET AT BEDTIME NEEDED 90 tablet 3 08/04/20 24 Active ammonium lactate (Amlactin) 12 % cream APPLY TOPICALLY TO ENTIRE BODY TWICE DAILY Active hydrocortisone 2.5 % cream APPLY EXTERNALLY TO THE AFFECTED AREA ON FACE TWICE DAILY NEEDED FOR FLARES. DECREASE TO EVERY DAY / EVERY OTHER DAY SYMPTOMS IMPROVE Active glucose blood (FREESTYLE LITE) test strip TEST BLOOD SUGAR 1-2 TIMES PER DAY 50 strip 08/25/20 24 Active cloNIDine (Catapres) 0.1 MG tablet TAKE 1 TABLET BY MOUTH TWICE DAILY IN THE MORNING AND IN THE EVENING 60 tablet 5 08/31/20 24 Active Multiple Vitamin (Multivitamin) tabletIndicatio ns:Stage 3 chronic kidney disease, unspecified whether stage 3a or 3b CKD ([facility]),Muscl e wasting and atrophy, not elsewhere classified, unspecified lower leg TAKE 1 TABLET BY MOUTH EVERY EVENING WITH FOOD 30 tablet 5 08/31/20 24 Active Lancets (Unilet Micro-Thin 33G) miscIndications :Type 2 diabetes mellitus without complication, unspecified whether predatory animal exterminator insulin use ([facility]) TEST BLOOD SUGAR ONE OR TWO TIMES DAILY 100 each 09/08/20 24 Active Alcohol Swabs (Alcohol Prep) 70 % padsIndications :Type 2 diabetes mellitus without complication, unspecified whether longterm insulin use ([facility]) TEST BLOOD SUGAR 1-2 TIMES PER DAY 100 each 11 09/08/20 24 Active atorvastatin (Lipitor) 80 MG tablet Take 1 tablet (80 mg) by mouth at bedtime. 30 tablet 3 09/14/20 24 Active omeprazole (PriLOSEC) [address] capsuleIndicati ons:Gastro-esop hageal reflux disease without esophagitis TAKE 1 CAPSULE BY MOUTH EVERY MORNING 90 capsule 1 09/29/20 24 Active losartan (Cozaar) 100 MG tablet Take 1 tablet (100 mg) by mouth Once per day. 30 tablet 11 10/13/20 24 025 Active mirtazapine (Remeron) 30 MG tabletIndicatio ns:Primary insomnia TAKE 1 TABLET BY MOUTH AT BEDTIME 30 tablet 3 10/13/20 24 Active fluocinolone ([place]-Smoothe) 0.01 % external oil APPLY TOPICALLY THREE TIMES DAILY 118 mL 10/16/20 24 Active Aspirin Low Dose 81 MG chewable tabletIndicatio ns:Old myocardial infarction TAKE 1 TABLET BY MOUTH EVERY MORNING (CHEW) 90 tablet 3 11/30/19 25 Active DULoxetine (Cymbalta) [address] capsule TAKE 1 CAPSULE BY MOUTH EVERY MORNING 30 capsule 11/30/19 25 Active Umeclidinium [place] (Incruse Ellipta) 62.5 MCG/ACT aerosol powder Inhale 1 Act (62.5 mcg) Once per day. 1 each 12/03/19 25 Active Fluticasone Furoate-Vilante rol (Breo Ellipta) 200-25 MCG/ACT aerosol powder Inhale 1 Inhalation Once per day. 1 each 12/03/19 25 Active Aspirin Low Dose 81 MG chewable tabletIndicatio ns:Old myocardial infarction TAKE 1 TABLET BY MOUTH EVERY MORNING (CHEW) 90 tablet 3 12/10/19 24 025 Discontinued DULoxetine (Cymbalta) [address] capsule Take 1 capsule (60 mg) by mouth in the morning. Do not crush or chew. 30 capsule 12/13/19 24 025 Discontinued loratadine (Claritin) 10 MG tablet Take 1 tablet (10 mg) by mouth Once per day. 30 tablet 08/13/20 24 025 Discontinued(T herapy completed) Fluticasone-Andres meterol 500-50 MCG/ACT aerosol powder INHALE 1 PUFF BY MOUTH TWICE DAILY IN THE MORNING AND IN THE EVENING RINSE MOUTH AFTER USING. 60 each 5 08/31/20 24 025 Discontinued(F ormulary change) Spiriva Respimat 1.25 MCG/ACT inhalerIndicati ons:Acute exacerbation of chronic obstructive airways disease (CMS/HCC) INHALE 2 PUFFS BY MOUTH EVERY DAY 4 g 3 09/08/20 025 Discontinued(F ormulary change) Active Problems Problem Noted Date Diagnosed Date Vaginal discharge 09/14/2024 Assessment & Plan (09/14/2024 5:15 PM EST): RO vaginitis. Will order vaginal swab, will schedule pelvic exam if sxs persist. Dermatitis 09/14/2024 Assessment & Plan (09/14/2024 5:20 PM EST): Reportedly on scalp and forehead. I do not see any rash or inflammatory changes at this time, scalp looks healthy. I will rx fluocinolone oil for scalp to use at bedtime for 2w then prn It is unclear if patient is developing somatic hallucinations as part of progressive MH illness, see [facility] prn Lesion of parotid gland 09/14/2024 Assessment & Plan (09/14/2024 5:25 PM EST): It was previously seen on previous CT scan but not significant. She will fu with ENT on 11/06/23 Allergic conjunctivitis of both eyes 03/06/2024 Assessment & Plan (03/06/2024 1:31 PM EDT): Use ketotifen eye drops and reconsult PRN Acute arterial ischemic stro ke, vertebrobasilar, thalamic, left 01/14/2024 Assessment & Plan (01/14/2024 8:24 PM EDT): - No neurological deficit at this time, weakness is related mostly to OA of shoulders and hips. Continue Asprin, Atorvastatin Will follow up for tight control of hypertension and type 2 diabetes Will refer to Neurology for follow up POC discussed with granddaughter Jenniffer as above, patient had verbally consented and provided phone # to call her. I called her with the patient and INTERNAL CONTROL SPECIALIST still present at the end of the appt. Questions were answered to her granddaughter and she agreed with POC. UTI (urinary tract infection) 01/10/2024 Lateral pain of left hip 01/10/2024 Assessment & Plan (09/14/2024 5:30 PM EST): Restart OT and PT/gait retraining/fall prevention at home, can move to OP PT if needed Arthropathy of left shoulder 12/13/2023 Assessment & Plan (01/14/2024 2:34 PM EDT): - Will hold off on interventional pain management at this time - Use Tylenol or Ibupprofen prn for pain - Start PT - Use DME/walker at home to prevent falls. Assessment & Plan (12/13/2023 1:36 PM EST): She has significant functional limitations, needs INTERNAL CONTROL SPECIALIST -cont following w/ pain clinic -referred to home-based PT to improve functionality -f/u w/ me 6 wks PTSD (post-traumatic stress disorder) 08/30/2023 Assessment & Plan (03/06/2024 3:21 PM EDT): Pt seems to be recalling traumatic events form childhood and adolescent years Will give clonidine for now qHS and refer to team to continue pharmacological Tx Assessment & Plan (08/30/2023 12:07 PM EST): Probably triggered by holidays and the anniversary of her son's Ingrown toenail without infection 08/30/2023 Assessment & Plan (08/30/2023 12:08 PM EST): Refer to linking machine operator H/O cervical discectomy 07/24/2023 Assessment & Plan (07/24/2023 4:35 PM EDT): Sp cervical Discectomy on 07/08/23 (Anu meredith) She's doing well, surgical wound on ant neck looks well FU with surgery in 2d. Take tylenol tid prn, or oxycodone half tablet bid prn severe pain. Caution with constipation, dizziness, risk of falls or MS changes. She will avoid taking it when she's by herself. Hyperacusia, right 05/20/2023 Hearing loss of right ear 05/20/2023 Assessment & Plan (05/20/2023 1:12 PM EDT): order audiometry test Continuous tactile hallucinations 05/20/2023 Assessment & Plan (05/20/2023 1:11 PM EDT): Pt will address these issues to her counselor Jamie this afternoon. FU PRN Dry eyes 11/01/2022 Assessment & Plan (11/01/2022 10:52 PM EST): Use natural tears FU with ophthalmology prn Allergic rhinitis 11/01/2022 Assessment & Plan (11/01/2022 10:53 PM EST): Continue Flonase Use Nasal saline Mood disorder 10/29/2022 Assessment & Plan (10/29/2022 1:22 PM EST): May need premedication for dental procedures. Acute exacerbation of chronic obstructive airway s disease 10/10/2022 Assessment & Plan (07/24/2023 4:36 PM EDT): Resolved, patient with no residual cough at this time Had Influenza Vax today Assessment & Plan (01/04/2023 12:14 PM EDT): She is receving albuterol updraft today, recommended [...] Will call her back with test results. Assessment & Plan (12/17/2022 5:13 AM EST): Pt's COPD is again, or continues to be exacerbated Prednisone x 5 days No indication for antibiotics as not febrile, no focal lung findings, clear sputum O2 normal here at at home >95% RTC clinic or walkin center if increased SOB does not resolve after steroid course, develops fevers, intolreance to PO Chronic sinusitis 10/10/2022 Injury of kidney 10/10/2022 DANNIELLE (obstructive sleep apnea) 10/10/2022 Assessment & Plan (10/13/2024 12:35 PM EST): Will call DME provider to request head gear and accessories for CPAP machine and also to check CPAP settings. Assessment & Plan (03/06/2024 3:18 PM EDT): Doing well, reportedly using it every night but only for few hours as mask is sliding off. Family will reach out to CPAP supplier for mask and head gear replacement. We will call DME provider to monitor for CPAP compliance after gear is replaced. Patient needs to continue using CPAP to prevent morbidity and mortality. Assessment & Plan (01/21/2023 12:24 PM EDT): Pt states using the CPAP every night. She continues using it to decrease morbidity and mortality. will need overnight oximetry and CPAP evaluation from [employer] company Precordial pain 10/10/2022 Primary osteoarthritis of right shoulder 022 Assessment & Plan (01/14/2024 2:34 PM EDT): - Will hold off on interventional pain management at this time - Use Tylenol or Ibupprofen prn for pain - Start PT - Use DME/walker at home to prevent falls. Falls frequently 10/10/2022 Assessment & Plan (05/20/2023 1:12 PM EDT): counseled to use walker at all times make sure that lifeline device is working, INTERNAL CONTROL SPECIALIST to fu assessment done by SHAYLAA 3 months ago fu with physiatry Sprain of ankle 10/10/2022 Muscle wasting and atrophy, not elsewhere classified, unspecified lower leg 11/06/2020 Acute kidney failure 11/06/2020 Assessment & Plan (09/14/2024 5:14 PM EST): Repeat BMP and fu results. Anxiety 11/06/2020 Assessment & Plan (03/06/2024 3:20 PM EDT): Pt seems to be having exacerbation of depression w/ psychotic ideation vs dementia, now off psychotherapy. Will refer to to restart w/ a psychiatrist, therapy is of limited benefit due to memory issues. She will continue mirtazapine + duloxetine + seroquel qHS PRN insomnia Pt feels safe at home, lives w/ her granddaughter Will fu w/ neurologist next m, they will bring the CT scan Fu w/ me in 2 m Assessment & Plan (10/29/2022 1:21 PM EST): Had dental procedure with lorazepam premedication, uneventful. Recommended to continue with Paxil and trazodone and fu with provider. 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 11/06/2020 Assessment & Plan (05/20/2023 1:13 PM EDT): current symptoms do not seem to be related to CAD, however, pt instructed to call 911 or ring the lifeline watch PRN chest pain FU with cardiology June 20 Continue metoprolol, aspirin, lipitor, isosorbide 90 mg counseled regarding better control of DM FU in 3 months Dysphagia, oropharyngeal phase 11/06/2020 Fibromyalgia 11/06/2020 Chronic GERD 11/06/2020 Generalized edema 11/06/2020 Hyperkalemia 11/06/2020 Mixed hyperlipidemia 11/06/2020 Insomnia, unspecified 11/06/2020 Assessment & Plan (10/13/2024 12:34 PM EST): Most likely due to uncontrolled HTN and untreated DANNIELLE. She also has a component of anxiety. Optimize HTN control and treat DANNIELLE. Increase Mirtazapine to 30 mg QHS, no change in other medications. Assessment & Plan (01/31/2024 2:14 PM EDT): I will increase mirtazapine to 15-30mg at bedtime. She's off trazodone, I will continue same dose of Seroquel to minimize risk of hyperglycemia. Continue same dose of duloxetine Recommend patient and grand daughter re establishing of routines at home and sleep hygiene to help with depression and insomnia. FU with counselor and with me in 4-5w. Assessment & Plan (12/13/2023 1:35 PM EST): -inc trazodone to 25mg BID prn anxiety -cont trazodone 50mg QHS + mirtazipine 7.5mg QHS -inc duloxetine to 60mg daily -f/u w/ me 6 wks Iron deficiency anemia, unspecified 11/06/2020 Major depressive disorder, recurrent, unspecifie d 11/06/2020 Assessment & Plan (09/14/2024 5:21 PM EST): Improving, however it is unclear if she has somatic hallucinations as part of dementia vs psychosis. She feels safe at home and is able to reach out for safety. FU with MH team, she had been referred back on February for further evaluation and med management. Continue Duloxetine and mirtazapine and fu with . Assessment & Plan (07/09/2024 2:58 PM EDT): Pt needs to be reconnected with therapist, continue Mirtazapine for insomnia + Duloxetine. Follow up with . Assessment & Plan (05/12/2024 2:34 PM EDT): Will refer to to restart w/ a psychiatrist, therapy is of limited benefit due to memory issues. She will continue mirtazapine + duloxetine + seroquel qHS PRN insomnia Pt feels safe at home, lives w/ her granddaughter for now, will work on continuing with previous INTERNAL CONTROL SPECIALIST and alternate with granddaughter once she moves out. Will talk with [facility] CM re home visit to evaluate safety and home care, patient doesn't need to move to a 2br apartment for now, not in need of 24/7 care yet. She feel safe at home. Fu w/ me in 2 m Assessment & Plan (03/06/2024 3:21 PM EDT): See anxiety for POC. 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 Assessment & Plan (11/01/2023 12:27 PM EST): Exacerbated probably by the holidays and she's been off meds for abut 2 wks I called the pharmacy and they will put duloxetine 30mg and Paxil 10mg in medboxes again. Pt will go to medboxes this afternoon Cont mirtazapine and trazodone FU w me in 6 wks We discussed about coping mechanism w PTSD, flashbacks from her son passing She feels safe at home and able to reach out for safety to her [facility], [facility], or therapist Jamie Will discuss w insurance if she's eligible for an afternoon program Assessment & Plan (08/31/2023 12:19 PM EST): Exacerbated by the holidays probably Counseled to cont with therapist Jamie Cont Trazodone, Paxil will be tapered down to 30mg and fu in 1m. Will start duloxetine when down to 10mg. Start mirtazapine 7.5mg at dinner time for anxiety and insomnia as well. Refer to [facility] psychopharmacology clinic She feels safe at home and is able to reach out for safety Will discuss with insurance to see if she's eligible for an afternoon day program Old myocardial infarction 11/06/2020 Restless legs syndrome 11/06/2020 Type 2 diabetes mellitus without complication Assessment & Plan (09/14/2024 5:14 PM EST): Controlled. A1c is at goal. Continue on diet management only. Counseled re more frequent low calorie/carb meals. Check fgstk once daily Encouraged physical activity as tolerated. FU in 3 months. Assessment & Plan (07/09/2024 2:56 PM EDT): Controlled. A1c is at goal. Continue on diet management. Counseled re more frequent low calorie/carb meals. Check fgstk once daily Encouraged physical activity as tolerated. FU in 3 months. Assessment & Plan (03/06/2024 1:29 PM EDT): Controlled. A1c is at goal. Continue on dietary/lifestyle modifications Counseled re more frequent low calorie/carb meals. Check fgstk daily Encouraged physical activity as tolerated. Assessment & Plan (01/31/2024 2:16 PM EDT): Overall controlled, will fu A1c at next appt Continue dietary/life style modifications. FU fgstk closely now that she's on Seroquel. Assessment & Plan (01/14/2024 2:43 PM EDT): she will continue dietary mgmt only she will continue dietary mgmt only Counseled re more frequent low calorie/carb meals. Check fgstk daily Encouraged physical activity as tolerated. FU in 3 months. Assessment & Plan (12/13/2023 1:34 PM EST): Uncontrolled, likely d/t recent steroid injection she will continue dietary mgmt only she will continue dietary mgmt only Counseled re more frequent low calorie/carb meals. Check fgstk daily Encouraged physical activity as tolerated. FU in 3 months. Assessment & Plan (11/01/2023 12:26 PM EST): Controlled. A1c is at goal. Continue off medications Counseled re more frequent low calorie/carb meals. Encouraged physical activity as tolerated. FU in 3 months. Refer to ophthalmology Pt will have flu vax today, counseled to have RSV at earliest convenience Assessment & Plan (08/30/2023 12:06 PM EST): Controlled. A1c is at goal. Continue lifetime modifications only Counseled re more frequent low calorie/carb meals. Encouraged physical activity as tolerated. FU in 3 months. Assessment & Plan (05/20/2023 1:14 PM EDT): A1C not improving Counseled re more frequent low calorie/carb meals. Encouraged physical activity as tolerated. counseled to have two more snacks in between meals continue off medications and refer to dietitian. Assessment & Plan (01/21/2023 12:25 PM EDT): Borderline controlled, A1C could be better. Encouraged pt to increase protein intake and decrease carbs in her meals. Encouraged to have 3-4 small in fractionated meals per day Declined referrall with dietitian at this time Continue with dietary management Obesity 05/19/2018 Swelling of structure of eye 05/19/2018 History of total knee arthroplasty 06/05/2017 CKD (chronic kidney disease) stage 3, GFR 30-59 ml/min 04/01/2012 Assessment & Plan (09/14/2024 5:14 PM EST): From HTN/DM Advised to increase water intake, take her meds Repeat BMP Vitamin D deficiency 04/01/2012 Carpal tunnel syndrome 04/01/2012 Cervical spondylosis without myelopathy 04/01/20 Assessment & Plan (01/14/2024 2:34 PM EDT): - Will hold off on interventional pain management at this time - Use Tylenol or Ibupprofen prn for pain - Start PT - Use DME/walker at home to prevent falls. Generalized osteoarthritis 04/01/2012 Lumbosacral spondylosis without myelopathy 04/01 Assessment & Plan (01/31/2024 2:15 PM EDT): Use DME /walker at home to prevent falls. Patient declines PT outside the home. Use diclofenac gel bid + Tylenol prn Will restart steroid injection in 3-4m after neurology eval sp TIA. Assessment & Plan (01/14/2024 2:34 PM EDT): - Will hold off on interventional pain management at this time - Use Tylenol or Ibupprofen prn for pain - Start PT - Use DME/walker at home to prevent falls. Assessment & Plan (12/13/2023 1:36 PM EST): Pt follows w/ pain clinic, she is s/p epidural injection -will order home-based PT d/t pt's limitations 2/2 back pain -rec use cane or walker at all times -f/u w/ me 6 wks Assessment & Plan (05/20/2023 1:14 PM EDT): Needs to FU with physiatry in two days. Prescription for tizanidine along with tylenol to take two times per day PRN pain continue ambulation with a walker at all times to prevent falls Assessment & Plan (01/21/2023 12:26 PM EDT): FU with rheumatology Memory impairment 04/01/2012 Assessment & Plan (07/09/2024 3:00 PM EDT): Could be related to depression vs. Chronic conditions, mainly HTN and DM. She will see neurology next month. Continue treatment for depression as above. Discussed with pt regarding potentially needing 24/7 supervision as she tends to wander at night. Pt prefers independence and privacy but understands accommodations for a family member to live with her may be needed. Continue VNA and INTERNAL CONTROL SPECIALIST services. Dyslipidemia 03/21/2012 HTN (hypertension) 03/21/2012 Assessment & Plan (10/13/2024 12:34 PM EST): Uncontrolled, increase Losartan to 100 mg daily, no change in other medications. Advised to use CPAP every night. Advised to have small infraction meals. Assessment & Plan (09/14/2024 5:23 PM EST): Uncontrolled today, reportedly as she took her BP meds less than 30min ago, her BP started improving towards the end of the visit, still not at goal, patient is completely asymptomatic otherwise. Continue amlodipine, metoprolol, isosorbide same dose, fu BP by VNA daily for 2w, goal BP is less than 140/85 FU with me in 1mo Assessment & Plan (03/06/2024 1:29 PM EDT): Controlled. Compliant w/meds Continue amlodipine, metoprolol, isosorbide same dose Counseled re low salt diet/increase moderate physical activity. Check home BP BIW and prn CP/MACKENZIE/INGRAM Non smoking patient. Fu 6 m Assessment & Plan (01/14/2024 2:41 PM EDT): Controlled. Compliant w/meds Continue Metoprolol+ amlodipine and Isosorbide mononitrate same dose Counseled re low salt diet/increase moderate physical activity. Check home BP BIW and prn CP/MACKENZIE/INGRAM Non smoking patient. F/u with me in 3 months. Arthritis of knee 03/21/2012 Asthma 03/21/2012 Resolved Problems Problem Noted Date Diagnosed Date Resolved Date Diabetes due to undrl condit ion w oth diabetic neuro comp 09/14/2024 09/14/2024 Toxic metabolic encephalopathy 01/10/2024 10/13/2024 Altered mental status 01/10/20242023 Dyspnea on exertion 10/10/2022 10/13/20 Headache disorder 10/10/2022 10/13/2024 Lower abdominal pain 10/10/2022 024 Peripheral vascular disease, unspecified 11/06/2020 01/10/2024 Depressive disorder 03/05/2013 09/14/20 24 Encounters Date Type Department Care Team Description 12/07/2024 Orders Only GENERIC EXTERNAL DATA DEPARTMENT Provider, Generic External Data 12/03/2024 Telephone [facility] [address] [place] [address] Mariah Jean-Baptiste, stacker tender coverage 12/03/2024 Telephone [facility] [address] [place] [address] Mariah Jean-Baptiste, RN Error (VOID this visit) 11/29/2024 Refill [facility] [address] [place] [address] Bertha Evans MD Old myocardial infarction 11/05/2024 Telephone [facility] [address] [place], [place] [phone] Bertha Evans MD verbal order 10/20/2024 Telephone [facility] [address] [place] [address] Bertha Evans MD DME for CPAP supplies 10/16/2024 Refill [facility] [address] [place] [address] Bertha Evans MD 10/13/2024 12:00 PM EST Office Visit [address] [address] Bertha Evans MD Insomnia due to medical condition (Primary Dx); Primary hypertension; DANNIELLE (obstructive sleep apnea); Primary insomnia; Type 2 diabetes mellitus without complication, unspecified whether longterm insulin use ([facility]) 10/13/2024 Travel 10/12/2024 Travel 10/09/[address] [address] Mily Nicholson MA Chart prep 09/29/2024 Refill [facility] [address] [place] [address] Bertha Evans MD Gastro-esophageal reflux disease without esophagitis 09/23/[address] [address] Bertha Evans MD Nurse Triage 09/16/[address] [address] Bertha Evans MD Request For Order(s) 09/15/[address] [address] Mariah Jean-Baptiste, RN VNA orders 09/15/[address] [address] Estela Bunch RN Results 09/14/2024 10:00 AM EST Office Visit [address] [address] Bertha Evans MD Acute renal failure, unspecified acute renal failure type ([facility]/HCC) (Primary Dx); Primary hypertension; Type 2 diabetes mellitus without complication, unspecified whether longterm insulin use ([facility]); Vaginal discharge; Stage 3 chronic kidney disease, unspecified whether stage 3a or 3b CKD ([facility]/HCC); Moderate episode of recurrent major depressive disorder ([facility]/HCC); Dermatitis; Encounter for immunization; Depressive disorder; Diabetes due to undrl condition w oth diabetic neuro comp ([facility]); Lesion of parotid gland; Lateral pain of left hip 09/14/2024 Orders Only [facility] [address] [place] [address] Bertha Evans MD Vaginitis due to Angie (Primary Dx) 09/14/2024 Refill [facility] [address] [place] [address] Judith Xiao, PharmD 09/14/2024 Orders Only [facility] [address] [place], [place] [phone] Bertha Evans MD 09/14/2024 Travel 09/13/2024 Travel 09/11/2024 Telephone [facility] [address] [place], [place] [phone] Bertha Evans MD ER Follow-up from Last 3 Months Immunizations Name Administration Dates Next Due Influenza High-dose Quadriva lent Preservative Free 08/06/2022,07/13/2021,09/09/2020 Influenza injectable quadriv alent IIV4 with preservative 11/14/2015 Influenza injectable quadriv alent preservative free 11/01/2023,07/20/2019,10/30/2018 Influenza, High Dose Seasona l, Preservative Free 09/14/2024,07/10/2017 Influenza, IIV3, injectable 06/22/2020 Influenza, Split (incl. lisa fied surface antigen) 07/03/2013 Influenza, seasonal, injecta ble, preservative free 07/30/2016 Moderna Covid-19 Vaccine 12+ 12/29/2020,12/02/19 21 PPD Test 11/12/2020,11/12/2020 Pfizer Covid-19 Vaccine 12+ 08/30/2023 Pneumococcal Conjugate PCV 13 06/22/2020, 016,11/24/2015 Pneumococcal Polysaccharide PPSV23 05/30,01/19/2013,08/15/2006,05/14 TD (adult), 2 Lf tetanus tox oid, preservative free, adsorbed 05/14/2002 Tdap 11/14/2015 Zoster, Recombinant 12/31/2018,10/30/2018 Zoster, live 12/31/2018,10/30/2018 Social History Tobacco Use Types Packs/Day Years Used Date Smoking Tobacco: Never Passive Smoke Exposure: Never Smokeless Tobacco: Never Tobacco Cessation:Counseling Given: Not Answered Alcohol Use Standard Drinks/Week Comments Never 0 [...] Orientation Straight 08/20/2022 10 :16 AM EDT Last Filed Vital Signs Vital Sign Reading Time Taken Comments Blood Pressure 145/95 10/13/2024 12:20 PM EST Pulse 84 10/13/2024 11:43 AM EST Temperature 36.4 ??C (97.6 ??F) 10/13/2024 11:[address] Respiratory Rate 20 10/13/2024 11:43 AM EST Oxygen Saturation 98% 10/13/2024 11:43 AM EST Inhaled Oxygen Concentration - - Weight 84.9 kg (187 lb 3.2 oz) 10/13/2024 11:43 AM EST Height 160 cm (5' 3 ) 10/13/2024 11:43 AM EST Body Mass Index 33.16 10/13/2024 11:43 AM EST Plan of Treatment Upcoming Encounters Date Type Department Care Team (Late st Contact Info) Description 01/27/2025 2:45 PM EDT Office Visit [facility] [address] [place] [address] Bertha Evans MD [address] [place] [address] Health Maintenance Due Date Last Done Comments Eye Exam 1955 Hepatitis C Screening 1963 RSV Patients and Patients Aged 60 years or older (1 - 1-dose 75+ series) 2020 Lipid Panel 05/20/2024 05/20/2023, 02/18, 08/08/2021, Additional history exists COVID-19 Vaccine ( season) 2024 08/30/2023, 08/20/2022, 08/21/2021, Additional history exists Depression Monitoring (PHQ-9) 08/01/2024 01/31/2024, 01/31/2024 Diabetes: Foot Exam 08/30/2024 08/30/2023, 08/30/2023, 08/30/2023, Additional history exists SDOH Screening 11/01/2024 11/01/2023 Diabetes: Urine Protein Screening 11/22/2024 11/22/2023, 05/20/2023, 03/06/2022, Additional history exists Alcohol/Substance Use Screening 01/13/2025 01/14/2024 Depression Screening 01/30/2025 01/31/2024, 01/31/20 24 Diabetes: Hemoglobin A1C 03/14/202509/14/ 024, 03/06/2024, 12/13/2023, Additional history exists Tobacco Screening 10/13/2025 10/13/2024 DTaP/Tdap/Td Vaccines (2 - Td or Tdap) 11/14/2025 11/14/2015, 05/14/2002 Zoster Vaccines Completed 12/31/2018, 12/19, 10/30/2018, Additional history exists Pneumococcal Vaccine: 50+ Years Completed 06/22/2020, 11/24/2015, 11/24/2015, Additional history exists Influenza Vaccine Completed 09/14/2024, , 08/06/2022, Additional history exists HIB Vaccines Aged Out [...] patient's age to complete this topic Meningococcal Vaccine Aged Out No na isaiah eligible based on patient's age to complete this topic RSV under 20 months Aged Out No longe r eligible based on patient's age to complete this topic Rotavirus Vaccines Aged Out No longer eligible based on patient's age to complete this topic Procedures Procedure Name Priority Date/Time Associated Diagnosis Comments CREATININE, SERUM Routine 12/07/2024 11: 33 AM EST UREA NITROGEN (BUN) Routine 12/07/2024 1 1:33 AM EST ELECTROLYTE PANEL Routine 12/07/2024 11: 33 AM EST POCT GLUCOSE Routine 10/13/2024 12:28 PM EST Type 2 diabetes mellitus without complication, unspecified whether longterm insulin use ([facility]) BACTERIAL VAGINOSIS PANEL Routine 09/14/2024 11:23 AM EST CHLAMYDIA/N. GONORRHOEAE RNA, TMA, UROGENITAL Routine 09/14/2024 11:23 AM EST Vaginal discharge BASIC METABOLIC PANEL Routine 09/14/2024 11:00 AM EST Acute renal failure, unspecified acute renal failure type (CMS/HCC) POCT GLYCATED HEMOGLOBIN, TOTAL Routine 09/14/2024 10:21 AM EST Type 2 diabetes mellitus without complication, unspecified whether predatory animal exterminator insulin use ([facility]) POCT GLUCOSE Routine 09/14/2024 10:21 AM EST Type 2 diabetes mellitus without complication, unspecified whether longterm insulin use ([facility]) PROTEIN CREATININE RATIO, URINE Routine 11/22/2023 11:45 AM EST LIPID PANEL WITH REFLEX TO DIRECT LDL Routine 05/20/2023 11:37 AM EDT Type 2 diabetes mellitus without complication, unspecified whether predatory animal exterminator insulin use ([facility]) from Last 3 Months or Most Recently Relevant to Health Maintenance Results * Creatinine, Serum (12/07/2024 11:33 AM EST) Creatinine, Serum 1.25 0.5 - 1.4 mg/dL [facility] Estimated Glomerular Filt Rate 41 [facility] Comment:Chronic Kidney Disea se: Estimated GFR < 60 mL/min/[id number] Kidney Disease: Estimated GFR < 15 mL/min/1.73m2 12/07/2024 11:3 3 AM EST 12/07/2024 11:33 AM EST us Generic External Data Provider LAB BLOOD ORDERAB LES Final Result [facility] [address] [place], [place] [phone] * BUN (Blood Urea Nitrogen) (12/07/2024 11:33 AM EST) Urea Nitrogen (BUN) 12 9 - 16 mg/dL [facility] 12/07/2024 11:3 3 AM EST 12/07/2024 11:33 AM EST us Generic External Data Provider LAB BLOOD ORDERAB LES Final Result Performing Organization Address City/[facility]/ZIP Co de Phone Number [facility] [address] [place] [phone] * Electrolyte Panel (12/07/2024 11:33 AM EST) Pathologist [facility] Sodium 144 135 - 145 mmol/L [facility] Potassium 3.5 3.3 - 5.1 mmol/L [facility] Chloride 102 96 - 108 mmol/L [facility] Carbon Dioxide 26 22 - 29 mmol/L [facility] Anion Gap 20 12 - 20 [facility] 12/07/2024 11:3 3 AM EST 12/07/2024 11:33 AM EST us Generic External Data Provider LAB BLOOD ORDERAB LES Final Result Performing Organization Address [facility] Co de Phone Number [facility] [address] [place] [phone] * POCT Glucose (10/13/2024 12:28 PM EST) Only the most recent of2 resultswithin the time period is included. [facility] Glucose Blood, POC 192 60 - 200 mg/dL Blood Capillary blood specimen / Unknown 10/13/2024 12:28 PM EST Bertha Evans MD POINT OF CARE TEST ENTER /EDIT ORDERABLES Final Result * (ABNORMAL) Bacterial Vaginosis (09/14/2024 11:23 AM EST) Pathologist [facility] TRICHOMONAS VAGINALIS DETECTION BY PCR NOT DETECTED Not Detect [facility] BACTERIAL VAGINOSIS DETECTION BY PCR NEGATIVE Negative [facility] Comment:The BV organism targ ets of the Xpert Xpress MVP test can becommensal in women; Xpert Xpress MVP positive results forbacterial vaginosis should be considered in conjunction withother clinical and patient information to determine thedisease status. Organisms that are not detected by the XpertXpress MVP test have also been reported to be associatedwith BV and aerobic vaginitis.The Xpert Xpress MVP test performance has not been evaluatedin patients under the age of 14. ANGIE GROUP DETECTION BY PCR NOT DETECTED Not Detect [facility] Angie glab krusei PCR DETECTED(A) Not Detect [facility] 09/14/2024 11:2 3 AM EST 09/14/2024 1:23 PM EST us Bertha Evans MD LAB MICROBIOLOGY - GENER AL ORDERABLES Final Result [facility] [address] [place] [phone] * Chlamydia/N. Gonorrhoeae RNA, TMA, Urogenitial (09/14/2024 11:23 AM EST) CT PCR NOT DETECTED Not Detect. [facility] Comment:A not detected test result does not exclude the possibilityof infection because test results can be affected byimproper specimen collection, concurrent antibiotic therapy,or the number of organisms in the specimen which may bebelow the sensitivity of the test. As with many diagnostictests, results from the Xpert CT/NG assay should beinterpreted in conjunction with other laboratory andclinical data available to the clinician.Xpert CT/NG performance has not been evaluated in patientsless than 14 years of age. The assay should not be used forthe evaluationof suspected sexual abuse or for other medico-legalindications. Additional testing is recommended in anycircumstance when false positive or false negative resultscould lead to adverse medical, social or psychologicalconsequences. NG PCR NOT DETECTED Not Detect. [facility] Comment:A not detected test result does not exclude the possibilityof infection because test results can be affected byimproper specimen collection, concurrent antibiotic therapy,or the number of organisms in the specimen which may bebelow the sensitivity of the test. As with many diagnostictests, results from the Xpert CT/NG assay should beinterpreted in conjunction with other laboratory andclinical data available to the clinician.Xpert CT/NG performance has not been evaluated in patientsless than 14 years of age. The assay should not be used forthe evaluationof suspected sexual abuse or for other medico-legalindications. Additional testing is recommended in anycircumstance when false positive or false negative resultscould lead to adverse medical, social or psychologicalconsequences. Swab Vaginal structure / Unknown 09/14/2024 11:23 AM EST 09/14/2024 1:22 PM EST Narrative [facility] - 09/14/2024 3:27 PM EST Vaginal us Bertha Evans MD LAB MICROBIOLOGY - GENER AL ORDERABLES Final Result [facility] [address] [place] [phone] * (ABNORMAL) Basic Metabolic Panel (09/14/2024 11:00 AM EST) Sodium 142 135 - 145 mmol/L [facility] Potassium 4.2 3.3 - 5.1 mmol/L [facility] Comment:Slight Hemolysis.Int erpret result with caution. Chloride 106 96 - 108 mmol/L [facility] Carbon Dioxide 21(L) 22 - 29 mmol/L [facility] Anion Gap 19 12 - 20 [facility] Urea Nitrogen (BUN) 14 9 - 16 mg/dL [facility] Creatinine, Serum 1.40 0.5 - 1.4 mg/dL [facility] Estimated Glomerular Filt Rate 36 [facility] Comment:Chronic Kidney Disea se: Estimated GFR < 60 mL/min/[id number] Kidney Disease: Estimated GFR < 15 mL/min/1.73m2 Glucose 181(H) 60 - 115 mg/dL [facility] Calcium 9.7 8.4 - 10.2 mg/dL [facility] Blood Venous blood specimen / Unknown 09/14/2024 11:00 AM EST 09/14/2024 1:14 PM EST Bertha Evans MD LAB BLOOD ORDERABLES Fin al Result Performing Organization Address [facility] Co de Phone Number [facility] [address] [place] [phone] * (ABNORMAL) POCT HGB A1C (09/14/2024 10:21 AM EST) Hemoglobin A1C 6.7(A) 4.0 - 6.0 % QC Media Lot # [id number] Lot# Expiration Date Blood 09/14/2024 10:2 1 AM EST Bertha Evans MD POINT OF CARE TEST ENTER /EDIT ORDERABLES Final Result * Protein Creatinine Ratio, Urine (11/22/2023 11:45 AM EST) Creatinine, Urine 100.04 mg/dL [facility] Protein, Total, Random Urine 12 <12 mg/dL [facility] Protein/Creati nine Ratio, Ur 0.12 <0.2 [facility] Comment:The spot urine prote in:creatinine ratio may increase to 0.3during normal . 11/22/2023 11:4 5 AM EST 11/22/2023 1:19 PM EST Generic External Data Provider LAB URINE ORDERAB LES Final Result Performing Organization Address [facility] Co de Phone Number [facility] [address] [place] [phone] * Lipid Panel with Reflex to Direct LDL (05/20/2023 11:37 AM EDT) Triglycerides 290 mg/dL [facility] Comment:Desirable Triglyceri de: less than 150 mg/dLBorderline High Triglyceride 150-199 mg/dLHigh Triglyceride: 200-499 mg/dLVery High Triglyceride: greater than or equal to 5OO mg/dL Cholesterol 206 mg/dL [facility] Comment:Desirable Cholestero l: less than 200 mg/dLBorderline High Cholesterol: 200-239 mg/dLHigh Cholesterol: greater than 239 mg/dL LDL Cholesterol Calculated 99 mg/dl [facility] Comment:Desirable LDL: less than 100 mg/dLNear Optimal/Above Optimal LDL: 110- 129 mg/dLBorderline High LDL: 130-159 mg/dLHigh LDL: 160-189 mg/dLVery High LDL: greater than or equal to 190 mg/dL HDL Cholesterol 49 mg/dL [facility] Comment:Desirable HDL: great er than 40 mg/dL Note: This HDL assay may give artificially low results in patients with liver disease. Blood 05/20/2023 11:3 7 AM EDT 05/20/2023 1:24 PM EDT Bertha Evans MD LAB BLOOD ORDERABLES Fin al Result [facility] [address] [place] [phone] from Last 3 Months or Most Recently Relevant to Health Maintenance Insurance [facility] Care Teams Manager Creative Relationship Specialty Start Date End Date Bertha Evans MD [address] [place] [address] PCP - General Family Medicine 09/10/19 [employer] 12/17/23
--- OUTSIDE RECORDS SUMMARY | 2024-12-09 14:46 | XMS_ITS | Encounter Summary ---
Author Organization [employer] Address [address] [place] [address] Care Team Providers Care Green Tire Inspector Name Role Phone Bertha Evans MD Primary Care Provider + Reason for Visit * Reason Comments Med Refill Encounter Details Date Type Department Care Team (Late st Contact Info) Description 11/29/2024 Refill [facility] [address] [place], [place] [phone] Bertha Evans MD [address] [place] [address] Old myocardial infarction Social History Tobacco Use [...] Office Visit [facility] [address] [place] [phone] Bertha Evans MD [address] [place] [address] documented as of this encounter Visit Diagnoses Diagnosis Old myocardial infarction documented in this encounter Additional Health Concerns Assessment Noted Time PHQ-9 Depression Total Score: 9 01/31/20 24 12:15 PM EDT documented as of this encounter Care Teams Green Tire Inspector Relationship Specialty Start Date End Date Bertha Evans MD [address] [place] [address] PCP - General Family Medicine 09/10/19 [employer] 12/17/23 documented as of this encounter
--- OUTSIDE RECORDS SUMMARY | 2024-12-09 14:46 | XMS_ITS | Encounter Summary ---
Author Organization [employer] Address [address] [place] [address] Care Team Providers Care Back Closer Name Role Phone Bertha Evans MD Primary Care Provider + Reason for Visit * Reason Onset Date Comments Medication coverage 12/03/2024 Encounter Details Date Type Department Care Team ([facility] st Contact Info) Description 12/03/2024 Telephone [facility] [address] [place], [place] [phone] Mariah Jean-Baptiste, RADHA [address] [place], [place] [phone] Medication coverage Social History Tobacco Use Types [...] the past 12 months, has t he [employer], gas, oil or water [employer] threatened to shut off services in your [...] 11:44 AM EST TC placed to patient [phone] (spoke to Jenniffer-granddaughter on HIPAA) in regards [...] Description 01/27/2025 2:45 PM EDT Office Visit [facility] [address] [place] [address] Bertha Evans MD [address] [place] [address] documented as of this encounter Visit Diagnoses Not on filedocumented in this encounter Additional Health Concerns Assessment Noted Time PHQ-9 Depression Total Score: 9 01/31/20 24 12:15 PM EDT documented as of this encounter Care Teams Back Closer Relationship Specialty Start Date End Date Bertha Evans MD [address] [place] [phone] PCP - General Family Medicine 09/10/19 [email or web address] 12/17/23 documented as of this encounter
--- OUTSIDE RECORDS SUMMARY | 2024-12-09 14:46 | XMS_ITS | Encounter Summary ---
Author Organization [employer] Address [address] [place] [address] Care Team Providers Care Relief Manager Name Role Phone Bertha Evans MD Primary Care Provider + Reason for Visit * Reason Onset Date Comments Error (VOID this visit) 12/03/2024 Encounter Details Date Type Department Care Team ([facility] st Contact Info) Description 12/03/2024 Telephone [facility] [address] [place] [address] Mariah Jean-Baptiste, RN [address] [place] [address] Error (VOID this visit) Social History Tobacco [...] Description 01/27/2025 2:45 PM EDT Office Visit [facility] [address] [place] [phone] Bertha Evans MD [address] [place] [address] documented as of this encounter Visit Diagnoses Not on filedocumented in this encounter Additional Health Concerns Assessment Noted Time PHQ-9 Depression Total Score: 9 01/31/20 24 12:15 PM EDT documented as of this encounter Care Teams Relief Manager Relationship Specialty Start Date End Date Bertha Evans MD [address] [place], [place] [phone] PCP - General Family Medicine 09/10/19 [employer] 12/17/23 documented as of this encounter
--- OUTSIDE RECORDS SUMMARY | 2024-12-09 14:46 | XMS_ITS | Encounter Summary ---
Author Organization [employer] [facility] Address [address] [place] [address] Care Team Providers Care Bakery Pastry Internship Name Role Phone Bertha Evans MD Primary Care Provider + Reason for Visit * Reason Onset Date Comments Durable Medical Equipment 12/18/2022 Encounter Details Date Type Department Care Team (Late st Contact Info) Description 12/18/2022 Telephone [facility] [address] [place] [address] Bertha Evans MD [address] [place], [place] [phone] Durable Medical Equipment Social History Tobacco Use [...] If any other calls please transfer to [phone].Thank you. * Telephone Encounter - Thaddeushannah Magno Kunz - 12/18/2022 3:06 PM EST Tc from [place] with [employer] requesting a status on pts CPAP Machine. Please contact [facility] at [phone] #[phone] documented in this encounter Plan of Treatment Upcoming Encounters Date Type Department Care Team (Late st Contact Info) Description 01/27/2025 2:45 PM EDT Office Visit [facility] [address] [place] [address] Bertha Evans MD [address] [place] [address] documented as of this encounter Visit Diagnoses Not on filedocumented in this encounter Additional Health Concerns Assessment Noted Time PHQ-9 Depression Total Score: 8 12/14/19 23 1:38 PM EST documented as of this encounter Care Teams Bakery [employer] Internship Relationship Specialty Start Date End Date Bertha Evans MD [address] [place] [phone] PCP - General Family Medicine 09/10/19 [employer] 12/17/23 documented as of this encounter
--- OUTSIDE RECORDS SUMMARY | 2024-12-09 14:47 | XMS_ITS | Encounter Summary ---
Author Organization [employer] Address [address] [place] [address] Care Team Providers Care Educational Institution President Name Role Phone Bertha Evans MD Primary Care Provider + Reason for Visit * Reason Comments Med Refill Encounter Details Date Type Department Care Team (Late st Contact Info) Description 09/09/2023 Refill [facility] [address] [place], [place] [phone] Bertha Evans MD [address] [place] [address] Depressive disorder Social History Tobacco Use Types [...] Description 01/27/2025 2:45 PM EDT Office Visit [facility] [address] [place] [phone] Bertha Evans MD [address] [place] [phone] documented as of this encounter Visit Diagnoses Diagnosis Depressive disorder Depressive disorder, not elsewhere classified documented in this encounter Additional Health Concerns Assessment Noted Time PHQ-9 Depression Total Score: 8 12/14/19 23 1:38 PM EST documented as of this encounter Care Teams Educational Institution President Relationship Specialty Start Date End Date Bertha Evans MD [address] [place] [phone] PCP - General Family Medicine 09/10/19 [employer] 12/17/23 documented as of this encounter
--- OUTSIDE RECORDS SUMMARY | 2024-12-09 14:47 | XMS_ITS | Encounter Summary ---
Author Organization [employer] Address [address] [facility] 7t [place] [address] Care Team Providers Care Proof Carrier Name Role Phone Bertha Evans MD Primary Care Provider + Reason for Visit * Reason Comments Med Refill Encounter Details Date Type Department Care Team (Late st Contact Info) Description 11/30/2022 Refill [facility] MED & PEDS [address] [place] [address] Bertha Evans MD [address] [place] [address] [phone] Social History Tobacco Use Types Packs/Day Years [...] Description 01/27/2025 2:45 PM EDT Office Visit [facility] MEDICINE [address] [place] [address] [phone] Bertha Evans MD [address] [place] [address] [phone] documented as of this encounter Visit Diagnoses Not on filedocumented in this encounter Care Teams Proof Carrier Relationship Specialty Start Date End Date Bertha Evans MD [address] [place] [phone] PCP - General Family Medicine 09/10/19 [employer] 12/17/23 documented as of this encounter
--- OUTSIDE RECORDS SUMMARY | 2024-12-09 14:47 | XMS_ITS | Encounter Summary ---
Author Organization [employer] Address [address] [facility] [address] 7t [place] [address] Care Team Providers Care Crystal Grinder Name Role Phone Bertha Evans MD Primary Care Provider + Reason for Visit * Reason Onset Date Comments Medication Question 10/31/2022 Encounter Details Date Type Department Care Team ([facility] Contact Info) Description 10/31/2022 Telephone [facility] MEDICINE [address] [place], [place] [phone] Bertha Evans MD [address] [place], [place] [phone] Medication Question Social History Tobacco Use Types [...] with PCP on 10/29/22. Please contact at [phone] documented in this encounter Plan of Treatment Upcoming Encounters Date Type Department Care Team (Late st Contact Info) Description 01/27/2025 2:45 PM EDT Office Visit [facility] MEDICINE [address] [place] [address] Bertha Evans MD [address] [place] [phone] documented as of this encounter Visit Diagnoses Not on filedocumented in this encounter Care Teams Crystal Grinder Relationship Specialty Start Date End Date Bertha Evans MD [address] [place] [address] PCP - General Family Medicine 09/10/19 [email or web address] 12/17/23 documented as of this encounter
--- OUTSIDE RECORDS SUMMARY | 2024-12-09 14:47 | XMS_ITS | Encounter Summary ---
Author Organization [facility] Address [address] [facility] 7t [place] [address] Care Team Providers Care Chief Engineer Production Name Role Phone Bertha Evans MD Primary Care Provider + Reason for Visit * Reason Comments Med Refill Encounter Details Date Type Department Care Team (Late Contact Info) Description 10/10/2022 Refill [facility] MEDICINE [address] [place] [address] Valerie Woodall DO [address] [place] [address] Social History Tobacco Use Types Packs/Day Years [...] Description 01/27/2025 2:45 PM EDT Office Visit [facility] MEDICINE [address] [place], [place] [phone] Bertha Evans MD [address] [place] [address] documented as of this encounter Visit Diagnoses Not on filedocumented in this encounter Care Teams Chief Engineer Production Relationship Specialty Start Date End Date Berhta Evans MD [address] [place] [phone] PCP - General Family Medicine 09/10/19 [employer] 12/17/23 documented as of this encounter
--- OUTSIDE RECORDS SUMMARY | 2024-12-09 14:47 | XMS_ITS | Clinical Summary ---
Author Organization [facility] Address [address] [place] [address] Phone Care Team Providers Care Shop Director Name Role Phone Bertha Evans MD Primary Care Provider [phone] Allergies Active Allergy Reactions Criticality Noted Date [...] 11/06/2020 04/27/2021 Atherosclerotic heart diseas e of [place] coronary artery without angina pectoris 11/06/2020 04/27/2021 [...] age to complete this topic Insurance [address] [place] [id number] [facility] [place] [id number] [facility] ([id number]) [place] [id number] Care Teams Shop Director Relationship Specialty Start Date End Date Bertha Evans MD [address] [place] [phone] PCP - General Internal Medicine 04/28/21
--- OUTSIDE RECORDS SUMMARY | 2024-12-09 14:47 | XMS_ITS | Encounter Summary ---
Author Organization [employer] Address [address] [facility] [address] 7[address] [place] [address] Care Team Providers Care Design Editor Name Role Phone Bertha Evans MD Primary Care Provider + Reason for Visit * Reason Onset Date Comments FYI 01/13/2024 Encounter Details Date Type Department Care Team ([facility] Contact Info) Description 01/13/2024 Telephone [facility] MEDICINE [address] [place], [place] [phone] Bertha Evans MD [address] [place], [place] [phone] FYI Social History Tobacco Use Types Packs/Day [...] EDT Call to Marla Busby, spoke with MANUFACTURING PROCESS ENGINEER in regards to below. Reports pt having left arm pain and weakness that is the same as when discharged. No swelling. No increased weakness. Per MANUFACTURING PROCESS ENGINEER aware of upcoming appt tomorrow with PCP for HDF post CVA. Advised to seek ER if pain becomes severe, worsening weakness, or worsening confusion. MANUFACTURING PROCESS ENGINEER agrees. Sent to PCP and team to follow up PRN prior to upcoming appt. Future Appointments Date Time Provider Department Center 01/14/2024 1:30 PM Bertha Evans MD [facility] 01/31/2024 12:00 PM Bertah Evans MD [facility] * Telephone Encounter - Timo Melgoza - [...] Description 01/27/2025 2:45 PM EDT Office Visit [facility] MEDICINE [address] [place] [address] Bertha Evans MD [address] [place] [address] documented as of this encounter Visit Diagnoses Not on filedocumented in this encounter Additional Health Concerns Assessment Noted Time PHQ-9 Depression Total Score: 8 12/14/19 23 1:38 PM EST documented as of this encounter Care Teams Design Editor Relationship Specialty Start Date End Date Bertha Evans MD [address] [place] [address] PCP - General Family Medicine 09/10/19 [employer] 12/17/23 documented as of this encounter
--- OUTSIDE RECORDS SUMMARY | 2024-12-09 14:47 | XMS_ITS | Clinical Summary ---
Author Organization [address] [facility] Address [address] [place] [address] Phone Care Team Providers Care Chlorine Cells Operator Name Role Phone Bertha Telles MD Primary [...] This visit was done in conjunction with [facility] language services grab jack man Rain #[id number]. Ms. Angulo was seen today for her [...] states it was >10 years ago in [place] TOTAL KNEE ARTHROPLASTY Bilateral PROCEDURE: HISTORICAL TOTAL [...] Procedure Name Priority Date/Time Associated Diagnosis Comments [facility] DEXA AXIAL SKELETON Routine 12/03/2019 7:37 AM EST Encounter for screening for osteoporosis from Last 3 Months or Most Recently Relevant to Health Maintenance Results * [facility] DEXA AXIAL SKELETON (12/03/2019 7:37 AM EST) Anatomical Region Laterality Modality Mammography 12/01/2019 10:5 3 AM EST Narrative 12/03/2019 7:[address] [facility] Diagnostic Imaging Department [address] [place], [place] [phone] Patient: ??MCKEON-COLON,KRISHNA ?/Age/Sex: 1945 - 74 - F Unit#: ??[id number] ? Location/Status: ??SPDIMAM/REG CLI ? Mnemonic/Ordering Site: [...] probability of hip fracture of 0.6%. Code 68726 Dictating Physician: ??LEON ARENAS MD Electronically Signed by: ??LEON ARENAS MD Dic Date/Time: ??12/03/19 0736 Sign date/Time: ??12/03/19 0737 Procedure Note Leon Arenas - 10/10/2022 [facility] Diagnostic Imaging Department [address] [place] [address] [phone] Patient: KRISHNA ANGULO/Age/Sex: 1945 - 74 - F Unit#: [id number] Location/Status: SPDIMAM/REG CLI Mnemonic/Ordering Site: MAMDEXAAX/SPMAM Ordering [...] density of the femurs bilaterally is 1.027 gm/pv0rfbne is 102% of that of young normals [...] probability of hip fracture of 0.6%. Code 35746 Dictating Physician: LEON ARENAS MD Electronically Signed [...] ID:[id number] Group ID:[id number] Type:Not on file Address: [place] [address] [place] [phone] Care Teams Chlorine Cells Operator Relationship Specialty Start Date End Date Bertha Telles MD [address] [phone] PCP - General 11/06/19
--- OUTSIDE RECORDS SUMMARY | 2024-12-09 14:47 | XMS_ITS | Encounter Summary ---
Author Organization [employer] Address [address] [facility] [address] 7[address] [place] [address] Care Team Providers Care Professor Of Music Name Role Phone Bertha Evans MD Primary Care Provider + Encounter Details Date Type Department Care Team (Late st Contact Info) Description 12/07/2024 Orders Only GENERIC EXTERNAL DATA DEPARTMENT Provider, Generic External Data Social History Tobacco Use Types Packs/Day Years [...] Description 01/27/2025 2:45 PM EDT Office Visit [facility] MEDICINE 230 [place], [place] [phone] Bertha Evans MD 230 [place] [address] documented as of this encounter Procedures Procedure Name Priority Date/Time Associated Diagnosis Comments CREATININE, SERUM Routine 12/07/2024 11: 33 AM EST UREA NITROGEN (BUN) Routine 12/07/2024 1 1:33 AM EST ELECTROLYTE PANEL Routine 12/07/2024 11: 33 AM EST documented in this encounter Results * Creatinine, Serum (12/07/2024 11:33 AM EST) Creatinine, Serum 1.25 0.5 - 1.4 mg/dL [facility] Estimated Glomerular Filt Rate 41 [facility] Comment:Chronic Kidney Disea se: Estimated GFR < 60 mL/min/1.53d0Nwsrmw Kidney Disease: Estimated GFR < 15 mL/min/1.73m2 12/07/2024 11:3 3 AM EST 12/07/2024 11:33 AM EST us Generic External Data Provider LAB BLOOD ORDERAB LES Final Result Performing Organization Address [facility] de Phone Number [facility] [address] [place] [phone] * BUN (Blood Urea Nitrogen) (12/07/2024 11:33 AM EST) Urea Nitrogen (BUN) 12 9 - 16 mg/dL [facility] 12/07/2024 11:3 3 AM EST 12/07/2024 11:33 AM EST Generic External Data Provider LAB BLOOD ORDERAB LES Final Result Performing Organization Address [facility] de Phone Number [facility] [address] [place] [phone] * Electrolyte Panel (12/07/2024 11:33 AM EST) Sodium 144 135 - 145 mmol/L [facility] Potassium 3.5 3.3 - 5.1 mmol/L [facility] Chloride 102 96 - 108 mmol/L [facility] Carbon Dioxide 26 22 - 29 mmol/L [facility] Anion Gap 20 12 - 20 [facility] 12/07/2024 11:3 3 AM EST 12/07/2024 11:33 AM EST us Generic External Data Provider LAB BLOOD ORDERAB LES Final Result Performing Organization Address [facility] Co de Phone Number [facility] [address] [place] [phone] documented in this encounter Visit Diagnoses Not on filedocumented in this encounter Additional Health Concerns Assessment Noted Time PHQ-9 Depression Total Score: 9 01/31/20 24 12:15 PM EDT documented as of this encounter Care Teams Professor Of Music Relationship Specialty Start Date End Date Bertha Evans MD [address] [place] [phone] PCP - General Family Medicine 09/10/19 [employer] 12/17/23 documented as of this encounter
--- OUTSIDE RECORDS SUMMARY | 2024-12-09 14:47 | XMS_ITS | Encounter Summary ---
Author Organization [employer] Address [address] [facility] [facility] [address] [place] [address] Care Team Providers Care Crown Pouncer Name Role Phone Bertha Evans MD Primary Care Provider + Reason for Visit * Reason Comments Med Refill Encounter Details Date Type Department Care Team ([facility] st Contact Info) Description 10/10/2023 Refill [facility] MEDICINE [address] [place], [place] [phone] Bertha Evans MD [address] [place] [address] Moderate episode of recurrent major depressive disorder [...] 01/27/2025 2:45 PM EDT Office Visit [facility] MEDICINE [address] [place] [address] Bertha Evans MD [address] [place] [phone] documented as of this encounter Visit Diagnoses Diagnosis Moderate episode of recurrent major depressive disorder (CMS/HCC) Depressive disorder Depressive disorder, not elsewhere classified documented in this encounter Additional Health Concerns Assessment Noted Time PHQ-9 Depression Total Score: 8 12/14/19 23 1:38 PM EST documented as of this encounter Care Teams Crown Pouncer Relationship Specialty Start Date End Date Bertha Evans MD [address] [place] [phone] PCP - General Family Medicine 09/10/19 [employer] 12/17/23 documented as of this encounter
--- NOTE | 2024-12-09 14:56 | HO.NEPHOV ---
Vital Signs 12/09/24 14:58 Height 5 ft 3 in Weight 186 lb 4 oz BMI 33.0 BP 120/70 Blood Pressure Location Rt brachial Position Sitting Pulse 90 Pulse Source Pulse Oximeter Pulse Oximetry (%) 99 Oxygen Delivery Method Room Air Intake Visit Reasons: Pt Missed 12/01/24 appt/ Conf Wine Sales Representative Required: Yes Wine Sales Representative Language: Pl[employer] Insulation Supervisor Services: Wine Sales Representative Present Wine Sales Representative Name: Graciela Christie [phone] Accompanied by: Self / Same As Patient Allergies metronidazole [From FLAGYL] Allergy (Severe, Verified 12/09/24 14:58) NEUROPSYCH EFFECTS morphine [MORPHINE] Allergy (Unknown, Verified 12/09/24 14:58) AGITATION lisinopril [From Zestril] Adverse Reaction (Mild, Verified 12/09/24 14:58) DIZZY HPI Comments Details: Ms Colon in follow-up of her chronic kidney disease and hypertension. 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 She has had a lot of arthritic issues and had been receiving intra-articular injections. She does not take any nonsteroidal anti-inflammatories. She denies any nausea, vomiting, diarrhea, dizziness, swelling. She has no edema. She is having high Na diet. Her blood pressure and blood sugars are well controlled [facility] Medical History Mood disorder CKD (chronic kidney disease) stage 3, GFR 30-59 ml/min Hypertension Surgical History History of neck surgery Social History Household Members: None Do you presently have visiting nurse or other home services: Yes (ICE CUTTER services) Alcohol intake: never Comment: 1:1 sitter Patient Tobacco Use Status: Never used Tobacco service: No Review of Systems Const All systems reviewed & are unremarkable except as noted in HPI and below Physical Exam Vital Signs: Last Vital Signs Pulse 134 H 12/09/24 14:58 BP 120/70 12/09/24 14:58 Pulse Ox 99 12/09/24 14:58 Oxygen Delivery Method Room Air 12/09/24 14:58 BMI result Body Mass Index 33.0 Const General: comfortable and no acute distress Orientation/consciousness: patient oriented x3 HEENT Head: Yes normocephalic Mouth: Normal oral and palatal mucosa present Eyes EOM: EOMs intact bilaterally Neck Neck: Yes supple Resp Auscultation: clear to auscultation bilaterally Cardio Jugular venous distension: no JVD Rate: regular rate GI Palpation (GI): Soft to palpation Auscultation: normal bowel sounds General: Yes no CVA tenderness Back/Spine/Pelvis Back: no CVA tenderness Skin General skin exam: no rashes or lesions noted Neuro General: patient oriented x3 and moves all extremities Extrem General: Yes no pedal edema Results Reviewed Nephrology Results: Sodium 144 mmol/L (135-145) 12/07/24 Potassium 3.5 mmol/L (3.3-5.1) 12/07/24 Chloride 102 mmol/L (96-108) 12/07/24 Carbon Dioxide 26 mmol/L (22-29) 12/07/24 BUN 12 mg/dL (9-16) 12/07/24 Creatinine 1.25 mg/dL (0.5-1.4) 12/07/24 Assessment & Plan Assessment & Plan (1) CKD (chronic kidney disease) stage 3, GFR 30-59 ml/min: Code(s): N18.30 - Chronic kidney disease, stage 3 unspecified Category: Medical Qualifiers: Chronic kidney disease stage 3 subtype: stage 3a (GFR 45-59) Qualified Code(s): N18.31 - Chronic kidney disease, stage 3a (2) Hypertension: Code(s): I10 - Essential (primary) hypertension Category: Medical Qualifiers: Hypertension type: primary hypertension Qualified Code(s): I10 - Essential (primary) hypertension Plan 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 Her serum creatinine is stable. Her blood pressure is at goal on current medication regimen. She avoids nonsteroidal anti-inflammatory medications and try to remain well hydrated. She should lose weight and should be on a low-sodium diet. I have ordered follow up blood work . She did not ask for any prescription refills today. Follow-up appointment given. Wine Sales Representative services were used for the entire encounter. All questions answered Orders: Orders Calcium 6 Months I10 - Essential (primary) hypertension, N18.31 - Chronic kidney disease, stage 3a Creatinine 6 Months I10 - Essential (primary) hypertension, N18.31 - Chronic kidney disease, stage 3a Blood Urea Nitrogen 6 Months I10 - Essential (primary) hypertension, N18.31 - Chronic kidney disease, stage 3a Electrolytes 6 Months I10 - Essential (primary) hypertension, N18.31 - Chronic kidney disease, stage 3a Protein Creatinine Ratio, Ur 6 Months I10 - Essential (primary) hypertension, N18.31 - Chronic kidney disease, stage 3a Coding Level of Care Code Est Pt Level 4 (46912) Diagnoses Stage 3a chronic kidney disease N18.31 Chronic kidney disease stage 3 subtype: stage 3a (GFR 45-59) Primary hypertension I10 Hypertension type: primary hypertension
[2024-12-09 14:58] VITALS: BP 120/70; PULSE 90; O2SAT 99; BMI 33.0
== END 2024-12-09 15:14 | disposition home or self-care (01) ==
PROVIDERS: PCP Internal Medicine; Visit Provider Internal Medicine Nephrology
DX: N18.31 Chronic kidney disease, stage 3a (principal); I10 Essential (primary) hypertension
CPT/HCPCS: 99214

== ENCOUNTER → 2024-12-09 14:43 | Outpatient (BNVA) | payer OTHER, SELFPAY | PROVIDERS: PCP Internal Medicine; Visit Provider Internal Medicine Nephrology | DX: I12.9 Hypertensive chronic kidney disease with stage 1 through stage 4 chronic kidney disease, or unspecified chronic kidney disease (principal); N18.31 Chronic kidney disease, stage 3a | CPT/HCPCS: 99212 ==

== ENCOUNTER 2025-04-09 10:59 | Outpatient (AMB) | payer OTHER, SELFPAY ==
--- NOTE | 2025-04-09 11:12 | HO.NEPHOV ---
Vital Signs 04/09/25 11:17 Height 5 ft 3 in Weight 192 lb 6 oz BMI 34.1 BP 110/60 Blood Pressure Location Rt brachial Position Sitting Pulse 75 Pulse Source Pulse Oximeter Pulse Oximetry (%) 95 Oxygen Delivery Method Room Air Intake Visit Reasons: CKD-Conf Billet Header Required: No Accompanied by: Grand Child Allergies metronidazole (From FLAGYL) Allergy (Severe, Verified 04/09/25 11:17) NEUROPSYCH EFFECTS morphine (MORPHINE) Allergy (Unknown, Verified 04/09/25 11:17) AGITATION lisinopril (From Zestril) Adverse Reaction (Mild, Verified 04/09/25 11:17) DIZZY HPI Comments Details: Ms Busby was seen in follow-up of her chronic kidney disease and hypertension. 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 She has had a lot of arthritic issues and had been receiving intra-articular injections. She does not take any nonsteroidal anti-inflammatories. She denies any nausea, vomiting, diarrhea, dizziness, swelling. She has no edema. She is having high Na diet. Her blood pressure and blood sugars are well controlled [facility] Medical History Mood disorder CKD (chronic kidney disease) stage 3, GFR 30-59 ml/min Hypertension Surgical History History of neck surgery Social History Household Members: None Do you presently have visiting nurse or other home services: Yes (PRODUCTS MECHANICAL DESIGN ENGINEER services) Alcohol intake: never Comment: 1:1 sitter Patient Tobacco Use Status: Never used Tobacco service: No Review of Systems Const All systems reviewed & are unremarkable except as noted in HPI and below Physical Exam Const General: comfortable and no acute distress Orientation/consciousness: patient oriented x3 HEENT Head: Yes normocephalic Mouth: Normal oral and palatal mucosa present Eyes EOM: EOMs intact bilaterally Neck Neck: Yes supple Resp Auscultation: clear to auscultation bilaterally Cardio Jugular venous distension: no JVD Rate: regular rate GI Palpation (GI): Soft to palpation Auscultation: normal bowel sounds General: Yes no CVA tenderness Back/Spine/Pelvis Back: no CVA tenderness Skin General skin exam: no rashes or lesions noted Neuro General: patient oriented x3 and moves all extremities Extrem General: Yes no pedal edema Results Reviewed Nephrology Results: Sodium, (135-145) 144 mmol/L 12/07/24 Potassium, (3.3-5.1) 3.5 mmol/L 12/07/24 Chloride, (96-108) 102 mmol/L 12/07/24 Carbon Dioxide, (22-29) 26 mmol/L 12/07/24 BUN, (9-16) 12 mg/dL 12/07/24 Creatinine, (0.5-1.4) 1.25 mg/dL 12/07/24 Calcium, (8.4-10.2) 9.7 mg/dL 09/14/24 Phosphorus, (2.7-4.5) 3.3 mg/dL 05/29/24 PTH Intact, (8.7-77.1) 74.9 pg/mL 05/29/24 Urine Creatinine 140.28 mg/dL 05/29/24 Protein/Creatinin Ratio, (<0.2) 0.17 05/29/24 Assessment & Plan Assessment & Plan (1) Hypertension: Code(s): I10 - Essential (primary) hypertension Category: Medical Qualifiers: Hypertension type: primary hypertension Qualified Code(s): I10 - Essential (primary) hypertension (2) CKD (chronic kidney disease) stage 3, GFR 30-59 ml/min: Code(s): N18.30 - Chronic kidney disease, stage 3 unspecified Category: Medical Qualifiers: Chronic kidney disease stage 3 subtype: stage 3a (GFR 45-59) Qualified Code(s): N18.31 - Chronic kidney disease, stage 3a Plan 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 Her serum creatinine is stable. Her blood pressure is at goal on current medication regimen. She avoids nonsteroidal anti-inflammatory medications and try to remain well hydrated. She should lose weight and should be on a low-sodium diet. All questions answered Orders: Orders Creatinine 4 Months I10 - Essential (primary) hypertension, N18.31 - Chronic kidney disease, stage 3a Blood Urea Nitrogen 4 Months I10 - Essential (primary) hypertension, N18.31 - Chronic kidney disease, stage 3a Electrolytes 4 Months I10 - Essential (primary) hypertension, N18.31 - Chronic kidney disease, stage 3a Coding Level of Care Code Est Pt Level 4 (81477) Diagnoses Primary hypertension I10 Hypertension type: primary hypertension Stage 3a chronic kidney disease N18.31 Chronic kidney disease stage 3 subtype: stage 3a (GFR 45-59)
[2025-04-09 11:17] VITALS: BP 110/60; PULSE 75; O2SAT 95; BMI 34.1
--- OUTSIDE RECORDS SUMMARY | 2025-04-09 11:25 | XMS_ITS | Clinical Summary ---
Author Organization [employer] Address [address] [place] [address] Care Team Providers Care Cryptographic Technician Name Role Phone Bertha Evans MD Primary Care Provider + Zackery Ohara PharmD Unavailable [phone] Allergies Active Allergy Reactions Criticality Noted Date [...] 12/01/19 21 Active Respiratory Therapy Supplies (Nebulizer) deviceIndication s:COPD exacerbation (CMS/HCC) Use nebulizer machine as directed. Please supply tubing and mouthpiece. 1 each 12/04/19 23 Active Nebulizers (Proneb Ultra II/LC Plus) device USE DIRECTED 12/04/19 23 Active albuterol (2.5 MG/3ML) 0.083% nebulizer solution USE 1 VIAL VIA NEBULIZER EVERY 4 HOURS NEEDED FOR WHEEZING 12/02/19 23 Active ketoconazole (NIZOral) 2 % shampooIndicatio ns:Rash Apply topically 1 (one) time per week. Leave on for 5 mins before washing out 120 mL 05/29/20 24 Active ammonium lactate (Amlactin) 12 % cream APPLY TOPICALLY TO ENTIRE BODY TWICE DAILY Active hydrocortisone 2.5 % cream APPLY EXTERNALLY TO THE AFFECTED AREA ON FACE TWICE DAILY NEEDED FOR FLARES. DECREASE TO EVERY DAY / EVERY OTHER DAY SYMPTOMS IMPROVE Active glucose blood (FREESTYLE LITE) test strip TEST BLOOD SUGAR 1-2 TIMES PER DAY 50 strip 08/25/20 24 Active Lancets (Unilet Micro-Thin 33G) miscIndications: Type 2 diabetes mellitus without complication, unspecified whether continuous churn buttermaker insulin use ([facility]) TEST BLOOD SUGAR ONE OR TWO TIMES DAILY 100 each 09/08/20 24 Active Alcohol Swabs (Alcohol Prep) 70 % padsIndications: Type 2 diabetes mellitus without complication, unspecified whether jail insulin use ([facility]) TEST BLOOD SUGAR 1-2 TIMES PER DAY 100 each 09/08/20 24 Active losartan (Cozaar) 100 MG tablet Take 1 tablet (100 mg) by mouth Once per day. 30 tablet 10/13/20 24 025 Active fluocinolone ([place]-Smoothe) 0.01 % external oil APPLY TOPICALLY THREE TIMES DAILY 118 mL 10/16/20 24 Active Aspirin Low Dose 81 MG chewable tabletIndication s:Old myocardial infarction TAKE 1 TABLET BY MOUTH EVERY MORNING (CHEW) 90 tablet 11/30/19 25 Active DULoxetine (Cymbalta) [address] capsule TAKE 1 CAPSULE BY MOUTH EVERY MORNING 30 capsule 11/30/19 25 Active Umeclidinium Clyo (Incruse Ellipta) 62.5 MCG/ACT aerosol powder Inhale 1 Act (62.5 mcg) Once per day. 1 each 12/03/19 25 Active Fluticasone Furoate-Vilanter ol (Breo Ellipta) 200-25 MCG/ACT aerosol powder Inhale 1 Inhalation Once per day. 1 each 12/03/19 25 Active albuterol (Ventolin HFA) 108 (90 Base) MCG/ACT inhalerIndicatio ns:Moderate asthma, unspecified whether complicated, unspecified whether persistent INHALE 2 PUFFS EVERY 4 TO 6 HOURS NEEDED 18 g 01/01/20 25 Active montelukast (Singulair) 10 MG tabletIndication s:Moderate asthma, unspecified whether complicated, unspecified whether persistent Take 1 tablet (10 mg) by mouth at bedtime. 90 tablet 3 01/01/20 25 Active Calcium Carb-Cholecalcif pastor 600-10 MG-MCG tablet TAKE 1 TABLET BY MOUTH TWICE DAILY IN THE MORNING AND IN THE EVENING 180 tablet 1 01/29/20 25 Active metoprolol succinate XL (Toprol-XL) 100 MG 24 hr tabletIndication s:Primary hypertension TAKE 1 TABLET BY MOUTH EVERY MORNING 90 tablet 3 01/29/20 25 Active meclizine (Antivert) 25 MG tabletIndication s:Dizziness TAKE 1 TABLET BY MOUTH THREE TIMES DAILY IN THE MORNING, AT NOON, AND AT BEDTIME NEEDED FOR DIZZINESS FOR UP TO 10 DAYS 30 tablet 01/30/20 25 Active atorvastatin (Lipitor) 80 MG tablet TAKE 1 TABLET BY MOUTH AT BEDTIME 30 tablet 3 02/05/20 25 Active amLODIPine (Norvasc) 10 MG tabletIndication s:Resistant hypertension Take 1 tablet (10 mg) by mouth Once per day. 30 tablet 11 02/17/20 25 026 Active hydrALAZINE (Apresoline) 10 MG tabletIndication s:Resistant hypertension Take 1 tablet by mouth three times daily for 7 days, then twice daily for 7 days, then once daily for 7 days, then stop. 42 tablet 02/17/20 25 Active cloNIDine (Catapres) 0.1 MG tablet Take 1 tablet by mouth once daily at bedtime 30 tablet 2 02/17/20 25 Active QUEtiapine (SEROquel) 25 MG tablet TAKE 1 TABLET BY MOUTH qhs 30 tablet 03/05/20 25 Active SITagliptin (Januvia) 50 MG tablet Take 1 tablet (50 mg) by mouth Once per day. 30 tablet 03/05/20 25 026 Active mirtazapine (Remeron) 45 MG tabletIndication s:Primary insomnia TAKE 1 TABLET BY MOUTH AT BEDTIME 90 tablet 03/05/20 25 Active Multiple Vitamin (Multivitamin) tabletIndication s:Stage 3 chronic kidney disease, unspecified whether stage 3a or 3b CKD (CMS/HCC),Muscle wasting and atrophy, not elsewhere classified, unspecified lower leg TAKE 1 TABLET BY MOUTH EVERY EVENING WITH FOOD 30 tablet 5 03/18/20 25 Active omeprazole (PriLOSEC) [address] capsuleIndicatio ns:Gastro-esopha geal reflux disease without esophagitis TAKE 1 CAPSULE BY MOUTH EVERY MORNING 90 capsule 1 04/06/20 25 Active Multiple Vitamin (Multivitamin) tabletIndication s:Stage 3 chronic kidney disease, unspecified whether stage 3a or 3b CKD (CMS/HCC),Muscle wasting and atrophy, not elsewhere classified, unspecified lower leg TAKE 1 TABLET BY MOUTH EVERY EVENING WITH FOOD 30 tablet 5 08/31/20 24 025 Discontinued omeprazole (PriLOSEC) [address] capsuleIndicatio ns:Gastro-esopha geal reflux disease without esophagitis TAKE 1 CAPSULE BY MOUTH EVERY MORNING 90 capsule 1 09/29/20 24 025 Discontinued Active Problems Problem Noted Date Diagnosed Date Sleep disturbances 02/26/2025 Synovial cyst 01/27/2025 Dizziness 01/22/2025 Assessment & Plan (01/22/2025 3:51 PM EDT): Advised to maintain hydration and change positions slowly I will prescribe for now meclizine as needed for the dizziness I will refer patient for physical therapy for vestibular therapy I will refer patient to ENT Vestibular disequilibrium, bilateral 01/22/2025 Resistant hypertension 12/31/2024 Assessment & Plan (01/22/2025 3:52 PM EDT): Blood pressure is now much better controlled, I advised low-sodium diet, I will not do any medication changes for now Assessment & Plan (12/31/2024 12:24 PM EDT): Patient with known resistant hypertension, I advised for her to take her medications every day without missing any dose, I advised low-sodium diet and to make sure she follows up with nephrology, cardiology and PCP I decided to add to her medication regimen hydralazine 10 mg 4 times a day Vaginal discharge 09/14/2024 Assessment & Plan (09/14/2024 [...] I called her with the patient and HYDROGENATION STILL OPERATOR still present at the end of the [...] EST): She has significant functional limitations, needs HYDROGENATION STILL OPERATOR -cont following w/ pain clinic -referred to [...] Plan (08/30/2023 12:08 PM EST): Refer to shellac polisher H/O cervical discectomy 07/24/2023 Assessment & Plan [...] EST): May need premedication for dental procedures. Chronic sinusitis 10/10/2022 Injury of kidney 10/10/2022 [...] need overnight oximetry and CPAP evaluation from [employer] Precordial pain 10/10/2022 Primary osteoarthritis of [...] make sure that lifeline device is working, HYDROGENATION STILL OPERATOR to fu assessment done by [facility] 3 months ago fu with physiatry Sprain of ankle 10/10/2022 Muscle wasting and atrophy, not elsewhere classified, unspecified lower leg 11/06/2020 Acute kidney failure 11/06/2020 Assessment & Plan (09/14/2024 5:14 PM EST): Repeat BMP and fu results. [place] (generalized anxiety disorder) 11/06/2020 Assessment & Plan (03/06/2024 3:20 PM [...] with provider. Atherosclerotic heart diseas e of [place] coronary artery without angina pectoris 11/06/2020 Assessment [...] 11/06/2020 Insomnia, unspecified 11/06/2020 Assessment & Plan (03/05/2025 11:09 AM EDT): Anxiety seems to be better controlled but unfortunately Seroquel taper around 2 diabetes with blood sugar of 200s. Decrease Seroquel to 25 mg and increase mirtazapine to 45 mg, it will also help with appetite. Will try to optimize diabetes management to improve insomnia. Continue follow-up closely with psychotherapist, she is on a waiting list to see psychiatry for medication management. We discussed about slowly moving down wake-up time from 11:30AM down to 7 AM over several weeks.. I also discussed with patient regarding regular scheduled activities during the daytime including gardening, reading, adult day health etc. Assessment & Plan (02/16/2025 1:36 PM EDT): Increase Seroquel to 50mg and will refer to for better control of anxiety, I told her that we'll try to get her back in to her previous therapist roster but I dont have any control over final outcome. Optimize BP control Assessment & Plan (10/13/2024 12:34 PM EST): [...] 6 wks Iron deficiency anemia, unspecified 11/06/2020 Moderate episode of recurrent major depressive d isorder 11/06/2020 Assessment & Plan (02/16/2025 2:28 PM EDT): Patient seems to be having increased anxiety in the evening, unclear if related to his developing dementia versus worsening of psychotic depression. Will refer to to start psychotherapy, hopefully with Jamie her previous counselor Continue duloxetine and mirtazapine Assessment & Plan (09/14/2024 5:21 PM EST): Improving, however it is unclear if she has somatic hallucinations as part of dementia vs psychosis. She feels safe at home and is able to reach out for safety. FU with team, she had been referred back on [...] now, will work on continuing with previous HYDROGENATION STILL OPERATOR and alternate with granddaughter once she moves out. Will talk with [facility] CM re home visit to evaluate safety and home care, patient doesn't need to move to a 2br apartment for now, not in need of 24/ care yet. She feel safe at home. [...] to reach out for safety to her [facility], [facility], or therapist Jamie Will discuss w [...] anxiety and insomnia as well. Refer to [facility] psychopharmacology clinic She feels safe at home and is able to reach out for safety Will discuss with insurance to see if she's eligible for an afternoon day program Old myocardial infarction 11/06/2020 Restless legs syndrome 11/06/2020 Type 2 diabetes mellitus without complication Assessment & Plan (03/05/2025 11:04 AM EDT): Start Januvia 50 mg follow-up with me in 4 to 6 weeks, may increase to 100 mg if tolerated. Continue fingerstick checks once per day and as needed anxiety and follow-up with me in 4 to 6 weeks Controlled. A1c is at goal. Counseled re more frequent low calorie/carb meals. Encouraged physical activity as tolerated. Assessment & Plan (02/16/2025 2:27 PM EDT): Off medications at this time, unclear if this created variation of blood sugar levels and potential overnight hypoglycemia Check fingersticks twice daily and as needed anxiety Follow-up with me in 4 to 6 weeks Assessment & Plan (01/22/2025 3:51 PM EDT): Diabetes is: controlled - Lab Results Component Value Date HGBA1C 6.9 (A) 01/22/2025 HGBA1C 6.7 (A) 09/14/2024 HGBA1C 6.8 (A) 03/06/2024 - Lab Results Component Value Date MICROALBUR 271.0 05/20/2023 CREATININE 1.25 12/07/2024 -Changes: None Follow-up with PCP Assessment & Plan (09/14/2024 5:14 PM EST): [...] GFR 30-59 ml/min 04/01/2012 Assessment & Plan (02/16/2025 2:26 PM EDT): GFR remained stable, advised tight control hypertension and diabetes Continue losartan and check BMP Continue to follow-up with stove tender Assessment & Plan (09/14/2024 5:14 PM EST): [...] her may be needed. Continue VNA and HYDROGENATION STILL OPERATOR services. Dyslipidemia 03/21/2012 HTN (hypertension) 03/21/2012 Assessment & Plan (02/16/2025 2:26 PM EDT): Uncontrolled, she will bring BP record at next appt and will adjust meds. Continue losartan, low-dose amlodipine and isosorbide. Follow-up in 3 to 4 weeks with BP readings for adjustment of medications Will try to improve insomnia and anxiety Assessment & Plan (10/13/2024 12:34 PM EST): [...] in 3 months. Arthritis of knee 03/21/2012 Assessment & Plan (03/05/2025 11:06 AM EDT): Will order PT and home safety evaluation. Unclear if custom as send there is knee orthosis as recommended by [facility] clinical medical transcriptionist is appropriate device for patient, she did not know how well they work so I will ask the [facility] to bring PT. Obtain ambulation with a cane, she has DME's at home and in the bathroom to prevent falls Continue Tylenol as needed Asthma 03/21/2012 Assessment & Plan (12/31/2024 12:23 PM EDT): Patient asked today for refills for her asthma medications, I refilled for her her albuterol and montelukast Resolved Problems Problem Noted Date Diagnosed Date Resolved Date Diabetes due to undrl condit ion w oth diabetic neuro comp 09/14/2024 09/14/2024 Toxic metabolic encephalopathy 01/10/2024 10/13/2024 Altered mental status 01/10/20242023 Acute exacerbation of chroni c obstructive airways disease 10/10/2022 03/05/2025 Assessment & Plan (07/24/2023 4:36 PM EDT): [...] steroid course, develops fevers, intolreance to PO Dyspnea on exertion 10/10/2022 10/13/20 Headache disorder 10/10/2022 10/13/2024 Lower abdominal pain 10/10/2022 024 Peripheral vascular disease, unspecified 11/06/2020 01/10/2024 Depressive disorder 03/05/2013 09/14/20 24 Encounters * This document contains information received from the source organization and may not represent a complete record from that organization. Date Type Department Care Team Description 04/06/2025 Telephone [facility] [address] [place] [address] Bertha Evans MD FYI 04/05/2025 Refill [facility] [address] [place] [address] Bertha Evans MD Gastro-esophageal reflux disease without esophagitis 03/19/2025 Telephone [facility] [address] [place] [address] Bertha Evans MD Durable Medical Equipment 03/19/2025 Telephone [facility] [address] [place] [address] Bertha Evans MD veral order 03/17/2025 Refill [facility] [address] [place] [address] Bertha Evans MD Stage 3 chronic kidney disease, unspecified whether stage 3a or 3b CKD (CMS/HCC); Muscle wasting and atrophy, not elsewhere classified, unspecified lower leg 03/05/2025 10:45 AM EDT Office Visit [address] [address] Bertha Evans MD Type 2 diabetes mellitus without complication, without long-term current use of insulin (CMS/[facility]) (Primary Dx); Primary insomnia; Acute exacerbation of chronic obstructive airways disease (CMS/HCC); Arthritis of knee 03/05/2025 Telephone [facility] [address] [place] [address] Bertha Evans MD Care Coordination 03/05/2025 Travel 03/03/2025 Telephone [facility] [address] [place] [address] Bertha Evans MD BS concerns 02/23/2025 Travel 02/16/2025 Refill [facility] [address] [place] [address] Bertha Evans MD 02/15/2025 Travel 02/04/2025 Telephone [facility] [address] [place] [address] Bertha Evans MD Nurse Triage 02/04/2025 Refill [facility] [address] [place] [address] Bertha Evans MD Primary insomnia 01/28/2025 Refill [facility] [address] [place] [address] Graciela Givens MD Dizziness 01/28/2025 Refill [facility] [address] [place] [address] Bertha Evans MD Primary hypertension 01/27/2025 2:45 PM EDT Office Visit [facility] [address] [place] [address] Bertha Evans MD Insomnia due to medical condition (Primary Dx); Primary hypertension; Type 2 diabetes mellitus without complication, unspecified whether continuous churn buttermaker insulin use (CMS/[facility]); Stage 3 chronic kidney disease, unspecified whether stage 3a or 3b CKD (CMS/HCC); Moderate episode of recurrent major depressive disorder (CMS/HCC); Synovial cyst 01/27/2025 Travel 01/26/2025 Telephone [facility] [address] [place] [address] Bertha Evans MD Chart prep 01/22/2025 1:00 PM EDT Office Visit [facility] [address] [place] [id number] Graciela Givens MD Dizziness (Primary Dx); Type 2 diabetes mellitus without complication, unspecified whether jail insulin use (CMS/HCC); Vestibular disequilibrium, bilateral; Resistant hypertension 01/22/2025 Travel 01/14/2025 Refill [facility] [address] [place] [address] Marisa Lobato, PharmD 01/13/2025 Telephone [facility] [address] [place] [address] Bertha Evans MD Nurse Triage 01/08/2025 Telephone [facility] [address] [place] [address] Bertha Evans MD from Last 3 Months Immunizations Immunization Administration Dates Next Due Influenza High-dose Quadriva [...] Answer Date Recorded Patient Health Questionnaire-9 Score 21 02/26/2025 Patient Health Questionnaire-9 Score 21 02/26/2025 Last PHQ-9: Questionnaire Data Not on file 0 02/26/2025 Housing Stability Answer Date Recorded What is [...] Answer Date Recorded Patient Health Questionnaire-2 Score 6 02/26/2025 Comments Unknown Sex and Gender Information Value Date Recorded Sex Assigned at Female 08/20/2022 10:16 AM EDT Legal Sex Female 10:16 AM EDT Gender Identity Female 08/20/2022 10:16 AM EDT Sexual Orientation Straight 08/20/2022 10 :16 AM EDT Last Filed Vital Signs Vital Sign Reading Time Taken Comments Blood Pressure 128/64 03/05/2025 10:29 AM EDT Pulse 84 03/05/2025 10:29 AM EDT Temperature 36.7 C (98.1 F) 03/05/2025 10:29 AM EDT Respiratory Rate 20 03/05/2025 10:29 AM EDT Oxygen Saturation 97% 01/27/2025 2:21 PM EDT Inhaled Oxygen Concentration - - Weight 88 kg (194 lb) 03/05/2025 10:29 AM EDT Height 160 cm (5' 3 ) 03/05/2025 10:29 AM EDT Body Mass Index 34.37 03/05/2025 10:29 AM EDT Plan of Treatment Upcoming Encounters Date Type Department Care Team (Late st Contact Info) Description 04/21/2025 3:00 PM EDT Medication Management [facility] [address] [place] [address] Zackery Ohara, PharmD [address] [place] [address] Health Maintenance Due Date Last Done Comments Eye Exam 1955 Alcohol/Substance Use Screening 1957 RSV Patients and Patients Aged 60 years or older (1 - 1-dose 75+ series) 2020 Lipid Panel 05/20/2024 05/20/2023, 02/18, 08/08/2021, Additional history exists COVID-19 Vaccine ( season) 2024 08/30/2023, 08/20/2022, 08/21/2021, Additional history exists SDOH Screening 11/01/2024 11/01/2023 Diabetes: Urine Protein Screening 11/22/2024 11/22/2023, 05/20/2023, 03/06/2022, Additional history exists Diabetes: Hemoglobin A1C 07/24/2025 025, 09/14/2024, 03/06/2024, Additional history exists Depression Monitoring 08/29/2025 02/26/2025, 025 DTaP/Tdap/Td Vaccines (2 - Td or Tdap) 11/14/2025 11/14/2015, 05/14/2002 Diabetes: Foot Exam 01/27/2026 01/27/2025, 01/27/2025, 01/27/2025, Additional history exists Tobacco Screening 03/05/2026 03/05/2025 Zoster Vaccines Completed 12/31/2018, 12/19, 10/30/2018, Additional [...] age to complete this topic Meningococcal B Vaccine Aged Out No l onger eligible based on patient's age to complete [...] Procedure Name Priority Date/Time Associated Diagnosis Comments POCT GLUCOSE Routine 03/05/2025 10:31 AM EDT Type 2 diabetes mellitus without complication, without long-term current use of insulin ([facility]) POCT HEMOGLOBIN Routine 01/27/2025 3:18 PM EDT Insomnia due to medical condition POCT GLUCOSE Routine 01/27/2025 2:22 PM EDT Type 2 diabetes mellitus without complication, unspecified whether jail insulin use ([facility]) POCT GLYCATED HEMOGLOBIN, TOTAL Routine 01/22/2025 1:08 PM EDT Type 2 diabetes mellitus without complication, unspecified whether continuous churn buttermaker insulin use ([facility]) POCT GLUCOSE Routine 01/22/2025 1:08 PM EDT Type 2 diabetes mellitus without complication, unspecified whether jail insulin use ([facility]) PROTEIN CREATININE RATIO, URINE Routine 11/22/2023 11:45 AM EST LIPID PANEL WITH REFLEX TO DIRECT LDL Routine 05/20/2023 11:37 AM EDT Type 2 diabetes mellitus without complication, unspecified whether continuous churn buttermaker insulin use ([facility]) from Last 3 Months or Most Recently Relevant to Health Maintenance Results * (ABNORMAL) POCT Glucose (03/05/2025 10:31 AM EDT) Only the most recent of3 resultswithin the time period is included. Glucose Blood, POC 246(A) 60 - 200 mg/dL QC Media Lot # [id number] Lot# Expiration Date 101,526 Blood Capillary blood specimen / Unknown 03/05/2025 10:31 AM EDT us Bertha Evans MD POINT OF CARE TEST ENTER /EDIT ORDERABLES Final Result * POCT Hemoglobin (01/27/2025 3:18 PM EDT) Hemoglobin 13.6 12.0 - 15.0 QC Media Lot # [id number] Lot# Expiration Date [id number] Blood 01/27/2025 3:18 PM EDT Bertha Evans MD POINT OF CARE TEST ENTER /EDIT ORDERABLES Final Result * (ABNORMAL) POCT HGB A1C (01/22/2025 1:08 PM EDT) Hemoglobin A1C 6.9(A) 4.0 - 6.0 % QC Media Lot # [id number] Lot# Expiration Date ,793 Blood 01/22/2025 1:08 PM EDT Result [facility] Graciela Aguayo MD POINT OF CARE TEST EN TER/EDIT ORDERABLES Final Result * Protein Creatinine Ratio, Urine (11/22/2023 11:45 AM EST) Creatinine, Urine 100.04 mg/dL [facility] Protein, Total, Random Urine 12 <12 mg/dL [facility] Protein/Creati nine Ratio, Ur 0.12 <0.2 [facility] Comment:The spot urine prote in:creatinine ratio may increase to 0.3during normal . 11/22/2023 11:4 5 AM EST 11/22/2023 1:19 PM EST Generic External Data Provider LAB URINE ORDERAB LES Final Result [facility] [address] [place] [phone] * Lipid Panel with Reflex to Direct LDL (05/20/2023 11:37 AM EDT) Triglycerides 290 mg/dL [facility] Comment:Desirable Triglyceri de: less than 150 mg/dLBorderline High Triglyceride 150-199 mg/dLHigh Triglyceride: 200-499 mg/dLVery High Triglyceride: greater than or equal to 5OO mg/dL Cholesterol 206 mg/dL [facility] Comment:Desirable Cholestero l: less than 200 mg/dLBorderline High Cholesterol: 200-239 mg/dLHigh Cholesterol: greater than 239 mg/dL LDL Cholesterol Calculated 99 mg/dl [facility] Comment:Desirable LDL: less than 100 mg/dLNear Optimal/Above Optimal LDL: 110- 129 mg/dLBorderline High LDL: 130-159 mg/dLHigh LDL: 160-189 mg/dLVery High LDL: greater than or equal to 190 mg/dL HDL Cholesterol 49 mg/dL [facility] Comment:Desirable HDL: great er than 40 mg/dL Note: This HDL assay may give artificially low results in patients with liver disease. Blood 05/20/2023 11:3 7 AM EDT 05/20/2023 1:24 PM EDT Bertha Evans MD LAB BLOOD ORDERABLES Fin al Result [facility] [address] [place] [address] [phone] from Last 3 Months or Most Recently Relevant to Health Maintenance Insurance [facility] [employer] RETIREMENT OPTIONS (HMO D-SNP) [place] [id number] Care Teams Cryptographic Technician Relationship Specialty Start Date End Date Bertha Evans MD [address] [place] [address] PCP - General Family Medicine 09/10/19 Zackery Ohara, JosesitoD [address] [place] [address] Pharmacist Internal Medicine 02/16/25 [facility] 12/17/23
== END 2025-04-09 11:45 | disposition home or self-care (01) ==
LOC: HO.HKA 11:00
PROVIDERS: PCP Internal Medicine; Visit Provider Internal Medicine Nephrology
DX: I10 Essential (primary) hypertension (principal); N18.31 Chronic kidney disease, stage 3a
CPT/HCPCS: 99214

== ENCOUNTER → 2025-04-09 10:59 | Outpatient (BNVA) | payer OTHER, SELFPAY | PROVIDERS: PCP Internal Medicine; Visit Provider Internal Medicine Nephrology | DX: I10 Essential (primary) hypertension (principal); N18.31 Chronic kidney disease, stage 3a | CPT/HCPCS: 99212 ==

== ENCOUNTER 2025-08-03 09:51 | Outpatient (REF) | payer OTHER, SELFPAY ==
--- OUTSIDE RECORDS SUMMARY | 2025-08-03 11:11 | XMS_ITS | Encounter Summary ---
Author Organization [employer] Address [address] 7[address] [place] [address] Care Team Providers Care Heater Planer Operator Name Role Phone Bertha Evans MD Primary Care Provider + Zackery Ohara PharmD Unavailable [phone] Reason for Visit * Reason Onset Date Comments Durable Medical Equipment 12/18/2022 Encounter Details Date Type Department Care Team (Late st Contact Info) Description 12/18/2022 Telephone [facility] [address] [place], [place] [phone] Bertha Evans MD [address] [place], [place] [phone] Durable Medical Equipment Social History Tobacco Use [...] Miscellaneous Notes * Telephone Encounter - Leatha Kehinde - 12/19/2022 1:08 PM EST TC to number in message and it stated out of service . If any other calls please transfer to [phone].Thank you. * Telephone Encounter - Francisco Kunz - 12/18/2022 3:06 PM EST [facility]. Please contact [facility] at [phone] #[phone] documented in this encounter Plan of Treatment Upcoming Encounters Date Type Department Care Team (Late st Contact Info) Description 09/10/2025 3:00 PM EST Medication Management [address] [address] Zackery Ohara, PharmD [address] [place] [phone] 09/21/2025 11:15 AM EST Office Visit [facility] [address] [place] [address] Bertha Evans MD [address] [place] [phone] documented as of this encounter Visit Diagnoses Not on filedocumented in this encounter Additional Health Concerns Assessment Noted Time PHQ-9 Depression Total Score: 8 12/14/19 23 1:38 PM EST documented as of this encounter Care Teams Heater Planer Operator Relationship Specialty Start Date End Date Bertha Evans MD [address] [place] [phone] PCP - General Family Medicine 09/10/19 Zackery Ohara, PharmD [address] [place] [phone] Pharmacist Internal Medicine 02/16/25 [employer] 12/17/23 documented as of this encounter
--- OUTSIDE RECORDS SUMMARY | 2025-08-03 11:11 | XMS_ITS | Continuity of Care Document ---
Author Name Pierce Betancourt Address [address] [place] [phone] Organization Unknown Address [address] [place] [address] Medications No known medications Problems No known problems
--- OUTSIDE RECORDS SUMMARY | 2025-08-03 11:11 | XMS_ITS | Clinical Summary ---
Author Organization [employer] Address [address] [facility] 7t [place] [address] Care Team Providers Care Occupational Therapy Department Chair Name Role Phone Bertha Evans MD Primary Care Provider + Zackery Ohara PharmD Unavailable [phone] Allergies Active Allergy Reactions Criticality Noted Date [...] represent a complete record from that organization. Respiratory Therapy Supplies (Nebulizer) deviceIndications :COPD exacerbation ([facility]) ([facility]) Use nebulizer machine as directed. Please supply tubing and mouthpiece. 1 each 3 Active Nebulizers (Proneb Ultra II/LC Plus) device USE DIRECTED 3 Active albuterol (2.5 MG/3ML) 0.083% nebulizer solution USE 1 VIAL VIA NEBULIZER EVERY 4 HOURS NEEDED FOR WHEEZING 3 Active ketoconazole (NIZOral) 2 % shampooIndication s:Rash Apply topically 1 (one) time per week. Leave on for 5 mins before washing out 120 mL 4 Active ammonium lactate (Amlactin) 12 % cream APPLY TOPICALLY TO ENTIRE BODY TWICE DAILY Active hydrocortisone 2.5 % cream APPLY EXTERNALLY TO THE AFFECTED AREA ON FACE TWICE DAILY NEEDED FOR FLARES. DECREASE TO EVERY DAY / EVERY OTHER DAY SYMPTOMS IMPROVE Active glucose blood (FREESTYLE LITE) test strip TEST BLOOD SUGAR 1-2 TIMES PER DAY 50 strip 11 4 Active Lancets (Unilet Micro-Thin 33G) miscIndications:T ype 2 diabetes mellitus without complication, unspecified whether terminal gauger insulin use TEST BLOOD SUGAR ONE OR TWO TIMES DAILY 100 each 4 Active Alcohol Swabs (Alcohol Prep) 70 % padsIndications:T ype 2 diabetes mellitus without complication, unspecified whether retirement insulin use TEST BLOOD SUGAR 1-2 TIMES PER DAY 100 each 4 Active fluocinolone (Barron-Smoothe) 0.01 % external oil APPLY TOPICALLY THREE TIMES DAILY 118 mL 4 Active Aspirin Low Dose 81 MG chewable tabletIndications :Old myocardial infarction TAKE 1 TABLET BY MOUTH EVERY MORNING (CHEW) 90 tablet 3 5 Active DULoxetine (Cymbalta) [address] capsule TAKE 1 CAPSULE BY MOUTH EVERY MORNING 30 capsule 5 Active Umeclidinium [place] (Incruse Ellipta) 62.5 MCG/ACT aerosol powder Inhale 1 Act (62.5 mcg) Once per day. 1 each 5 Active Fluticasone Furoate-Vilantero l (Breo Ellipta) 200-25 MCG/ACT aerosol powder Inhale 1 Inhalation Once per day. 1 each 5 Active albuterol (Ventolin HFA) 108 (90 Base) MCG/ACT inhalerIndication s:Moderate asthma, unspecified whether complicated, unspecified whether persistent INHALE 2 PUFFS EVERY 4 TO 6 HOURS NEEDED 18 g 5 Active montelukast (Singulair) 10 MG tabletIndications :Moderate asthma, unspecified whether complicated, unspecified whether persistent Take 1 tablet (10 mg) by mouth at bedtime. 90 tablet 3 5 Active Calcium Carb-Cholecalcife rol 600-10 MG-MCG tablet TAKE 1 TABLET BY MOUTH TWICE DAILY IN THE MORNING AND IN THE EVENING 180 tablet 1 5 Active metoprolol succinate XL (Toprol-XL) 100 MG 24 hr tabletIndications :Primary hypertension TAKE 1 TABLET BY MOUTH EVERY MORNING 90 tablet 3 5 Active meclizine (Antivert) 25 MG tabletIndications :Dizziness TAKE 1 TABLET BY MOUTH THREE TIMES DAILY IN THE MORNING, AT NOON, AND AT BEDTIME NEEDED FOR DIZZINESS FOR UP TO 10 DAYS 30 tablet 5 Active amLODIPine (Norvasc) 10 MG tabletIndications :Resistant hypertension Take 1 tablet (10 mg) by mouth Once per day. 30 tablet 5 02/17/20 26 Active QUEtiapine (SEROquel) 25 MG tablet TAKE 1 TABLET BY MOUTH qhs 30 tablet 5 Active SITagliptin (Januvia) 50 MG tablet Take 1 tablet (50 mg) by mouth Once per day. 30 tablet 5 03/05/20 26 Active mirtazapine (Remeron) 45 MG tabletIndications :Primary insomnia TAKE 1 TABLET BY MOUTH AT BEDTIME 90 tablet 3 5 Active Multiple Vitamin (Multivitamin) tabletIndications :Stage 3 chronic kidney disease, unspecified whether stage 3a or 3b CKD (CMS/HCC) (HCC),Muscle wasting and atrophy, not elsewhere classified, unspecified lower leg TAKE 1 TABLET BY MOUTH EVERY EVENING WITH FOOD 30 tablet 5 5 Active omeprazole (PriLOSEC) [address] capsuleIndication s:Gastro-esophage al reflux disease without esophagitis TAKE 1 CAPSULE BY MOUTH EVERY MORNING 90 capsule 1 5 Active isosorbide mononitrate ER (Imdur) 60 MG 24 hr tablet Take 1 tablet (60 mg) by mouth Once per day. Take 1 tablet by mouth every morning 90 tablet 1 5 Active cloNIDine (Catapres) 0.1 MG tablet TAKE 1 TABLET BY MOUTH AT BEDTIME 30 tablet 2 5 Active diphenhydrAMINE-a cetaminophen (Tylenol PM) 25-500 MG per tablet Take 1 tablet by mouth if needed at bedtime for sleep. Active atorvastatin (Lipitor) 80 MG tablet TAKE 1 TABLET BY MOUTH AT BEDTIME 30 tablet 3 5 Active losartan (Cozaar) 100 MG tablet TAKE 1 TABLET BY MOUTH EVERYDAY AT NOON Active Active Problems Problem Noted Date Diagnosed [...] I called her with the patient and ASSORTMENT PLANNER still present at the end of the appt. Questions were answered to her granddaughter and she agreed with POC. UTI (urinary tract infection) 01/10/2024 Assessment & Plan (05/13/2025 1:59 PM EDT): Resolved. Lateral pain of left hip 01/10/2024 Assessment [...] EST): She has significant functional limitations, needs ASSORTMENT PLANNER -cont following w/ pain clinic -referred to [...] Plan (08/30/2023 12:08 PM EST): Refer to executive chef assistant H/O cervical discectomy 07/24/2023 Assessment & Plan [...] need overnight oximetry and CPAP evaluation from DME company Precordial pain 10/10/2022 Primary osteoarthritis of [...] make sure that lifeline device is working, ASSORTMENT PLANNER to fu assessment done by [facility] 3 months ago fu with physiatry Sprain of ankle 10/10/2022 Muscle wasting and atrophy, not elsewhere classified, unspecified lower leg 11/06/2020 Acute kidney failure 11/06/2020 Assessment & Plan (05/13/2025 2:00 PM EDT): Triggered by UTI and DHT GFR was improving prior to dc. Repeat BMP in 1w Assessment & Plan (09/14/2024 5:14 PM EST): [...] with provider. Atherosclerotic heart diseas e of [place] coronary artery without angina pectoris 11/06/2020 Assessment & Plan (05/20/2023 1:13 PM EDT): current symptoms do not seem to be related to CAD, however, pt instructed to call 911 or ring the [employer]jing [employer] watch PRN chest pain FU with cardiology [...] deficiency anemia, unspecified 11/06/2020 Moderate episode of recurren t major depressive disorder (CMS/HCC) 11/06/2020 Assessment & Plan (02/16/2025 2:28 PM [...] now, will work on continuing with previous ASSORTMENT PLANNER and alternate with granddaughter once she moves out. Will talk with [facility] CM re home visit to evaluate safety and home care, patient doesn't need to move to a 2br apartment for now, not in need of 13/05 care yet. She feel safe at home. [...] to reach out for safety to her [facility], [facility], or therapist Jamie Will discuss w insurance if she's eligible for an afternoon program Assessment & Plan (08/31/2023 12:19 PM EST): Exacerbated by the holidays probably Counseled to cont with therapist Jamie Guadalupe Trazodone, Paxil will be tapered down to 30mg and fu in 1m. Will start duloxetine when down to 10mg. Start mirtazapine 7.5mg at dinner time for anxiety and insomnia as well. Refer to for psychopharmacology clinic She feels safe at home and is able to reach out for safety Will discuss with insurance to see if she's eligible for an afternoon day program Old myocardial infarction 11/06/2020 Restless legs syndrome 11/06/2020 Type 2 diabetes mellitus without complication Assessment & Plan (05/13/2025 1:59 PM EDT): Controlled. A1c is at goal. Continue on low dose Januvia Counseled re more frequent low calorie/carb meals. Check fgstk 1x daily Encouraged physical activity as tolerated. FU in 3 months. Assessment & Plan (03/05/2025 11:04 AM EDT): [...] disease) stage 3, GFR 30-59 ml/min (CMS/HCC) 04/01/2012 Assessment & Plan (02/16/2025 2:26 PM EDT): GFR remained stable, advised tight control hypertension and diabetes Continue losartan and check BMP Continue to follow-up with jewelry coater Assessment & Plan (09/14/2024 5:14 PM EST): [...] her may be needed. Continue [facility]NA and ASSORTMENT PLANNER services. Dyslipidemia 03/21/2012 HTN (hypertension) 03/21/2012 Assessment [...] there is knee orthosis as recommended by [facility] clinical research technician is appropriate device for patient, she did [...] exacerbation of chroni c obstructive airways disease ([facility]) 10/10/2022 03/05/2025 Assessment & Plan (07/24/2023 4:36 [...] organization. Date Type Department Care Team Description 07/13/2025 Telephone [facility] [place] [address] Glenda Solis ANP chart prep 07/09/2025 Telephone [facility] [place] [address] Bertha Evans MD Appointment Request 06/13/2025 Refill [facility] [address] [place] [phone] Bertha Evans MD 06/11/2025 Travel 06/09/2025 Telephone [facility] [address] [place] [phone] Bertha Evans MD Verbal Order 05/14/[address] [address] Bertha Evans MD 05/13/2025 10:45 AM EDT Office Visit [address] [address] Bertha Evans MD Acute cystitis with hematuria (Primary Dx); Acute renal failure, unspecified acute renal failure type (CMS/HCC); Type 2 diabetes mellitus without complication, without long-term current use of insulin ([facility]); Diarrhea, unspecified type 05/13/2025 Travel 05/12/[address] [address] Bertha Evans MD chart prep 05/12/2025 Patient Outreach [address] [address] Bertha Evans MD Transition Of Care (Tcm) (HDF scheduled) 05/12/2025 Refill [facility] [place] [address] Bertha Medina MD 05/05/2025 Telephone [facility] [address] [place] [address] Bertha Evans MD Nurse Triage; Call Back Request 05/03/[address] [address] Bertha Evans MD Verbal order/Medication 05/03/2025 Travel from Last 3 Months Immunizations Immunization Administration [...] housing situation today? I have vee dickens 04/29/[address] you li ve. Do you have problems with any of the following? None of the above 04/29/2025 Food Insecurity Answer Date Recorded Within the past 12 months, y ou worried that your food would run out before you got money to buy more: Never True 04/29/2025 Within the past 12 months,th e food you bought just didn't last and you didn't have enough money to get more: Never True 07/2025 Transportation Answer Date Recorded In the past 12 months, has l ack of transportation kept you from medical appts, meetings, work or from getting things needed for daily living? No 04/29/2025 Utilities Answer Date Recorded In the past 12 months, has t he electric, gas, oil or water company threatened to shut off services in your home? No 04/29/2025 Depression Answer Date Recorded Patient Health Questionnaire-2 Score 6 02/26/2025 Internet Access Answer Date Recorded Internet Access Q1 Yes 04/29/2025 Internet Access Q2 Not on file 04/29/2025 Comments Unknown Sex and Gender Information Value Date Recorded Sex Assigned at Female 08/20/2022 10:16 AM EDT Legal Sex Female 10:16 AM EDT Gender Identity Female 08/20/2022 10:16 AM EDT Sexual Orientation Straight 08/20/2022 10 :16 AM EDT Last Filed Vital Signs Vital Sign Reading Time Taken Comments Blood Pressure 128/64 06/11/2025 3:21 PM EDT Pulse 93 06/11/2025 3:21 PM EDT Temperature 36.8 C (98.3 F) 05/13/2025 10:54 AM EDT Respiratory Rate 20 05/13/2025 10:54 AM EDT Oxygen Saturation 97% 01/27/2025 2:21 PM EDT Inhaled Oxygen Concentration - - Weight 83.9 kg (185 lb) 05/13/2025 10:54 AM EDT Height 160 cm (5' 3 ) 05/13/2025 10:54 AM EDT Body Mass Index 32.77 05/13/2025 10:54 AM EDT Plan of Treatment Upcoming Encounters Date Type Department Care Team (Late st Contact Info) Description 09/10/2025 3:00 PM EST Medication Management [facility] [address] [place] [phone] Zackery Ohara, JosesitoD [address] [place] [address] 09/21/2025 11:15 AM EST Office Visit [facility] [address] [place] [phone] Bertha Evans MD [address] [place] [address] Health Maintenance Due Date Last Done Comments Eye Exam 1955 RSV Patients and Patients Aged 60 years or older (1 - 1-dose 75+ series) 2020 Lipid Panel 05/20/2024 05/20/2023, 02/18, 08/08/2021, Additional history exists Diabetes: Urine Protein Screening 11/22/2024 11/22/2023, 05/20/2023, 03/06/2022, Additional history exists COVID-19 Vaccine ( season) 2025 08/30/2023, 08/20/2022, 08/21/2021, Additional history exists Influenza Vaccine (#1) 2025 , 11/01/2023, 08/06/2022, Additional history exists Depression Monitoring 08/29/2025 02/26/2025, 025 Diabetes: Hemoglobin A1C 11/13/2025 025, 01/22/2025, 09/14/2024, Additional history exists DTaP/Tdap/Td Vaccines (2 - Td or Tdap) 11/14/2025 11/14/2015, 05/14/2002 Diabetes: Foot Exam 01/27/2026 01/27/2025, 01/27/2025, 01/27/2025, Additional history exists SDOH Screening 04/29/2026 04/29/2025 Alcohol/Substance Use Screening 05/13/2026 05/13/2025 Tobacco Screening 05/13/2026 05/13/2025 Zoster Vaccines Completed 12/31/2018, 12/19, 10/30/2018, Additional [...] Procedure Name Priority Date/Time Associated Diagnosis Comments AMB REFERRAL TO ENT Routine 07/23/2025 Dizziness Vestibular disequilibrium, bilateral POCT GLYCATED HEMOGLOBIN, TOTAL Routine 05/13/2025 10:56 AM EDT Type 2 diabetes mellitus without complication, without long-term current use of insulin ([facility]) POCT GLUCOSE Routine 05/13/2025 10:56 AM EDT Type 2 diabetes mellitus without complication, without long-term current use of insulin (CMS/[facility]) PROTEIN CREATININE RATIO, URINE Routine 11/22/2023 11:45 AM EST LIPID PANEL WITH REFLEX TO DIRECT LDL Routine 05/20/2023 11:37 AM EDT Type 2 diabetes mellitus without complication, unspecified whether terminal gauger insulin use ([facility]) from Last 3 Months or Most Recently Relevant to Health Maintenance Results * Referral to ENT (07/23/2025) us Graciela Aguayo MD OUTPATIENT REFERRAL O [place] Final Result * (ABNORMAL) POCT HGB A1C (05/13/2025 10:56 AM EDT) Hemoglobin A1C 6.8(A) 4.0 - 5.7 % QC Media Lot # [id number] Lot# Expiration Date Swab 05/13/2025 10:5 6 AM EDT Bertha Evans MD POINT OF CARE TEST ENTER /EDIT ORDERABLES Final Result * POCT Glucose (05/13/2025 10:56 AM EDT) Glucose Blood, POC 157 60 - 200 mg/dL Comment:Random QC Media Lot # [id number] Lot# Expiration Date Blood Capillary blood specimen / Unknown 05/13/2025 10:56 AM EDT Bertha Evans MD POINT OF CARE TEST ENTER /EDIT ORDERABLES Final Result * Protein Creatinine Ratio, Urine (11/22/2023 11:45 AM EST) Creatinine, Urine 100.04 mg/dL [facility] Protein, Total, Random Urine 12 <12 mg/dL [facility] Protein/Creati nine Ratio, Ur 0.12 <0.2 [facility] Comment:The spot urine prote in:creatinine ratio may increase to 0.3during normal . 11/22/2023 11:4 5 AM EST 11/22/2023 1:19 PM EST Generic External Data Provider LAB URINE ORDERAB LES Final Result [facility] [address] [place] [phone] * Lipid Panel with Reflex to Direct LDL (05/20/2023 11:37 AM EDT) Triglycerides 290 mg/dL [facility] Comment:Desirable Triglyceri de: less than 150 mg/dLBorderline High Triglyceride 150-199 mg/dLHigh Triglyceride: 200-499 mg/dLVery High Triglyceride: greater than or equal to 5OO mg/dL Cholesterol 206 mg/dL [facility] Comment:Desirable Cholestero l: less than 200 mg/dLBorderline High Cholesterol: 200-239 mg/dLHigh Cholesterol: greater than 239 mg/dL LDL Cholesterol Calculated 99 mg/dl [facility] Comment:Desirable LDL: less than 100 mg/dLNear Optimal/Above Optimal LDL: 110- 129 mg/dLBorderline High LDL: 130-159 mg/dLHigh LDL: 160-189 mg/dLVery High LDL: greater than or equal to 190 mg/dL HDL Cholesterol 49 mg/dL [facility] Comment:Desirable HDL: great er than 40 mg/dL Note: This HDL assay may give artificially low results in patients with liver disease. Blood 05/20/2023 11:3 7 AM EDT 05/20/2023 1:24 PM EDT us Bertha Evans MD LAB BLOOD ORDERABLES Fin al Result [facility] [address] [place] [address] [phone] from Last 3 Months or Most Recently Relevant to Health Maintenance Insurance [facility] LONGTERM OPTIONS (O D-SNP) [place] [id number] Care Teams Occupational Therapy Department Chair Relationship Specialty Start Date End Date Bertha Evans MD [address] [place] [address] PCP - General Family Medicine 09/10/19 Zackery Ohara, JosesitoD [address] [place] [address] Pharmacist Internal Medicine 02/16/25 [employer] 12/17/23
--- OUTSIDE RECORDS SUMMARY | 2025-08-03 11:11 | XMS_ITS | Encounter Summary ---
Author Organization [facility] Address [address] [place] [address] Encounters * CPT with Pierce Betancourt at [employer] on 2025-05-05 Patient with onset of urinary pain today. Was discharged from Hospital one week ago for ROSS, UTI, tachycardia, sepsis. { reasonForRequest : urinary symptoms , patientReports : ,& quot;denies :[], chiefComplaints : Urinary Symptoms , pmh : COPD/Asthma, Hypertension, Chronic Kidney Disease, Dementia (e.g., Alzheimer's Disease), Diabetes Mellitus Type 2 , allergies : Latex, Penicillins, Morphine, Metronidazole, Gabapentin, Quetiapine , otherAllergies : Cat,Dog, shellfish, , painAssessment : , visitOutcome : , additionalComments : HPI reviewed\nPer daughter states urinary burning started again today and was just treated UTI in the hospital. Not currently on any treatment. \ndenies any fever or chills. She is urinating.\nHx kidneyissues and is on aspirin. } Encountered patient seated upright and conscious with family present. Patient reports since earlierthis morning she has been experiencing painful burning while attempting to urinate as well as an increase in frequency; is able to empty her bladder when she urinates. Family reports patient was admitted to a local hospital for one week while being treated for a urinary tract infection, discharged on 04/27/2025. Patient denies fevers, nausea, vomiting and back pain. Skin warm, dry and of appropriate color for ethnicity. Head and neck free of trauma and edema.-JVD.Breath sounds present clear and equal bilaterally. Abdomen is soft, non-distended and non-tender; patient reports right upper quadrant pain at rest that does not change with movement or palpation. Extremities are free of trauma and edema. [facility] contacted: urinalysis dip performed, results uploaded via [employer]. Culture obtained, to be delivered to [facility] following appointment. [facility] reports they will treat patient for a suspected urinary tract infection and will be sending a prescription to a pharmacy of patient???s choice. 1g of IM Ceftriaxone administered to the right ventrogluteal region. Patient and family advised to monitor for worsening symptoms, developing fevers, chest pain, and shortness of breath. Patient and family were encouraged to seek further medical attention including 911 if said symptoms were to develop. Patient and family both verbalized understanding of the plan and report they are comfortable with patient remaining home today. ORAL_MEDICATION, EKG, POC_BLOODWORK, GLUCOSE Written by Pierce Betancourt on 2025-05-05
--- OUTSIDE RECORDS SUMMARY | 2025-08-03 11:11 | XMS_ITS | Encounter Summary ---
Author Organization [employer] Address [address] [facility] [address] [place] [address] Care Team Providers Care Collection Systems Technician Name Role Phone Bertha Evans MD Primary Care Provider + Zackery Ohara PharmD Unavailable [phone] Reason for Visit * Reason Comments Med Refill Encounter Details Date Type Department Care Team (Late st Contact Info) Description 11/30/2022 Refill [facility] [address] [place] [address] Bertha Evans MD [address] [place] [address] [phone] Social History Tobacco Use Types Packs/Day Years [...] Department Care Team (Late Contact Info) Description 09/10/2025 3:00 PM EST Medication Management [facility] [address] [place] [address] [phone] Zackery Ohara, PharmD [address] [place] [address] 09/21/2025 11:15 AM EST Office Visit [facility] [address] [place] [address] Bertha Evans MD [address] [place] [address] documented as of this encounter Visit Diagnoses Not on filedocumented in this encounter Care Teams Collection Systems Technician Relationship Specialty Start Date End Date Bertha Evans MD [address] [place] [address] PCP - General Family Medicine 09/10/19 Zackery Ohara, JosesitoD [address] [place] [address] Pharmacist Internal Medicine 02/16/25 [employer] 12/17/23 documented as of this encounter
--- OUTSIDE RECORDS SUMMARY | 2025-08-03 11:11 | XMS_ITS | Continuity of Care Document ---
Author Name Pierce Betancourt Address [address] [place] [phone] Organization Unknown Address [address] [place] [address] Medications No known medications Problems No known problems
--- OUTSIDE RECORDS SUMMARY | 2025-08-03 11:11 | XMS_ITS | Encounter Summary ---
Author Organization [facility] Address [address] [facility] [address] [facility] 7t [place] [address] Care Team Providers Care Chief Relay Tester Name Role Phone Bertha Evans MD Primary Care Provider + Zackery Ohara PharmD Unavailable [phone] Reason for Visit * Reason Comments Med Refill Encounter Details Date Type Department Care Team ([facility] Contact Info) Description 10/10/2022 Refill [facility] [address] [place], [place] [phone] Valerie Woodall DO 230 [place], [place] [phone] Social History Tobacco Use Types Packs/Day Years [...] Upcoming Encounters Date Type Department Care Team ([facility] Contact Info) Description 09/10/2025 3:00 PM EST Medication Management [facility] [address] [place], [place] [phone] Zackery Ohara, PharmD [address] [place] [phone] 09/21/2025 11:15 AM EST Office Visit [facility] [address] [place] [address] [phone] Bertha Evans MD [address] [place] [address] [phone] documented as of this encounter Visit Diagnoses Not on filedocumented in this encounter Care Teams Chief Relay Tester Relationship Specialty Start Date End Date Bertha Evans MD [address] [place] [address] [phone] PCP - General Family Medicine 09/10/19 Zackery Ohara, PharmD [address] [place] [address] [phone] Pharmacist Internal Medicine 02/16/25 [employer] 12/17/23 documented as of this encounter
--- OUTSIDE RECORDS SUMMARY | 2025-08-03 11:11 | XMS_ITS | Encounter Summary ---
Author Organization [employer] Address [address] 7t [place] [address] Care Team Providers Care Director Gift Name Role Phone Bertha Evans MD Primary Care Provider + Zackery Ohara PharmD Unavailable [phone] Encounter Details Date Type Department Care Team ([facility] st Contact Info) Description 12/31/2024 Orders Only [facility] MEDICINE [address] [place], [place] [phone] Graciela Givens MD 230 [place], [place] [phone] Social History Tobacco Use Types Packs/Day Years [...] Description 09/10/2025 3:00 PM EST Medication Management [facility] MEDICINE [address] [place] [phone] Zackery Ohara, PharmD [address] [place] [phone] 09/21/2025 11:15 AM EST Office Visit [facility] MED[facility]INE [address] [place] [address] Bertha Evans MD [address] [place] [address] documented as of this encounter Visit Diagnoses Not on filedocumented in this encounter Additional Health Concerns Assessment Noted Time PHQ-9 Depression Total Score: 9 01/31/20 24 12:15 PM EDT documented as of this encounter Care Teams Director Gift Relationship Specialty Start Date End Date Bertha Evans MD [address] [place] [phone] PCP - General Family Medicine 09/10/19 Zackery Ohara, PharmD [address] [place] [address] 12869 Pharmacist Internal Medicine 02/16/25 [employer] 12/17/23 documented as of this encounter
--- OUTSIDE RECORDS SUMMARY | 2025-08-03 11:11 | XMS_ITS | Encounter Summary ---
Author Organization [employer] Address [address] 7t [place] [address] Care Team Providers Care Thread Inspector Name Role Phone Bertha Evans MD Primary Care Provider + Zackery Ohara PharmD Unavailable [phone] Reason for Visit * Reason Onset Date Comments Nurse Triage 02/04/2025 Encounter Details Date Type Department Care Team ([facility] st Contact Info) Description 02/04/2025 Telephone [facility] MEDICINE 230 [place], [place] [phone] Bertha Evans MD 230 [place], [place] [phone] Nurse Triage Social History Tobacco Use Types Packs/Day Years [...] encounter Miscellaneous Notes * Telephone Encounter - Kathy Rodriguez RN - 02/04/2025 9:54 AM EDT Called pt. Granddaughter. She states that pt. Is not feeling well today [place]. Pt. Had a scheduled 11am appt. With counselor Jamie Rowland? Granddaughter thinks that is his name and wants to have him call them back to [facility] appt. That was supposed to be today at 11am. Will send note to [facility] to see if pt. Has counselor with them. * Telephone Encounter - Claire Toscano - 02/04/2025 9:28 AM EDT Tc from pt granddaughter Jenniffer requesting to r/s appointment. Contact Jenniffer (on hipaa) at [phone] documented in this encounter Plan of Treatment Upcoming Encounters Date Type Department Care Team (Late st Contact Info) Description 09/10/2025 3:00 PM EST Medication Management [address] [address] Zackery Ohara, Xavi [address] [place] [address] 09/21/2025 11:15 AM EST Office Visit [facility] MEDICINE [address] [place] [phone] Bertha Evans MD [address] [place] [address] documented as of this encounter Visit Diagnoses Not on filedocumented in this encounter Additional Health Concerns Assessment Noted Time PHQ-9 Depression Total Score: 9 01/31/20 12:15 PM EDT documented as of this encounter Care Teams Thread Inspector Relationship Specialty Start Date End Date Bertha Evans MD [address] [place] [address] PCP - General Family Medicine 09/10/19 Zackery Ohara PharmD [address] [place] [address] [phone] Pharmacist Internal Medicine 02/16/25 [employer] 12/17/23 documented as of this encounter
--- OUTSIDE RECORDS SUMMARY | 2025-08-03 11:11 | XMS_ITS | Clinical Summary ---
Author Organization [facility] Address [address] [place] [address] Phone Care Team Providers Care Care Transport Nurse Name Role Phone Bertha Telles MD Primary [...] This visit was done in conjunction with [facility] language services superintendent drilling Rain #[phone]. Ms. Angulo was seen today for her [...] FU with ophthalmology prn Acute exacerbation of chroni c obstructive airways disease ([facility] V24, [facility] V28) 10/10/2022 Overview (09/28/2024): Last Assessment & Plan: [...] Sprain of ankle 10/10/2022 Acute renal failure ([facility] V24) 11/06/2020 Chronic kidney disease 11/06/2020 Hyperkalemia 11/06/2020 Hypertension 11/06/2020 Low back pain 11/06/2020 Swelling of structure of eye 05/19/2018 Depressive disorder 03/05/2013 Carpal tunnel syndrome 04/01/2012 Generalized osteoarthritis 04/01/2012 Lumbosacral spondylosis without myelopathy 04/01 Overview (09/28/2024): Last Assessment & Plan: FU with rheumatology Memory impairment 04/01/2012 Vitamin D deficiency 04/01/2012 Arthritis of knee 03/21/2012 Dyslipidemia 03/21/2012 Immunizations Immunization Administration Dates Next Due Influenza trivalent, 0.5mL, [...] states it was >10 years ago in [place] TOTAL KNEE ARTHROPLASTY Bilateral PROCEDURE: HISTORICAL TOTAL KNEE REPLACE OTHER SURGICAL HISTORY PROCEDURE: HISTORY OTHER; COMMENT: Hand surgery Medical History Medical History Date Comments Essential (primary) hypertension DX:Essential (primary) hypertension Mixed hyperlipidemia DX:Mixed hy perlipidemia Type 2 diabetes mellitus wit hout complications (CMS/HCC V24, CMS/HCC V28) DX:Type 2 maritza betes mellitus without complications (HCC) CKD (chronic kidney disease) stage 3, GFR 30-59 ml/min (CMS/HCC V24, CMS/HCC V28) DX:CKD (chronic kidney disea se) stage 3, GFR 30-59 ml/min ([facility]) Mild intermittent asthma, uncomplicated DX:Mild intermittent asthma, [...] Due Date Last Done Comments Zoster Vaccines (1 of 2) 02/25/2019 12/31/2018, 10/21 RSV Immunization Adult Patients (1 - 1-dose 75+ series) 2020 COVID-19 Vaccine (3 - Moderna risk series) 01/26/2021 12/29/2020, 12/02/2020 Cholesterol Screening (Lipid Panel) 10/02/2022 Falls Risk Assessment 10/02/2022 Medicare Annual Wellness Visit 10/02/2022 Social Influencers of Health Screening 10/02/2022 Hypertension/CHF/CAD Annual BMP Blood Test 11/22/2023 Depression Screening 10/21/2024 Influenza Vaccine (#1) 2025 , 07/20/2019, 10/30/2018, Additional history exists DTaP,Tdap,and Td [...] Procedure Name Priority Date/Time Associated Diagnosis Comments [facility] DEXA AXIAL SKELETON Routine 12/03/2019 7:37 AM EST Encounter for screening for osteoporosis from Last 3 Months or Most Recently Relevant to Health Maintenance Results * [facility] DEXA AXIAL SKELETON (12/03/2019 7:37 AM EST) Anatomical Region Laterality Modality Mammography 12/01/2019 10:5 3 AM EST Narrative 12/03/2019 7:37 AM EST [facility] Diagnostic Imaging Department [address] [place] [address] Patient: KRISHNA ANGULO D.O.B./Age/Sex: 1945 74 - F Unit#: [id number] Location/Status: SPDIMAM/REG CLI Mnemonic/Ordering Site: MAMDEXAAX/SPMAM Ordering Physician: BERTHA TELLES MD Michelle Dexa Axial Skeleton - 12/01/19 1140 HISTORY: The patient is a 74-year-old postmenopausal female with clinical concern for metabolic bone disease. FINDINGS: Dual [...] 119% of that of age matched controls. This yields a T-score of 0.2 and a Z-score of 1.3 and there is therefore no evidence of osteoporosis or osteopenia here. IMPRESSION: 1. There is no evidence of osteoporosis or osteopenia. 2. FRAX analysis yields a 10-year probability of major osteoporotic fracture of 4.7% and a 10-year probability of hip fracture of 0.6%. Code 74139 Dictating Physician: LEON ARENAS MD Electronically Signed by: LEON ARENAS MD Dic Date/Time: 12/03/1936 Sign date/Time: 12/03/1937 Procedure Note Leon Arenas - 10/10/2022 [facility] Diagnostic Imaging Department [address] [place] [address] Patient: KRISHNA ANGULO/Age/Sex: 1945 - 74 - F Unit#: [id number] Location/Status: SPDIMAM/REG CLI Mnemonic/Ordering Site: MAMDEXAAX/SPMAM Ordering Physician: BERTHA TELLES MD Michelle Dexa Axial Skeleton - 12/01/19 - 1140 HISTORY: The patient is a 74-year-old [...] density of the femurs bilaterally is 1.027 gm/vo7zorpp is 102% of that of young normals [...] probability of hip fracture of 0.6%. Code 04685 Dictating Physician: LEON ARENAS MD Electronically Signed by: LEON ARENAS MD Dic Date/Time: 12/03/1936 Sign date/Time: 12/03/19736 Bertha Telles MD IMG BI PROCEDURES Final Resu lt from Last 3 Months or Most Recently Relevant to Health Maintenance Insurance [employer] MEDICARE Member Subscriber Plan / Payer (Ef fective 2013-Present) Name:Krishna Angulo Relation to Subscriber:Self Name:Krishna Day Payer ID:[id number] Group ID:[id number] Type:Not on file Address: [place] [address] [place] [phone] Care Teams Care Transport Nurse Relationship Specialty Start Date End Date Bertha Telles MD [address] [facility] [address] [place] [address] PCP - General 11/06/19
--- OUTSIDE RECORDS SUMMARY | 2025-08-03 11:12 | XMS_ITS | Encounter Summary ---
Author Organization [facility] Address [address] [place] [address] Encounters * CPT with Pierce Betancourt at [employer] on 2025-05-08 { reasonForRequest : POC check for UTI results , patientReports :&quo t; , denies :[], chiefComplaints : Abnormal Lab Value, Urinary Symptom s , pmh : COPD/Asthma, Hypertension, Chronic Kidney Disease, Dementia (e.g., Alz heimer's Disease), Diabetes Mellitus Type 2 , allergies : Latex, Penicillins, Mo rphine, Metronidazole, Gabapentin, Quetiapine , otherAllergies :null, painAssess ment : , visitOutcome : , additionalComments : The pt was seen on 05/05 \nPer dr sosa The patient is elderly, and there is no documented renal function on file. Since nitrofurantoin is contraindicated if creatinine clearance is <30 mL/min, the patient will require laboratory testing to evaluate renal function. If creatinine clearance is <30, the patient may require intravenous antibiotics and possibly evaluation in the emergency department\nI spoke to the patients granddaughter. She still has abd pain and discomfort., She does not have fever or chills; she does have some urgency, but has increased her fluids. She does have burning, \nShe does not have any back pain. The urine does have an odor \nShe does take ASA. \nShe was remindedto stop cefpodoxime \n\n\nThe patient was prescribed cefPODOXime 200 mg tablet,-\nEscherichia coli\nSusceptibility profile is consistent with a probable ESBL.\n\nGreater than 100,000 colony forming units per mL\n\nAmoxicillin/Clavulanic Acid S\nAmpicillin R\nCefazolin R\nCefepime S\nCefoxitin S\nCefpodoxime R\nCeftriaxone R\nCiprofloxacin I\nErtapenem S\nGentamicin S\nLevofloxacin I\nMeropenem S\nNitrofurantoin S\nPiperacillin/Tazobactam S\nTetracycline S\nTobramycin S\nTrimethoprim/Sulfa R\n"} Encountered patient seated upright and conscious with family present. Patient is currently being treated for a urinary tract infection, but the culture results require patient to change antibiotics; [facility] This appointment was to confirm renal function in patient via BMP in order to choose the correct medication. When prompted patient reports burning while urinating but denies CVA tenderness and fevers. BMP performed, values uploaded via [employer]. Skin warm, dry and of appropriate color for ethnicity. Head and neck, free of trauma and edema. -JVD. Breath sounds present, clear and equal bilaterally. Abdomen is soft, non-tender and non-distended. Extremities free of trauma and edema. [facility] contacted: reports due to patient's extensive allergy list and impaired renal function, patientis not a candidate for any of the PO antibiotics offered through the [facility] program. [facility] recommendspatient be transported to the hospital for IV antibiotic therapy, to which patient initially declined. This program writer and the assigned provider explained to patient and family that an untreated urinary tract infection could potentially progress into sepsis. Patient was agreeable after explanation, [facility] and making arrangements with [facility] (patients hospital of choice.) 911 was arranged on behalf of patient by this program writer. Patient care was relinquished to Theresa BALLARD with verbal report given, transport to [facility]. IV_(FLUIDS_AND/OR_MEDICATION), MEDICATION_IM, ORAL_MEDICATION, EKG, POC_BLOODWORK, GLUCOSE Written by Pierce Betancourt on 2025-05-08
--- OUTSIDE RECORDS SUMMARY | 2025-08-03 11:12 | XMS_ITS | Encounter Summary ---
Author Organization [employer] Address [address] 7t [place] [address] Care Team Providers Care Photography Professor Name Role Phone Bertha Evans MD Primary Care Provider + Zackery Ohara PharmD Unavailable [phone] Reason for Visit * Reason Onset Date Comments nurse triage 04/19/2025 Encounter Details Date Type Department Care Team ([facility] st Contact Info) Description 04/19/2025 Telephone [facility] MEDICINE [address] [place], [place] [phone] Bertha Evans MD 230 [place], [place] [phone] nurse triage Social History Tobacco Use Types Packs/Day Years [...] encounter Miscellaneous Notes * Telephone Encounter - Ebony Moore RN - 04/19/2025 5:12 PM EDT Triage call with [facility] [id number], Zaria. Pt was called x2 without answer. Left voice message x2 to call [facility] triage line at [phone] at Pt convenience * Telephone Encounter - Tenzin Goodman - 04/19/2025 4:57 PM EDT Symptom: Urine Symptoms Outcome: Schedule an urgent appointment (within 4 hours) or talk to a nurse or provider soon Reason: Pain when passing urine (peeing) The caller accepted this outcome. documented in this encounter Plan of Treatment Upcoming Encounters Date Type Department Care Team (Late st Contact Info) Description 09/10/2025 3:00 PM EST Medication Management [facility] MEDICINE [address] [place] [phone] Zackery Ohara, PharmD [address] [place] [address] 09/21/2025 11:15 AM EST Office Visit [facility] MEDICINE [address] [place] [address] Bertha Evans MD [address] [place] [address] documented as of this encounter Visit Diagnoses Not on filedocumented in this encounter Additional Health Concerns Assessment Noted Time PHQ-9 Depression Total Score: 21 025 1:52 PM EDT documented as of this encounter Care Teams Photography Professor Relationship Specialty Start Date End Date Bertha Evans MD [address] [place] [address] PCP - General Family Medicine 09/10/19 Zackery Ohara, PharmD [address] [place] [address] Pharmacist Internal Medicine 02/16/25 [employer] 12/17/23 documented as of this encounter
--- OUTSIDE RECORDS SUMMARY | 2025-08-03 11:12 | XMS_ITS | Clinical Summary ---
Author Organization [facility] Address [address] [place] [address] Phone Care Team Providers Care Field Scout Name Role Phone Bertha Evans MD Primary Care Provider [phone] Allergies Active Allergy Reactions Criticality Noted Date [...] 11/06/2020 04/27/2021 Atherosclerotic heart diseas e of [place] coronary artery without angina pectoris 11/06/2020 04/27/2021 [...] 11/06/20202020 Type 2 diabetes mellitus without complication 11/06/1904/27/2021 Immunizations Immunization Administration Dates Next Due Influenza (IM) Preservative [...] Health Maintenance Due Date Last Done Comments Diabetes: Hemoglobin A1C 04/24/2025 025, 01/21/2023, 12/14/2022 Diabetes: Ophthalmology Exam 04/24/2025 Diabetes: Pedal Pulse Checked 04/24/2025 Diabetes: Sensory Foot Exam 04/24/2025 Diabetes: Visual Foot Exam 04/24/2025 Influenza Vaccine (#1) 2025 4, 11/01/2023, 06/22/2020, Additional history exists Pneumococcal Vaccine: 50+ Years Completed 06/22/2020, 11/24/2015, 11/24/2015, Additional history exists Pneumococcal Vaccine: Peds (0 to 5 Years) and At-Risk Patients (6 to 49 Years) Discontinued 06/22/2020, 11/24/2015, 11/24/2015, Additional history exists Hepatitis B Vaccine Aged Out No longe r eligible based on patient's age to complete this topic Insurance [facility] [place] [id number] [facility] ([id number]) [place] [phone] Care Teams Field Scout Relationship Specialty Start Date End Date Bertha Evans MD [address] [place] [phone] PCP - General Internal Medicine 04/28/21
--- OUTSIDE RECORDS SUMMARY | 2025-08-03 11:12 | XMS_ITS | Encounter Summary ---
Author Organization [employer] Address [address] 7t [place] [address] Care Team Providers Care Airport Location Manager Name Role Phone Bertha Evans MD Primary Care Provider + Zackery Ohara PharmD Unavailable [phone] Reason for Visit * Reason Comments Med Refill Encounter Details Date Type Department Care Team (Late st Contact Info) Description 09/09/2023 Refill [facility] [address] [place], [place] [phone] Bertha Evans MD [address] [place], [place] [phone] Depressive disorder Social History Tobacco Use Types [...] Description 09/10/2025 3:00 PM EST Medication Management [address] [address] Zackery Ohara, Xavi [address] [place] [address] 09/21/2025 11:15 AM EST Office Visit [facility] MEDICINE [address] [place] [address] Bertha Evans MD [address] [place] [address] documented as of this encounter Visit Diagnoses Diagnosis Depressive disorder Depressive disorder, not elsewhere classified documented in this encounter Additional Health Concerns Assessment Noted Time PHQ-9 Depression Total Score: 8 12/14/19 23 1:38 PM EST documented as of this encounter Care Teams Airport Location Manager Relationship Specialty Start Date End Date Bertha Evans MD [address] [place] [phone] PCP - General Family Medicine 09/10/19 Zackery Ohara, PharmD [address] [place] [address] Pharmacist Internal Medicine 02/16/25 [employer] 12/17/23 documented as of this encounter
--- OUTSIDE RECORDS SUMMARY | 2025-08-03 11:12 | XMS_ITS | Encounter Summary ---
Author Organization [employer] Address [address] 7[address] [place] [address] Care Team Providers Care Extraction Machine Operator Name Role Phone Bertha Evans MD Primary Care Provider + Zackery Ohara PharmD Unavailable [phone] Reason for Visit * Reason Onset Date Comments FYI 01/13/2024 Encounter Details Date Type Department Care Team ([facility] st Contact Info) Description 01/13/2024 Telephone [facility] MEDICINE 230 [place], [place] [phone] Bertha Evans MD 230 [place], [place] [phone] FYI Social History Tobacco Use Types Packs/Day [...] the past 12 months, has t he [employer], gas, oil or water company threatened to [...] EDT Call to Marla Busby, spoke with GYN in regards to below. Reports pt having left arm pain and weakness that is the same as when discharged. No swelling. No increased weakness. Per GYN aware of upcoming appt tomorrow with PCP for HDF post CVA. Advised to seek ER if pain becomes severe, worsening weakness, or worsening confusion. GYN agrees. Sent to PCP and team to follow up PRN prior to upcoming appt. Future Appointments Date Time Provider Department Center 01/14/2024 1:30 PM Bertha Evans MD MEDICINE [facility] 01/31/2024 12:00 PM Bertha Evans MD MEDICINE [facility] * Telephone Encounter - Timo Melgoza - 01/13/2024 9:36 AM EDT Tc from Jhoan the visiting nurse calling to inform the [...] Description 09/10/2025 3:00 PM EST Medication Management [address] [address] Zackery Ohara, Xavi [address] [place] [address] 09/21/2025 11:15 AM EST Office Visit [facility] MEDICINE [address] [place] [address] [phone] Bertha Evans MD [address] [place] [phone] documented as of this encounter Visit Diagnoses Not on filedocumented in this encounter Additional Health Concerns Assessment Noted Time PHQ-9 Depression Total Score: 8 12/14/19 23 1:38 PM EST documented as of this encounter Care Teams Extraction Machine Operator Relationship Specialty Start Date End Date Bertha Evans MD [address] [place] [address] [phone] PCP - General Family Medicine 09/10/19 Zackery Ohara, PharmSeema [address] [place] [address] Pharmacist Internal Medicine 02/16/25 [employer] 12/17/23 documented as of this encounter
--- OUTSIDE RECORDS SUMMARY | 2025-08-03 11:12 | XMS_ITS | Encounter Summary ---
Author Organization [employer] Address [address] [place] [address] Care Team Providers Care Technical Proposal Writer Name Role Phone Bertha Evans MD Primary Care Provider + Zackery Ohara PharmD Unavailable [phone] Reason for Visit * Reason Comments Med Refill Encounter Details Date Type Department Care Team (Late st Contact Info) Description 10/10/2023 Refill [facility] MEDICINE [address] [place], [place] [phone] Bertha Evans MD [address] [place], [place] [phone] Moderate episode of recurrent major depressive disorder [...] 09/10/2025 3:00 PM EST Medication Management [address] [address] Zackery Ohara, JosesitoD [address] [place] [phone] 09/21/2025 11:15 AM EST Office Visit [address] [address] Bertha Evans MD [address] [place] [phone] documented as of this encounter Visit Diagnoses Diagnosis Moderate episode of recurrent major depressive disorder (CMS/HCC) (HCC) Depressive disorder Depressive disorder, not elsewhere classified documented in this encounter Additional Health Concerns Assessment Noted Time PHQ-9 Depression Total Score: 8 12/14/19 23 1:38 PM EST documented as of this encounter Care Teams Technical Proposal Writer Relationship Specialty Start Date End Date Bertha Evans MD [address] [place] [phone] PCP - General Family Medicine 09/10/19 Zackery Ohara, PharmD [address] [place] [phone] Pharmacist Internal Medicine 02/16/25 [employer] 12/17/23 documented as of this encounter
[2025-08-03 13:59] LABS: Anion Gap 16 (12-20); Blood Urea Nitrogen 13 mg/dL (9-16); Carbon Dioxide 26 mmol/L (22-29); Chloride 107 mmol/L (96-108); Estimated Glomerular Filt Rate 35; Potassium 3.6 mmol/L (3.3-5.1); Sodium 145 mmol/L (135-145)
== END 2025-08-03 09:52 | disposition home or self-care (01) ==
LOC: HO.HKASLDS 09:51
PROVIDERS: PCP Internal Medicine; Visit Provider Internal Medicine Nephrology
DX: I12.9 Hypertensive chronic kidney disease with stage 1 through stage 4 chronic kidney disease, or unspecified chronic kidney disease (principal); N18.31 Chronic kidney disease, stage 3a
CPT/HCPCS: 36415; 80051; 82565; 84520

== ENCOUNTER 2025-08-05 14:23 | Outpatient (AMB) | payer OTHER, SELFPAY ==
--- NOTE | 2025-08-05 15:07 | HO.NEPHOV ---
Vital Signs 08/05/25 15:11 Height 5 ft 3 in Weight 196 lb 4 oz BMI 34.8 BP 144/80 H Blood Pressure Location Lt brachial Position Sitting Pulse 87 Pulse Source Pulse Oximeter Pulse Oximetry (%) 95 Oxygen Delivery Method Room Air Intake Visit Reasons: 4mon follow-up w/labs-Conf w/granddaughter Rug Cleaning Supervisor Required: Yes Rug Cleaning Supervisor Language: Infrastructure Engineer Services: Rug Cleaning Supervisor Present Rug Cleaning Supervisor Name: Guanaco [phone] Information Interpreted: clinical only Accompanied by: Other Relationship Allergies metronidazole (From FLAGYL) Allergy (Severe, Verified 08/05/25 15:11) NEUROPSYCH EFFECTS morphine (MORPHINE) Allergy (Unknown, Verified 08/05/25 15:11) AGITATION lisinopril (From Zestril) Adverse Reaction (Mild, Verified 08/05/25 15:11) DIZZY HPI Comments Details: Ms Busby was seen in follow-up of her chronic kidney disease and hypertension. 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 She has had a lot of arthritic issues and had been receiving intra-articular injections. She does not take any nonsteroidal anti-inflammatories. She denies any nausea, vomiting, diarrhea, dizziness, swelling. She has no edema but has been having SOBE. She is having high Na diet. Her blood pressure and blood sugars are well controlled [facility] Medical History Mood disorder CKD (chronic kidney disease) stage 3, GFR 30-59 ml/min Hypertension Surgical History History of neck surgery Social History Household Members: None Do you presently have visiting nurse or other home services: Yes ([employer] services) Alcohol intake: never Comment: 1:1 sitter Patient Tobacco Use Status: Never used Tobacco service: No Review of Systems Const All systems reviewed & are unremarkable except as noted in HPI and below Physical Exam Vital Signs: Last Vital Signs Pulse 87 08/05/25 15:11 BP 144/80 H 08/05/25 15:11 Pulse Ox 95 08/05/25 15:11 Oxygen Delivery Method Room Air 08/05/25 15:11 BMI result Body Mass Index 34.8 Const General: comfortable and no acute distress Orientation/consciousness: patient oriented x3 HEENT Head: Yes normocephalic Mouth: Normal oral and palatal mucosa present Eyes EOM: EOMs intact bilaterally Neck Neck: Yes supple Resp Auscultation: clear to auscultation bilaterally Cardio Jugular venous distension: no JVD Rate: regular rate GI Palpation (GI): Soft to palpation Auscultation: normal bowel sounds General: Yes no CVA tenderness Back/Spine/Pelvis Back: no CVA tenderness Skin General skin exam: no rashes or lesions noted Neuro General: patient oriented x3 and moves all extremities Extrem General: Yes no pedal edema Results Reviewed Nephrology Results: Sodium, (135-145) 145 mmol/L 08/03/25 Potassium, (3.3-5.1) 3.6 mmol/L 08/03/25 Chloride, (96-108) 107 mmol/L 08/03/25 Carbon Dioxide, (22-29) 26 mmol/L 08/03/25 BUN, (9-16) 13 mg/dL 08/03/25 Creatinine, (0.5-1.4) 1.45 mg/dL H 08/03/25 Calcium, (8.4-10.2) 9.7 mg/dL 09/14/24 Phosphorus, (2.7-4.5) 3.3 mg/dL 05/29/24 PTH Intact, (8.7-77.1) 74.9 pg/mL 05/29/24 Urine Creatinine 140.28 mg/dL 05/29/24 Protein/Creatinin Ratio, (<0.2) 0.17 05/29/24 Assessment & Plan Assessment & Plan (1) Hypertension: Code(s): I10 - Essential (primary) hypertension Category: Medical Qualifiers: Hypertension type: primary hypertension Qualified Code(s): I10 - Essential (primary) hypertension (2) CKD (chronic kidney disease) stage 3, GFR 30-59 ml/min: Code(s): N18.30 - Chronic kidney disease, stage 3 unspecified Category: Medical Qualifiers: Chronic kidney disease stage 3 subtype: stage 3a (GFR 45-59) Qualified Code(s): N18.31 - Chronic kidney disease, stage 3a Plan Marla has 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 Her serum creatinine is fairly stable. Her blood pressure is not at goal on current medication regimen. I increased her Isosorbide to 90 mg daily. She avoids nonsteroidal anti-inflammatory medications and try to remain well hydrated. She should lose weight and should be on a low-sodium diet. All questions answered Orders: Orders Blood Urea Nitrogen 2 Months I10 - Essential (primary) hypertension, N18.31 - Chronic kidney disease, stage 3a Electrolytes 2 Months I10 - Essential (primary) hypertension, N18.31 - Chronic kidney disease, stage 3a Creatinine 2 Months I10 - Essential (primary) hypertension, N18.31 - Chronic kidney disease, stage 3a Medications: Changed From isosorbide mononitrate ER 60 mg PO DAILY To isosorbide mononitrate ER 90 mg (1.5 x 60 mg) PO DAILY 135 tabs 4RF 90 days Coding Level of Care Code Est Pt Level 4 (81884) Diagnoses Primary hypertension I10 Hypertension type: primary hypertension Stage 3a chronic kidney disease N18.31 Chronic kidney disease stage 3 subtype: stage 3a (GFR 45-59)
[2025-08-05 15:11] VITALS: BP 144/80; PULSE 87; O2SAT 95; BMI 34.8
--- OUTSIDE RECORDS SUMMARY | 2025-08-05 18:10 | XMS_ITS | Data Portability ---
Author Organization [place] - [facility], Allergy Address [address] [address] Care Team Providers Care Impregnating Helper Name Role Phone SYDNEE TELLES Primary Care Provider Assessment Encounter Date Assessment [...] not heal. [email or web address] Not available 11/08/2024 09:30:09 07/23/2025 07/23/2025 80-year-old female with a history of diabetes, chronic kidney disease, sleep apnea, asthma, memory impairment presents today for evaluation of vestibular disequilibrium though her main concern is follow-up for left-sided otalgia and previously noted scabbing. Partially impacted cerumen was removed today. No scabbing or crusting was noted. The patient is advised to use a couple of drops of oil in the ears to help with itching and to thin the wax buildup. The patient demonstrates mild to moderate hearing loss in the mid frequencies, as confirmed by prior audiometric testing. She is a candidate for hearing aids, and information regarding hearing aids and testing will be provided at checkout. Regarding the dizziness, this appears multifactorial. Unfortunately, she has previously tried physical therapy without much benefit. Follow-up is recommended as needed. [email or web address] Not available 07/26/2025 06:05:10 Plan of Treatment Reminders Order Date Submit Date Provider Last Modified By Organization Details Last Modified Time Details Appointments None recorded. Lab None recorded. Referral None recorded. Procedures None recorded. Surgeries None recorded. Imaging None recorded. Medication Orders mupirocin 2 % topical ointment 2024 [id number] [facility][id number], [address] [place] [address], [place], [address], 16:04:14 Patient TargetsNo targets recorded. Patient Instructions Encounter Date Encounter Id Patient Instructions Last Modified By Organization Details Last Modified Time 07/23/2025 [id number] Use a couple of drops of oil in the ears to help with itching and to thin the wax buildup. Follow-up as needed. Information regarding hearing aids and testing will be provided at checkout. [email or web address] Not available 07/23/2025 15:02:25 Please note: Parts of this encounter note have been generated by AI based on audio conversation. Patient consent was required prior to utilizing this technology. Content review was required prior to finalizing the note. [email or web address] Not available 07/23/2025 15:02:25 Reason for Referral None Reported. Results Created Date Observation Date Name Description Value Unit Range Abnormal Flag Note LastModifiedBy Organization Detail LastModifiedTime 11/30/1909/08/2024 MRI, brain + brain stem, w/o contr ast No observ ation record ed. [email or web address] Not Available 11/21 09:18:36 11/30/1909/07/2024 CT, angio gram, neck, w/wo contr ast No observ ation record ed. [email or web address] Not Available 11/21 09:34:01 07/23/20 audio gram No observ ation record ed. BARCODE Not Available 2024 15:58:10 Result Notes None recorded. Problems Name Problem SNOMED Code Status Onset Date Resolution Date Notes Provider Name and Address Organization Details Recorded Time Amnesia 80470864 Active 2019 Memory loss NOS; Note: Date Diagnosed : 12/17/2019 10:46 AM (R41.3) Not Available [facility] 4 03:12:13 Sensorine ural hearing loss of bilateral ears 782508284 Active 2019 Sensorine ural hearing loss, bilateral ; Note: Date Diagnosed : 12/17/2019 11:13 AM (H90.3) TAI MINOR [place], CCC-A [address] [facility] [address], [place], [address] , [facility] 5 14:33:10 Headache 56302055 Active 2019 Headache; Note: Date Diagnosed : 12/17/2019 1:02 PM (R51) Not Available [facility] 4 03:12:14 Recurrent major depressio n 87484737 Active 2019 Major depressiv e disorder, recurrent , unspecifi ed; Note: Date Diagnosed : 12/17/2019 10:46 AM (F33.9) Not Available [facility] 4 03:12:14 Anxiety disorder 911378278 Active 2019 Anxiety disorder, unspecifi ed; Note: Date Diagnosed : 12/17/2019 10:46 AM (F41.9) Not Available [facility] 4 03:12:14 Obstructi ve sleep apnea syndrome 61464155 Active 2019 Obstructi ve sleep apnea (adult) (pediatri c); Note: Date Diagnosed : 12/17/2019 10:46 AM (G47.33) Not Available [facility] 4 03:12:13 Dizziness and giddiness 881408417 Active 2019 Dizziness and giddiness ; Note: Date Diagnosed : 12/17/2019 11:13 AM (R42) ZAIRE CHOI MD [address] [facility] [address], [place], [address] , [place] 5 05:59:36 Bilateral temporoma ndibular joint pain 80668808758 871268 Active 2019 Arthralgi a of bilateral temporoma ndibular joint; Note: Date Diagnosed : 04/29/2020 12:34 PM (M26.623) Not Available [facility] 4 03:12:13 Localized swelling of head 04227067228 074094 Active 2020 Localized swelling, mass and lump, head; Note: Changed from D37.030 to R22.0 ( 3:42 PM) , Date Diagnosed : 09/20/2021 5:51 PM (D37.030) Not Available [facility] 4 03:12:15 Disorder of external ear 61277327 Active 2024 ZAIRE CHOI MD [address] [place] [address],[place] [address], [place], [address] , [facility] - [facility] 5 16:03:55 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 Procedures Surgical History Date Name Laterality Status Provider Name and Address Organization Details Recorded Time 07/23/2025 Air & Bone Audio - 30974 completed TAI MINOR MA, [facility] [address] [place] [address],[place] [address], [place], [address], [facility] 07/23/2025 14:31:37 07/23/2025 SRT & Tymps - 08119 & 68778 completed TAI MINOR MA, [facility] [address] [place] [address],[place] [address], [place], [address], [place] - [facility] 07/23/2025 14:31:48 Imaging Results None recorded. Procedure Notes None recorded. Medical Equipment None Reported. Allergies Allergen ID Allergen Name Allergen Category Reaction Reaction Severity Criticality Documentation Date Start Date Code Code System Note Provider Name and Address Organization Details Recorded Time 129415 morphine medicatio n other Not available Not available 03/03/2024 7052 RxNorm React ion: unkno wn, unspe cifie d;; Not Available [facility] 4 01:24:54 Medications Name Sig Start Date [...] Not Available Not Available No t Available hydralazi ne 10 mg tablet TAKE 1 TABLET BY MOUTH THREE TIMES DAILY FOR 7 DAYS, THEN TWICE DAILY FOR 7 DAYS, THEN ONCE DAILY FOR 7 DAYS, THEN STOP. active Not Available Not Available No t [...] Not Available Not Available No t Available cefpodoxi me 200 mg tablet TAKE 1 TABLET BY MOUTH EVERY 12 HOURS FOR 5 DAYS 07/20 completed Not Available Not Available Not Available aspirin 325 mg tablet 09/20 completed Medicati on ID: [id number] B rand Name: aspirin Send Method: E-Prescr ibed Sub s Allowed: subs OK Medic ationGen ericName : aspirin Not Available Not Available Not Available B Complex-V itamin B12 tablet active Medicati on ID: [id number] B rand Name: B Complex- Vitamin B12 [...] by mouth 2019 active Medicati on ID: [id number] D uration Value: 30 Brand Name: famotidi ne Send Method: E-Prescr ibed Sub s Allowed: subs OK Medic ationGen ericName : famotidi ne Not Available Not Available Not Available isosorbid e mononitra te ER 30 mg tablet,ex tended release 24 hr 11/06 completed Medicati on ID: [id number] B rand Name: isosorbi de mononitr ate [...] completed Not Available Not Available Not Available amlodipin e 5 mg tablet TAKE 1 TABLET BY MOUTH EVERY DAY active Not Available Not Available No t Available omeprazol e 40 mg capsule,d elayed [...] Not Available Not Available No t Available meclizine 25 mg tablet TAKE 1 TABLET BY MOUTH THREE TIMES DAILY IN THE MORNING, AT NOON, AND AT BEDTIME NEEDED FOR DIZZINES S FOR UP TO 10 DAYS active Not Available Not Available No t Available amlodipin e 10 mg tablet TAKE 1 TABLET BY MOUTH AT BEDTIME active Not Available Not Available No t Available paroxetin e 30 mg tablet 09/20 completed Medicati on ID: [id number] B rand Name: paroxeti ne HCl Send [...] Not Available No t Available mirtazapi ne 45 mg tablet TAKE 1 TABLET BY MOUTH [...] mg tablet 09/20 completed Medicati on ID: [id number] B rand Name: pravasta tin Send Method: [...] ne propionat e 50 mcg/actua tion nasal spray,carolann pension active Medicati on ID: [id number] B rand Name: fluticas one propiona te [...] Ventolin HFA 90 mcg/actua tion aerosol inhaler INHALE 2 PUFFS BY MOUTH EVERY 4 TO 6 HOURS NEEDED active Not Available Not Available No t Available Alcohol Prep Pads TEST BLOOD SUGAR 1-2 TIMES PER DAY active Not Available Not Available No t Available topiramat e 50 mg tablet 2019 active Medicati on ID: [id number] B rand Name: topirama te Send Method: [...] Not Available Not Available No t Available quetiapin e 50 mg tablet TAKE 1 TABLET BY MOUTH AT BEDTIME active Not Available Not Available No t Available Januvia 50 mg tablet TAKE 1 TABLET BY [...] Not Available Not Available No t Available Incruse Ellipta 62.5 mcg/actua tion powder for inhalatio n INHALE 1 PUFF BY MOUTH EVERY DAY AT THE SAME TIME RINSE MOUTH AFTER USING active Not Available Not Available No t Available Breo Ellipta 200 mcg-25 mcg/dose powder for inhalatio n INHALE 1 PUFF BY MOUTH EVERY DAY AT THE SAME TIME RINSE MOUTH AFTER USING active Not Available Not Available No t Available Spiriva Respimat 1.25 mcg/actua tion solution for inhalatio n INHALE 2 PUFFS BY MOUTH EVERY DAY active Not Available Not Available No t Available Vitals Date Recorded Body height Body mass index (BMI) Body weight Provider Name and Address Organization Details Last Updated DateTime 11/06/2024 160.02 cm 33.7 kg/m2 96640.55 g Meera Woods [facility] 11/06/2024 15:56:02 Date Recorded Body height Body mass index (BMI) Body weight Provider Name and Address Organization Details Last Updated DateTime 07/23/2025 160.02 cm 33.7 kg/m2 61549.55 g Ney Ron [facility] 07/23/2025 13:35:05 Social History None recorded. Functional Status None recorded. Mental Status None recorded. Family History Nothing Reported. Medical History No medical history recorded. Gynecological HistoryNo gynecological history recorded. Obstetrics History GPAL:G 0 P 0 0 0 0 Past Encounters Encounter ID Performer Location Encounter Start Date Encounter Closed Date Diagnosis/Indication Diagnosis SNOMED-CT Code Diagnosis ICD10 Code Diagnosis IMO Codes Diagnosis Note [id number] ZAIRE CHOI MD [facility] [address] [address] 11/06/2024 15:40:50 11/06/2024 16:49:37 Disorder of external ear 15067699 H60.12 Benign valeria plasm of parotid gland 23461540 D11.0 [id number] ZAIRE CHOI MD [facility] [address] [address] 07/23/2025 13:31:03 07/23/2025 15:03:10 Sensorineural hearing loss of bilateral ears 223406146 H90.3 Audiologic al evaluation results:Ri ght & Left ears:Flores l sloping to mild to moderate SNHLLeft ear:Normal hearing with excellent word recognitio n. Tympanomet ry:Right Ear:Type As (0.2)Left Ear:Type A Dizziness and giddiness 803106852 R42 86034 Health Concerns Section Related Observation LastModified by Organization Detai ls LastModified Time None Recorded Concern Status LastModified by Organization Details LastModified Time None Recorded Advance Directives Directive None Recorded Payers Insurance Date Sequence Insurance Name Policy Number Policy Angelo Covered Member ID Angelo Member ID Guarantor Name 07/21/2025 1 [employer] - DOS ON OR AFTER 2023 - DUAL ELIGIBLE - RETIREMENT OPTIONS AND ONE CARE (MEDICARE REPLACEMENT/ADV ANTAGE - HMO) Marla Albarran-Col on [id number] Marla Albarran [place] 11/06/2024 2 [place] [employer] Marla Albarran-Col on [id number] Marla Albarran Colon 11/06/2024 1 [employer] - DOS ON OR AFTER 2023 - RETIREMENT OPTIONS AND ONE CARE (MEDICARE REPLACEMENT/ADV ANTAGE - PPO) Marla Albarran-Col on [id number] Marla Albarran Colon 11/06/2024 3 [place] [facility] Marla Albarran-Col on [id number] Marla Albarran Colon Notes Date Note Type [...] further recommendations regarding this. ZAIRE CHOI MD [address] [place] [address], [phone], [facility] - [facility] 11/08/2024 09:31:07 07/23/2025 text/html 80-year-old female with memory impairment referred for vestibular disequilibrium, though her CC is left ear pain and follow up of scabbing. She was seen in the hospitals for severe headache and dizziness and December. She had an MRI with no stroke identified. Her blood pressure was 196/146. The dizziness has been triggered when she moves her head or when she changes position., She has previously been seen in our office for benign parotid nodules. she does have a history of diabetes, chronic kidney disease, Arthritis, sleep apnea, asthma. She has been seen for otalgia in the past, including 2019. She had cerumen removed bilaterally. She was recommended to follow-up with her neurologist. She reports intermittent dizziness that occurs both while sitting and standing. She has a history of high blood pressure and headaches, which were previously evaluated in the emergency department earlier this year. She also has a history of mild to moderate hearing loss in the mid frequencies, as demonstrated by prior audiometric testing. She does not use her CPAP machine due to discomfort but has her bed elevated to alleviate shortness of breath when lying flat. She has previously undergone ear cleaning and treatment for scabbing and itching, which has since improved. Physical therapy was attempted for dizziness but was discontinued due to lack of benefit. PV: Has some trouble with the ear, some bleeding and blockage. 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 Most recently had a CTA for stroke workup which showed heterogenously enhancing nodules within within the right and left parotid gland measuring 0.9 x 1.8 x 0.9 cm on the right and 0.9 x 1.4 x 1.7 cm on the left. She feels that these nodules come and go. Previous CT neck in 2020 showed the nodules up to 1.4 cm. 76-year-old female presents today for evaluation of her neck mass. She had a CT scan showing bilateral parotid nodules. On exam, there is about a 1 cm nodule noted at the tail on the left. I did recommend ultrasound-guided FNA, as it is a little small and deep to biopsy today. We discussed likelihood of benign pathology. She is concerned about her chronic neck pain. CT scan also showed degenerative changes of the cervical spine. I recommended following up with her PCP for further recommendations regarding this. ZAIRE CHOI MD [address] [place] [address], [place], [address], [facility] - [facility] 07/26/2025 06:05:28 OBGyn Episode No OBEpisode recorded.
--- OUTSIDE RECORDS SUMMARY | 2025-08-05 18:10 | XMS_ITS | Data Portability ---
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 I have reviewed and agree with the Assessment and Plan as documented by the Residential Sales Consultant. Patient given the opportunity to ask questions. Our service contacted for an assessment of: a rash As per above, patient has a rash on the arms for several weeks. Is not particularly symptomatic. Denies any new medications, exposures to new environmental toxins, creams, lotions, soaps, etc. No new pets or animals in the house. Per designated broker on the scene, VSS. Non-toxic. Please see [...] We discussed the need to seek care urgently/emergent ly in the setting of any new or worsening serious symptoms Not available 02/19/2024 14:08:55 03/14/2024 03/14/2024 I provided real -time medical direction via phone for this encounter and was available for additional phone-based assistance as needed. I have reviewed and agree with the Assessment and Plan as documented by the Residential Sales Consultant. Patient given the opportunity to ask questions. Our service contacted for an assessment of: pain behind her ear and hearing loss As per above, patient with an approximate 2-3 weeks of a small LN swelling behind right ear. Taking Tyelenol for pain. Denies F/C. Denies ST or upper respiratory tract S&S. No ear pain until 24 hours ago. Per designated broker on the scene, VSS, NT. See upladed pictures. O&P without abnormality. [...] We discussed the need to seek care urgently/emergent ly in the setting of any new or [...] [email or web address] BID (sent rx to the pharmacy). [email or web address] Not available 05/25/2024 17:36:07 05/08/2025 05/08/2025 I provided real -time medical direction via phone for this encounter, and was available for additional phone based assistance as needed. I have reviewed and agree with the Assessment and Plan as documented by the Residential Sales Consultant. We discussed the diagnostic uncertainty of home visits and the risk associated with this. Patient still has foul smelling urine, urgency and abd pain and discomfort. BMP drawn- Creatinine 1.6 with estimated CrCl of 27. Given kidney fuction, medication and allergies- and urine culture results she will require IV antibiotics, all oral antibiotics are resistant and she is not a candidate for Nitrofurantoin. ID notes read she was given Meropenem during last admission. Final report abnormal final 05-07-2025 result 1 Escherichia coli abnormal final 05-07-2025 Susceptibility profile is consistent with a probable ESBL. Multi-Drug Resistant Organism Greater than 100,000 colony forming units per mL antimicrobial susceptibility Comment final 05-07-2025 S = Susceptible; I = Intermediate; R = Resistant P = Positive; N = Negative MICS are expressed in micrograms per mL Antibiotic RSLT#1 RSLT#2 RSLT#3 RSLT#4 Amoxicillin/Clavu lanic Acid S Ampicillin R Cefazolin R Cefepime S Cefoxitin S Cefpodoxime R Ceftriaxone R Ciprofloxacin I Ertapenem S Gentamicin S Levofloxacin I Meropenem S Nitrofurantoin S Piperacillin/Tazo bactam S Tetracycline S Tobramycin S Trimethoprim/Sulf a R We reviewed risks of not seeking IV antibiotics including urosepsis and . Granddaughter was able to translate and explain this to patient who agreed to go to hospital for eval. Report was called ahead to [facility] ED RN. [email or web address] Not available 05/08/2025 13:23:42 Plan of Treatment Reminders Order Date Submit Date Provider Last Modified By Organization Details Last Modified Time Details Appointments None recorded. Lab BMP, serum or plasma 2024 025 [facility], [address] [place] [address], [phone] 16:12:27 urinalysis, dipstick 2024 025 [facility], [address] [place] [address], [phone] 17:13:09 culture, urine 2024 025 [place] [facility] (Centralized Electronic Ordering - All Locations), Patient Can Go To The Location Of Their Choice, [address] 20:05:51 Referral None recorded. Procedures None recorded. Surgeries None recorded. Imaging None recorded. Medication Orders cefpodoxime 200 mg tablet 2024 025 [facility]armacy #[id number], [address] [place], [address], 16:15:12 ceftriaxone 1 gram solution for injection 2024 025 [facility]Pharmacy #[id number], [address] [place], [address], 16:15:11 Jyothi Allergy 180 mg tablet 2023 [facility], [address], [place], [id number], 14:23:27 Augmentin 875 mg-125 mg tablet 2023 [facility]/Pharmacy #[id number], [address] [place], [address], 12:23:43 Patient TargetsNo targets recorded. Patient InstructionsNo instructions recorded. Reason for Referral None Reported. Results Created Date Observation Date Name Description Value Unit Range Abnormal Flag Note LastModifiedBy Organization Detail LastModifiedTime 05/05/2005/07/2025 URINE CULTU RE, UROLO GY BERNARD P urine culture, urology workup Final report abnormal Not Available [facility] ([facility]) [address] [facility], [place], [address], 05/07/2025 12:05:46 05/05/2005/07/2025 URINE CULTU RE, UROLO GY BERNARD P result 1 Escher ichia coli abnormal Susce ptibi lity profi le is consi stent with a proba ble ESBL. Multi -Drug Resis tant Organ ism Great er than 100,0 00 colon y formi ng units per mL Not Available [facility] ([facility]) [address] [facility], [place], [address], 05/07/2025 12:05:46 05/05/2005/07/2025 URINE CULTU RE, UROLO GY BERNARD P antimicrobia l susceptibili ty Commen t S = Susce ptibl e; I = Inter media te; R = Resis tant P = Posit haylie; N = Negat haylie MICS are expre ssed in micro grams per mL Antib iotic RSLT# 1 RSLT# 2 RSLT# 3 RSLT# 4 Amoxi cilli n/Cla vulan ic Acid S Ampic illin R Cefaz antonino R Cefep artur S Cefox itin S Cefpo doxim e R Ceftr iaxon e R Cipro floxa shefali I Ertap enem S Genta micin S Levof loxac in I Merop enem S Nitro furan toin S Piper acill in/Ta zobac parker S Tetra cycli ne S Tobra mycin S Trime thopr im/Machuca lfa R Not Available [facility] ([facility]) [address] [facility], [place], [address], 05/07/2025 12:05:46 Result Notes None recorded. Medical Equipment None Reported. Allergies Allergen ID Allergen Name Allergen Category Reaction Reaction Severity Criticality Documentation Date Start Date Code Code System Note Provider Name and Address Organization Details Recorded Time 51713 gabapenti n medicatio n Not available Not available Not available 05/05/2025 69021 RxNorm Not Available [facility] - production 15:01:52 18187 quetiapin e medicatio n Not available Not available Not available 05/05/2025 98493 RxNorm Not Available [facility] - production 15:01:52 6825 latex environme nt,medica tion Not available Not available Not available 08/18/2024 98149 91 RxNorm Not Available [facility] - production 03:32:53 6826 Product containin g penicilli n (product) medicatio n Not available Not available Not available 08/18/2024 70847 8001 SNOMED does not recal l this aller gy Teri Katz MD [address] [facility],[address], [place], [address] , [facility] [place], [facility] 5 16:15:22 6827 morphine medicatio n Not available Not available Not available 08/18/2024 7052 RxNorm Not Available [facility] - production 03:32:53 6828 metronida zole medicatio n Not available Not available Not available 08/18/2024 6922 RxNorm Not Available [facility] - production 4 03:32:53 Medications Name Sig Start Date Stop Date Status Note LastModified by Organization Details LastModified Time anefrin nasal spray 15ml USE 2 SPRAYS NASALLY EVERY 6 HOURS NEEDED FOR NASAL CONGESTIO N active Not Available Not Available No t Available medbox status USE DIRECTED active Not Available Not Available No t Available multivitami n tablet TAKE 1 TABLET BY MOUTH EVERY [...] BY MOUTH ONE HOUR PRIOR TO THE PROCEDURE . 05/16 completed Not Available Not Available Not Available atorvastati n 40 mg tablet TAKE 1 TABLET BY MOUTH AT BEDTIME active Not Available Not Available No t Available hydralazine 10 mg tablet TAKE 1 TABLET BY MOUTH THREE TIMES DAILY FOR 7 DAYS, THEN TWICE DAILY FOR 7 DAYS, THEN ONCE DAILY FOR 7 DAYS, THEN STOP. active Not Available Not Available No t Available atorvastati n 80 mg tablet TAKE 1 TABLET BY [...] 5 DAYS active Not Available Not Available No t Available ipratropium 0.5 mg-albutero l 3 mg (2.5 mg base)/3 mL nebulizatio n soln Inhale 3 mL 4 times a day by nebulizat ion route. 2022 active Not Available Not Available Not Avai lable ketoconazol e 2 % shampoo APPLY ONCE PER WEEK, LEAVE ON FOR 5 MINUTES THEN WASH OUT active Not Available Not Available No t Available tizanidine 2 mg tablet TAKE 2 TABLETS (4 MG) BY MOUTH IF NEEDED IN THE MORNING AND AT BEDTIME FOR MUSCLE SPASMS. active Not Available Not Available No t Available albuterol sulfate 2.5 mg/3 mL (0.083 %) solution for nebulizatio n USE 1 VIAL VIA NEBULIZER EVERY 4 HOURS NEEDED FOR WHEEZING active Not Available Not Available No t Available trazodone 50 mg tablet TAKE 1 TABLET BY MOUTH AT BEDTIME. PUEDE MANDY 1/2 TABLETA DOS VECES AL LUANNE CUANDO SEA NECESARIO PARA ANSIEDAD active Not Available Not Available No t Available cefpodoxime 200 mg tablet TAKE 1 TABLET BY MOUTH EVERY 12 HOURS FOR 5 DAYS active Not Available Not Available No t Available meloxicam 15 mg tablet TAKE 1 TABLET BY MOUTH EVERY DAY DIRECTED active Not Available Not Available No t Available prednisone 20 mg tablet TAKE 2 TABLETS BY MOUTH DAILY active Not Available Not Available No t Available isosorbide mononitrate ER 30 mg tablet,exte nded release 24 hr TAKE 1 TABLET BY MOUTH EVERY DAY IN THE MORNING FOR 90 DAYS active Not Available Not Available No t Available metoprolol succinate ER 100 mg tablet,exte nded release 24 hr TAKE 1 TABLET BY MOUTH EVERY MORNING active Not Available Not Available No t Available triamcinolo ne acetonide 0.025 % lotion active Not Available Not Available Not Available permethrin 5 % topical cream APPLY BY TOPICAL ROUTE. THOROUGHL Y MASSAGE INTO SKIN FROM HEAD TO SOLES OF FEET ONCE. LEAVE ON FOR 8 TO 14 HOURS, THEN REMOVE BY THOROUGH WASHING DIRECTED active Not Available Not Available No t Available clotrimazol e 1 % vaginal cream INSERT 1 APPLICATO RFUL VAGINALLY EVERY EVENING FOR 14 DAYS active Not Available Not Available No t Available amlodipine 5 mg tablet TAKE 1 TABLET BY MOUTH EVERY DAY active Not Available Not Available No t Available omeprazole 40 mg capsule,del ayed release TAKE 1 CAPSULE BY MOUTH EVERY MORNING active Not Available Not Available No t Available acetaminoph en 500 mg tablet TAKE 1 TABLET BY MOUTH EVERY 6 HOURS NEEDED FOR MILD PAIN active Not Available Not Available No t Available triamcinolo ne acetonide 0.1 % topical cream APPLY TOPICALLY TO ARMS TWICE DAILY NEEDED FOR ITCHING active Not Available Not Available No t Available amoxicillin 500 mg tablet active Not Available Not Available Not Available acetaminoph en ER 650 mg tablet,exte nded release TAKE 1 TABLET BY MOUTH TWICE DAILY active Not Available Not Available No t Available isosorbide mononitrate ER 60 mg tablet,exte nded release 24 hr TAKE 1 TABLET BY MOUTH EVERY MORNING active Not Available Not Available No t Available Vitamins B Complex tablet TAKE 1 TABLET BY MOUTH EVERY EVENING active Not Available Not Available No t Available lorazepam 0.5 mg tablet active Not Available Not Available Not Available triamcinolo ne acetonide 0.025 % topical cream APPLY TO ARMS AND LEGS TWICE DAILY NEEDED FOR ITCHING active Not Available Not Available No t Available Ear Wax Removal Kit 6.5 % drops active Not Available Not Available Not Available meclizine 25 mg tablet TAKE 1 TABLET BY MOUTH THREE TIMES DAILY IN THE MORNING, AT NOON, AND AT BEDTIME NEEDED FOR DIZZINESS FOR UP TO 10 DAYS active Not Available Not Available No t Available amlodipine 10 mg tablet TAKE 1 TABLET BY MOUTH AT BEDTIME active Not Available Not Available No t Available cephalexin 500 mg capsule TAKE 1 CAPSULE BY MOUTH EVERY 12 HOURS active Not Available Not Available No t Available paroxetine 30 mg tablet TAKE 1 TABLET BY MOUTH EVERY MORNING active Not Available Not Available No t Available mirtazapine 30 mg tablet TAKE 1 TABLET BY MOUTH AT BEDTIME active Not Available Not Available No t Available nystatin 100,000 unit/gram topical cream APPLY TOPICALLY TO THE AFFECTED AREA TWICE DAILY NEEDED FOR FLARES active Not Available Not Available No t Available prednisone 50 mg tablet TAKE 1 TABLET BY MOUTH DAILY active Not Available Not Available No t Available lidocaine 5 % topical patch APPLY ONE PATCH UP TO A 12 HOUR PERIOD PER DAY NEEDED FOR PAIN. active Not Available Not Available No t Available ibuprofen 400 mg tablet TAKE 1 TABLET BY MOUTH 3 TIMES A DAY NEEDED FOR FEVER OR PAIN active Not Available Not Available No t Available fluocinolon e 0.01 % topical body oil APPLY TOPICALLY TO THE AFFECTED AREA(S) THREE TIMES DAILY DIRECTED active Not Available Not Available No t Available Advair Diskus 500 mcg-50 mcg/dose powder for inhalation INHALE 1 PUFF BY MOUTH TWICE DAILY IN THE MORNING AND IN THE EVENING RINSE MOUTH AFTER USING. active Not Available Not Available No t Available mirtazapine 45 mg tablet TAKE 1 TABLET BY MOUTH AT BEDTIME active Not Available Not Available No t Available aspirin 81 mg chewable tablet TAKE 1 TABLET BY MOUTH EVERY MORNING active Not Available Not Available No t Available hydrocortis one 2.5 % topical cream APPLY EXTERNALL Y TO THE AFFECTED AREA ON FACE TWICE [...] Not Available Not Available No t Available mupirocin 2 % topical ointment APPLY [...] active Not Available Not Available Not Available paroxetine 40 mg tablet TAKE 1 TABLET BY MOUTH EVERY MORNING active Not Available Not Available No t Available hydrocortis one 2.5 % topical ointment active Not Available Not Available Not Available fluocinonid e 0.05 % topical cream APPLY TOPICALLY TO ARMS TWICE DAILY NEEDED FOR FLARES active Not Available Not Available No t Available losartan 100 mg tablet TAKE 1 TABLET BY MOUTH EVERYDAY AT NOON active Not Available Not Available No t Available fluticasone propionate 50 mcg/actuati on nasal spray,suspe nsion INHALE 2 SPRAY EVERY DAY IN EACH NOSTRIL NEEDED FOR NASAL CONGESTIO N active Not Available Not Available No t Available doxycycline hyclate 100 mg tablet TAKE 1 TABLET BY MOUTH EVERY 12 HOURS active Not Available Not Available No t Available amoxicillin 875 mg-potassiu m clavulanate 125 mg tablet TAKE 1 TABLET BY MOUTH EVERY 12 HOURS FOR 10 DAYS active Not Available Not Available No t Available Ventolin HFA 90 mcg/actuati on aerosol inhaler INHALE 2 PUFFS BY MOUTH EVERY 4 TO 6 HOURS NEEDED active Not Available Not Available No t Available oxycodone 5 mg tablet TAKE 1 [...] Available No t Available duloxetine 30 mg capsule,del ayed release TAKE 1 CAPSULE BY MOUTH EVERY MORNING DO NOT BREAK, CRUSH, DISSOLVE OR CHEW active Not Available Not Available No t Available duloxetine 60 mg capsule,del ayed release TAKE 1 CAPSULE BY MOUTH EVERY MORNING active Not Available Not Available No t Available pregabalin 50 mg capsule TAKE 1 CAPSULE BY MOUTH EVERYDAY AT BEDTIME active Not Available Not Available No t Available quetiapine 50 mg tablet TAKE 1 TABLET BY MOUTH AT BEDTIME active Not Available Not Available No t Available Januvia 50 mg tablet TAKE 1 TABLET BY MOUTH EVERY MORNING active Not Available Not Available No t Available calcium 600 mg (as carbonate)- vitamin D3 10 mcg (400 unit) tablet TAKE [...] Not Available No t Available Allergy Relief (fexofenadi ne) 180 mg tablet TAKE 1 TABLET BY MOUTH TWICE DAILY active Not Available Not Available No t Available Artificial Tears ([id number] omell-glyce rin) 1 %-0.2 %-0.2 % eye drops active Not Available Not Available Not Available TRUEplus Lancets 33 gauge TEST BLOOD SUGAR 1-2 TIMES PER DAY active Not Available Not Available No t Available Incruse Ellipta 62.5 mcg/actuati on powder for inhalation INHALE 1 PUFF BY MOUTH EVERY DAY AT THE SAME TIME RINSE MOUTH AFTER USING active Not Available Not Available No t Available Breo Ellipta 200 mcg-25 mcg/dose powder for inhalation INHALE 1 PUFF BY MOUTH EVERY DAY AT THE SAME TIME RINSE MOUTH AFTER USING active Not Available Not Available No t Available Spiriva Respimat 1.25 mcg/actuati on solution for inhalation INHALE 2 PUFFS BY MOUTH EVERY DAY active Not Available Not Available No t Available Vitals Date Recorded Respiratory rate Heart rate Body weight Oxygen saturation Oxygen saturation in Arterial blood by Pulse oximetry Body temperature Systolic And Diastolic Provider Name and Address Organization Details Last Updated DateTime 4 16 /min 72 /min 51992.9 28 g 96 % 96 % 97.6 [degF] 166/92 mm[Hg] Not Available [facility] production 4 13:35:13 Date Recorded Body temperature Oxygen saturation Oxygen saturation in Arterial blood by Pulse oximetry Respiratory rate Heart rate Systolic And Diastolic Provider Name and Address Organization Details Last Updated DateTime 4 98.6 [degF] 96 % 96 % 16 /min 70 /min 151/72 mm[Hg] Not Available [facility] 4 12:07:12 Date Recorded Oxygen saturation Oxygen saturation in Arterial blood by Pulse oximetry Respiratory rate Heart rate Body temperature Systolic And Diastolic Provider Name and Address Organization Details Last Updated DateTime 5 95 % 95 % 18 /min 77 /min 98.6 [degF] 128/78 mm[Hg] Not Available [facility] 5 16:01:51 Date Recorded Respiratory rate Oxygen saturation Oxygen saturation in Arterial blood by Pulse oximetry Heart rate Body temperature Systolic And Diastolic Provider Name and Address Organization Details Last Updated DateTime 5 18 /min 95 % 95 % 77 /min 98.2 [degF] 138/84 mm[Hg] Not Available [facility] 5 11:53:14 Date Recorded Oxygen saturation Oxygen saturation in Arterial blood by Pulse oximetry Body temperature Heart rate Respiratory rate Systolic And Diastolic Provider Name and Address Organization Details Last Updated DateTime 4 96 % 96 % 97.9 [degF] 120 /min 18 /min 142/86 mm[Hg] Not Available [facility] 4 16:24:28 Social History None recorded. Functional Status None recorded. Mental Status None recorded. Family History Nothing Reported. Medical History No medical history recorded. Gynecological HistoryNo gynecological history recorded. Obstetrics History GPAL:G 0 P 0 0 0 0 Past Encounters Encounter ID Performer Location Encounter Start Date Encounter Closed Date Diagnosis/Indication Diagnosis SNOMED-CT Code Diagnosis ICD10 Code Diagnosis IMO Codes Diagnosis Note [id number] Sylvain Harding MD [facility] [address] [place] [id number] 01/03/2023 13:42:04 01/07/2023 10:59:15 Dyspnea 057840936 R06.00 77yo woman presents with 2 works of shortness of breath. She has been using nebulizers . On more careful questionin g she is not far from her baseline respirator y status. She has poor appetite. She seems to be recovering from a viral syndrome, with possible underlying asthma or COPD. Residential Sales Consultant administer ed another nebulizer which was helpful. [place]. [id number] Alyse Ruvalcaba MD [facility] [address] [place] [id number] 02/27/2023 12:10:28 02/28/2023 15:19:50 Lightheadedness [id number] R42 [id number] Alyse Ruvalcaba MD [facility] [address] [place] [id number] 11/12/2023 15:34:39 11/12/2023 22:20:28 Pain of shoulder region 93730115 M25.519 [id number] Erin Weldon MD [facility] [address] [place] [id number] 02/19/2024 13:35:06 02/20/2024 11:23:48 Generalized rash [id number] R21 [id number] Erin Weldon MD [facility] [address] [place] [id number] 03/14/2024 12:07:05 03/16/2024 17:49:35 Acute left otitis media [id number] H66.92 [id number] DAMION REDMAN MD [facility] [address] [place] [id number] 05/25/2024 16:24:25 05/26/2024 11:09:52 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 Evaluation in the field was performed by my designated broker colleague, as noted above, I provided real-time direction and supervisio n for this visit via telephone. The evaluation revealed 80 yo woman with recent (1 week ago) admission for UTI and sepsis, who has had 1 day or painful and difficult urination. She also has mild RUQ pain. She has had good intake and urination with normal bowel movements. Her hospital records are reviewed; her Cr on 04/27 was 1.3, and the urine culture was not reported.S he appears well on exam with only mild tenderness to the RUQ.Her UA is grossly positive. Impression :UTI Plan:Will send urine for culture, treat at home with 1g IM ceftriaxon e and send additional 5 days of cefpodoxim e 200mg BID to her pharmacy. Dispositio n: We discussed the diagnostic uncertaint y of home visits and the risk associated with this. In this case, the patient and I felt this to be an acceptable and reasonable amount of risk given the benefit of avoiding an ED visit. We discussed the need to seek care urgently/e mergently in the setting of any new or worsening serious symptoms, particular ly changes to consciousn ess, chest pain, dyspnea [id number] FARNAZ GLOVER NP, S [facility] ED Medical [address] [id number] 05/08/2025 11:53:09 05/08/2025 17:25:26 Acute urinary tract infection [id number] N39.0 350661 Health Concerns Section Related Observation LastModified by Organization Detai ls LastModified Time None Recorded Concern Status LastModified by Organization Details LastModified Time None Recorded Advance Directives Directive None Recorded Payers Insurance Date Sequence Insurance Name Policy Number Policy Angelo Covered Member ID Angelo Member ID Guarantor Name 02/20/2024 1 [facility] - DOS PRIOR TO 2023 - DUAL ELIGIBLE (MEDICARE REPLACEMENT/ADV ANTAGE - HMO) Marla Albarran-Colbert n [id number] Marla Albarran-Colon 05/25/2025 1 [facility] - DOS ON OR AFTER 2023 - DUAL ELIGIBLE - DETENTION OPTIONS AND ONE CARE (MEDICARE REPLACEMENT/ADV ANTAGE - HMO) Marla Montenegrogo-Colbert n [id number] Marla Albarran-Colon Notes Date Note Type Note Provider Name and Address Organization Details Recorded Time 02/19/2024 text/html HPI: Call to [facility], spoke with granddaughter Jenniffer who is on HIPAA. Pt having having rash legs, back and buttocks. PT having raised bumps not fluids filled. Pt having itching. Using Rx of ointment. No fever. Per pt rash is not spreading. Per daughter no YENI sx. Pt unable to come into [facility]. Pt agrees to [facility] for exam. ..................... ..................... ..................... ..................... ..................... ..................... ............... [facility] Nurse Triage Notes (Debbie Oliva): Comments: HPI reviewed. ..................... ..................... ..................... ..................... ..................... ..................... ............... Residential Sales Consultant Note From Dung Lal: Pt co dry itchy r abbi on legs/thighs and back. Pt denies oozing bleeding. Pt denies changes to detergent or new meds. Pt denies sob cp edema NVD or pain. Baseline vitals assessed. Rash assessed. Eczema like in appearance. No bleeding or wheeping. Area appears slight dry. Pics uploaded. [facility] contacted and advised lotion multiple times per day and stay hydrated. Pt education on signs indicating the ER. 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 Residential Sales Consultant Allergies: Latex, Penicillin, Morphine, Metronidazole ..................... ..................... ..................... ..................... ..................... ..................... ............... Disposition: Fulfilled Erin Weldon MD [address] [facility],[address], [place], [address], OSWALDO WELLINGTON NATALIE 02/19/2024 14:09:07 03/14/2024 text/html HPI: Resendiz size lump tender to touch behind ear pain increased and area larger over several days. ..................... ..................... ..................... ..................... ..................... ..................... ............... CRC Nurse Triage Notes (Debbie Oliva): Comments: HPI reviewed. No further information needed to process visit--- 03/13 7:30p call to member to [facility], he is at [facility], will reschedule visit to tomorrow 03/14- ..................... ..................... ..................... ..................... ..................... ..................... ............... Residential Sales Consultant Note From Yovany Worley: Pt reports marble [...] are reviewed with her and her family. ..................... ..................... ..................... ..................... ..................... ..................... ............... Disposition: Fulfilled Erin Weldon MD [address] [facility],[address], [place], [address], [employer] 03/14/2024 12:23:57 05/25/2024 text/html HPI: Call returned to [facility] to triage below. Spoke with roderickpeña Jenniffer who is on HIPAA. Reports pt having headache x 4 days. Granddaughter reports having swelling on top of head and on sides. No redness or rash. No vomiting or dizziness. Pt feeling SOB with exertion. Pt had BP of 142/84. No YENI sx or fever. No changes to mental status reported. Advised of disposition , agrees to [facility] for eval as no transportation to [facility] for exam. Reviewed home care advise, ER precautions and reasons to call back. ..................... ..................... ..................... ..................... ..................... ..................... ............... CRC Nurse Triage Notes (Rebekah Palacio): Chief Complaints: Headache PMH: Hypertension, COPD/Asthma, Diabetes, Hypertension Allergies: Latex, Penicillin, Morphine, Metronidazole Other Allergies: Metronidazole, cat hair, dog epithelium, gabapentin, shelfish, quetiapine, lisinopril Comments: CRC RN DID NOT NEED FURTHER INFO ..................... ..................... ..................... ..................... ..................... ..................... ............... Residential Sales Consultant Note From Diana Lancaster: Dispatched for the 79 yo female chief complaint of headache. U/a pt is found seated upright of bed, accompanied by son-in-law x1 who acts as bight maker, pt presents CA&Ox4, patent airway, normal breathing [...] days for further evaluation with same doctor. [facility] consulted and offers 25mg Benadryl, pt self administers her own Benadryl 25mg. [facility] orders Jyothi to pt pharmacy for further tx until doctors appointment. Pt advised of all red flags. End of report. ..................... ..................... ..................... ..................... ..................... ..................... ............... Disposition: Fulfilled DAMION REDMAN MD [address] [place] [address],[address], [place], [address], [employer] 05/25/2024 17:36:16 05/05/2025 text/html HPI: Patient with onset of urinary pain today. Was discharged from Hospital one week ago for ROSS, UTI, tachycardia, sepsis. ..................... ..................... ..................... ..................... ..................... ..................... ............... CRC Nurse Triage Notes (Ayala Sun): Reason For Request: urinary symptoms Chief Complaints: Urinary Symptoms PMH: COPD/Asthma, Hypertension, Chronic Kidney Disease, Dementia (e.g., Alzheimer's Disease), Diabetes Mellitus Type 2 PMH Reviewed at 05/05/2025 - 15: Allergies Reviewed at 05/05/2025 - 15:01 Comments: HPI reviewed Per daughter states urinary burning started again today and was just treated UTI in the hospital. Not currently on any treatment. denies any fever or chills. She is urinating. Hx kidney issues and is on aspirin. Residential Sales Consultant Organization Information for [employer] Legal Name: [employer]. Address: [address] [place] [address], Sawmill Moulder Operator: Greg BRUNER No.: [id number] Residential Sales Consultant POC Test Results from [employer] Urine Dipstick (16:01:41) Urine leukocytes: 500+++ MARQUES Urine nitrites: - NIT Urine urobilinogen: 0.2 3.5 URO Urine protein: 15 + 0.15 PRO Urine pH: 5.0 pH Urine blood: + BLO Urine specific gravity: 1.010 SG Urine ketones: 15 + 1.5 KET Urine bilirubin: - RALPH Urine glucose: - GLU Attachments uploaded as part of this test result can be found under Documents section. ..................... ..................... ..................... ..................... ..................... ..................... ............... Residential Sales Consultant Note From Robert Jensen: Encountered patient seated upright and conscious with family present. Patient reports since earlier this morning she has been experiencing painful burning [...] Head and neck free of trauma and edema.-JVD. Breath sounds present clear and equal bilaterally. Abdomen is soft, non-distended and non-tender; patient reports right upper quadrant pain at rest that does not change with movement or palpation. Extremities are free of trauma and edema. [facility] contacted: urinalysis dip performed, results uploaded via [employer]. Culture obtained, to be delivered to [facility] following appointment. [facility] reports they will treat patient for a suspected urinary tract infection and will be sending a prescription to a pharmacy of patient s choice. 1g of IM Ceftriaxone administered to [...] are comfortable with patient remaining home today. [facility] Lab Orders: urinalysis, dipstick: Performed culture, urine: Performed [facility] Medication Orders: ceftriaxone 1 gram solution for injection: Administered ..................... ..................... ..................... ..................... ..................... ..................... ............... [facility] Consulted: Teri Katz ..................... ..................... ..................... ..................... ..................... ..................... ............... Disposition: Estefania Katz MD [address] [facility],[address], [place], [address], [facility] 05/05/2025 19:00:53 05/08/2025 text/html ROS as noted in the [facility] CRC Nurse Triage Notes (Rebekah Palacio): Reason For Request: POC check for UTI results Chief Complaints: Abnormal Lab Value, Urinary Symptoms PMH: COPD/Asthma, Hypertension, Chronic Kidney Disease, Dementia (e.g., Alzheimer's Disease), Diabetes Mellitus Type 2 PMH Reviewed at 05/07/2025 - :50 Allergies Reviewed at 05/07/2025:50 Comments: The pt was seen on 05/[address] sosa The patient is elderly, and there is no documented renal function on file. Since nitrofurantoin is contraindicated if creatinine clearance is <30 mL/min, the patient will require laboratory testing to evaluate renal function. If creatinine clearance is <30, the patient may require intravenous antibiotics and possibly evaluation in the emergency department I spoke to the patients granddaughter. She still has abd pain and discomfort., She does not have fever or chills; she does have some urgency, but has increased her fluids. She does have burning, She does not have any back pain. The urine does have an odor She does take ASA. She was reminded to stop cefpodoxime The patient was prescribed cefPODOXime 200 mg tablet,- Escherichia coli Susceptibility profile is consistent with a probable ESBL. Greater than 100,000 colony forming units per mL Amoxicillin/Clavulani c Acid S Ampicillin R Cefazolin R Cefepime S Cefoxitin S Cefpodoxime R Ceftriaxone R Ciprofloxacin I Ertapenem S Gentamicin S Levofloxacin I Meropenem S Nitrofurantoin S Piperacillin/Tazobact am S Tetracycline S Tobramycin S Trimethoprim/Sulfa R Residential Sales Consultant Organization Information for [employer] Legal Name: [employer]. Address: [address] [place] [id number], Sawmill [employer] Operator: Greg Salmeron MD CLIA No.: [id number] Residential Sales Consultant POC Test Results from [employer] Chem8+ (10:41:14) Na: 142 mEq/L K: 3.9 mEq/L Cl: 104 mEq/L iCa: 1.09 mmol/L TCO2: 26 mmol/L Glu: 121 mg/dL BUN: 15 mg/dL Crea: 1.6 mg/dL Hct: 36 % Hb: 12.2 g/dL A mmol/L Cartridge Number: [id number] Attachments uploaded as part of this test result can be found under Documents section. ..................... ..................... ..................... ..................... ..................... ..................... ............... Residential Sales Consultant Note From Robert Jensen: Encountered patient seated upright and conscious with family present. Patient is currently being treated for a urinary tract infection, but the culture results require patient to change antibiotics; last seen by the [facility] service on 05/05/25. This appointment was to confirm renal function in patient via BMP in order to choose the correct medication. When prompted patient reports burning while urinating but denies CVA tenderness and fevers. BMP performed, values uploaded via [employer]. Skin warm, dry and of appropriate color for ethnicity. Head and neck, free of trauma and edema. -JVD. Breath sounds present, clear and equal bilaterally. Abdomen is soft, non-tender and non-distended. Extremities free of trauma and edema. [facility] contacted: reports due to patient's extensive allergy list and impaired renal function, patient is not a candidate for any of the PO antibiotics offered through the [facility] program. [facility] recommends patient be transported to the hospital for IV antibiotic therapy, to which patient initially declined. This screenplay writer and the assigned provider explained to patient and family that an untreated urinary tract infection could potentially progress into sepsis. Patient was agreeable after explanation, [facility] aware and making arrangements with [facility] (patients hospital of choice.) 911 was arranged on behalf of patient by this screenplay writer. Patient care was relinquished to Theresa BALLARD with verbal report given, transport to [facility]. ..................... ..................... ..................... ..................... ..................... ..................... ............... [facility] Consulted: Farnaz Glover ..................... ..................... ..................... ..................... ..................... ..................... ............... Disposition: Fulfilled FARNAZ GLOVER NP, [address] [facility],[address], [place], [address], OSWALDO Macdonald [employer] ALLEN 05/08/2025 13:23:56 OBGyn Episode No OBEpisode recorded.
--- OUTSIDE RECORDS SUMMARY | 2025-08-05 18:11 | XMS_ITS | Clinical Summary ---
Author Organization [facility] Address [address] [place] [address] Phone Care Team Providers Care Cps Team Lead Name Role Phone Bertha Evans MD Primary Care Provider [phone] Allergies Active Allergy Reactions Criticality Noted Date [...] 11/06/2020 04/27/2021 Atherosclerotic heart diseas e of [place] coronary artery without angina pectoris 11/06/2020 04/27/2021 [...] patient's age to complete this topic Insurance [facility] [place] [phone] [facility] ([id number]) [place] [phone] Care Teams Cps Team Lead Relationship Specialty Start Date End Date Bertha Evans MD [address] [place] [address] PCP - General Internal Medicine 04/28/21
--- OUTSIDE RECORDS SUMMARY | 2025-08-05 18:11 | XMS_ITS | Clinical Summary ---
Author Organization [address] [facility] Address [address] [place] [address] Phone Care Team Providers Care Metal Caster Name Role Phone Bertha Telles MD Primary [...] This visit was done in conjunction with [facility] language services machine shop instructor Rain #[phone]. Ms. Angulo was seen today for her [...] exacerbation of chroni c obstructive airways disease ([facility] V24, [facility] V28) 10/10/2022 Overview (09/28/2024): Last Assessment & [...] Sprain of ankle 10/10/2022 Acute renal failure ([facility] V24) 11/06/2020 Chronic kidney disease 11/06/2020 Hyperkalemia [...] states it was >10 years ago in [place] TOTAL KNEE ARTHROPLASTY Bilateral PROCEDURE: HISTORICAL TOTAL [...] se) stage 3, GFR 30-59 ml/min ([facility]) Mild intermittent asthma, uncomplicated DX:Mild intermittent asthma, [...] Procedure Name Priority Date/Time Associated Diagnosis Comments [facility] DEXA AXIAL SKELETON Routine 12/03/2019 7:37 AM EST Encounter for screening for osteoporosis from Last 3 Months or Most Recently Relevant to Health Maintenance Results * [facility] DEXA AXIAL SKELETON (12/03/2019 7:37 AM EST) Anatomical Region Laterality Modality Mammography 12/01/2019 10:5 3 AM EST Narrative 12/03/2019 7:[address] [facility] Diagnostic Imaging Department [address] [place] [address] Patient: KRISHNA ANGULO D.O.B./Age/Sex: 1945 74 - F Unit#: [id number] Location/Status: SPDIMAM/REG CLI Mnemonic/Ordering Site: MAMDEXAAX/SPMAM Ordering [...] probability of hip fracture of 0.6%. Code 85021 Dictating Physician: LEON ARENAS MD Electronically Signed by: LEON ARENAS MD Dic Date/Time: 12/03/1936 Sign date/Time: 12/03/1937 Procedure Note Leon Arenas - 10/10/2022 [facility] Diagnostic Imaging Department [address] [place] [address] Patient: KRISHNA ANGULO/Age/Sex: 1945 - 74 - F Unit#: [id number] Location/Status: SPDIMAM/REG CLI Mnemonic/Ordering Site: MAMDEXAAX/SPMAM Ordering [...] density of the femurs bilaterally is 1.027 gm/in0zyjun is 102% of that of young normals [...] probability of hip fracture of 0.6%. Code 90442 Dictating Physician: LEON ARENAS MD Electronically Signed [...] ID:[id number] Group ID:[id number] Type:Not on file Address: [place] [address] [place] [phone] Care Teams Metal Caster Relationship Specialty Start Date End Date Bertha Telles MD [address] [facility] [address] [place] [address] PCP - General 11/06/19
== END 2025-08-05 15:29 | disposition home or self-care (01) ==
LOC: HO.HKAS 14:24
PROVIDERS: PCP Internal Medicine; Visit Provider Internal Medicine Nephrology
DX: I10 Essential (primary) hypertension (principal); N18.31 Chronic kidney disease, stage 3a
CPT/HCPCS: 99214

== ENCOUNTER → 2025-08-05 14:23 | Outpatient (BNVA) | payer OTHER, SELFPAY | PROVIDERS: PCP Internal Medicine; Visit Provider Internal Medicine Nephrology | DX: I10 Essential (primary) hypertension (principal); N18.31 Chronic kidney disease, stage 3a | CPT/HCPCS: 99212 ==

== ENCOUNTER 2025-10-01 15:17 | Outpatient (REF) | payer OTHER, SELFPAY ==
[2025-10-01 17:56] LABS: Anion Gap 15 (12-20); Blood Urea Nitrogen 12 mg/dL (9-16); Carbon Dioxide 28 mmol/L (22-29); Chloride 104 mmol/L (96-108); Estimated Glomerular Filt Rate 31; Potassium 4.2 mmol/L (3.3-5.1); Sodium 143 mmol/L (135-145)
--- OUTSIDE RECORDS SUMMARY | 2025-10-01 20:12 | XMS_ITS | Clinical Summary ---
Author Organization [employer] Address [address] [facility] [address] [place] [address] Care Team Providers Care Hammer Heater Name Role Phone Bertha Evans MD Primary Care Provider + Zackery Ohara PharmD Unavailable [phone] Allergies Active Allergy Reactions Criticality Noted Date [...] from that organization. Respiratory Therapy Supplies (Nebulizer) deviceIndication s:COPD exacerbation ([facility]/HCC) ([facility]) Use nebulizer machine as directed. Please supply [...] without complication, unspecified whether jail insulin use TEST BLOOD SUGAR ONE OR TWO TIMES DAILY 100 each 09/08/20 24 Active Alcohol Swabs (Alcohol Prep) 70 % padsIndications: Type 2 diabetes mellitus without complication, unspecified whether jail insulin use TEST BLOOD SUGAR 1-2 TIMES PER DAY 100 each 09/08/20 24 Active fluocinolone (Roper-Smoothe) 0.01 % external oil APPLY TOPICALLY THREE TIMES DAILY 118 mL 10/16/20 24 Active Aspirin Low Dose 81 MG chewable tabletIndication s:Old myocardial infarction TAKE 1 TABLET BY MOUTH EVERY MORNING (CHEW) 90 tablet 3 11/30/19 25 Active DULoxetine (Cymbalta) [address] capsule TAKE 1 CAPSULE BY MOUTH EVERY MORNING 30 capsule 5 10:12 AM EST 11/30/19 25 Active Umeclidinium [place] (Incruse Ellipta) 62.5 MCG/ACT aerosol powder Inhale 1 Act (62.5 mcg) Once per day. 1 each 5 10:12 AM EST 12/03/19 25 Active Fluticasone Furoate-Vilanter ol (Breo Ellipta) 200-25 MCG/ACT aerosol powder Inhale 1 Inhalation Once per day. 1 each 5 10:12 AM EST 12/03/19 25 Active albuterol (Ventolin HFA) 108 (90 Base) MCG/ACT inhalerIndicatio ns:Moderate asthma, unspecified whether complicated, unspecified whether persistent INHALE 2 PUFFS EVERY 4 TO 6 HOURS NEEDED 18 g 11 01/01/20 25 Active montelukast (Singulair) 10 MG tabletIndication s:Moderate asthma, unspecified whether complicated, unspecified whether persistent Take 1 tablet (10 mg) by mouth at bedtime. 90 tablet 3 01/01/20 25 Active metoprolol succinate XL (Toprol-XL) 100 MG 24 hr tabletIndication s:Primary hypertension TAKE 1 TABLET BY MOUTH EVERY MORNING 90 tablet 3 01/29/20 25 Active meclizine (Antivert) 25 MG tabletIndication s:Dizziness TAKE 1 TABLET BY MOUTH THREE TIMES DAILY IN THE MORNING, AT NOON, AND AT BEDTIME NEEDED FOR DIZZINESS FOR UP TO 10 DAYS 30 tablet 01/30/20 25 Active amLODIPine (Norvasc) 10 MG tabletIndication s:Resistant hypertension Take 1 tablet (10 mg) by mouth Once per day. 30 tablet 11 5 10:12 AM EST 02/17/20 25 026 Active QUEtiapine (SEROquel) 25 MG tablet TAKE 1 TABLET BY MOUTH qhs 30 tablet 11 5 10:12 AM EST 03/05/20 25 Active SITagliptin (Januvia) 50 MG tablet Take 1 tablet (50 mg) by mouth Once per day. 30 tablet 11 5 10:12 AM EST 03/05/20 25 026 Active mirtazapine (Remeron) 45 MG tabletIndication s:Primary insomnia TAKE 1 TABLET BY MOUTH AT BEDTIME 90 tablet 3 5 10:12 AM EST 03/05/20 25 Active omeprazole (PriLOSEC) [address] capsuleIndicatio ns:Gastro-esopha geal reflux disease without esophagitis TAKE 1 CAPSULE BY MOUTH EVERY MORNING 90 capsule 1 04/06/20 25 Active diphenhydrAMINE- acetaminophen (Tylenol PM) 25-500 MG per tablet Take 1 tablet by mouth if needed at bedtime for sleep. Active atorvastatin (Lipitor) 80 MG tablet TAKE 1 TABLET BY MOUTH AT BEDTIME 30 tablet 3 5 10:12 AM EST 06/16/20 25 Active Calcium Carb-Cholecalcif pastor 600-10 MG-MCG tablet TAKE 1 TABLET BY MOUTH TWICE DAILY IN THE MORNING AND IN THE EVENING 180 tablet 1 5 10:12 AM EST 08/13/20 25 Active cloNIDine (Catapres) 0.1 MG tablet TAKE 1 TABLET BY MOUTH AT BEDTIME 30 tablet 2 5 10:12 AM EST 08/13/20 25 Active Multiple Vitamin (Multivitamin) tabletIndication s:Stage 3 chronic kidney disease, unspecified whether stage 3a or 3b CKD (CMS/HCC) (HCC),Muscle wasting and atrophy, not elsewhere classified, unspecified lower leg TAKE 1 TABLET BY MOUTH EVERY EVENING WITH FOOD 30 tablet 5 5 10:12 AM EST 08/13/20 25 Active losartan (Cozaar) 100 MG tablet TAKE 1 TABLET BY MOUTH EVERYDAY AT NOON 30 tablet 11 5 10:12 AM EST 08/30/20 25 Active liver oil-zinc oxide (Desitin) 40 % ointment Apply topically if needed for irritation. 56 g 5 2:40 PM EST 09/21/20 25 Active clotrimazole (Lotrimin) 1 % cream Apply topically 2 times daily for 28 days. 30 g 5 5 2:40 PM EST 09/21/20 25 025 Active isosorbide mononitrate ER (Imdur) 60 MG 24 hr tablet Take 90 mg by mouth Once per day. Do not crush or chew. Active isosorbide mononitrate ER (Imdur) 60 MG 24 hr tablet Take 1 tablet (60 mg) by mouth Once per day. Take 1 tablet by mouth every morning 90 tablet 1 04/20/20 25 025 Discontinued clotrimazole (Lotrimin) 1 % cream Apply topically 2 times daily for 28 days. 30 g 5 09/21/20 25 025 Discontinued fluconazole (Diflucan) 150 MG tablet Take 1 tablet (150 mg) by mouth 1 (one) time for 1 dose. 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 Atherosclerotic heart diseas e of [place] coronary artery without angina pectoris 11/06/2020 Assessment & Plan (05/20/2023 1:13 PM EDT): current symptoms do not seem to be related to CAD, however, pt instructed to call 911 or ring the [place] watch PRN chest pain FU with cardiology [...] now, will work on continuing with previous COOLER TENDER and alternate with granddaughter once she moves out. Will talk with [facility] CM re home visit to evaluate [...] to reach out for safety to her [facility], latter-day community, or therapist Jamie Will discuss w [...] legs syndrome 11/06/2020 Type 2 diabetes mellitus with hyperglycemia 10/21 Assessment & Plan (05/13/2025 1:59 PM EDT): [...] kidney disease) stage 3, GFR 30-59 ml/min ([facility]) 04/01/2012 Assessment & Plan (02/16/2025 2:26 PM EDT): GFR remained stable, advised tight control hypertension and diabetes Continue losartan and check BMP Continue to follow-up with technical system analyst Assessment & Plan (09/14/2024 5:14 PM EST): From HTN/DM Advised to increase water intake, take her meds Repeat BMP Vitamin D deficiency 04/01/2012 Carpal tunnel syndrome 04/01/2012 Cervical spondylosis without myelopathy 04/01/20 12 Assessment & Plan (01/14/2024 2:34 PM EDT): [...] her may be needed. Continue [facility]NA and COOLER TENDER services. Dyslipidemia 03/21/2012 HTN (hypertension) 03/21/2012 Assessment [...] there is knee orthosis as recommended by [facility] clinical appeals rn is appropriate device for patient, she did [...] exacerbation of chroni c obstructive airways disease ([facility]/HCC) 10/10/2022 03/05/2025 Assessment & Plan (07/24/2023 4:36 [...] to PO Dyspnea on exertion 10/10/2022 10/13/20 24 Headache disorder 10/10/2022 10/13/2024 Lower abdominal pain 10/10/2022 024 Peripheral vascular disease, unspecified 11/06/2020 01/10/2024 Depressive disorder 03/05/2013 09/14/20 24 Encounters * This document contains information received from the source organization and may not represent a complete record from that organization. Date Type Department Care Team Description 10/01/2025 Orders Only GENERIC EXTERNAL DATA DEPARTMENT Provider, Generic External Data 09/21/2025 11:15 AM EST Office Visit [facility] [address] [place] [phone] Bertha Evans MD Type 2 diabetes mellitus with hyperglycemia, without long-term current use of insulin (HCC) (Primary Dx); Type 2 diabetes mellitus without complication, without long-term current use of insulin (HCC); Candidiasis of perineum; Candidiasis of breast; Encounter for immunization 09/21/2025 Travel 09/20/[address] [address] Bertha Evans MD Chart Prep 09/07/2025 Patient Outreach [address] [address] Bertha Evans MD Pre-visit Planning (SDOH screening completed on 04/29/2025) 09/04/2025 Travel 08/27/[address] [phone] Bertha Evans MD 08/12/2025 Refill [facility] [address] [place], [place] [phone] Bertha Evans MD Stage 3 chronic kidney disease, unspecified whether stage 3a or 3b CKD (CMS/HCC) (HCC); Muscle wasting and atrophy, not elsewhere classified, unspecified lower leg 08/10/[address] [address] Bertha Evans MD Verbal orders 08/03/2025 Orders Only GENERIC EXTERNAL DATA DEPARTMENT Provider, Generic External Data 07/13/[address] [phone] Glenda Solis ANP chart prep 07/09/[address] [address] Bertha Evans MD Appointment Request from Last 3 Months Immunizations Immunization Administration Dates Next Due Influenza High-dose Quadriva lent Preservative Free 08/06/2022,07/13/2021,09/09/2020 Influenza injectable quadriv alent IIV4 with preservative 11/14/2015 Influenza injectable quadriv alent preservative free 11/01/2023,07/20/2019,10/30/2018 Influenza, High Dose Seasona l, Preservative Free 09/21/2025,09/14/2024,07/10/2017 Influenza, IIV3, injectable 06/22/2020 Influenza, Split (incl. lisa fied surface antigen) 07/03/2013 Influenza, seasonal, injecta ble, preservative free 07/30/2016 Moderna Covid-19 Vaccine 12+ 12/29/2020,12/02/19 21 PPD Test 11/12/2020,11/12/2020 Pfizer Covid-19 Vaccine 12+ 09/21/2025, 3 Pneumococcal Conjugate PCV 13 06/22/2020, 016,11/24/2015 Pneumococcal [...] Date Recorded Patient Health Questionnaire-9 Score 8 09/21/2025 Patient Health Questionnaire-9 Score 8 09/21/2025 Last PHQ-9: Questionnaire Data Not on file 1 11/22/2024 Housing Stability Answer Date Recorded What is [...] Answer Date Recorded Patient Health Questionnaire-2 Score 1 09/21/2025 Internet Access Answer Date Recorded Internet Access [...] Sign Reading Time Taken Comments Blood Pressure 144/80 09/21/2025 11:28 AM EST Pulse 90 09/21/2025 11:28 AM EST Temperature 36.6 C (97.8 F) 09/21/2025 11:28 AM EST Respiratory Rate 20 09/21/2025 11:28 AM EST Oxygen Saturation 95% 09/21/2025 11:28 AM EST Inhaled Oxygen Concentration - - Weight 92.1 kg (203 lb) 09/21/2025 11:28 AM EST Height 160 cm (5' 3 ) 09/21/2025 11:28 AM EST Body Mass Index 35.96 09/21/2025 11:28 AM EST Plan of Treatment Upcoming Encounters Date Type Department Care Team (Late st Contact Info) Description 10/11/2025 2:30 PM EST Medication Management [facility] [address] [place] [phone] Zackery Ohara, PharmD [address] [place] [address] 12/16/2025 10:30 AM EST Office Visit [facility] [address] [place] [phone] Bertha Evans MD [address] [place] [phone] Health Maintenance Due Date Last Done Comments Eye Exam 1955 RSV Patients and Patients Aged 60 years or older (1 - 1-dose 75+ series) 2020 Lipid Panel 05/20/2024 05/20/2023, 02/18, 08/08/2021, Additional history exists Diabetes: Urine Protein Screening 11/22/2024 11/22/2023, 05/20/2023, 03/06/2022, Additional history exists DTaP/Tdap/Td Vaccines (2 - Td or Tdap) 11/14/2025 11/14/2015, 05/14/2002 Diabetes: Hemoglobin A1C 12/20/2025 025, 05/13/2025, 01/22/2025, Additional history exists Diabetes: Foot Exam 01/27/2026 01/27/2025, 01/27/2025, 01/27/2025, Additional history exists COVID-19 Vaccine ( season) 2026 09/21/2025, 08/30/2023, 08/20/2022, Additional history exists SDOH Screening 04/29/2026 04/29/2025 Alcohol/Substance Use Screening 05/13/2026 05/13/2025 Depression Screening 09/21/2026 09/21/2025, 09/21/20 25 Tobacco Screening 09/21/2026 09/21/2025 Zoster Vaccines Completed 12/31/2018, 12/19, 10/30/2018, Additional history exists Pneumococcal Vaccine: 50+ Years Completed 06/22/2020, 11/24/2015, 11/24/2015, Additional history exists Influenza Vaccine Completed 09/21/2025, , 11/01/2023, Additional history exists HIB Vaccines Aged Out [...] on patient's age to complete this topic Goals Goal Patient Goal Type Associated Problems Recent Progress Patient-Stated? Author Help patients manage their type 2 diabetes Care Plan Help patients manage their type 2 diabetes No Marissa Childs Weekly blood pressure task Care Plan Weekly blood pressure task No Marissa Childs Help patients manage their type 2 diabetes Care Plan Help patients manage their type 2 diabetes No Marissa Childs Patient has chronic kidney disease Care Plan Patient has chronic kidney disease No Marissa Childs Weekly blood pressure task Care Plan Weekly blood pressure task No Marissa Childs Patient has chronic kidney disease Care Plan Patient has chronic kidney disease No Marissa Childs Weekly blood pressure task Care Plan Weekly blood pressure task No Zackery Ohara PharmD Weekly blood pressure task Care Plan Weekly blood pressure task No Zackery Ohara PharmD Patient has chronic kidney disease Care Plan Patient has chronic kidney disease No Zackery Ohara PharmD Patient has chronic kidney disease Care Plan Patient has chronic kidney disease No Zackery Ohara PharmD Weekly blood pressure task Care Plan Weekly blood pressure task No Katherine Ashby MA Weekly blood pressure task Care Plan Weekly blood pressure task No Katherine Ashby MA Patient has chronic kidney disease Care Plan Patient has chronic kidney disease No Katherine Ashby MA Patient has chronic kidney disease Care Plan Patient has chronic kidney disease No Katherine Ashby MA Weekly blood pressure task Care Plan Weekly blood pressure task No Isaiah-Re yes, OSWALDO Fallon Weekly blood pressure task Care Plan Weekly blood pressure task No Isaiah-Rox yes, OSWALDO Fallon Patient has chronic kidney disease Care Plan Patient has chronic kidney disease No Isaiah-Re yes, OSWALDO Fallon Patient has chronic kidney disease Care Plan Patient has chronic kidney disease No Isaiah-Re yes, OSWALDO Fallon Procedures Procedure Name Priority Date/Time Associated Diagnosis Comments CREATININE, SERUM Routine 10/01/2025 3:2 2 PM EST UREA NITROGEN (BUN) Routine 10/01/2025 3 :22 PM EST ELECTROLYTE PANEL Routine 10/01/2025 3:2 2 PM EST POCT GLYCATED HEMOGLOBIN, TOTAL Routine 09/21/2025 11:31 AM EST Type 2 diabetes mellitus without complication, without long-term current use of insulin ([facility]) POCT GLUCOSE Routine 09/21/2025 11:30 AM EST Type 2 diabetes mellitus without complication, without long-term current use of insulin ([facility]) CREATININE, SERUM Routine 08/03/2025 9:5 7 AM EDT UREA NITROGEN (BUN) Routine 08/03/2025 9 :57 AM EDT ELECTROLYTE PANEL Routine 08/03/2025 9:5 7 AM EDT AMB REFERRAL TO ENT Routine 07/23/2025 Dizziness Vestibular disequilibrium, bilateral PROTEIN CREATININE RATIO, URINE Routine 11/22/2023 11:45 AM EST LIPID PANEL WITH REFLEX TO DIRECT LDL Routine 05/20/2023 11:37 AM EDT Type 2 diabetes mellitus without complication, unspecified whether terminal clerk insulin use ([facility]) from Last 3 Months or Most Recently Relevant to Health Maintenance Results * (ABNORMAL) Creatinine, Serum (10/01/2025 3:22 PM EST) Only the most recent of2 resultswithin the time period is included. Creatinine, Serum 1.58(H) 0.5 - 1.4 mg/dL [facility] Estimated Glomerular Filt Rate 31 [facility] Comment:Chronic Kidney Disea se: Estimated GFR < 60 mL/min/[id number] Kidney Disease: Estimated GFR < 15 mL/min/1.73m2 10/01/2025 3:22 PM EST 10/01/2025 5:30 PM EST us Generic External Data Provider LAB BLOOD ORDERAB LES Final Result Performing Organization Address [facility]/ZIP Co de Phone Number [facility] [address] [place] [phone] * BUN (Blood Urea Nitrogen) (10/01/2025 3:22 PM EST) Only the most recent of2 resultswithin the time period is included. Urea Nitrogen (BUN) 12 9 - 16 mg/dL [facility] 10/01/2025 3:22 PM EST 10/01/2025 5:30 PM EST Generic External Data Provider LAB BLOOD ORDERAB LES Final Result Performing Organization Address [facility] Phone Number [facility] [address] [place] [phone] * Electrolyte Panel (10/01/2025 3:22 PM EST) Only the most recent of2 resultswithin the time period is included. Sodium 143 135 - 145 mmol/L [facility] Potassium 4.2 3.3 - 5.1 mmol/L [facility] Chloride 104 96 - 108 mmol/L [facility] Carbon Dioxide 28 22 - 29 mmol/L [facility] Anion Gap 15 12 - 20 [facility] 10/01/2025 3:22 PM EST 10/01/2025 5:30 PM EST Generic External Data Provider LAB BLOOD ORDERAB LES Final Result Performing Organization Address [facility] Co de Phone Number [facility] [address] [place] [phone] * (ABNORMAL) POCT Hgb A1c (09/21/2025 11:31 AM EST) Hemoglobin A1C 7.0(A) 4.0 - 5.7 % Blood 09/21/2025 11:3 1 AM EST Bertha Evans MD POINT OF CARE TEST ENTER /EDIT ORDERABLES Final Result * (ABNORMAL) POCT Glucose (09/21/2025 11:30 AM EST) Glucose Blood, POC 213(A) 60 - 200 mg/dL Blood Capillary blood specimen / Unknown 09/21/2025 11:30 AM EST Bertha Evans MD POINT OF CARE TEST ENTER /EDIT ORDERABLES Final Result * Referral to ENT (07/23/2025) Graciela Aguayo MD OUTPATIENT REFERRAL O RDERABLES Final Result * Protein Creatinine Ratio, Urine (11/22/2023 11:45 AM EST) Creatinine, Urine 100.04 mg/dL [facility] Protein, Total, Random Urine 12 <12 mg/dL [facility] Protein/Creati nine Ratio, Ur 0.12 <0.2 [facility] Comment:The spot urine prote in:creatinine ratio may increase to 0.3during normal . 11/22/2023 11:4 5 AM EST 11/22/2023 1:19 PM EST Generic External Data Provider LAB URINE ORDERAB LES Final Result [facility] [address] [place] [phone] * Lipid Panel with Reflex to Direct LDL (05/20/2023 11:37 AM EDT) Triglycerides 290 mg/dL [facility] Comment:Desirable Triglyceri de: less than 150 mg/dLBorderline High Triglyceride 150-199 mg/dLHigh Triglyceride: 200-499 mg/dLVery High Triglyceride: greater than or equal to 5OO mg/dL Cholesterol 206 mg/dL [facility] Comment:Desirable Cholestero l: less than 200 mg/dLBorderline High Cholesterol: 200-239 mg/dLHigh Cholesterol: greater than 239 mg/dL LDL Cholesterol Calculated 99 mg/dl [facility] Comment:Desirable LDL: less than 100 mg/dLNear Optimal/Above Optimal LDL: 110- 129 mg/dLBorderline High LDL: 130-159 mg/dLHigh LDL: 160-189 mg/dLVery High LDL: greater than or equal to 190 mg/dL HDL Cholesterol 49 mg/dL [facility] Comment:Desirable HDL: great er than 40 mg/dL Note: This HDL assay may give artificially low results in patients with liver disease. Blood 05/20/2023 11:3 7 AM EDT 05/20/2023 1:24 PM EDT us Bertha Evans MD LAB BLOOD ORDERABLES Fin al Result [facility] [address] [place] [phone] from Last 3 Months or Most Recently Relevant to Health Maintenance Additional Health Concerns Active Problems Noted Date Diagnosed Date Help patients manage their type 2 diabetes 09/07 Weekly blood pressure task 09/07/2025 Help patients manage their type 2 diabetes 09/07 Patient has chronic kidney disease 09/07/2025 Weekly blood pressure task 09/07/2025 Patient has chronic kidney disease 09/07/2025 Weekly blood pressure task 09/10/2025 Weekly blood pressure task 09/10/2025 Patient has chronic kidney disease 09/10/2025 Patient has chronic kidney disease 09/10/2025 Weekly blood pressure task 09/20/2025 Weekly blood pressure task 09/20/2025 Patient has chronic kidney disease 09/20/2025 Patient has chronic kidney disease 09/20/2025 Weekly blood pressure task 09/21/2025 Weekly blood pressure task 09/21/2025 Patient has chronic kidney disease 09/21/2025 Patient has chronic kidney disease 09/21/2025 [facility] (HMO D-SNP) Care Teams Hammer Heater Relationship Specialty Start Date End Date Bertha Evans MD [address] [place] [address] PCP - General Family Medicine 09/10/19 Zackery Ohara, JosesitoD [address] [place] [address] Pharmacist Internal Medicine 02/16/25 [employer] 12/17/23
--- OUTSIDE RECORDS SUMMARY | 2025-10-01 20:12 | XMS_ITS | Encounter Summary ---
Author Organization [employer] Address [address] [place] [address] Care Team Providers Care Infrastructure Engineer Name Role Phone Bertha Evans MD Primary Care Provider + Zackery Ohara PharmD Unavailable [phone] Reason for Visit * Reason Onset Date Comments Durable Medical Equipment 12/18/2022 Encounter Details Date Type Department Care Team (Late st Contact Info) Description 12/18/2022 Telephone [facility] [address], [place] [phone] Bertha Evans MD [address] [place], [place] [phone] Durable Medical Equipment Social History Tobacco Use [...] If any other calls please transfer to [phone].Thank you. * Telephone Encounter - Francisco Kunz - 12/18/2022 3:06 PM EST [place] [facility] requesting a status on pts CPAP Machine. Please contact [facility] at [phone] #[phone] documented in this encounter Plan of Treatment Upcoming Encounters Date Type Department Care Team (Late st Contact Info) Description 10/11/2025 2:30 PM EST Medication Management [address] [address] Zackery Ohara, PharmD [address] [place] [phone] 12/16/2025 10:30 AM EST Office Visit [facility] [address] [place] [phone] Bertha Evans MD [address] [place] [phone] documented as of this encounter Visit Diagnoses Not on filedocumented in this encounter Additional Health Concerns Assessment Noted Time PHQ-9 Depression Total Score: 8 12/14/19 23 1:38 PM EST documented as of this encounter Care Teams Infrastructure Engineer Relationship Specialty Start Date End Date Bertha Evans MD [address] [place] [phone] PCP - General Family Medicine 09/10/19 Zackery Ohara, PharmD [address] [place] [phone] Pharmacist Internal Medicine 02/16/25 [employer] 12/17/23 documented as of this encounter
--- OUTSIDE RECORDS SUMMARY | 2025-10-01 20:13 | XMS_ITS | Encounter Summary ---
Author Organization [employer] [facility] Address [address] [facility] 7t [place] [address] Care Team Providers Care Carton Filler Name Role Phone Bertha Evans MD Primary Care Provider + Zackery Ohara PharmD Unavailable [phone] Reason for Visit * Reason Comments Med Refill Encounter Details Date Type Department Care Team ([facility] Contact Info) Description 10/10/2022 Refill [facility] [address] [place], [place] [phone] Valerie Woodall DO [address] [place], [place] [phone] Social History Tobacco Use Types Packs/Day Years [...] Upcoming Encounters Date Type Department Care Team ([facility] Contact Info) Description 10/11/2025 2:30 PM EST Medication Management [facility] [address] [place], [place] [phone] Zackery Ohara, PharmD [address] [place] [phone] 12/16/2025 10:30 AM EST Office Visit [facility] [address] [place] [address] [phone] Bertha Evans MD [address] [place] [address] [phone] documented as of this encounter Visit Diagnoses Not on filedocumented in this encounter Care Teams Carton Filler Relationship Specialty Start Date End Date Bertha Evans MD [address] [place] [address] [phone] PCP - General Family Medicine 09/10/19 Zackery Ohara, PharmD [address] [place] [address] [phone] Pharmacist Internal Medicine 02/16/25 [employer] 12/17/23 documented as of this encounter
--- OUTSIDE RECORDS SUMMARY | 2025-10-01 20:13 | XMS_ITS | Encounter Summary ---
Author Organization [employer] Address [address] [facility] [address] [facility] [address] 7t [place] [address] Care Team Providers Care Firefighter Name Role Phone Bertha Evans MD Primary Care Provider + Zackery Ohara PharmD Unavailable [phone] Reason for Visit * Reason Onset Date Comments Nurse Triage 02/04/2025 Encounter Details Date Type Department Care Team ([facility] st Contact Info) Description 02/04/2025 Telephone [facility] 230 [place], [place] [phone] Bertha Evans MD 230 [place], [place] [phone] Nurse Triage Social History Tobacco Use Types [...] well today and has [place] nurse [place] at 1130am this morning. Pt. Had a scheduled 11am appt. With counselor Jamie Rowland? Granddaughter thinks that is his name and wants to have him call them back to [facility] appt. That was supposed to be today at 11am. Will send note to [facility] to see if pt. Has counselor with them. * Telephone Encounter - Claire Toscano - 02/04/2025 9:28 AM EDT Tc from pt granddaughter Jenniffer requesting to r/s appointment. Contact Jenniffer (on hipaa) at [phone] documented in this encounter Plan of Treatment Upcoming Encounters Date Type Department Care Team (Late st Contact Info) Description 10/11/2025 2:30 PM EST Medication Management [address] [phone] Zackery Ohara, Xavi [address] [place] [phone] 12/16/2025 10:30 AM EST Office Visit [facility] [address] [place] [phone] Bertha Evans MD [address] [place] [phone] documented as of this encounter Visit Diagnoses Not on filedocumented in this encounter Additional Health Concerns Assessment Noted Time PHQ-9 Depression Total Score: 9 01/31/20 12:15 PM EDT documented as of this encounter Care Teams Firefighter Relationship Specialty Start Date End Date Bertha Evans MD [address] [place] [phone] PCP - General Family Medicine 09/10/19 Zackery Ohara PharmD [address] [place] [phone] Pharmacist Internal Medicine 02/16/25 [employer] 12/17/23 documented as of this encounter
--- OUTSIDE RECORDS SUMMARY | 2025-10-01 20:13 | XMS_ITS | Encounter Summary ---
Author Organization [employer] Address [address] [facility] [address] 7t [place] [address] Care Team Providers Care Cocoa Bean Cleaner Name Role Phone Bertha Evans MD Primary Care Provider + Zackery Ohara PharmD Unavailable [phone] Encounter Details Date Type Department Care Team ([facility] Contact Info) Description 10/01/2025 Orders Only GENERIC EXTERNAL DATA [...] Description 10/11/2025 2:30 PM EST Medication Management [address] [address] Zackery Ohara, PharmD [address] [place] [address] 12/16/2025 10:30 AM EST Office Visit [address] [address] Bertha Evans MD [address] [place] [phone] documented as of this encounter Goals Goal Patient Goal Type Associated Problems Recent Progress Patient-Stated? Author Help patients manage their type 2 diabetes Care Plan Help patients manage their type 2 diabetes Marissa King Weekly blood pressure task Care Plan Weekly blood pressure task No Marissa Childs Help patients manage their type 2 diabetes Care Plan Help patients manage their type 2 diabetes Marissa King Patient has chronic kidney disease Care Plan Patient has chronic kidney disease Marissa King Weekly blood pressure task Care Plan Weekly blood pressure task Marissa King Patient has chronic kidney disease Care Plan Patient has chronic kidney disease Marissa King Weekly blood pressure task Care Plan Weekly [...] pressure task No Isaiah-Re yes, OSWALDO Fallon Patient has chronic kidney disease Care Plan Patient has chronic kidney disease No Isaiah-Re yes, OSWALDO Fallon Patient has chronic kidney disease Care Plan Patient has chronic kidney disease No Isaiah-Re yes, OSWALDO Fallon documented as of this encounter Procedures Procedure Name Priority Date/Time Associated Diagnosis Comments CREATININE, SERUM Routine 10/01/2025 3:2 2 PM EST UREA NITROGEN (BUN) Routine 10/01/2025 3 :22 PM EST ELECTROLYTE PANEL Routine 10/01/2025 3:2 2 PM EST documented in this encounter Results * (ABNORMAL) Creatinine, Serum (10/01/2025 3:22 PM EST) Creatinine, Serum 1.58(H) 0.5 - 1.4 mg/dL [facility] Estimated Glomerular Filt Rate 31 [facility] Comment:Chronic Kidney Disea se: Estimated GFR < 60 mL/min/1.21k4Kfxwlr Kidney Disease: Estimated GFR < 15 mL/min/1.73m2 10/01/2025 3:22 PM EST 10/01/2025 5:30 PM EST us Generic External Data Provider LAB BLOOD ORDERAB LES Final Result Performing Organization Address [facility] Co de Phone Number [facility] [address] [place] [phone] * BUN (Blood Urea Nitrogen) (10/01/2025 3:22 PM EST) Urea Nitrogen (BUN) 12 9 - 16 mg/dL [facility] 10/01/2025 3:22 PM EST 10/01/2025 5:30 PM EST us Generic External Data Provider LAB BLOOD ORDERAB LES Final Result Performing Organization Address [facility] de Phone Number [facility] [address] [place] [phone] * Electrolyte Panel (10/01/2025 3:22 PM EST) Sodium 143 135 - 145 mmol/L [facility] Potassium 4.2 3.3 - 5.1 mmol/L [facility] Chloride 104 96 - 108 mmol/L [facility] Carbon Dioxide 28 22 - 29 mmol/L [facility] Anion Gap 15 12 - 20 [facility] 10/01/2025 3:22 PM EST 10/01/2025 5:30 PM EST us Generic External Data Provider LAB BLOOD ORDERAB LES Final Result Performing Organization Address [facility] Co de Phone Number [facility] [address] [place] [phone] documented in this encounter Visit Diagnoses Not on filedocumented in this encounter Additional Health Concerns Active Problems Noted Date [...] 09/21/2025 Patient has chronic kidney disease 09/21/2025 Assessment Noted Time PHQ-9 Depression Total Score: 8 09/21/20 25 11:29 AM EST documented as of this encounter Care Teams Cocoa Bean Cleaner Relationship Specialty Start Date End Date Bertha Evans MD 230 [place] [address] PCP - General Family Medicine 09/10/19 Zackery Ohara, JosesitoD [address] [place] [address] Pharmacist Internal Medicine 02/16/25 [employer] 12/17/23 documented as of this encounter
--- OUTSIDE RECORDS SUMMARY | 2025-10-01 20:13 | XMS_ITS | Encounter Summary ---
Author Organization [employer] Address [address] [facility] [address] 7t [place] [address] Care Team Providers Care Retail Pricing Coordinator Name Role Phone Bertha Evans MD Primary Care Provider + Zackery Ohara PharmD Unavailable [phone] Encounter Details Date Type Department Care Team ([facility] st Contact Info) Description 12/31/2024 Orders Only [facility] 230 [place], [place] [phone] Graciela Givens MD 230 [place], [place] [phone] Social History Tobacco Use Types Packs/Day Years [...] Description 10/11/2025 2:30 PM EST Medication Management [facility] [address] [place] [phone] Zackery Ohara, PharmD [address] [place] [phone] 12/16/2025 10:30 AM EST Office Visit [facility] [address] [place] [phone] Bertha Evans MD [address] [place] [address] documented as of this encounter Visit Diagnoses Not on filedocumented in this encounter Additional Health Concerns Assessment Noted Time PHQ-9 Depression Total Score: 9 01/31/20 24 12:15 PM EDT documented as of this encounter Care Teams Retail Pricing Coordinator Relationship Specialty Start Date End Date Bertha Evans MD [address] [place] [phone] PCP - General Family Medicine 09/10/19 Zackery Ohara, PharmD [address] [place] [phone] Pharmacist Internal Medicine 02/16/25 [employer] 12/17/23 documented as of this encounter
--- OUTSIDE RECORDS SUMMARY | 2025-10-01 20:13 | XMS_ITS | Encounter Summary ---
Author Organization [employer] Address [address] 7t [place] [address] Care Team Providers Care Billing And Insurance Coordinator Name Role Phone Bertha Evans MD Primary Care Provider + Zackery Ohara PharmD Unavailable [phone] Reason for Visit * Reason Comments Med Refill Encounter Details Date Type Department Care Team (Late st Contact Info) Description 09/09/2023 Refill [facility] & PEDS [address] [place], [place] [phone] Bertha Evans MD 230 [place], [place] [phone] Depressive disorder Social History Tobacco Use Types [...] Description 10/11/2025 2:30 PM EST Medication Management [address] [address] Zackery Ohara, Xavi [address] [place] [phone] 12/16/2025 10:30 AM EST Office Visit [address] [address] Bertha Evans MD [address] [place] [phone] documented as of this encounter Visit Diagnoses Diagnosis Depressive disorder Depressive disorder, not elsewhere classified documented in this encounter Additional Health Concerns Assessment Noted Time PHQ-9 Depression Total Score: 8 12/14/19 23 1:38 PM EST documented as of this encounter Care Teams Billing And Insurance Coordinator Relationship Specialty Start Date End Date Bertha Evans MD [address] [place] [phone] PCP - General Family Medicine 09/10/19 Zackery Ohara, PharmD [address] [place] [phone] Pharmacist Internal Medicine 02/16/25 [employer] 12/17/23 documented as of this encounter
--- OUTSIDE RECORDS SUMMARY | 2025-10-01 20:13 | XMS_ITS | Encounter Summary ---
Author Organization [employer] Address [address] [facility] 7t [place] [address] Care Team Providers Care Academic Dean Name Role Phone Bertha Evans MD Primary Care Provider + Zackery Ohara PharmD Unavailable [phone] Reason for Visit * Reason Comments Med Refill Encounter Details Date Type Department Care Team (Late st Contact Info) Description 11/30/2022 Refill [facility]S [address] [place] [address] Bertha Evans MD 230 [place], [place] [phone] Social History Tobacco Use Types Packs/Day Years [...] Department Care Team (Late Contact Info) Description 10/11/2025 2:30 PM EST Medication Management [facility] [address] [place] [address] [phone] Zackery Ohara, PharmD 230 [place], [place] [phone] 12/16/2025 10:30 AM EST Office Visit [facility] 230 [place] [address] Bertha Evans MD 230 [place] [address] documented as of this encounter Visit Diagnoses Not on filedocumented in this encounter Care Teams Academic Dean Relationship Specialty Start Date End Date Bertha Evans MD [address] [place] [address] PCP - General Family Medicine 09/10/19 Zackery Ohara, JosesitoD [address] [place] [address] Pharmacist Internal Medicine 02/16/25 [employer] 12/17/23 documented as of this encounter
--- OUTSIDE RECORDS SUMMARY | 2025-10-01 20:13 | XMS_ITS | Clinical Summary ---
Author Organization [facility] Address [address] [place] [address] Phone Care Team Providers Care Physician Neonatology Name Role Phone Bertha Telles MD Primary [...] This visit was done in conjunction with [facility] language services goggles assembler Rain #[id number]. Ms. Angulo was seen today for her [...] states it was >10 years ago in [place] TOTAL KNEE ARTHROPLASTY Bilateral PROCEDURE: HISTORICAL TOTAL [...] disea se) stage 3, GFR 30-59 ml/min (HCC) Mild [...] Depression Screening 10/21/2024 Influenza Vaccine (#1) 2025 0, 07/20/2019, 10/30/2018, Additional history exists DTaP,Tdap,and [...] Procedure Name Priority Date/Time Associated Diagnosis Comments [facility] DEXA AXIAL SKELETON Routine 12/03/2019 7:37 AM EST Encounter for screening for osteoporosis from Last 3 Months or Most Recently Relevant to Health Maintenance Results * [facility] DEXA AXIAL SKELETON (12/03/2019 7:37 AM EST) Anatomical Region Laterality Modality Mammography 12/01/2019 10:5 3 AM EST Narrative 12/03/2019 7:37 AM EST [facility] Diagnostic Imaging Department [address] [place] [address] Patient: MCKEON-COLONKIRSTIES /Age/Sex: 1945 - 74 - F Unit#: [id number] [facility] Mnemonic/Ordering Site[facility] Ordering Physician: BERTHA TELLES MD Michelle Dexa Axial Skeleton - 12/01/191139 HISTORY: The patient is a 74-year-old postmenopausal [...] probability of hip fracture of 0.6%. Code 37599 Dictating Physician: LEON ARENAS MD Electronically Signed by: LEON ARENAS MD Dic Date/Time: 12/03/19735 Sign date/Time: 12/03/19736 Procedure Note Leon Arenas - 10/10/2022 [facility] Diagnostic Imaging Department [address] [place], [place] [phone] Patient: KRISHNA ANGULO Arun/Age/Sex: 1945 - 74 - F Unit#: [id number] Location/Status: [facility] CLI Mnemonic/Ordering Site: [facility]DEXAAX/SPMAM Ordering Physician: BERTHA TELLES MD Michelle Dexa Axial Skeleton - 12/01/19 114 HISTORY: The patient is a 74-year-old postmenopausal [...] density of the femurs bilaterally is 1.027 gm/xu6pwagx is 102% of that of young normals [...] probability of hip fracture of 0.6%. Code 87094 Dictating Physician: LEON ARENAS MD Electronically Signed by: LEON ARENAS MD Dic Date/Time: 12/03/1936 Sign date/Time: 12/03/1937 Bertha Telles MD IMG BI PROCEDURES Final Resu lt from Last 3 Months or Most Recently Relevant to Health Maintenance Insurance [facility] MEDICARE Member Subscriber Plan / Payer (Ef fective 2013-Present) Name:Krishna Angulo Relation to Subscriber:Self Name:Krishna Day Payer ID:[id number] Group ID:[id number] Type:Not on file Address: [facility] [address] [address] Care Teams Physician Neonatology Relationship Specialty Start Date End Date Bertha Telles MD [address] [place] [phone] PCP - General 11/06/19
--- OUTSIDE RECORDS SUMMARY | 2025-10-01 20:13 | XMS_ITS | Data Portability ---
Author Organization [employer], [facility] [place] Address [address] [place] [address] Care Team Providers Care Lcac Radar Operator/Navigator Name Role Phone Unavailable Referring Provider HIM CCA OTHER Assessment Encounter Date Assessment Date Assessment LastModified by Organization Details LastModified Time 02/19/2024 02/19/2024 I provided real -time medical direction via phone for this encounter and was available for additional phone-based assistance as needed. I have reviewed and agree with the Assessment and Plan as documented by the Flow Worker. Patient given the opportunity to ask questions. Our service contacted for an assessment of: a rash As per above, patient has a rash on the arms for several weeks. Is not particularly symptomatic. Denies any new medications, exposures to new environmental toxins, creams, lotions, soaps, etc. No new pets or animals in the house. Per thread machine operator on the scene, VSS. Non-toxic. Please see [...] Assessment and Plan as documented by the Flow Worker. Patient given the opportunity to ask questions. Our service contacted for an assessment of: pain behind her ear and hearing loss As per above, patient with an approximate 2-3 weeks of a small LN swelling behind right ear. Taking Tyelenol for pain. Denies F/C. Denies ST or upper respiratory tract S&S. No ear pain until 24 hours ago. Per thread machine operator on the scene, VSS, NT. See upladed [...] jyothi BID (sent rx to the pharmacy). [email or web address] Not available 05/25/2024 17:36:07 05/08/2025 05/08/2025 I provided real -time medical direction via phone for this encounter, and was available for additional phone based assistance as needed. I have reviewed and agree with the Assessment and Plan as documented by the Flow Worker. We discussed the diagnostic uncertainty of home [...] for eval. Report was called ahead to [facility] ED RN. Not available 05/08/2025 13:23:42 Plan of Treatment Reminders Order Date Submit Date Provider Last Modified By Organization Details Last Modified Time Details Appointments None recorded. Lab BMP, serum or plasma 2024 025 [facility], [address] [place] [address], [id number] 16:12:27 urinalysis, dipstick 2024 025 [facility], [address] [place] [address], [id number] 17:13:09 culture, urine 2024 025 [place] [facility] (Centralized Electronic Ordering - All Locations), Patient Can Go To The Location Of Their Choice, [address] 20:05:51 Referral None recorded. Procedures None recorded. Surgeries None recorded. Imaging None recorded. Medication Orders cefpodoxime 200 mg tablet 2024 025 [facility]/Pharmacy #[id number], [address] [place], [address], 16:15:12 ceftriaxone 1 gram solution for injection 2024 025 [facility]/Pharmacy #[id number], [address] [place], [address], 16:15:11 Jyothi Allergy 180 mg tablet 2023 [facility], [address], [place], [id number], 14:23:27 Augmentin 875 mg-125 mg tablet 2023 [facility]/Pharmacy #[id number], [address] [place], [address], 12:23:43 Patient TargetsNo targets recorded. Patient InstructionsNo instructions recorded. Reason for Referral None Reported. Results Created Date Observation Date Name Description Value Unit Range Abnormal Flag Note LastModifiedBy Organization Detail LastModifiedTime 05/05/2005/07/2025 URINE CULTU RE, UROLO GY BERNARD P urine culture, urology workup Final report abnormal Not Available [facility] ([facility]) [address], [place], [address], 05/07/2025 12:05:46 05/05/2005/07/2025 URINE CULTU RE, UROLO GY BERNARD P result 1 Escher ichia coli abnormal Susce ptibi lity profi le is consi stent with a proba ble ESBL. Multi -Drug Resis tant Organ ism Great er than 100,0 00 colon y formi ng units per mL Not Available [facility] ([facility]) [address], [place], [address], 05/07/2025 12:05:46 05/05/2005/07/2025 URINE CULTU RE, UROLO [...] thopr im/Machuca lfa R Not Available [facility] ([facility]) [address], [place], [address], 05/07/2025 12:05:46 Result Notes None recorded. Medical Equipment None Reported. Allergies Allergen ID Allergen Name Allergen Category Reaction Reaction Severity Criticality Documentation Date Start Date Code Code System Note Provider Name and Address Organization Details Recorded Time 02133 gabapenti n medicatio n Not available Not available Not available 05/05/2025 00210 RxNorm Not Available [facility] - production 15:01:52 29739 quetiapin e medicatio n Not available Not available Not available 05/05/2025 43483 RxNorm Not Available [facility] - production 15:01:52 6825 latex environme nt,medica tion Not available Not available Not available 08/18/2024 43355 91 RxNorm Not Available [facility] - production 03:32:53 6826 Product containin g penicilli n (product) medicatio n Not available Not available Not available 08/18/2024 26826 8001 [facility] does not recal l this aller gy Teri Katz MD [address] [facility],[address], [place], [address] , [facility], [facility] 5 16:15:22 6827 morphine medicatio n Not [...] Not Available No t Available Artificial Tears ([id number] omell-glyce rin) 1 %-0.2 %-0.2 % eye [...] rate Heart rate Body weight Oxygen saturation Body temperature Systolic And Diastolic Provider Name and Address Organization Details Last Updated DateTime 4 16 /min 72 /min 05824.9 28 g 96 % 97.6 [degF] 166/92 mm[Hg] Not Available [facility] - production 4 13:35:13 Date Recorded Body temperature Oxygen saturation Respiratory rate Heart rate Systolic And Diastolic Provider Name and Address Organization Details Last Updated DateTime 4 98.6 [degF] 96 % 16 /min 70 /min 151/72 mm[Hg] Not Available [facility] - production 4 12:07:12 Date Recorded Oxygen saturation Respiratory rate Heart rate Body temperature Systolic And Diastolic Provider Name and Address Organization Details Last Updated DateTime 5 95 % 18 /min 77 /min 98.6 [degF] 128/78 mm[Hg] Not Available [facility] - production 5 16:01:51 Date Recorded Respiratory rate Oxygen saturation Heart rate Body temperature Systolic And Diastolic Provider Name and Address Organization Details Last Updated DateTime 5 18 /min 95 % 77 /min 98.2 [degF] 138/84 mm[Hg] Not Available [facility] - production 5 11:53:14 Date Recorded Oxygen saturation Body temperature Heart rate Respiratory rate Systolic And Diastolic Provider Name and Address Organization Details Last Updated DateTime 4 96 % 97.9 [degF] 120 /min 18 /min 142/86 mm[Hg] Not Available [facility] [employer] 4 16:24:28 Social History None recorded. Functional [...] [id number] Sylvain Harding MD Main - [facility] [address] [place] [phone] 01/03/2023 13:42:04 01/07/2023 10:59:15 Dyspnea 787008761 R06.00 77yo woman presents with 2 works of shortness of breath. She has been using nebulizers . On more careful questionin g she is not far from her baseline respirator y status. She has poor appetite. She seems to be recovering from a viral syndrome, with possible underlying asthma or COPD. Flow Worker administer ed another nebulizer which was helpful. There was no need [place]. [id number] Alyse Ruvalcaba MD Main - [facility] [address] [place] [phone] 02/27/2023 12:10:28 02/28/2023 15:19:50 Lightheadedness 209600674 R42 [id number] Alyse Ruvalcaba MD Main - [facility] [address] [place] [phone] 11/12/2023 15:34:39 11/12/2023 22:20:28 Pain of shoulder region 97152245 M25.519 [id number] Erin Weldon MD Main - [facility] [address] [place] [phone] 02/19/2024 13:35:06 02/20/2024 11:23:48 Generalized rash [id number] R21 [id number] Erin Weldon MD Main - [facility] [address] [place] [phone] 03/14/2024 12:07:05 03/16/2024 17:49:35 Acute left otitis media 681152106 H66.92 [id number] DAMION REDMAN MD Main - [facility] [address] [place] [phone] 05/25/2024 16:24:25 05/26/2024 11:09:52 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 Evaluation in the field was performed by my thread machine operator colleague, as noted above, I provided real-time [...] changes to consciousn ess, chest pain, dyspnea [id number] FARNAZ GLOVER NP, S [facility] ED Medical [facility] [address] [place] [phone] 05/08/2025 11:53:09 05/08/2025 17:25:26 Acute urinary tract infection 046561090 N39.0 315225 Health Concerns Section Related Observation LastModified by Organization Detai ls LastModified Time None Recorded Concern Status LastModified by Organization Details LastModified Time None Recorded Advance Directives Directive None Recorded Payers Insurance Date Sequence Insurance Name Policy Number Policy Angelo Covered Member ID Angelo Member ID Guarantor Name 02/20/2024 [address] [facility] - DOS PRIOR TO 2023 - DUAL ELIGIBLE (MEDICARE REPLACEMENT/ADV ANTAGE - HMO) Marla Albarran-Moran n [id number] Marla Albarran-Colon 05/25/2025 [address] [facility] - DOS ON OR AFTER 2023 - DUAL ELIGIBLE - SNF OPTIONS AND ONE CARE (MEDICARE REPLACEMENT/ADV ANTAGE - HMO) Marla Albarran-Moran n [id number] Marla Montenegrogo-Colon Notes Date Note Type Note Provider Name [...] YENI sx. Pt unable to come into [facility]. Pt agrees to [facility] for exam. ..................... ..................... ..................... ..................... ..................... ..................... ............... CRC Nurse Triage Notes (Debbie Oliva): Comments: HPI reviewed. ..................... ..................... ..................... ..................... ..................... ..................... ............... Flow Worker Note From Dung Lal: Pt co dry itchy r abbi on legs/thighs and back. Pt denies oozing bleeding. Pt denies changes to detergent or new meds. Pt denies sob cp edema NVD or pain. Baseline vitals assessed. Rash assessed. Eczema like in appearance. No bleeding or wheeping. Area appears slight dry. Pics uploaded. [facility] contacted and advised lotion multiple times per day and stay hydrated. Pt education on signs indicating the ER. Pt advised to follow up with pcp or applications intern. Flow Worker Allergies: Latex, Penicillin, Morphine, Metronidazole ..................... ..................... ..................... ..................... ..................... ..................... ............... Disposition: Fulfilled Erin Weldon MD [address] [facility],[address], [place], [address], [facility] - JANAKNATALIE ALLEN 02/19/2024 14:09:07 03/14/2024 text/html HPI: Resendiz size lump tender to touch behind ear pain increased and area larger over several days. ..................... ..................... ..................... ..................... ..................... ..................... ............... CRC Nurse Triage Notes (Debbie Oliva): Comments: HPI reviewed. No further information needed to process visit--- 03/13 7:30p call to member to give ETA, he is at [facility], will reschedule visit to tomorrow 03/14- ..................... ..................... ..................... ..................... ..................... ..................... ............... Flow Worker Note From Yovany Worley: Pt reports marble [...] ..................... ..................... ..................... ..................... ............... Disposition: Estefania Weldon MD [address] [place] [address],[address], [place], [phone], [employer] 03/14/2024 12:23:57 05/25/2024 text/html HPI: Call returned [...] reported. Advised of disposition , agrees to [employer] for eval as no transportation to [facility] for exam. Reviewed home care advise, ER [...] ..................... ..................... ..................... ..................... ..................... ..................... ............... Flow Worker Note From Diana Lancaster: Dispatched for the 79 yo female chief complaint of headache. U/a pt is found seated upright of bed, accompanied by son-in-law x1 who acts as media consultant, pt presents CA&Ox4, patent airway, normal breathing [...] days for further evaluation with same doctor. [facility] consulted and offers 25mg Benadryl, pt self administers her own Benadryl 25mg. [facility] orders Jyothi to pt pharmacy for further tx until doctors appointment. Pt advised of all red flags. End of report. ..................... ..................... ..................... ..................... ..................... ..................... ............... Disposition: Fulfilled DAMION REDMAN MD [address] [place] [address],[address], [place], [address], [employer] 05/25/2024 17:36:16 05/05/2025 text/html HPI: Patient with [...] - 15: Allergies Reviewed at 05/05/2025 - : Comments: HPI reviewed Per daughter states urinary burning started again today and was just treated UTI in the hospital. Not currently on any treatment. denies any fever or chills. She is urinating. Hx kidney issues and is on aspirin. Flow Worker Organization Information for Robert Jensen [employer] Legal Name: [employer]. Address: [address] [place] [address], Yard Crane Operator: Greg BRUNER No.: [id number] Flow Worker POC Test Results from [facility] Robert - ALS Urine Dipstick (16:01:41) Urine leukocytes: 500+++ MARQUES [...] ..................... ..................... ..................... ..................... ..................... ..................... ............... Flow Worker Note From Jankicandelaria Robert: Encountered patient seated upright and conscious with [...] Extremities are free of trauma and edema. [facility] contacted: urinalysis dip performed, results uploaded via [employer]. Culture obtained, to be delivered to [facility] following appointment. [facility] reports they will treat patient for a [...] are comfortable with patient remaining home today. [facility] Lab Orders: urinalysis, dipstick: Performed culture, urine: Performed [facility] Medication Orders: ceftriaxone 1 gram solution for injection: Administered ..................... ..................... ..................... ..................... ..................... ..................... ............... [facility] Consulted: Teri Katz ..................... ..................... ..................... ..................... ..................... ..................... ............... Disposition: Estefania Katz MD [address] [facility],[address], [place], [phone], [employer] 05/05/2025 19:00:53 05/08/2025 text/html ROS as noted in the [facility] CRC Nurse Triage Notes (Rebekah Palacio): Reason For Request: POC check for UTI results Chief Complaints: Abnormal Lab Value, Urinary Symptoms PMH: COPD/Asthma, Hypertension, Chronic Kidney Disease, Dementia (e.g., Alzheimer's Disease), Diabetes Mellitus Type 2 PMH Reviewed at 05/07/2025:50 Allergies Reviewed at 05/07/2025 - :50 Comments: The pt was seen on 05/05 [...] S Tetracycline S Tobramycin S Trimethoprim/Sulfa R Flow Worker Organization Information for Robert Jensen Legal Name: [employer]. Address: [address] [place] [address], Yard Crane Operator: Greg Salmeron MD CLIA No.: [id number] Flow Worker POC Test Results from Robert Jensen Chem8+ (10:41:14) Na: 142 mEq/L K: 3.9 mEq/L Cl: 104 mEq/L iCa: 1.09 mmol/L TCO2: 26 mmol/L Glu: 121 mg/dL BUN: 15 mg/dL Crea: 1.6 mg/dL Hct: 36 % Hb: 12.2 g/dL A mmol/L Cartridge Number: [id number] Attachments uploaded as part of this test result can be found under Documents section. ..................... ..................... ..................... ..................... ..................... ..................... ............... Flow Worker Note From Robert Jensen: Encountered patient seated upright and conscious with family present. Patient is currently being treated for a urinary tract infection, but the culture results require patient to change antibiotics; [facility] This appointment was to confirm renal function in patient via BMP in order to choose the correct medication. When prompted patient reports burning while urinating but denies CVA tenderness and fevers. BMP performed, values uploaded via [employer]. Skin warm, dry and of appropriate color for ethnicity. Head and neck, free of trauma and edema. -JVD. Breath sounds present, clear and equal bilaterally. Abdomen is soft, non-tender and non-distended. Extremities free of trauma and edema. [facility] contacted: reports due to patient's extensive allergy list and impaired renal function, patient is not a candidate for any of the PO antibiotics offered through the [facility] program. [facility] recommends patient be transported to the hospital for IV antibiotic therapy, to which patient initially declined. This adjusto writer operator and the assigned provider explained to patient and family that an untreated urinary tract infection could potentially progress into sepsis. Patient was agreeable after explanation, [facility] aware and making arrangements with [facility] (patients hospital of choice.) 911 was arranged on behalf of patient by this adjusto writer operator. Patient care was relinquished to Theresa BALLARD with verbal report given, transport to [facility]. ..................... ..................... ..................... ..................... ..................... ..................... ............... [facility] Consulted: Farnaz Glover ..................... ..................... ..................... ..................... ..................... ..................... ............... Disposition: Fulfilled FARNAZ GLOVER NP, S [address] [facility],[address], [place], [address], NATALIE LOVELL 05/08/2025 13:23:56 OBGyn Episode No OBEpisode recorded.
--- OUTSIDE RECORDS SUMMARY | 2025-10-01 20:13 | XMS_ITS | Encounter Summary ---
Author Organization [employer] Address [address] [place] [address] Care Team Providers Care Administrative Staff Supervisor Name Role Phone Bertha Evans MD Primary Care Provider + Zackery Ohara PharmD Unavailable [phone] Reason for Visit * Reason Onset Date Comments nurse triage 04/19/2025 Encounter Details Date Type Department Care Team ([facility] st Contact Info) Description 04/19/2025 Telephone [facility] [address] [place], [place] [phone] Bertha Evans MD [address] [place], [place] [phone] nurse triage Social History Tobacco Use Types [...] 04/19/2025 5:12 PM EDT Triage call with [facility] [place] [id number], Zaria. Pt was called x2 without answer. Left voice message x2 to call [facility] triage line at [phone] at Pt convenience * Telephone Encounter - [...] EST Medication Management [facility] [address] [place] [id number] Zackery Ohara, PharmD [address] [place] [address] 12/16/2025 10:30 AM EST Office Visit [facility] [address] [place] [address] Bertha Evans MD [address] [place] [address] documented as of this encounter Visit Diagnoses Not on filedocumented in this encounter Additional Health Concerns Assessment Noted Time PHQ-9 Depression Total Score: 21 025 1:52 PM EDT documented as of this encounter Care Teams Administrative Staff Supervisor Relationship Specialty Start Date End Date Bertha Evans MD [address] [place] [address] PCP - General Family Medicine 09/10/19 Zackery Ohara, PharmD [address] [place] [address] Pharmacist Internal Medicine 02/16/25 [place] 12/17/23 documented as of this encounter
--- OUTSIDE RECORDS SUMMARY | 2025-10-01 20:13 | XMS_ITS | Data Portability ---
Author Organization [facility] - [facility], Allergy Address [address] [address] Care Team Providers Care Janitorial Account Manager Name Role Phone SYDNEE TELLES Primary Care [...] mupirocin 2 % topical ointment 2024 025 [facility] #[id number], [address] [place] [address], [place], [address], 16:04:14 Patient TargetsNo targets recorded. Patient Instructions Encounter Date Encounter Id Patient Instructions Last Modified By Organization Details Last Modified Time 07/23/2025 [id number] Use a couple of drops of oil [...] contr ast No observ ation record ed. [email or web address] Not Available 11/21 09:18:36 11/30/1909/07/2024 CT, angio gram, neck, w/wo contr ast No observ ation record ed. [email or web address] Not Available 11/21 09:34:01 07/23/20 audio gram No observ ation record ed. BARCODE Not Available 10/03/ 2025 15:58:10 Result Notes None recorded. Problems Name Problem SNOMED Code Status Onset Date Resolution Date Notes Provider Name and Address Organization Details Recorded Time Amnesia 25459307 Active 2019 Memory loss NOS; Note: Date Diagnosed : 12/17/2019 10:46 AM (R41.3) Not Available [facility] 4 03:12:13 Sensorine ural hearing loss of bilateral ears 631141547 Active 2019 Sensorine ural hearing loss, bilateral ; Note: Date Diagnosed : 12/17/2019 11:13 AM (H90.3) TAI MINOR MA, CCC-A 100 [facility] 100, [place], [address] , [facility] - [facility] 5 14:33:10 Headache 28381339 Active 2019 Headache; Note: Date Diagnosed : 12/17/2019 1:02 PM (R51) Not Available [facility] 4 03:12:14 Recurrent major depressio n 06457781 Active 2019 Major depressiv e disorder, recurrent , unspecifi ed; Note: Date Diagnosed : 12/17/2019 10:46 AM (F33.9) Not Available [facility] 4 03:12:14 Anxiety disorder 748475407 Active 2019 Anxiety disorder, unspecifi ed; Note: Date Diagnosed : 12/17/2019 10:46 AM (F41.9) Not Available [facility] 4 03:12:14 Obstructi ve sleep apnea syndrome 65880074 Active 2019 Obstructi ve sleep apnea (adult) (pediatri c); Note: Date Diagnosed : 12/17/2019 10:46 AM (G47.33) Not Available [facility] 4 03:12:13 Dizziness and giddiness 086488108 Active 2019 Dizziness and giddiness ; Note: Date Diagnosed : 12/17/2019 11:13 AM (R42) ZAIRE CHOI MD 100 [facility] 100, [place], [address] , [facility] 5 05:59:36 Bilateral temporoma ndibular joint pain 03631434114 694712 Active 2019 Arthralgi a of bilateral temporoma ndibular joint; Note: Date Diagnosed : 04/29/2020 12:34 PM (M26.623) Not Available [facility] 4 03:12:13 Localized swelling of head 08020552093 703011 Active 2020 Localized swelling, mass and lump, head; Note: Changed from D37.030 to R22.0 ( 3:42 PM) , Date Diagnosed : 09/20/2021 5:51 PM (D37.030) Not Available [facility] 4 03:12:15 Disorder of external ear 54917318 Active 2024 ZAIRE CHOI MD [address] [place] [address],[place] [address], [place], [address] , [facility] - [facility] 5 16:03:55 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 Procedures Surgical History Date Name Laterality Status Provider Name and Address Organization Details Recorded Time 07/23/2025 Air [facility] Bone Audio - 15227 completed TAI MINOR [place], [facility]-A [address] [place] [address],[place] [address], [place], [address], [facility] 07/23/2025 14:31:37 07/23/2025 SRT & Tymps - 33284 & 79416 completed TAI MINOR [place], CCC-A [address] [place] [address],[place] [address], [place], [address], [facility] 07/23/2025 14:31:48 Imaging Results None recorded. Procedure Notes None recorded. Medical Equipment None Reported. Allergies Allergen ID Allergen Name Allergen Category Reaction Reaction Severity Criticality Documentation Date Start Date Code Code System Note Provider Name and Address Organization Details Recorded Time 763474 morphine medicatio n other Not available Not available 03/03/2024 7052 RxNorm React ion: unkno wn, unspe cifie d;; Not Available [facility] 4 01:24:54 Medications Name Sig Start Date [...] mg tablet 09/20 completed Medicati on ID: [id number] B rand Name: aspirin Send Method: E-Prescr ibed Sub s Allowed: subs OK Medic ationGen ericName : aspirin Not Available Not Available Not Available B Complex-V itamin B12 tablet active Medicati on ID: 173995 B rand Name: B Complex- Vitamin B12 [...] by mouth 2019 active Medicati on ID: [id number] D uration Value: 30 Brand Name: famotidi ne Send Method: E-Prescr ibed Sub s Allowed: subs OK Medic ationGen ericName : famotidi ne Not Available Not Available Not Available isosorbid e mononitra te ER 30 mg tablet,ex tended release 24 hr 11/06 completed Medicati on ID: 414081 B rand Name: isosorbi de mononitr ate [...] mg tablet 09/20 completed Medicati on ID: 952121 B rand Name: paroxeti ne HCl Send [...] mg tablet 09/20 completed Medicati on ID: 558624 B rand Name: pravasta tin Send Method: [...] propionat e 50 mcg/actua tion nasal spray,carolann penon active Medicati on ID: 633413 B rand Name: fluticas one propiona te [...] mg tablet 2019 active Medicati on ID: [id number] B rand Name: topirama te Send Method: E-Prescr ibed Sub s Allowed: subs [place] [facility] : topirama te Not Available Not [...] Updated DateTime 11/06/2024 160.02 cm 33.7 kg/m2 42499.55 g Meera Woods [facility] 11/06/2024 15:56:02 Date Recorded Body height Body mass index (BMI) Body weight Provider Name and Address Organization Details Last Updated DateTime 07/23/2025 160.02 cm 33.7 kg/m2 17084.55 g Ney Ron [facility] 07/23/2025 13:35:05 Social History None recorded. Functional Status None recorded. Mental Status None recorded. Family History Nothing Reported. Medical History No medical history recorded. Gynecological HistoryNo gynecological history recorded. Obstetrics History GPAL:G 0 P 0 0 0 0 Past Encounters Encounter ID Performer Location Encounter Start Date Encounter Closed Date Diagnosis/Indication Diagnosis SNOMED-CT Code Diagnosis ICD10 Code Diagnosis IMO Codes Diagnosis Note [id number] ZAIRE CHOI MD [facility] [address] [address] 11/06/2024 15:40:50 11/06/2024 16:49:37 Disorder of external ear 16130793 H60.12 Benign valeria plasm of parotid gland 85906740 D11.0 [id number] ZAIRE CHOI MD [facility] [address] [address] 07/23/2025 13:31:03 07/23/2025 15:03:10 Sensorineural hearing loss of bilateral ears 763537387 H90.3 Audiologic al evaluation results:Ri ght & Left ears:Flores l sloping to mild to moderate SNHLLeft ear:Normal hearing with excellent word recognitio n. Tympanomet ry:Right Ear:Type As (0.2)Left Ear:Type A Dizziness and giddiness 326676936 R42 63453 Health Concerns Section Related Observation LastModified by Organization Detai ls LastModified Time None Recorded Concern Status LastModified by Organization Details LastModified Time None Recorded Advance Directives Directive None Recorded Payers Insurance Date Sequence Insurance Name Policy Number Policy Angelo Covered Member ID Angelo Member ID Guarantor Name 08/23/2025 1 [facility] - DOS ON OR AFTER 2023 - DUAL ELIGIBLE - [facility] OPTIONS AND ONE CARE (MEDICARE REPLACEMENT/ADV ANTAGE - HMO) Marla Albarran-Col on [id number] Marla Albarran Colon 08/23/2025 2 [place]: [employer] Marla Albarran-Col on [id number] Marla Albarran Colon 08/23/2025 1 [facility] [employer] - DOS ON OR AFTER 2023 - [facility] OPTIONS AND ONE CARE (MEDICARE REPLACEMENT/ADV ANTAGE - PPO) Marla Albarran-Col on [id number] Marla Albarran Colon 08/23/2025 3 [place] [facility] Marla Albarran-Col on [id number] Marla Albarran Colon Notes Date Note Type [...] further recommendations regarding this. ZAIRE CHOI MD [address] [place] [address], [address], [facility] - [facility] 11/08/2024 09:31:07 07/23/2025 text/html 80-year-old female [...] further recommendations regarding this. ZAIRE CHOI MD [address] [place] [address], [address], [place] - [facility] 07/26/2025 06:05:28 OBGyn Episode No OBEpisode recorded.
--- OUTSIDE RECORDS SUMMARY | 2025-10-01 20:13 | XMS_ITS | Continuity of Care Document ---
Author Organization [facility] - [facility], [facility] Address [address] [place] [address] Care Team Providers Care Feather Maker Name Role Phone ELFEGO SYDNEE Primary Care Provider [phone] Assessment Encounter Date Assessment Date Assessment LastModified by Organization Details LastModified Time 07/23/2025 07/23/2025 80-year-old female with a history [...] Details Last Modified Time Details Appointments None record ed. Lab None record ed. Referral None record ed. Procedures None record ed. Surgeries None record ed. Imaging None record ed. Medication Orders None record ed. Patient TargetsNo targets recorded. Patient Instructions Encounter Date Encounter Id Patient Instructions Last Modified By Organization Details Last Modified Time 07/23/2025 [id number] Use a couple of drops of oil [...] Abnormal Flag Note LastModifiedBy Organization Detail LastModifiedTime 07/23/20 25 audio gram No observ ation record ed. BARCODE Not Available 2024 15:58:10 Result Notes None recorded. Problems Name Problem SNOMED Code Status Onset Date Resolution Date Notes Provider Name and Address Organization Details Recorded Time Amnesia 24250470 Active 2019 Memory loss NOS; Note: Date Diagnosed : 12/17/2019 10:46 AM (R41.3) Not Available [facility] 4 03:12:13 Sensorine ural hearing loss of bilateral ears 099987043 Active 2019 Sensorine ural hearing loss, bilateral ; Note: Date Diagnosed : 12/17/2019 11:13 AM (H90.3) TAI MINOR [place], [facility] [address], [place], [address] , [place] - [facility] 5 14:33:10 Headache 43594853 Active 2019 Headache; Note: Date Diagnosed : 12/17/2019 1:02 PM (R51) Not Available [facility] 4 03:12:14 Recurrent major depressio n 86794025 Active 2019 Major depressiv e disorder, recurrent , unspecifi ed; Note: Date Diagnosed : 12/17/2019 10:46 AM (F33.9) Not Available [facility] 4 03:12:14 Anxiety disorder 477667441 Active 2019 Anxiety disorder, unspecifi ed; Note: Date Diagnosed : 12/17/2019 10:46 AM (F41.9) Not Available [facility] 4 03:12:14 Obstructi ve sleep apnea syndrome 09623855 Active 2019 Obstructi ve sleep apnea (adult) (pediatri c); Note: Date Diagnosed : 12/17/2019 10:46 AM (G47.33) Not Available [facility] 4 03:12:13 Dizziness and giddiness 330290532 Active 2019 Dizziness and giddiness ; Note: Date Diagnosed : 12/17/2019 11:13 AM (R42) ZAIRE CHOI MD [address] [facility],[place] [address], [place], [address] , [place] - [facility] 5 05:59:36 Bilateral temporoma ndibular joint pain 06796981796 194237 Active 2019 Arthralgi a of bilateral temporoma ndibular joint; Note: Date Diagnosed : 04/29/2020 12:34 PM (M26.623) Not Available [facility] 4 03:12:13 Localized swelling of head 72394023665 719478 Active 2020 Localized swelling, mass and lump, head; Note: Changed from D37.030 to R22.0 ( 1 3:42 PM) , Date Diagnosed : 09/20/2021 5:51 PM (D37.030) Not Available [facility] 4 03:12:15 Disorder of external ear 89760852 Active 2024 ZAIRE CHOI MD 100 [facility],[place] [address], [place], [address] , [place] - [facility] [place] 5 16:03:55 Benign neoplasm of parotid gland 49783935 Active 2024 ZAIRE CHOI MD 100 [facility],[place] [address], [place], [address] , [place] - [facility] [place] 5 09:28:16 Problem Notes None recorded. Procedures Surgical History Date Name Laterality Status Provider Name and Address Organization Details Recorded Time 07/23/2025 Air [employer] Bone Audio - 84998 completed TAI MINOR [place], CCC-A [address] [facility],[place] [address], [place], [address], [facility] - [facility] 07/23/2025 14:31:37 07/23/2025 SRT & Tymps - 53948 & 48699 completed TAI MINOR [place], [facility] [address] [facility] [address], [place], [address], [facility] 07/23/2025 14:31:48 Imaging Results None recorded. Procedure Notes None recorded. Medical Equipment None Reported. Allergies Allergen ID Allergen Name Allergen Category Reaction Reaction Severity Criticality Documentation Date Start Date Code Code System Note Provider Name and Address Organization Details Recorded Time 737703 morphine medicatio n other Not available Not available 03/03/2024 7052 RxNorm React ion: unkno wn, unspe cifie d;; Not Available [facility] 4 01:24:54 Medications Name Sig Start Date [...] mg tablet 09/20 completed Medicati on ID: 151004 B rand Name: aspirin Send Method: E-Prescr ibed Sub s Allowed: subs OK Medic ationGen ericName : aspirin Not Available Not Available Not Available B Complex-V itamin B12 tablet active Medicati on ID: 974130 B rand Name: B Complex- Vitamin B12 [...] by mouth 2019 active Medicati on ID: [id number] D uration Value: 30 Brand Name: famotidi ne Send Method: E-Prescr ibed Sub s Allowed: subs OK Medic ationGen ericName : famotidi ne Not Available Not Available Not Available isosorbid e mononitra te ER 30 mg tablet,ex tended release 24 hr 11/06 completed Medicati on ID: 137882 B rand Name: isosorbi de mononitr ate [...] mg tablet 09/20 completed Medicati on ID: 309561 B rand Name: paroxeti ne HCl Send [...] mg tablet 09/20 completed Medicati on ID: 592339 B rand Name: pravasta tin Send Method: [...] nasal spray,carolann pension active Medicati on ID: 306656 B rand Name: fluticas one propiona te [...] mg tablet 2019 active Medicati on ID: 452915 B rand Name: topirama te Send Method: [...] Updated DateTime 07/23/2025 160.02 cm 33.7 kg/m2 98832.55 g Ney Ron [place] - [facility] 07/23/2025 13:35:05 Social History None recorded. Functional Status None recorded. Mental Status None recorded. Family History Nothing Reported. Medical History No medical history recorded. Gynecological HistoryNo gynecological history recorded. Obstetrics History GPAL:G 0 P 0 0 0 0 Past Encounters Encounter ID Performer Location Encounter Start Date Encounter Closed Date Diagnosis/Indication Diagnosis SNOMED-CT Code Diagnosis ICD10 Code Diagnosis IMO Codes Diagnosis Note [id number] ZAIRE CHOI MD [facility] [address] [address] 07/23/2025 13:31:03 07/23/2025 15:03:10 Sensorineural hearing loss of bilateral ears 699122582 H90.3 Audiologic al evaluation results:Ri ght & Left ears:Flores l sloping to mild to moderate SNHLLeft ear:Normal hearing with excellent word recognitio n. Tympanomet ry:Right Ear:Type As (0.2)Left Ear:Type A Dizziness and giddiness 654342947 R42 75363 Health Concerns Section Related Observation LastModified by Organization Detai ls LastModified Time None Recorded Concern Status LastModified by Organization Details LastModified Time None Recorded Payers Encounter Date Sequence Insurance Name Policy Number Policy Angelo Covered Member ID Angelo Member ID Guarantor Name 07/23/[address] [facility] - DOS ON OR AFTER 2023 - DUAL ELIGIBLE - [facility] OPTIONS AND ONE CARE (MEDICARE REPLACEMENT/ADV ANTAGE - HMO) Marla Albarran-[place] n [id number] Marla Albarran Colon Notes Date Note Type Note Provider Name and Address Organization Details Recorded Time 07/23/2025 text/html 80-year-old female with memory impairment [...] further recommendations regarding this. ZAIRE CHOI MD [address] [place] [address], [address], [facility] - [facility] 07/26/2025 06:05:28 OBGyn Episode No OBEpisode recorded.
--- OUTSIDE RECORDS SUMMARY | 2025-10-01 20:13 | XMS_ITS | Encounter Summary ---
Author Organization [employer] Address [address] [place] [address] Care Team Providers Care Crystal Grinder Name Role Phone Bertha Evans MD Primary Care Provider + Zackery Ohara PharmD Unavailable [phone] Reason for Visit * Reason Onset Date Comments FYI 01/13/2024 Encounter Details Date Type Department Care Team ([facility] st Contact Info) Description 01/13/2024 Telephone [facility] MEDICINE [address] [place], [place] [phone] Bertha Evans MD [address] [place], [place] [phone] FYI Social History Tobacco Use Types Packs/Day [...] the past 12 months, has t he [employer], gas, oil or water company threatened to [...] EDT Call to Marla Busby, spoke with MANAGER LAB in regards to below. Reports pt having left arm pain and weakness that is the same as when discharged. No swelling. No increased weakness. Per MANAGER LAB aware of upcoming appt tomorrow with PCP for HDF post CVA. Advised to seek ER if pain becomes severe, worsening weakness, or worsening confusion. MANAGER LAB agrees. Sent to PCP and team to follow up PRN prior to upcoming appt. Future Appointments Date Time Provider Department Center 01/14/2024 1:30 PM Bertha Evans MD MEDICINE [facility] 01/31/2024 12:00 PM Bertha Evans MD MEDICINE [facility] * Telephone Encounter - iTmo Melgoza - 01/13/2024 9:36 AM EDT Tc [...] Description 10/11/2025 2:30 PM EST Medication Management [facility] [address] [place] [id number] Zackery Ohara, Xavi [address] [place] [id number] 12/16/2025 10:30 AM EST Office Visit [facility] [address] [place] [address] [phone] Bertha Evans MD [address] [place] [phone] documented as of this encounter Visit Diagnoses Not on filedocumented in this encounter Additional Health Concerns Assessment Noted Time PHQ-9 Depression Total Score: 8 12/14/19 23 1:38 PM EST documented as of this encounter Care Teams Crystal Grinder Relationship Specialty Start Date End Date Bertha Evans MD [address] [place] [address] [phone] PCP - General Family Medicine 09/10/19 Zackery Ohara, PharmSeema [address] [place] [address] [phone] Pharmacist Internal Medicine 02/16/25 [facility] 12/17/23 documented as of this encounter
--- OUTSIDE RECORDS SUMMARY | 2025-10-01 20:13 | XMS_ITS | Encounter Summary ---
Author Organization [employer] Address [address] [place] [address] Care Team Providers Care Women Nurse Name Role Phone Bertha Evans MD Primary Care Provider + Zackery Ohara PharmD Unavailable [phone] Reason for Visit * Reason Comments Med Refill Encounter Details Date Type Department Care Team (Late st Contact Info) Description 10/10/2023 Refill [facility] MEDICINE [address] [place], [place] [phone] Bertha Evans MD [address] [place], [place] [phone] Moderate episode of recurrent major depressive disorder [...] Description 10/11/2025 2:30 PM EST Medication Management [address] [address] Zackery Ohara, JosesitoD [address] [place] [phone] 12/16/2025 10:30 AM EST Office Visit [address] [address] Bertha Evans MD [address] [place] [phone] documented as of this encounter Visit Diagnoses Diagnosis Moderate episode of recurrent major depressive disorder (CMS/HCC) (HCC) Depressive disorder Depressive disorder, not elsewhere classified documented in this encounter Additional Health Concerns Assessment Noted Time PHQ-9 Depression Total Score: 8 12/14/19 23 1:38 PM EST documented as of this encounter Care Teams Women Nurse Relationship Specialty Start Date End Date Bertha Evans MD [address] [place] [address] PCP - General Family Medicine 09/10/19 Zackery Ohara, PharmD [address] [place] [phone] Pharmacist Internal Medicine 02/16/25 [facility] 12/17/23 documented as of this encounter
== END 2025-10-01 15:18 | disposition home or self-care (01) ==
LOC: HO.HKASLDS 15:17
PROVIDERS: PCP Internal Medicine; Visit Provider Internal Medicine Nephrology
DX: I12.9 Hypertensive chronic kidney disease with stage 1 through stage 4 chronic kidney disease, or unspecified chronic kidney disease (principal); N18.31 Chronic kidney disease, stage 3a
CPT/HCPCS: 36415; 80051; 82565; 84520